=== PATIENT | female | born 1995 | race Caucasian/White ===

== ENCOUNTER 2022-10-15 12:15 | Observation (INO) | payer OTHER, SELFPAY ==
[2022-10-15] VITALS (7 sets, daily range): BP systolic 114–149; BP diastolic 63–101; PULSE 68–81
[2022-10-15 13:02] LABS: Bilirubin Urine NEGATIVE (NEGATIVE); Blood Urine LARGE (NEGATIVE); Clarity Urine CLEAR (CLEAR); Color Urine LT. YELLOW (YELLOW); Glucose Urine UA NEGATIVE (NEGATIVE); Ketones Urine NEGATIVE (NEGATIVE); Leukocyte Esterase Urine NEGATIVE (NEGATIVE); Nitrite Urine NEGATIVE (NEGATIVE); Protein Urine NEGATIVE (NEG/TRACE); Specific Gravity Urine 1.015 (1.005-1.025); Urine Microscopic Indicated YES; Urobilinogen Urine 0.2 EU/dL (0.2-1.0)
--- NOTE | 2022-10-15 13:03 | US_ITS ---
[address] [address] Patient Name: GUILLERMO PACE MRN: [id number] date: 1995 Sex: F Assigned Patient Location: [facility] Current Patient Location: [facility] Accession/Order Number: [id number] Exam Date: 10/15/2022 13:05 Report Date: 10/15/2022 13:50 At the request of: KARSTEN LUNA Procedure: US OB cervical length EXAMINATION: US OB cervical length, US OB BPP w non-stress, US OB placenta HISTORY: bleeding COMPARISON: No relevant comparison available. COMPARISON: No relevant comparison available. TECHNIQUE: Ultrasound biophysical profile was performed in the radiology department. Cervix length, Placenta FINDINGS: CERVIX: 2.6 cm, 6 mm funneling of internal os. Minimal fluid in endocervical canal up to mm. PLACENTA: Posterior, grade 1, no intra or retroplacental abnormality observed BREATHING MOVEMENTS: 2.0 GROSS BODY MOVEMENTS: 2.0 TONE: 2.0 QUALITATIVE AMNIOTIC FLUID VOLUME: 2.0 POSITION: Cephalic presentation, longitudinal lie HEART RATE: 131.1 bpm H.B./min AMNIOTIC FLUID VOLUME: 11.5 cm cm GESTATIONAL AGE: 36 weeks 1 days CONCLUSION: Total biophysical profile score: 8.0 Short cervix measuring 2.6 cm Normal placenta Electronically authenticated by: DAYRON AYON Date: 10/15/2022 13:50
--- NOTE | 2022-10-15 13:03 | US_ITS ---
[address] [address] Patient Name: GUILLERMO PACE MRN: [id number] date: 1995 Sex: F Assigned Patient Location: [facility] Current Patient Location: [facility] Accession/Order Number: [id number] Exam Date: 10/15/2022 13:05 Report Date: 10/15/2022 13:50 At the request of: KARSTEN LUNA Procedure: US OB placenta EXAMINATION: US OB cervical length, US OB BPP w non-stress, US OB placenta HISTORY: bleeding COMPARISON: No relevant comparison available. COMPARISON: No relevant comparison available. TECHNIQUE: Ultrasound biophysical profile was performed in the radiology department. Cervix length, Placenta FINDINGS: CERVIX: 2.6 cm, 6 mm funneling of internal os. Minimal fluid in endocervical canal up to mm. PLACENTA: Posterior, grade 1, no intra or retroplacental abnormality observed BREATHING MOVEMENTS: 2.0 GROSS BODY MOVEMENTS: 2.0 TONE: 2.0 QUALITATIVE AMNIOTIC FLUID VOLUME: 2.0 POSITION: Cephalic presentation, longitudinal lie HEART RATE: 131.1 bpm H.B./min AMNIOTIC FLUID VOLUME: 11.5 cm cm GESTATIONAL AGE: 36 weeks 1 days CONCLUSION: Total biophysical profile score: 8.0 Short cervix measuring 2.6 cm Normal placenta Electronically authenticated by: DAYRON AYON Date: 10/15/2022 13:50
--- NOTE | 2022-10-15 13:11 | US_ITS ---
[address] [address] Patient Name: GUILLERMO PACE MRN: [id number] date: 1995 Sex: F Assigned Patient Location: [facility] Current Patient Location: [facility] Accession/Order Number: [id number] Exam Date: 10/15/2022 13:05 Report Date: 10/15/2022 13:50 At the request of: KARSTEN LUNA Procedure: US OB BPP w non-stress EXAMINATION: US OB cervical length, US OB BPP w non-stress, US OB placenta HISTORY: bleeding COMPARISON: No relevant comparison available. COMPARISON: No relevant comparison available. TECHNIQUE: Ultrasound biophysical profile was performed in the radiology department. Cervix length, Placenta FINDINGS: CERVIX: 2.6 cm, 6 mm funneling of internal os. Minimal fluid in endocervical canal up to mm. PLACENTA: Posterior, grade 1, no intra or retroplacental abnormality observed BREATHING MOVEMENTS: 2.0 GROSS BODY MOVEMENTS: 2.0 TONE: 2.0 QUALITATIVE AMNIOTIC FLUID VOLUME: 2.0 POSITION: Cephalic presentation, longitudinal lie HEART RATE: 131.1 bpm H.B./min AMNIOTIC FLUID VOLUME: 11.5 cm cm GESTATIONAL AGE: 36 weeks 1 days CONCLUSION: Total biophysical profile score: 8.0 Short cervix measuring 2.6 cm Normal placenta Electronically authenticated by: DAYRON AYON Date: 10/15/2022 13:50
[2022-10-15 13:14] LABS: Bacteria Urine NONE SEEN #/HPF (NONE SEEN); Cast Seen? NONE SEEN #/LPF (NONE SEEN); Crystals Seen? None Seen #/HPF (None Seen); Mucus Urine TRACE (NONE SEEN); Squamous Epithelial Cell Urine MODERATE #/LPF (NONE/RARE); Urine Culture Indicated NO; WBC Urine 0-2 #/HPF (NONE SEEN)
[2022-10-15] MEDS: 0.9 % SODIUM CHLORIDE 1,000 ML 125 ML IV (13:42)
[2022-10-15 13:45] LABS: Basophils Percent Auto 0.3 % (0.2-2.0); Eosinophils Percent Auto 0.3 % (0.9-7.0); Hematocrit 32.4 % (36.0-48.0); Hemoglobin 11.1 g/dL (12.0-16.0); Lymphocytes Absolute Auto 1.5 10^3/uL (1.2-3.8); Lymphocytes Percent Auto 14.5 % (20.5-60.0); Mean Corpuscular HGB Conc 34.3 g/dL (29.9-35.2); Mean Corpuscular Hemoglobin 29.5 pg (26.7-34.0); Mean Corpuscular Volume 86.2 fL (81.0-99.0); Mean Platelet Volume 10.9 fL (9.5-13.5); Monocytes Absolute Auto 0.5 10^3/uL (0.3-0.8); Monocytes Percent Auto 5.3 % (1.7-12.0); Neutrophils Absolute Auto 7.9 10^3/uL (1.4-6.5); Neutrophils Percent Auto 78.6 % (43.0-75.0); Platelet Count 168 10^3/uL (150-450); Red Blood Count 3.76 10^6/uL (4.20-5.40); Red Cell Distribution Width 13.4 % (11.0-15.0)
[2022-10-15 14:00] LABS: Alanine Aminotransferase 16 U/L (14-59); Albumin Globulin Ratio 0.6; Albumin Level 2.5 g/dL (3.4-5.0); Alkaline Phosphatase 99 U/L (46-116); Aspartate Amino Transferase 22 U/L (15-37); Bilirubin Total 0.5 mg/dL (0.2-1.0); Calcium 8.3 mg/dL (8.5-10.1); Carbon Dioxide 22.8 mmol/L (21.0-32.0); Chloride 104 mmol/L (98-107); Estimated GFR (African America >60 (>=60); Estimated GFR (Non-African Ame >60 (>=60); Glucose 91 mg/dL (74-106); Lactate Dehydrogenase 179 U/L (81-234); Potassium 3.8 mmol/L (3.5-5.1); Sodium 137 mmol/L (136-145); Total Protein 6.5 g/dL (6.4-8.2); Uric Acid 3.3 mg/dL (2.6-6.0)
== END 2022-10-15 16:15 | disposition home or self-care (01) ==
PROVIDERS: Admitting Provider Obstetrics & Gynecology; PCP Family Medicine; Visit Provider Obstetrics & Gynecology
DX: O26.893 Other specified pregnancy related conditions, third trimester (principal); R10.9 Unspecified abdominal pain; H53.8 Other visual disturbances; R42 Dizziness and giddiness; O26.873 Cervical shortening, third trimester; O46.93 Antepartum hemorrhage, unspecified, third trimester; Z3A.36 36 weeks gestation of pregnancy
CPT/HCPCS: 36415; 76815; 76817; 76818; 80053; 81003; 81015; 83615; 84550; 85025; 96372; G0378; G0379; J0702

== ENCOUNTER 2022-10-16 14:19 | Outpatient (OUT) | payer OTHER, SELFPAY ==
--- NOTE | 2022-10-16 14:45 | PC.NURSE ---
1440- Pt. arrives for Celestone administration. Pt. verified and Celestone 12mg IM given in L DG.VS- 133/88-87-98.1
== END 2022-10-16 14:47 | disposition home or self-care (01) ==
PROVIDERS: PCP Family Medicine; Visit Provider Obstetrics & Gynecology
DX: O26.879 Cervical shortening, unspecified trimester (principal); Z3A.00 Weeks of gestation of pregnancy not specified
CPT/HCPCS: 96372; J0702

== ENCOUNTER 2022-10-19 20:24 | Outpatient (REF) | payer OTHER, SELFPAY | END 2022-10-19 20:25 | disposition home or self-care (01) | LOC: LAB 20:24 | PROVIDERS: PCP Family Medicine; Visit Provider Obstetrics & Gynecology | DX: Z34.93 Encounter for supervision of normal pregnancy, unspecified, third trimester (principal) | CPT/HCPCS: 87081; 87150 ==

== ENCOUNTER 2022-11-06 05:34 | Inpatient (IN) | payer OTHER, SELFPAY ==
[2022-11-06] VITALS (22 sets, daily range): BP systolic 113–140; BP diastolic 63–86; PULSE 67–88; RESP 15–18; TEMP 36.6–36.9
[2022-11-06] MEDS: 0.9 % SODIUM CHLORIDE 1,000 ML 125 ML IV (06:20)
[2022-11-06] MEDS: AMPICILLIN SODIUM 2,000 MG in 0.9 % SODIUM CHLORIDE 100 ML 200 MG IV (06:32)
[2022-11-06] MEDS: ONDANSETRON PF 4 MG/2 ML VIAL IV (06:37)
[2022-11-06 06:43] LABS: Hemoglobin 11.2 g/dL (12.0-16.0); Mean Corpuscular HGB Conc 33.9 g/dL (29.9-35.2); Mean Corpuscular Hemoglobin 30.1 pg (26.7-34.0); Mean Corpuscular Volume 88.7 fL (81.0-99.0); Mean Platelet Volume 11.4 fL (9.5-13.5); Platelet Count 171 10^3/uL (150-450); Red Blood Count 3.72 10^6/uL (4.20-5.40); Red Cell Distribution Width 13.7 % (11.0-15.0); White Blood Count 13.6 10^3/uL (4.0-11.0)
[2022-11-06 06:54] LABS: Amphetamine Screen Urine NEGATIVE (NEGATIVE); Barbiturates Screen Urine NEGATIVE (NEGATIVE); Benzodiazepines Screen Urine NEGATIVE (NEGATIVE); Cannabinoid Screen Urine NEGATIVE (NEGATIVE); Cocaine Screen Urine NEGATIVE (NEGATIVE); Methadone Screen Urine NEGATIVE (NEGATIVE); Methamphetamines Screen Urine NEGATIVE (NEGATIVE); Opiate Screen Urine NEGATIVE (NEGATIVE); Phencyclidine Screen Urine NEGATIVE (NEGATIVE); Tricyclic Antidepressant Urine NEGATIVE (NEGATIVE)
[2022-11-06 06:55] LABS: Buprenorphine Screen Urine NEGATIVE (NEGATIVE); Oxycodone Screen Urine NEGATIVE (NEGATIVE)
--- NOTE | 2022-11-06 08:23 | PM.OBPRCVD ---
Procedure events: Meconium Stained Fluid Intrapartal events: None Induction method: none Delivery monitor: external FHT and external uterine Route of delivery: Episiotomy Description: none Laceration description: none Anesthesia type: None Disposition: no change Complications: PRIMIP AT 39.2 WEEKS WITH SPONTANEOUS LABOR. NO EPIDURAL. NO PITOCIN. AMNIOTIC SAC RUPTURED WHEN FOR PARTICULTE MECONIUM. DID RECEIVE ONE DOSE OF AMPICILLIN FOR POSITIVE GBS. DELIVERED WITHOUT COMPLICATION A VIABLE MALE CRYING ON DELIVERY. MOUTH AND NARES BULB SUCTIONED. REFER TO NURSING NOTES FOR SCORED. TOTAL LENGTH OF LABOR 5 HOURS AND 26 MIN. PLACENTA SPONTANEOUSLY DELIVERED INTACT AND SENT TO PATHOLOGY FOR MECONIUM AND THIN UMBILICAL CORD. PERINEUM INTACT. EBL 50 CC. INSTRUMENT AND SPONGE COUNT CORRECT. Infant Delivery date: 11/06/22 Gender: male presentation: vertex Placental delivery description: Spontaneous cord description: 3 Vessels
--- NOTE | 2022-11-06 08:37 | PM.OBHP ---
OB - H&P: HPI History of Present Illness Chief complaint: POSS LABOR : 1 Para: 0 Gestational age based on last menstrual period: 39.2 History of Present Dating criteria: LMP confirmed by 2nd trimester US care: good care Ultrasounds: normal mid trimester US Medical complications OB: none Labs Blood type: O (+) positive Rubella: immune RPR/VDLR: nonreactive GBS status: positive HBsAG: negative Review of Systems ROS Status of ROS 10 or more systems reviewed and unremarkable except as noted in history and below Meds Home Medications and Allergies Allergies Allergy/AdvReac Type Severity Reaction Status Date / Time pollen extracts Allergy Intermediate Verified 11/06/22 06:30 Exam Constitutional Vital Signs, click to edit/add: Last Vital Signs Temp 97.9 F 11/06/22 06:23 Pulse 86 11/06/22 08:26 Resp 18 11/06/22 06:23 BP 130/77 H 11/06/22 08:26 O2 Del Method Room Air 11/06/22 06:23 HENMT Common normals: normocephalic and head/scalp atraumatic Head and scalp: normal to inspection Eye Common normals: PERRL and EOMs intact bilaterally Neck & C-Spine Common normals: full ROM Respiratory Common normals: normal respiratory effort and clear to auscultation bilaterally Cardio Common normals: regular rate and regular rhythm GI Inspection: normal to inspection (GRAVID UTERUS, ABDOMENT SOFT, NORMAL BOWEL SOUNDS, NONTENDER) Back & Pelvis Common normals: no CVA tenderness Extremity Common normals: normal to inspection and full ROM Neuro Common normals: oriented x3 and CN's II-XII intact bilaterally Psych Common normals: mental status grossly normal, thought process normal, cooperative and affect normal Results Labs Labs: Short CBC 11/06/22 Range/Units 06:14 WBC 13.6 H (4.0-11.0) 10^3/uL Hgb 11.2 L (12.0-16.0) g/dL Hct 33.0 L (36.0-48.0) % Plt Count 171 (150-450) 10^3/uL OB - A/P Assessment and Plan (1) Normal vaginal delivery: Assessment and Plan: UNCOMPLICATED VAGINAL DELIVERY AT TERM. NO EPIDURAL. NO PERINEAL TEAR. VIABLE MALE. SEE NURSING NOTES FOR APGARS. PLACENTA SENT TO PATHOLOGY FOR MECONIUM AND THIN UMBILICAL CORD. EBL 50 CC. Plan ROUTINE CARE.
--- NOTE | 2022-11-06 15:39 | PC.NURSE ---
1100 Up to BR, stable, pericare done and taught to pt, bedlinens changed and returns to bed
[2022-11-07 06:47] LABS: Basophils Percent Auto 0.2 % (0.2-2.0); Eosinophils Absolute Auto 0.1 10^3/uL (0.0-0.7); Eosinophils Percent Auto 0.6 % (0.9-7.0); Hematocrit 32.1 % (36.0-48.0); Hemoglobin 11.1 g/dL (12.0-16.0); Immature Granulocytes Abs Auto 0.09 10^3/uL (0.00-0.03); Immature Granulocytes Pct Auto 0.7 % (0.0-0.5); Lymphocytes Absolute Auto 2.1 10^3/uL (1.2-3.8); Lymphocytes Percent Auto 16.1 % (20.5-60.0); Mean Corpuscular HGB Conc 34.6 g/dL (29.9-35.2); Mean Corpuscular Hemoglobin 30.4 pg (26.7-34.0); Mean Corpuscular Volume 87.9 fL (81.0-99.0); Mean Platelet Volume 10.7 fL (9.5-13.5); Monocytes Absolute Auto 0.6 10^3/uL (0.3-0.8); Monocytes Percent Auto 4.9 % (1.7-12.0); Neutrophils Absolute Auto 9.8 10^3/uL (1.4-6.5); Neutrophils Percent Auto 77.5 % (43.0-75.0); Platelet Count 170 10^3/uL (150-450); Red Blood Count 3.65 10^6/uL (4.20-5.40); Red Cell Distribution Width 13.9 % (11.0-15.0); White Blood Count 12.7 10^3/uL (4.0-11.0)
[2022-11-07 09:10] VITALS: RESP 16; TEMP 36.7
[2022-11-07 09:46] VITALS: BP 125/79; PULSE 65
--- NOTE | 2022-11-07 11:06 | PM.OBPN ---
OB - PN: Subj Subjective Patient comments: no complaints, pain well controlled and tolerating diet [place] status: doing well and well [place] feeding status: exclusively Exam Constitutional Vital Signs, click to edit/add: Last Vital Signs Temp 98.1 F 11/07/22 09:10 Pulse 65 11/07/22 09:46 Resp 16 11/07/22 09:10 BP 125/79 H 11/07/22 09:46 O2 Del Method Room Air 11/06/22 23:25 Common normals: no apparent distress, oriented x3, no limitations, healthy appearing, alert and well nourished [facility] Common normals: normocephalic and head/scalp atraumatic Eye Common normals: PERRL and EOMs intact bilaterally Neck & C-Spine Common normals: full ROM Chest Common normals: inspection of chest normal Respiratory Common normals: normal respiratory effort Auscultation: clear to auscultation bilaterally Cardio Common normals: regular rate and regular rhythm GI Common normals: Normal to inspection, nondistended, normoactive bowel sounds present Common normals: no CVA tenderness OB/external & speculum: external exam normal and other (normal lochia) Extremity Common normals: full ROM and no calf tenderness Neuro Common normals: oriented x3 and CN's II-XII intact bilaterally Motor exam: strength 5/5 throughout Psych Common normals: mental status grossly normal, thought process normal, cooperative and affect normal Appearance: grossly normal and well kempt Attitude: calm Thought process: normal thought process Results Labs Labs: Short CBC 11/07/22 Range/Units 06:42 WBC 12.7 H (4.0-11.0) 10^3/uL Hgb 11.1 L (12.0-16.0) g/dL Hct 32.1 L (36.0-48.0) % Plt Count 170 (150-450) 10^3/uL OB - PN: A/P Assessment and Plan (1) Normal vaginal delivery: Assessment and Plan: Doing well, voicing no complaints. Ambulating, eating and eliminating normally. Breast feeding. Normal lochia. Plan - Vaginal Delivery Plan: routine care Comment: anticipate discharge tomorrow Time Spent with Patient Time: Total time spent is greater than 50% in coordination of care (as documented) at patient's floor/unit and/or counseling patient: Total time spent with greater than 50% in coordination of care (as documented) at patient's floor/unit and/or counseling patient: less than 15 minutes
--- NOTE | 2022-11-15 14:22 | SWNOTE1 ---
SW was consulted due to history of drug use. Pt was negative on admission. Cord was sent out on baby and the cord was negative for all substances. At this time no report to CPS was made.
== END 2022-11-07 13:10 | disposition home or self-care (01) | DRG 807 ==
PROVIDERS: Admitting Provider Obstetrics & Gynecology; PCP Family Medicine; Visit Provider Obstetrics & Gynecology
DX: O99.824 Streptococcus B carrier state complicating childbirth (principal); Z37.0 Single live birth; O34.43 Maternal care for other abnormalities of cervix, third trimester; O77.0 Labor and delivery complicated by meconium in amniotic fluid; O69.9XX0 Labor and delivery complicated by cord complication, unspecified, not applicable or unspecified; Z3A.39 39 weeks gestation of pregnancy
CPT/HCPCS: 36415; 59025; 59050; 59410; 80307; 85025; 85027; 86850; 86900; 86901; 88307; 96374; 96375

== ENCOUNTER 2024-05-11 11:15 | Outpatient (OUT) | payer MEDICAID, SELFPAY ==
[2024-05-11 12:21] LABS: BOX Test Reference Lab UNITY; BOX Test Sent Out UNITY BOX; Estimated Average Glucose 91 mg/dL; Glycohemoglobin A1C 4.8 % (4.5-6.2)
[2024-05-11 12:53] LABS: Amphetamine Screen Urine NEGATIVE (NEGATIVE); Barbiturates Screen Urine NEGATIVE (NEGATIVE); Benzodiazepines Screen Urine NEGATIVE (NEGATIVE); Buprenorphine Screen Urine NEGATIVE (NEGATIVE); Cannabinoid Screen Urine POSITIVE (NEGATIVE); Cocaine Screen Urine NEGATIVE (NEGATIVE); Methadone Screen Urine NEGATIVE (NEGATIVE); Methamphetamines Screen Urine NEGATIVE (NEGATIVE); Opiate Screen Urine NEGATIVE (NEGATIVE); Oxycodone Screen Urine NEGATIVE (NEGATIVE); Phencyclidine Screen Urine NEGATIVE (NEGATIVE); Tricyclic Antidepressant Urine NEGATIVE (NEGATIVE)
[2024-05-11 13:00] LABS: Basophils Percent Auto 0.4 % (0.2-2.0); Eosinophils Absolute Auto 0.1 10^3/uL (0.0-0.7); Eosinophils Percent Auto 0.5 % (0.9-7.0); Hematocrit 34.3 % (36.0-48.0); Hemoglobin 11.5 g/dL (12.0-16.0); Immature Granulocytes Abs Auto 0.04 10^3/uL (0.00-0.03); Immature Granulocytes Pct Auto 0.4 % (0.0-0.5); Lymphocytes Absolute Auto 1.9 10^3/uL (1.2-3.8); Lymphocytes Percent Auto 19.9 % (20.5-60.0); Mean Corpuscular HGB Conc 33.5 g/dL (29.9-35.2); Mean Corpuscular Hemoglobin 29.1 pg (26.7-34.0); Mean Corpuscular Volume 86.8 fL (81.0-99.0); Mean Platelet Volume 10.7 fL (9.5-13.5); Monocytes Absolute Auto 0.4 10^3/uL (0.3-0.8); Monocytes Percent Auto 3.7 % (1.7-12.0); Neutrophils Absolute Auto 7.2 10^3/uL (1.4-6.5); Neutrophils Percent Auto 75.1 % (43.0-75.0); Platelet Count 217 10^3/uL (150-450); Red Blood Count 3.95 10^6/uL (4.20-5.40); Red Cell Distribution Width 13.4 % (11.0-15.0); White Blood Count 9.6 10^3/uL (4.0-11.0)
[2024-05-12 05:07] LABS: HCV Ab Non Reactive (Non Reactive); HIV Ab/p24 Ag Screen Non Reactive (Non Reactive); Rubella Antibodies, IgG 3.32 index (Immune >0.99)
[2024-05-12 06:08] LABS: HBsAg Screen Negative (Negative)
[2024-05-12 12:09] LABS: Rapid Plasma Reagin, Quant Non Reactive titer (NonRea<1:1)
== END 2024-05-11 11:16 | disposition home or self-care (01) ==
LOC: LAB 11:36
PROVIDERS: PCP Family Medicine; Visit Provider Obstetrics & Gynecology
DX: Z34.01 Encounter for supervision of normal first pregnancy, first trimester (principal); N92.6 Irregular menstruation, unspecified; Z36.0 Encounter for antenatal screening for chromosomal anomalies
CPT/HCPCS: 36415; 80307; 80349; 83036; 85025; 86592; 86762; 86803; 86850; 86900; 86901; 87086; 87340; 87389

== ENCOUNTER 2024-06-26 10:56 | Outpatient (OUT) | payer MEDICAID, SELFPAY ==
--- OUTSIDE RECORDS SUMMARY | 2024-06-26 11:08 | XMS_ITS | CCD ---
Author Organization [facility] Care Team Providers Care Automobile Rental Agent Name Role Phone MARGARETTE ., DR VICTOR Consulting Unavailable DEFRANCE, DR PADGETT Primary Care Unavailable MARGARETTE ., DR VICTOR Attending Unavailable MARGARETTE ., DR VICTOR Admitting Unavailable REQUEST, DR PISANO LISTED Consulting Unavaila ble DEFRANCE, DR PADGETT Primary Care Unavailable MARGARETTE ., DR VICTOR Attending Unavailable MARGARETTE ., DR VICTOR Admitting Unavailable HAY ., DR MCKEON Consulting Unavailable DEFRANCE, DR PADGETT Primary Care Unavailable HAY ., DR MCKEON Attending Unavailable HAY ., DR MCKEON Admitting Unavailable SHANTHI ZAIDI Consulting Unavailable MARGARETTE ., DR VICTOR Consulting Unavailable DEFRANCE, DR PADGETT Primary Care Unavailable MARGARETTE ., DR VICTOR Attending Unavailable MARGARETTE ., DR VICTOR Admitting Unavailable WEST, DR PADGETT Consulting Unavailable DEFRANCE, DR PADGETT Primary Care Unavailable GEOVANNA ., ANITA Attending Unavailable GEOVANNA ., ANITA Admitting Unavailable GEOVANNA ., ANITA Consulting Unavailable GEOVANNA ., ANITA Consulting Unavailable DEFRANCE, DR PADGETT Primary Care Unavailable GEOVANNA ., ANITA Attending Unavailable GEOVANNA ., ANITA Admitting Unavailable MARGARETTE ., DR VICTOR Consulting Unavailable REQUEST, DR NONE LISTED Primary Care Unavaila ble MARGARETTE ., DR VICTOR Attending Unavailable MARGARETTE ., DR VICTOR Admitting Unavailable MARGARETTE ., DR VICTOR Consulting Unavailable MARGARETTE ., DR VICTOR Attending Unavailable MARGARETTE ., DR VICTOR Admitting Unavailable ZIEBER, DR LOLIS Rascon Consulting Unavailable MARGARETTE ., DR VICTOR Consulting Unavailable REQUEST, DR NONE LISTED Primary Care Unavaila ble MARGARETTE ., DR VICTOR Attending Unavailable MARGARETTE ., DR VICTOR Admitting Unavailable MARGARETTE ., DR VICTOR Consulting Unavailable REQUEST, DR NONE LISTED Primary Care Unavaila ble MARGARETTE ., DR VICTOR Attending Unavailable MARGARETTE ., DR VICTOR Admitting Unavailable Unavailable Primary Care Provider UnavailEDWARD Bustamante Attending Unavailable ADALID KONG Primary Care Unavailable Dayron Kimbrough MD Primary Care Provider VALENTE PFEIFFER Attending Unavailable Allergies Allergy Classification Reported Allergen(s) Allergy Type Date of Onset Reaction(s) Facility (5 sources) Pollen Allergy to substance 09-15-2022 Unknown [facility] Work Phone: Medications Current Medications Medication Drug Class(es) Dates Sig (Normalized) Sig (Original) ondansetron 4 mg disintegrating oral tablet (10 sources) Serotonin-3 Receptor Antagonist Start: 04-20-2024 End: 06-14-2024 take 1 tablet by mouth every six hours for nausea ondansetron ODT (Zofran-ODT) 4 MG disintegrating tablet Indications: Nausea and vomiting in Take 1 tablet (4 mg) by mouth every 6 (six) hours if needed for nausea or vomiting 30 tablet 2 05/15/2024 06/14/2024 Active Start: 04-12-2024 take 1 tablet by victor hugo th every eight hours as needed ondansetron (Zofran) 4 MG tablet Take 4 mg by mouth every 8 (eight) hours if needed 04/12/2024 Active MV-Min-Fe Fum-FA-DH A ( 1 PO) (5 sources) MV-Min- Fe Fum-FA-DHA ( 1 PO) Take by mouth. Active Completed/Discontinued Medications Medication Drug Class(es) Dates Sig (Normalized) Sig (Original) norethindrone 0.35 mg oral tablet (1 source) Start: 12-23-2022 End: 04-24-2024 take 1 tablet by mouth in the morning norethindrone (Micronor) 0.35 MG tablet Indications: 6 weeks follow-up Take 1 tablet (0.35 mg) by mouth in the morning. 28 tablet 11 12/23/2022 04/24/2024 Discontinued (Therapy completed) Problems Active Problems Problem Classification Problem Date Documented Date Episodic/Chronic Diabetes mellitus without complication (4 sources) Impaired glucose tolerance (oral); Translations: [IMPAIRED GLUCOSE TOLERANCE ORAL] Onset: 08-06-2022 Episodic Immunizations and screening for infectious disease (1 source) Contact with and (suspected) exposure to infections with a predominantly sexual mode of transmission; Translations: [CONTCT W EXPOS INFECT SEXUAL TRNSMS] Onset: 06-17-2022 Episodic Menstrual disorders (5 sources) Irregular menstruation, unspecified; Translations: [Missed period] Onset: 05-06-2022 Chronic Other complications of (1 source) Vomiting of , unspecified; Translations: [Vomiting of , unspecified] Onset: 04-12-2024 Episodic Other female genital disorders (5 sources) Vaginal bleeding; Translations: [Abnormal uterine and vaginal bleeding, unspecified] Onset: 10-22-2022 10-22-2022 Chronic Other female genital disorders (1 source) Other specified noninflammatory disorders of vagina; Translations: [OTH SPEC NONINFLAMMATORY D/O VAGINA] Onset: 06-17-2022 Episodic Other and delivery including normal (14 sources) Encounter for supervision of normal , unspecified, second trimester; Translations: [Encounter for supervision of other normal , first trimester] Onset: 04-22-2022 Episodic Other screening for suspected conditions (not mental disorders or infectious disease) (5 sources) Encounter for screening, unspecified; Translations: [Encounter for screening for malignant neoplasm of cervix] Onset: 06-14-2022 Episodic Residual codes; unclassified (1 source) Finding related to blood, organ, or tissue donation; Translations: [Liver donor] 01-11-2024 Episodic Residual codes; unclassified (1 source) Gestation period, 11 weeks; Translations: [11 weeks gestation of ] 04-27-2024 Episodic Residual codes; unclassified (2 sources) Gestation period, 15 weeks; Translations: [15 weeks gestation of ] 05-29-2024 Episodic Substance-related disorders (1 source) Nicotine dependence, cigarettes, uncomplicated; Translations: [NICOTINE DEPEND CIGARETTES UNCOMP] Onset: 05-31-2022 Chronic Unclassified (1 source) Vomiting During Onset: 04-12-2024 Unclassified (1 source) VOMITING, 9 WKS Onset: 04-12-2024 Past or Other Problems Problem Classification Problem Date Documented Da te Episodic/Chronic Hemorrhage during ; abruptio placenta; placenta previa (4 sources) Antepartum hemorrhage, unspecified, second trimester; Translations: [ANTEPARTUM HEMORR UNS 2ND TRIMESTER] Onset: 05-29-2022 Episodic Other complications of (1 source) Smoking (tobacco) complicating , second trimester; Translations: [SMOKING TOBACCO COMP PREG 2ND TRI] Onset: 05-31-2022 Episodic Residual codes; unclassified (1 source) 15 weeks gestation of ; Translations: [15 WEEKS GESTATION OF ] Onset: 05-31-2022 Episodic Residual codes; unclassified (1 source) 10 weeks gestation of ; Translations: [10 WEEKS GESTATION OF ] Onset: 04-22-2022 Episodic Results Test Name Value Interpretation Reference Range Facility Urinalysis macro (dipstick) panel (U)on 05-29-2024 Bilirubin, UA Negative Negative - 4(70) +++ mg/dL [facility] Blood, UA Negative Negative - 50 Wali/mcL [facility] Clarity, UA Clear [facility] Color, UA Yellow [facility] Glucose, UA Negative Negative - 2000(110) ++++ mg/dL [facility] Interpretation and review of laboratory results Normal [facility] Ketones, UA Negative Negative - 160(16) ++++ mg/dL [facility] Leukocytes, UA Negative Negative - 500+++ Dmitriy/mcL [facility] Nitrite, UA Negative Negative - Positive [facility] pH, UA 6 5 - 9 [facility] Protein, UA Negative Negative - 2000(20) ++++ mg/dL [facility] Spec Grav, UA 1.03 1 - 1.03 [facility] Urobilinogen, UA 0.2 0.2 - 12 mg/dL Critical [facility] hospital BOX TESTon 05-11-2024 BOX TEST SENT OUT [facility] BOX1 [facility] BOX2 05/11/24 [facility] HCG ( test) Ql (U)o n 04-27-2024 Interpretation and review of laboratory results Abnormal [facility] Preg Test, Ur Positive Negative Critical [facility] hospital US OB TRANSVAGINALon 025 US OB TRANSVAGINAL TITLE OF EXAM: US OB TRANSVAGINAL REASON FOR EXAM: Dates TECHNIQUE: Grayscale, color, and M-mode Doppler evaluation of the pelvis COMPARISON: None. PATIENT : 1995 PREGNANCIES: : 2, Para: 1, Aborta: 0 LMP: 02/10/2024 LES by LMP: 11/16/2024 GA by LMP: 11 weeks, 0 days FINDINGS: AUA: 11 weeks, 4 days (+/-7 days) LES by US: 11/12/2024 Uterus: There is a gestational sac and 0.4 cm yolk sac within the uterine body/fundus. Live embryo within the gestational sac without evident abnormality. Gestational sac of 4.8 x 2.4 x 6.1 cm (10 weeks, 0 days). [place] rump length is 4.8 cm (11 weeks, 4 days). heart rate is 168 bpm. No appreciable subchorionic hemorrhage or other abnormality. Cervical length 4.0 cm. No appreciable funneling. Right ovary: 2.8 x 1.4 x 3.0 cm (volume 5.0 mL). Present color flow. No appreciable nodule/mass. Left ovary: 3.0 x 1.8 x 2.3 cm (volume 6.4 mL). Present color flow. No appreciable nodule/mass. IMPRESSION: Single live intrauterine gestation sonographically measuring 11 weeks, 4 days. No appreciable abnormality of the evaluated and maternal structures. DICTATED ON: 04/27/2024 9:31 AM This report has been electronically signed and approved by the interpreting radiologist. Normal Not Available Comment on above: Order Comment: US OB TRANSVAGINAL No LMP recorded. Urinalysis macro (dipstick) panel (U)on 04-27-2024 Bilirubin, UA Negative Negative - 4(70) +++ mg/dL [facility] Blood, UA Negative Negative - 50 Wali/mcL [facility] Clarity, UA Clear [facility] Color, UA Yellow [facility] Glucose, UA Negative Negative - 1999(110) ++++ mg/dL [facility] Interpretation and review of laboratory results Normal [facility] Ketones, UA Negative Negative - 160(16) ++++ mg/dL [facility] Leukocytes, UA Negative Negative - 500+++ Dmitriy/mcL [facility] Nitrite, UA Negative Negative - Positive [facility] pH, UA 6 5 - 9 [facility] Protein, UA Negative Negative - 2000(20) ++++ mg/dL [facility] Spec Grav, UA 1.025 1 - 1.03 [facility] Urobilinogen, UA 0.2 0.2 - 12 mg/dL Critical access hospital CBC AND AUTO DIFFon 04-12-20 ABSOLUTE BASOPHIL 0.1 X10E9/L Normal 0.0-0.2 [facility] Comment on above: Performed By: #### C JUSTIN GASTON, #### [facility] ([id number]) [address] [place] [address] 92929 ABSOLUTE NEUTROPHIL 9.3 X10E9/L High 1.5-6.6 [facility] Comment on above: Performed By: #### C JUSTIN GASTON, #### [facility] ([id number]) [address] [place] [address] 01447 Basophils/100 WBC (Bld) 0.4 % Normal [facility] Comment on above: Performed By: #### Abraham GASTON CMP, #### [facility] ([id number]) [address] [place] [address] 52318 Eosinophils (Bld) [#/Vol] 0.0 10*3/uL Normal 0.0-0.4 [facility] Comment on above: Performed By: #### Abraham GASTON [facility], #### [facility] ([id number]) [address] [place] [address] 34146 Eosinophils/100 WBC (Bld) 0.2 % Normal [facility] Comment on above: Performed By: #### Abraham GASTON CMP, #### [facility] ([id number]) [address] [place] [address] 15623 Erythrocyte distribution width (RBC) [Ratio] 14.4 % Normal 11.5-15.0 [facility] Comment on above: Performed By: #### Abraham GASTON CMP, #### [facility] ([id number]) [address] [place] [address] 90992 Hematocrit (Bld) [Volume fraction] 39.7 % Normal 35-47 [facility] Comment on above: Performed By: #### C MARILIN CMP, 19649-9 #### [facility] ([id number]) [address] [place] [address] 32215 Hemoglobin (Bld) [Mass/Vol] 13.4 g/dL Normal 11.7-15.5 [facility] Comment on above: Performed By: #### Abraham GASTON CMP, #### [facility] ([id number]) [address] [place] [address] 83896 Lymphocytes (Bld) [#/Vol] 2.2 10*3/uL Normal 1.0-3.5 [facility] Comment on above: Performed By: #### Abraham GASTON CMP, #### [facility] ([id number]) [address] [place] [address] 58741 Lymphocytes/100 WBC (Bld) 18.4 % Normal [facility] Comment on above: Performed By: #### Abraham GASTON CMP, #### [facility] ([id number]) [address] [place] [address] 06244 MCH (RBC) [Entitic mass] 28.4 pg Normal 27-34 [facility] Comment on above: Performed By: #### Abraham GASTON CMP, #### [facility] ([id number]) [address] [place] [address] 02959 MCHC (RBC) [Mass/Vol] 33.8 g/dL Normal 32-36 [facility] Comment on above: Performed By: #### Abraham GASTON CMP, #### [facility] ([id number]) [address] [place] [address] 16654 MCV (RBC) [Entitic vol] 84 fL Normal 80-100 [facility] Comment on above: Performed By: #### Abraham GASTON CMP, #### [facility] ([id number]) [address] [place] [address] 90504 Monocytes (Bld) [#/Vol] 0.6 10*3/uL Normal 0-0.9 [facility] Comment on above: Performed By: #### Abraham GASTON CMP, 93065-9 #### [facility] ([id number]) [address] [place] [address] 59432 Monocytes/100 WBC (Bld) 4.7 % Normal [facility] Comment on above: Performed By: #### Abraham GASTON, CMP, 28183-5 #### [facility] ([id number]) [address] [place] [address] 74137 Neutrophils/100 WBC (Bld) 76.3 % Normal [facility] Comment on above: Performed By: #### Abraham GASTON [facility], 55176-2 #### [facility] ([id number]) [address] [place] [address] [place] [address] Platelet mean volume (Bld) [Entitic vol] 8.6 fL Normal 7-12 [facility] Comment on above: Performed By: #### Abraham GASTON [facility], 80719-4 #### [facility] ([id number]) [address] [place] [address] 85690 Platelets (Bld) [#/Vol] 277 10*3/uL Normal 150-450 [facility] Comment on above: Performed By: #### Abraham GASTON, CMP, #### [facility] ([id number]) [address] [place] [address] 96585 RBC COUNT 4.73 X10E12/L Normal 3.80-5.20 [facility] Comment on above: Performed By: #### Abraham GASTON, CMP, 22311-3 #### [facility] ([id number]) [address] [place] [address] 48788 WBC (Bld) [#/Vol] 12.1 10*3/uL High 4.0-11.0 [facility] Comment on above: Performed By: #### C MARILIN CMP, 76533-0 #### [facility] ([id number]) [address] [place] [address] 45444 COMPREHENSIVE METABOLIC PANE Amador 04-12-2024 Albumin [Mass/Vol] 4.4 g/dL Normal 3.2-5.3 [facility] Comment on above: Performed By: #### C JUSTIN GASTON, 10416-3 #### [facility] ([id number]) [address] [place] [address] 39991 ALP [Catalytic activity/Vol] 55 U/L Normal 39-130 [facility] Comment on above: Performed By: #### C JUSTIN GASTON, 87576-5 #### [facility] ([id number]) [address] [place] [address] 59858 ALT [Catalytic activity/Vol] 22 U/L Normal 0-31 [facility] Comment on above: Performed By: #### C MARILIN, [facility], 91886-0 #### [facility] ([id number]) [address] [place] [address] 64853 Anion gap [Moles/Vol] 10 mmol/L Normal 5-15 [facility] Comment on above: Performed By: #### C MARILIN CMP, 44928-8 #### [facility] ([id number]) [address] [place] [address] 76776 AST [Catalytic activity/Vol] 16 U/L Normal 0-41 [facility] Comment on above: Performed By: #### C BCA, CMP, 93377-7 #### [facility] ([id number]) [address] [place] [address] 50667 Bilirubin [Mass/Vol] 1.7 mg/dL High 0.3-1.2 [facility] Comment on above: Performed By: #### C MARILIN [facility], 58903-9 #### [facility] ([id number]) [address] [place] [address] 19426 Calcium [Mass/Vol] 9.3 mg/dL Normal 8.5-10.5 [facility] Comment on above: Performed By: #### C MARILIN [facility], 83464-9 #### [facility] ([id number]) [address] [place] [address] 90238 Chloride [Moles/Vol] 102 mmol/L Normal 98-109 [facility] Comment on above: Performed By: #### C MARILIN [facility], 04003-7 #### [facility] ([id number]) [address] [place] [address] 85756 CO2 [Moles/Vol] 23 mmol/L Normal 22-32 [facility] Comment on above: Performed By: #### C MARILIN [facility], 02528-7 #### [facility] ([id number]) [address] [place] [address] 95045 Creatinine [Mass/Vol] 0.55 mg/dL Normal 0.40-1.00 [facility] Comment on above: Result Comment: METH OD TRACEABLE TO IDMS STANDARD Performed By: #### C MARILIN [facility], 62239-6 #### [facility] ([id number]) [address] [place] [address] 33433 eGFR (CKD-EPI) NON-RACE DEPENDENT >90 Normal >59 [facility] Comment on above: Result Comment: Reported eGFR is based on the CKD-EPI 2020 equation that does not use a race coefficient. Performed By: #### C JUSTIN GASTON, 94899-3 #### [facility] ([id number]) [address] [place] [address] 49977 Glucose [Mass/Vol] 94 mg/dL Normal 65-99 [facility] Comment on above: Performed By: #### C MARILIN, CMP, 24054-2 #### [facility] ([id number]) [address] [place] [address] 96919 Potassium [Moles/Vol] 3.5 mmol/L Normal 3.5-5.0 [facility] Comment on above: Performed By: #### C MARILIN CMP, #### [facility] ([id number]) [address] [place] [address] 80124 Protein [Mass/Vol] 7.9 g/dL Normal 6.0-8.0 [facility] Comment on above: Performed By: #### C MARILIN CMP, #### [facility] ([id number]) [address] [place] [address] 02381 Sodium [Moles/Vol] 135 mmol/L Normal 134-146 [facility] Comment on above: Performed By: #### C MARILIN, CMP, #### [facility] ([id number]) [address] [place] [address] 59922 Urea nitrogen [Mass/Vol] 10 mg/dL Normal 5-23 [facility] Comment on above: Performed By: #### C MARILIN CMP, 66721-7 #### [facility] ([id number]) [address] [place] [address] 99105 HCG ( test) Ql (U)o n 04-12-2024 Beta HCG ( test) Ql (U) Positive Abnormal NEG [facility] Comment on above: Performed By: #### 2 106-3 #### [facility] ([id number]) [address] [place] [address] 05945 MAGNESIUMon 04-12-2024 Magnesium [Mass/Vol] 2.0 mg/dL Normal 1.8-2.6 [facility] Comment on above: Performed By: #### C MARILIN CMP, 35089-4 #### [facility] ([id number]) [address] [place] [address] 74765 URN MACROSCOPIC NURon 2023 BILIRUBIN MAIA Negative Normal NEG [facility] Comment on above: Performed By: #### N UM #### [facility] ([id number]) [address] [place] [address] 79178 BLOOD/HGB MAIA Negative Normal NEG [facility] Comment on above: Performed By: #### N UM #### [facility] ([id number]) [address] [place] [address] 39076 GLUCOSE MAIA Negative Normal NEG [facility] Comment on above: Performed By: #### N UM #### [facility] ([id number]) [address] [place] [address] [place] [address] KETONES MAIA >=160 Abnormal NEG [facility] Comment on above: Performed By: #### N UM #### [facility] ([id number]) [address] [place] [address] [place] [address] LEUKOCYTE ESTERASE MAIA Negative Normal NEG [facility] Comment on above: Performed By: #### N UM #### [facility] ([id number]) [address] [place] [address] [place] [address] NITRITE MAIA Negative Normal NEG [facility] Comment on above: Performed By: #### N UM #### [facility] ([id number]) [address] [place] [address] 47147 PH MAIA 6.5 Normal 5.0-8.5 [facility] Comment on above: Performed By: #### N UM #### [facility] ([id number]) [address] [place] [address] 75343 PROTEIN MAIA Trace Abnormal NEG [facility] Comment on above: Performed By: #### N UM #### [facility] ([id number]) [address] [facility], [place] [address] SPECIFIC GRAVITY MAIA >=1.030 Normal 1.003-1.035 [facility] Comment on above: Performed By: #### N UM #### [facility] ([id number]) [address] [place] [address] 09813 UROBILINOGEN MAIA 1.0 eu/dL Normal <1.1 [facility] Comment on above: Performed By: #### N UM #### [facility] ([id number]) [address] [place] [address] 45118 CNPKristal 01-11-2024 CNPN Telephone (TXCTMN) LORAINE PACE ([id number]) 1995 F Date Time Provider Department 01/11/24 LIVER TXP COORDINATOR TXAYLIN During your visit today, we recorded the following information about you: rKiss Atkins Tech 01/11/2024 11:08 AM Signed Living Donor Liver Transplant Inquiry Referral Patient inquired about being a potential liver transplant living donor. Have they read the LDLT information online? Yes Have they filled out their medical information on the LDLT website? Yes Do they want to move forward with an evaluation? Yes Recipient' insurance verified for living donor? Yes Online intake has been scanned to [employer] for review by the living donor coordinator. Allergies As of Date: 01/11/2024 (Not on File) Date Reviewed: Never Reviewed Reason for Visit: Referral - Donor Txp [[id number]] Primary Visit Diagnosis:Liver donor [Z52.6] Order(s):CONSULT TO TRANSPLANT CENTER [[id number]] Order #: [id number]: 1 Problem List As Of Date: 01/11/2024 (None) Encounter Status:Closed by KRISS ATKINS on 01/11/24 Normal [facility] Telephone (TXCTMN) LORAINE PACE ([id number]) 1995 F Date Time Provider Department 01/11/24 KARINA SHI (RN) (HIST)TXCTMN During your visit today, we recorded the following information about you: Karina ShiRn) (Hist), SHANNON 01/26/2024 12:45 PM Signed LIVING LIVER DONOR SCREENING FORM Loraine Pace contacted the Living Liver Donor office expressing interest in becoming a living donor. Donor's Relationship to Recipient: niece Age 28 Sex Female Height (pt reported) 5'5 Weight (pt reported) 132lb BMI (based on pt reported Ht AND Wt) 21.96 Marital Status/Living situation , 2 children, 1 biological - 1, and 3 y.o daughter (boyfriend's daughter) has S.O. Spouse or Significant Other aware of interest in donation? Yes, supportive Educational Level High School Diploma Current Work Status not currently employed, her choice [place] Citizen Yes Blood type: O (Per patient report) Recipient blood type: A /source: EPIC Allergies: pollen-sinus issues Donor's Medical History: Donor's Family History: Hypertension No No Diabetes No No Kidney disease No No Lung disease (SLEEP APNEA/CPAP) No No Heart disease including CAD No No Gastrointestinal No No Autoimmune (including PSC, PBC, Autoimmunie hepatitis) No No Neurologic No No Genitourinary No No Malignancy including melanoma No No Blood disorders (Hx of bleeding or clotting) No No History of Infections No No Abnormal LFTs No uncle Liver disease (A1AT, Amyloid) No No Fatty Liver Disease No No Hepatitis No No Jaundice No No Psych History (including depression, anxiety or suicide attempts) Anxiety as a child, not as an adult No Medications (including OTC and herbals): no Vaccinated for Covid? No, had 1 time no intermodal dispatcher side effects Overall general health: Patient reports that she is in good health. Willing to accept blood transfusions if needed: Yes Females: Hx of Pregnancies: Yes 1 Taking BCP? no Donor's Surgical History: no Health Maintenance Testing: Date of last PAP Fe Date of last Mammogram no Date of last Colonoscopy no Based upon the above screening criteria, the patient will require: No additional testing is needed at this time. Patient is up to date with cancer screening. Substance Use: Smoking Previous Smoker: Quit Date: 2019; Hx: Cigarettes - 1 PPD every 2 days for 7 years (Pack-Years: 3.5) Alcohol Use No Recreational Drugs No Potential Donor has been informed to abstain from alcohol until 6 months postoperatively and she verbalized understanding. TB Screening: Was the patient born outside of the [place] in any of the countries in the shaded portion of the table below? No Has the patient spent more than 3 months OR participated in relief work in these same higher risk countries (shaded portion of the following table)? No Does the patient have a history of injection drug use? No Has the patient ever resided in or worked in hospitals, nursing homes, correctional facilities, other health care settings, homeless shelters? No Does the patient have radiographic evidence of prior tuberculosis on chest radiograph? No Based upon the above TB screening criteria, the patient does not need a PPD. Refer to ID if positive PPD >15 mm induration, history of + PPD or concern for active TB on CXR Medical Insurance: Yes, insurance until 01/23/24. As of 01/26/24 does not have insurance - needs to pay for new insurance and does not have the money right now. Based upon the information provided by the potential donor during this screening interview and reviewed by Dr. Merino, there are no contraindications to proceeding with living donor evaluation once insurance is obtained. I explained this to Loraine and she will call me back when she has active insurance. Karina Shi RN Living Liver Donor Coordinator Allergies As of Date: 01/11/2024 (Not on File) Date Reviewed: Never Reviewed Problem List As Of Date: 01/11/2024 (None) Encounter Status:Closed by KARINA SHI on 01/26/24 Normal [facility] GTT 3 HR PREGon 08-06-2022 Glucose [Mass/Vol] 80 mg/dL Normal [facility] Comment on above: Performed By: #### G TT3P #### [facility] [address] [place] [address] Dr. Jamie Dickey Glucose [Mass/Vol] 139 mg/dL Normal [facility] Comment on above: Performed By: #### G TT3P #### [facility] [address] [place] [address] Dr. Jamie Dickey Glucose [Mass/Vol] 99 mg/dL Normal [facility] Comment on above: Performed By: #### G TT3P #### [facility] [address] [place] [address] Dr. Jamie Dickey CBC AUTO DIFFon 07-27-2022 BASO # 0.0 103/ul Normal 0.0-0.1 [facility] Comment on above: Performed By: #### C BC #### [facility] [address] [place] [address] Dr. Jamie Dickey Basophils/100 WBC (Bld) 0.4 % Normal 0.2-2.0 [facility] Comment on above: Performed By: #### C BC #### [facility] [address] [place] [address] Dr. Jamie Dickey EO # 0.2 103/ul Normal 0.0-0.7 [facility] Comment on above: Performed By: #### C BC #### [facility] [address] [place] [address] Dr. Jamie Dickey Eosinophils/100 WBC (Bld) 1.8 % Normal 0.9-7.0 [facility] Comment on above: Performed By: #### C BC #### [facility] [address] [place] [address] Dr. Jamie Dickey Erythrocyte distribution width (RBC) [Ratio] 13.2 % Normal 11.0-15.0 [facility] Comment on above: Performed By: #### C BC #### [facility] [address] [place] [address] Dr. Jamie Dickey Hematocrit (Bld) [Volume fraction] 32.1 % Critically low 36.0-48.0 [facility] Comment on above: Performed By: #### C BC #### [facility] [address] [place] [address] Dr. Jamie Dickey Hemoglobin (Bld) [Mass/Vol] 10.8 g/dL Critically low 12.0-16.0 [facility] Comment on above: Performed By: #### C BC #### [facility] [address] [place] [address] Dr. Jamie Dickey IG # 0.07 10e3/ul Critically high 0.00-0.03 [facility] Comment on above: Performed By: #### C BC #### [facility] [address] [place] [address] Dr. Jamie Dickey IG % 0.8 % Critically high 0.0-0.5 [facility] Comment on above: Performed By: #### C BC #### [facility] [address] [place] [address] Dr. Jamie Dickey LYMPH # 1.8 103/ul Normal 1.2-3.8 [facility] Comment on above: Performed By: #### C BC #### [facility] [address] [place] [address] Dr. Jamie Dickey Lymphocytes/100 WBC (Bld) 20.4 % Critically low 20.5-60.0 [facility] Comment on above: Performed By: #### C BC #### [facility] [address] [place] [address] Dr. Jamie Diceky MANUAL DIFF REQ NO Normal [facility] Comment on above: Performed By: #### C BC #### [facility] [address] [place] [address] Dr. Jamie Dickey MCH (RBC) [Entitic mass] 29.1 pg Normal 26.7-34.0 [facility] Comment on above: Performed By: #### C BC #### [facility] [address] [place] [address] Dr. Jamie Dickey MCHC (RBC) [Mass/Vol] 33.6 g/dL Normal 29.9-35.2 [facility] Comment on above: Performed By: #### C BC #### [facility] [address] [address] [address] Jamie Dickey MCV (RBC) [Entitic vol] 86.5 fL Normal 81.0-99.0 [facility] Comment on above: Performed By: #### C BC #### [facility] [address] [address] [address] Jamie Dickey MONO # 0.4 103/ul Normal 0.3-0.8 [facility] Comment on above: Performed By: #### C BC #### [facility] [address] [address] [address] Jamie Dickey Monocytes/100 WBC (Bld) 4.8 % Normal 1.7-12.0 [facility] Comment on above: Performed By: #### C BC #### [facility] [address] [place] [address] Dr. Jmaie Dickey NEUT # 6.5 103/ul Normal 1.4-6.5 [facility] Comment on above: Performed By: #### C BC #### [facility] [address] [place] [address] Dr. Jamie Dickey Neutrophils/100 WBC (Bld) 71.8 % Normal 43.0-75.0 [facility] Comment on above: Performed By: #### C BC #### [facility] [address] [address] [address] Jamie Dickey Platelet mean volume (Bld) [Entitic vol] 10.1 fL Normal 9.5-13.5 [facility] Comment on above: Performed By: #### C BC #### [facility] [address] [address] [address] Jamie Dickey PLT 197 103/ul Normal 150-450 [facility] Comment on above: Performed By: #### C BC #### [facility] [address] [address] [address] Jamie Dickey RBC 3.71 106/ul Critically low 4.20-5.40 [facility] Comment on above: Performed By: #### C BC #### [facility] [address] [address] [address] Jamie Dickey WBC 9.0 103/ul Normal 4.0-11.0 [facility] Comment on above: Performed By: #### C BC #### [facility] [address] [address] [address] Jamie Dickey GLUCOSE - 1HRon 07-27-2022 Glucose [Mass/Vol] 158 mg/dL Critically high 74-106 [facility] Comment on above: Performed By: #### N BOX #### [facility] [address] [address] [address] Jamie Dickey AFP MATERNAL FOR SPINA BIFID Aon 06-26-2022 AFP MoM 0.90 Normal [facility] Comment on above: Performed By: #### H CVPCRR #### [facility] [address] [address] [address] Jamie Dickey AFP Value 54.6 ng/mL Normal [facility] Comment on above: Performed By: #### H CVPCRR #### [facility] [address] [address] [address] Jamie Dickey AFP, Serum for Spina Bifida Report Normal [facility] Comment on above: Performed By: #### H CVPCRR #### [facility] [address] [address] [address] Jamie Dickey Comment Comment Normal [facility] Comment on above: Result Comment: Anamaria Coon, Ph.D., [facility] Director . References: Available Upon Request. . Multiples Of Median Cutoffs For AFP Elevations Danielson 2.5 Black 2.8 IDD 2.0 Twins 4.5 Abbreviation Definitions IDD - Insulin Dep Diabetes OSBR - Open Spina Bifida Risk . For further inquiries contact [employer] [facility] at [phone]. . This test was developed and its performance characteristics determined by [employer]. It has not been cleared or approved by the Food and Drug Administration. Performed By: #### H CVPCRR #### [facility] [address] [place] [address] Dr. Jamie Dickey Gest Age Collection Date 20.0 weeks Normal [facility] Comment on above: Performed By: #### H CVPCRR #### [facility] [address] [address] [address] Jamie Dickey Gestat, Age Based on Ultrasound Normal [facility] Comment on above: Result Comment: 18.6 on 06/14/2022 Recalculations are not recommended when gestational dating by LMP and ultrasound are within 10 days. Performed By: #### H CVPCRR #### [facility] [address] [address] [address] Jamie Dickey Insulin Dep Diabetes No Normal [facility] Comment on above: Performed By: #### H CVPCRR #### [facility] [address] [address] [address] Jamie Dickey Interpretation Comment Normal [facility] Comment on above: Result Comment: Inte rpretation: Screen Negative . This result is screen negative for OSB. The AFP MoM calculated is based on the gestational age provided. MS-AFP can identify up to 80% of open neural tube defects. Closed neural tube defects and some open defects may not be detected by this test. This test does not screen for Down Syndrome or Trisomy 18. If screening for Down Syndrome or Trisomy 18 is desired, contact [facility] to discuss available options. The [employer] recommends amniocentesis be offered to women age 35 and older. Performed By: #### H CVPCRR #### [facility] [address] [place] [address] Dr. Jamie Dickey [age] Normal [facility] Comment on above: Performed By: #### H CVPCRR #### [facility] [address] [address] [address] Jamie Dickey Multiple Gestation No Normal [facility] Comment on above: Performed By: #### H CVPCRR #### [facility] [address] [place] [address] Dr. Jamie Dickey OSBR [place] 1 [place] [address] Normal [facility] Comment on above: Performed By: #### H CVPCRR #### [facility] [address] [address] [address] Jamie Dickey PDF . Normal [facility] Comment on above: Performed By: #### H CVPCRR #### [facility] [address] [address] [address] Jamie Dickey Race Normal [facility] Comment on above: Performed By: #### H CVPCRR #### [facility] [address] [address] [address] Jamie Dickey Test Results: Negative Normal [facility] Comment on above: Performed By: #### H CVPCRR #### [facility] [address] [address] [address] Jamie Dickey US PREG ANATOMY SINGLEon US PREG ANATOMY SINGLE EXAMINATION: US PREG ANATOMY SINGLE HISTORY: Routine care COMPARISON: No relevant comparison available. TECHNIQUE: Transabdominal sonographic examination was performed for obstetrical and evaluation. FINDINGS: Number: 1 Heart Rate: 135.7 bpm H.B. /min Amniotic Fluid Volume: Subjectively normal position: Variable Placental Location: Posterior fundal, grade 0. Placental edge is 7.3 cm from the cervical os Cervix Length: 4.1 cm, closed Normal structures: Cerebellum. Choroid plexus. Cisterna magna. Lateral cerebral ventricles. Orbits. Midline falx. Hard palate. 4-chamber heart. RVOT. LVOT. Stomach. Kidneys. Bladder. Umbilical cord insertion into abdomen. 3 vessel cord. Cervical spine. Thoracic spine. Lumbar spine. Sacral spine. Right upper extremity. Left upper extremity. Right lower extremity. Left lower extremity. Suboptimally seen: None. Abnormalities/Other: None BIOMETRY: BPD: 5.2 cm 21 weeks 5 days , 96% HC: 18.3 cm 20 weeks 5 days, 73% AC: 16.0 cm 21 weeks 1 days, 79% FL: 3.3 cm 20 weeks 2 days, 52% EFW:374.4 grams; 13 ounces, 85% FL/AC: 20.6 FL/BPD: 63.8 HC/AC: 1.1 GESTATIONAL AGE: Age by EDC: 20 weeks 0 days LES by EDC: 11/11/2022 Age by current US: 21 weeks 0 days LES by current US: 11/04/2022 IMPRESSION: Normal anatomy scan *Reference: AIUM Practice Guideline for the performance of Obstetric Ultrasound Examinations, January 23, 2007. Electronically authenticated by: DAYRON AYON Date: 2022-06-24 16:14 [facility] PAP ACOG PANEL 2: 30 to 65on 06-22-2022 . . Normal [facility] Comment on above: Performed By: #### [id number] #### [facility] [address] [place] [address] Dr. Jamie Dickey Age Gdln ACOG Testing 21-29 [facility] Comment on above: Performed By: #### [id number] #### [facility] [address] [place] [address] Dr. Jamie Dickey DIAGNOSIS: Comment [facility] Comment on above: Result Comment: NEGA TIVE FOR INTRAEPITHELIAL LESION OR MALIGNANCY. Performed By: #### [id number] #### [facility] [address] [place] [address] Dr. Jamie Dickey Methodology: Comment [facility] Comment on above: Result Comment: This liquid based ThinPrep(R) pap test was screened with the use of an image guided system. Performed By: #### [id number] #### [facility] [address] [place] [address] Dr. Jamie Dickey Note: Comment [facility] Comment on above: Result Comment: The Pap smear is a screening test designed to aid in the detection of premalignant and malignant conditions of the uterine cervix. It is not a diagnostic procedure and should not be used as the sole means of detecting cervical cancer. Both false-positive and false-negative reports do occur. . Performed By: #### [id number] #### [facility] [address] [place] [address] Dr. Jamie Dickey Performed by: Comment [facility] Comment on above: Result Comment: Tiffany Beatty, Job Coach (ASCP) Performed By: #### [id number] #### [facility] [address] [place] [address] Dr. Jamie Dickey Reflex Criteria: Comment Normal [facility] Comment on above: Result Comment: The HPV DNA reflex criteria were not met with this specimen result therefore, no HPV testing was performed. . Performed By: #### [id number] #### [facility] [address] [place] [address] Dr. Jamie Dickey Specimen adequacy: Comment Normal [facility] Comment on above: Result Comment: Sati sfactory for evaluation. No endocervical component is identified. Performed By: #### [id number] #### [facility] [address] [place] [address] Dr. Jamie Dickey CHLAMYDIA/GONOCOCCUS FLORENCIO ( AB/URINE/PAPon 06-17-2022 Chlamydia trachomatis, FLORENCIO Negative Normal Negative [facility] Comment on above: Performed By: #### C T/NGNA #### [facility] [address] [place] [address] Dr. Jamie Dickey Neisseria gonorrhoeae, FLORENCIO Negative Normal Negative [facility] Comment on above: Performed By: #### C T/NGNA #### [facility] [address] [place] [address] Dr. Jamie Dickey VAGINITIS/VAGINOSIS DNA PROB Lanre 06-16-2022 Gabriella species Negative Normal Negative [facility] Comment on above: Performed By: #### V AGINT #### [facility] [address] [place] [address] Dr. Jamie Dickey Gardnerella vaginalis Positive Abnormal Negative [facility] Comment on above: Performed By: #### V AGINT #### [facility] [address] [place] [address] Dr. Jamie Dickey Trichomonas vaginalis Negative Normal Negative [facility] Comment on above: Performed By: #### V AGINT #### [facility] [address] [place] [address] Dr. Jamie Dickey CBC AUTO DIFFon 05-29-2022 BASO # 0.0 103/ul Normal 0.0-0.1 [facility] Comment on above: Performed By: #### H CVPCRR #### [facility] [address] [place] [address] Dr. Jamie Dickey Basophils/100 WBC (Bld) 0.4 % Normal 0.2-2.0 [facility] Comment on above: Performed By: #### H CVPCRR #### [facility] [address] [place] [address] Dr. Jamie Dickey EO # 0.1 103/ul Normal 0.0-0.7 [facility] Comment on above: Performed By: #### H CVPCRR #### [facility] [address] [place] [address] Dr. Jamie Dickey Eosinophils/100 WBC (Bld) 1.3 % Normal 0.9-7.0 [facility] Comment on above: Performed By: #### H CVPCRR #### [facility] [address] [place] [address] Dr. Jamie Dickey Erythrocyte distribution width (RBC) [Ratio] 13.4 % Normal 11.0-15.0 [facility] Comment on above: Performed By: #### H CVPCRR #### [facility] [address] [place] [address] Dr. Jamie Dickey Hematocrit (Bld) [Volume fraction] 32.8 % Critically low 36.0-48.0 [facility] Comment on above: Performed By: #### H CVPCRR #### [facility] [address] [place] [address] Dr. Jamie Dickey Hemoglobin (Bld) [Mass/Vol] 10.9 g/dL Critically low 12.0-16.0 [facility] Comment on above: Performed By: #### H CVPCRR #### [facility] [address] [place] [address] Dr. Jamie Dickey IG # 0.03 10e3/ul Normal 0.00-0.03 [facility] Comment on above: Performed By: #### H CVPCRR #### [facility] [address] [place] [address] Dr. Jamie Dickey IG % 0.4 % Normal 0.0-0.5 [facility] Comment on above: Performed By: #### H CVPCRR #### [facility] [address] [address] [address] Jamie Dickey LYMPH # 1.1 103/ul Critically low 1.2-3.8 [facility] Comment on above: Performed By: #### H CVPCRR #### [facility] [address] [address] [address] Jamie Dickey Lymphocytes/100 WBC (Bld) 15.3 % Critically low 20.5-60.0 [facility] Comment on above: Performed By: #### H CVPCRR #### [facility] [address] [address] [address] Jamie Dickey MANUAL DIFF REQ NO Normal [facility] Comment on above: Performed By: #### H CVPCRR #### [facility] [address] [place] [address] Dr. Jamie Dickey MCH (RBC) [Entitic mass] 29.7 pg Normal 26.7-34.0 [facility] Comment on above: Performed By: #### H CVPCRR #### [facility] [address] [place] [address] Dr. Jamie Dickey MCHC (RBC) [Mass/Vol] 33.2 g/dL Normal 29.9-35.2 [facility] Comment on above: Performed By: #### H CVPCRR #### [facility] [address] [place] [address] Dr. Jamie Dickey MCV (RBC) [Entitic vol] 89.4 fL Normal 81.0-99.0 [facility] Comment on above: Performed By: #### H CVPCRR #### [facility] [address] [place] [address] Dr. Jamie Dickey MONO # 0.6 103/ul Normal 0.3-0.8 [facility] Comment on above: Performed By: #### H CVPCRR #### [facility] [address] [place] [address] Dr. Jamie Dickey Monocytes/100 WBC (Bld) 8.1 % Normal 1.7-12.0 [facility] Comment on above: Performed By: #### H CVPCRR #### [facility] [address] [address] [address] Jamie Dickey NEUT # 5.5 103/ul Normal 1.4-6.5 [facility] Comment on above: Performed By: #### H CVPCRR #### [facility] [address] [address] [address] Jamie Dickey Neutrophils/100 WBC (Bld) 74.5 % Normal 43.0-75.0 [facility] Comment on above: Performed By: #### H CVPCRR #### [facility] [address] [place] [address] Dr. Jamie Dickey Platelet mean volume (Bld) [Entitic vol] 10.1 fL Normal 9.5-13.5 [facility] Comment on above: Performed By: #### H CVPCRR #### [facility] [address] [place] [address] Dr. Jamie Dickey PLT 175 103/ul Normal 150-450 [facility] Comment on above: Performed By: #### H CVPCRR #### [facility] [address] [place] [address] Dr. Jamie Dickey RBC 3.67 106/ul Critically low 4.20-5.40 [facility] Comment on above: Performed By: #### H CVPCRR #### [facility] [address] [place] [address] Dr. Jamie Dickey WBC 7.4 103/ul Normal 4.0-11.0 [facility] Comment on above: Performed By: #### H CVPCRR #### [facility] [address] [place] [address] Dr. Jamie Dickey PROF CHEM 8 (BAS METB)on Anion gap [Moles/Vol] 11.8 mmol/L Normal [facility] Comment on above: Performed By: #### B MP #### [facility] [address] [place] [address] Dr. Jamie Dickey Calcium [Mass/Vol] 8.4 mg/dL Critically low 8.5-10.1 [facility] Comment on above: Performed By: #### B MP #### [facility] [address] [address] [address] Jamie Dickey Chloride [Moles/Vol] 103 mmol/L Normal 98-107 [facility] Comment on above: Performed By: #### B MP #### [facility] [address] [address] [address] Jamie Dickey CO2 [Moles/Vol] 26.0 mmol/L Normal 21.0-32.0 [facility] Comment on above: Performed By: #### B MP #### [facility] [address] [address] [address] Jamie Dickey Creatinine [Mass/Vol] 0.49 mg/dL Critically low 0.55-1.02 [facility] Comment on above: Performed By: #### B MP #### [facility] [address] [address] [address] Jamie Dickey EGFR-AF MACANESE >60 Normal >=60 [facility] Comment on above: Performed By: #### B MP #### [facility] [address] [address] [address] Jamie Dickey EGFR-NON AF MACANESE >60 Normal >=60 [facility] Comment on above: Performed By: #### B MP #### [facility] [address] [address] [address] Jamie Dickey Glucose [Mass/Vol] 92 mg/dL Normal 74-106 [facility] Comment on above: Performed By: #### B MP #### [facility] [address] [address] [address] Jamie Dickey Potassium [Moles/Vol] 3.8 mmol/L Normal 3.5-5.1 [facility] Comment on above: Performed By: #### B MP #### [facility] [address] [address] [address] Jamie Dickey Sodium [Moles/Vol] 137 mmol/L Normal 136-145 [facility] Comment on above: Performed By: #### B MP #### [facility] [address] [address] [address] Jamie Dickey Urea nitrogen [Mass/Vol] 10.0 mg/dL Normal 7.0-18.0 [facility] Comment on above: Performed By: #### B MP #### [facility] [address] [place] [address] Dr. Jamie Dickey Urea nitrogen/Creatinine [Mass ratio] 20.4 mg/mg Normal [facility] Comment on above: Performed By: #### B MP #### [facility] [address] [place] [address] Dr. Jamie Dickey PROTIMEon 05-29-2022 INR Coag (PPP) [Relative time] {INR} Normal [facility] Comment on above: Performed By: #### N BOX #### [facility] [address] [place] [address] Dr. Jamie Dickey INR GUIDELINES SEE BELOW Normal [facility] Comment on above: Result Comment: CARITO RED INR: 2.0 - 3.0 CONDITIONS NOT LISTED BELOW 2.5 - 3.5 FOR PROSTHETIC HEART VALVE REPLACEMENT 2.5 - 3.5 RECURRENT THROMBOSIS Performed By: #### N BOX #### [facility] [address] [place] [address] Dr. Jamie Dickey PT Coag (PPP) [Time] 9.3 s Normal 9.0-11.6 [facility] Comment on above: Performed By: #### N BOX #### [facility] [address] [place] [address] Dr. Jamie Dickey PTTon 05-29-2022 aPTT Coag (Bld) [Time] 27.7 s Normal 22.3-36.2 [facility] Comment on above: Performed By: #### N BOX #### [facility] [address] [place] [address] Dr. Jamie Dickey US PREG PLACENTAon 3 US PREG PLACENTA EXAM: US PREG PLACENTA HISTORY: Placental abruption COMPARISON: Ultrasound examination of 04/15/2022. TECHNIQUE: Transabdominal ultrasound of the pelvis was performed using Duplex Doppler. A transvaginal examination was performed for better evaluation of the ovaries. FINDINGS: Ultrasound images demonstrate a single live intrauterine gestation. Embryonic cardiac activity is noted at a rate of 143 beats per minute. The placenta is posterior. The tip of the placenta is approximately 1.7 cm from the internal cervical os. No evidence of a placental abruption is seen. The amniotic fluid is unable to be assessed due to the early gestational age. The cervix is closed measuring up to 5.9 cm in length. The ovaries were not visualized. No free fluid is noted within the cul-de-sac. IMPRESSION: 1. No ultrasound evidence of a placental abruption is seen. The tip of the placenta is approximately 1.7 cm from the internal cervical os. Electronically authenticated by: Daniel ZAIDI Date: 2022-05-29 01:00 Normal [facility] HEP B SURFACE ANTIGEN SCREEN on 05-07-2022 HBsAg Screen Negative Normal Negative [facility] Comment on above: Performed By: #### H CVPCRR #### [facility] [address] [place] [address] Dr. Jamie Dickey HEPATITIS C VIRUS AB W/ REFL EX QUANTon 05-07-2022 HCV AB <0.1 Normal 0.0-0.9 [facility] Comment on above: Performed By: #### H CVPCRR #### [facility] [address] [place] [address] Dr. Jamie Dickey Interpretation: Comment Normal [facility] Comment on above: Result Comment: Nega tive Not infected with HCV, unless recent infection is suspected or other evidence exists to indicate HCV infection. Performed By: #### H CVPCRR #### [facility] [address] [place] [address] Dr. Jamie Dickey HIV 1 AND 2 WITH REFLEXon HIV Screen 4th Generation wRfx Non-Reactive Normal Non Reactive [facility] Comment on above: Result Comment: HIV Negative HIV-1/HIV-2 antibodies and HIV-1 p24 antigen were NOT detected. There is no laboratory evidence of HIV infection. Performed By: #### H CVPCRR #### [facility] [address] [place] [address] Dr. Jamie Dickey RPR QUANTon 05-07-2022 Rapid Plasma Reagin, Quant Non-Reactive Normal NonRea<1:1 [facility] Comment on above: Result Comment: Jamal peña Note: This test does not meet current guidelines for screening and diagnosis of syphilis. This test is intended for following treatment response in patients being treated for syphilis infection. To screen for syphilis infection, a reflex cascade that includes both RPR and a treponema-specific assay should be utilized, such as Treponema pallidum (Syphilis) Screening [place] (349631) or Rapid Plasma Reagin (RPR) Test With Reflex to Quantitative RPR and Confirmatory Treponema pallidum Antibodies (342471). Performed By: #### R PRQ #### [facility] [address] [place] [address] Dr. Jamie Dickey RUBELLA AB IGGon 05-07-2022 Rubella Antibodies, IgG 4.41 index Normal Immune >0.99 [facility] Comment on above: Result Comment: Non- immune <0.90 Equivocal 0.90 - 0.99 Immune >0.99 Performed By: #### N BOX #### [facility] [address] [place] [address] Dr. Jamie Dickey CBC AUTO DIFFon 05-06-2022 BASO # 0.0 103/ul Normal 0.0-0.1 [facility] Comment on above: Performed By: #### N BOX #### [facility] [address] [place] [address] Dr. Jamie Dickey Basophils/100 WBC (Bld) 0.3 % Normal 0.2-2.0 [facility] Comment on above: Performed By: #### N BOX #### [facility] [address] [place] [address] Dr. Jamie Dickey EO # 0.1 103/ul Normal 0.0-0.7 [facility] Comment on above: Performed By: #### N BOX #### [facility] [address] [place] [address] Dr. Jamie Dickey Eosinophils/100 WBC (Bld) 0.9 % Normal 0.9-7.0 [facility] Comment on above: Performed By: #### N BOX #### [facility] [address] [place] [address] Dr. Jamie Dickey Erythrocyte distribution width (RBC) [Ratio] 13.0 % Normal 11.0-15.0 [facility] Comment on above: Performed By: #### N BOX #### [facility] [address] [place] [address] Dr. Jamie Dickey Hematocrit (Bld) [Volume fraction] 36.7 % Normal 36.0-48.0 [facility] Comment on above: Performed By: #### N BOX #### [facility] [address] [place] [address] Dr. Jamie Dickey Hemoglobin (Bld) [Mass/Vol] 11.7 g/dL Critically low 12.0-16.0 [facility] Comment on above: Performed By: #### N BOX #### [facility] [address] [place] [address] Dr. Jamie Dickey IG # 0.05 10e3/ul Critically high 0.00-0.03 [facility] Comment on above: Performed By: #### N BOX #### [facility] [address] [place] [address] Dr. Jamie Dickey IG % 0.4 % Normal 0.0-0.5 [facility] Comment on above: Performed By: #### N BOX #### [facility] [address] [place] [address] Dr. Jamie Dickey LYMPH # 2.3 103/ul Normal 1.2-3.8 [facility] Comment on above: Performed By: #### N BOX #### [facility] [address] [place] [address] Dr. Jamie Dickey Lymphocytes/100 WBC (Bld) 20.3 % Critically low 20.5-60.0 [facility] Comment on above: Performed By: #### N BOX #### [facility] [address] [place] [address] Dr. Jamie Dickey MANUAL DIFF REQ NO Normal [facility] Comment on above: Performed By: #### N BOX #### [facility] [address] [place] [address] Dr. Jamie Dickey MCH (RBC) [Entitic mass] 28.5 pg Normal 26.7-34.0 [facility] Comment on above: Performed By: #### N BOX #### [facility] [address] [place] [address] Dr. Jamie Dickey MCHC (RBC) [Mass/Vol] 31.9 g/dL Normal 29.9-35.2 [facility] Comment on above: Performed By: #### N BOX #### [facility] [address] [place] [address] Dr. Jamie Dickey MCV (RBC) [Entitic vol] 89.5 fL Normal 81.0-99.0 [facility] Comment on above: Performed By: #### N BOX #### [facility] [address] [place] [address] Dr. Jamie Dickey MONO # 0.5 103/ul Normal 0.3-0.8 [facility] Comment on above: Performed By: #### N BOX #### [facility] [address] [place] [address] Dr. Jamie Dickey Monocytes/100 WBC (Bld) 4.7 % Normal 1.7-12.0 [facility] Comment on above: Performed By: #### N BOX #### [facility] [address] [place] [address] Dr. Jamie Dickey NEUT # 8.3 103/ul Critically high 1.4-6.5 [facility] Comment on above: Performed By: #### N BOX #### [facility] [address] [place] [address] Dr. Jamie Dickey Neutrophils/100 WBC (Bld) 73.4 % Normal 43.0-75.0 [facility] Comment on above: Performed By: #### N BOX #### [facility] [address] [place] [address] Dr. Jamie Dickey Platelet mean volume (Bld) [Entitic vol] 10.8 fL Normal 9.5-13.5 [facility] Comment on above: Performed By: #### N BOX #### [facility] [address] [place] [address] Dr. Jamie Dickey PLT 238 103/ul Normal 150-450 [facility] Comment on above: Performed By: #### N BOX #### [facility] [address] [place] [address] Dr. Jamie Dickey RBC 4.10 106/ul Critically low 4.20-5.40 [facility] Comment on above: Performed By: #### N BOX #### [facility] [address] [place] [address] Dr. Jamie Dickey WBC 11.3 103/ul Critically high 4.0-11.0 [facility] Comment on above: Performed By: #### N BOX #### [facility] [address] [place] [address] Dr. Jamie Dickey CULTURE URINEon 05-06-2022 CULTURE URINE Culture Observations : LIGHT GROWTH OF MIXED GENITAL CHANTALE. NO POTENTIAL PATHOGENS SEEN. Normal [facility] Comment on above: Performed By: #### N BOX #### [facility] [address] [place] [address] Dr. Jamie Dickey GLYCOHEMOGLOBIN A1Con 2022 ADA RECOMMENDATION SEE BELOW Normal [facility] Comment on above: Result Comment: ADA RECOMMENDED LIMIT 4.0 - 6.0 ADA THERAPEUTIC TARGET < 7.0 ACTION SUGGESTED > 7.0 Performed By: #### A 1C #### [facility] [address] [place] [address] Dr. Jamie Dikcey Glucose [Mass/Vol] 94 mg/dL Normal [facility] Comment on above: Performed By: #### A 1C #### [facility] [address] [place] [address] Dr. Jamie Dickey HbA1c (Bld) [Mass fraction] 4.9 % Normal 4.5-6.2 [facility] Comment on above: Performed By: #### A 1C #### [facility] [address] [place] [address] Dr. Jamie Dickey ISSA BOX TEST PT SEND OUTo n 05-06-2022 SENT TO REF LAB 05/06/2022 Normal [facility] Comment on above: Performed By: #### N BOX #### [facility] [address] [address] [address] Jamie Dickey TYPE AND SCREENon 05-06-2022 TYPE AND SCREEN Negative Normal [facility] Comment on above: Performed By: #### N BOX #### [facility] [address] [place], [place] [id number] Dr. Jamie Dickey US PREG TVon 04-15-2022 US PREG TV EXAMINATION: US PREG TV HISTORY: Missed period COMPARISON: No relevant comparison available. FINDINGS: GESTATIONAL SAC: Present and normal appearing. YOLK SAC: Present and normal appearing. POLE: Present and normal appearing. CARDIAC: Present. UTERUS: Normal size and appearance. OVARIES: Right: Not seen. Left: Not seen. CERVIX: 5.1 cm in length and closed. CUL-DE-SAC: Normal. OTHER: None. AGE BY LMP: 10 weeks 0 days LES BY LMP: 11/11/2022 AGE BY US CRL: 10 weeks 5 days LES BY US CRL: 11/06/2022 IMPRESSION: 1. Single live intrauterine . Electronically authenticated by: LOLIS COLEMAN Date: 2022-04-15 16:33 Normal [facility] Vital Signs Date Time Vital Sign Value Performing Clinician Facility 05-29-2024 13:52-0500 Body mass index (BMI) [Ratio] 24.93 kg/m2 [employer] Work Phone: [facility] 05-29-2024 13:52-0500 Body weight 67.95 kg ValenteRosum Work Phone: [facility] 05-29-2024 13:52-0500 Diastolic blood pressure 70 mm[Hg] ValenteRosum Work Phone: [facility] 05-29-2024 13:52-0500 Systolic blood pressure 120 mm[Hg] ValenteRosum Work Phone: [facility] 04-27-2024 10:48-0500 Body mass index (BMI) [Ratio] 24.79 kg/m2 [facility] 04-27-2024 10:48-0500 Body weight 67.59 kg [facility] 04-27-2024 10:48-0500 Diastolic blood pressure 72 mm[Hg] [facility] 04-27-2024 10:48-0500 Systolic blood pressure 118 mm[Hg] [facility] 06-26-2022 03:06-0500 Body weight 65.[address] VALENTE PFEIFFER . [facility] Comment on above: Performed By: #### HCVPCRR #### [facility] [address] [address] [address] Jamie Dickey Encounters Encounter Date Encounter Type Care Provider Facility Start: 05-29-2024 End: 05-29-2024 Bamboo flowsheet Valente Margarette DO Work Phone: [facility] Start: 05-29-2024 End: 05-29-2024 Bamboo flowsheet Valente Margarette DO Work Phone: [facility] Start: 05-29-2024 End: 05-29-2024 Office outpatient visit 15 minutes Valente Margarette DO Work Phone: [facility] Comment on above: 15 weeks gestation o f ; Second trimester Start: 05-29-2024 End: 05-29-2024 ambulatory VALENTE MARGARETTE Not Available Start: 05-11-2024 End: 05-11-2024 Clinisync Result Encounter Valente Margarette DO Work Phone: [facility] Unsolicited Start: 05-11-2024 End: 05-11-2024 Clinisync Result Encounter Valente Margarette DO Work Phone: [facility] Unsolicited Start: 04-27-2024 End: 04-27-2024 ambulatory [facility] Nurse [facility] Comment on above: GA: 11w0d Start: 04-12-2024 End: 04-12-2024 Emergency department patient visit ED[facility] Start: 01-11-2024 End: 01-26-2024 Telephone encounter Liver Txp Coordinator Work Phone: [facility] Comment on above: Referral - Donor Txp Start: 09-16-[address] NONE LISTED REQUEST Facility: Start: 08-06-2022 End: 08-07-[address] VALENTE PFEIFFER . Facility:[facility] Start: 07-27-2022 End: 07-28-[address] VALENTE PFEIFFER . Facility:[facility] Start: 06-24-2022 End: 06-25-[address] VALENTE PFEIFFER . Facility:[facility] Start: 06-14-2022 End: 06-14-2022 ambulatory ANITA AUSTIN . Facility:[facility] Start: 05-29-2022 End: 05-29-[address] MIKE MENDEZ . Facility:[facility] Start: 05-06-2022 End: 05-07-[address] VALENTE PFEIFFER . Facility:[facility] Start: 04-15-2022 End: 04-16-[address] VALENTE PFEIFFER . Facility: Procedures Date Procedure Procedure Detail Performing Clinician Start: 05-29-2024 Urnls dip stick/tabl et rgnt non-auto w/o micrscp Valente Margarette DO Work Phone: Start: 05-11-2024 BOX TEST Valente Fazi o DO Work Phone: Start: 04-27-2024 Urnls dip stick/tabl et rgnt non-auto w/o micrscp Valente Margarette DO Work Phone: Plan of Treatment Date Care Activity Detail Author Start: 05-29-2024 End: 06-26-2024 Alpha fetoprotein, maternal Alpha fetoprotein, maternal Lab Routine 15 weeks gestation of Second trimester Expected: 05/29/2024 (Approximate), Expires: 06/26/2024 [facility] Work Phone: Comment on above: Expected: 05/29/2024 (Approximate), Expires: 06/26/2024 Start: 05-29-2024 End: 05-29-2024 Patient encounter procedure 05/29/2024 1:40 PM EST Routine [facility] [address] [place] [id number] Valente Pfeiffer, DO [address] [place] [address] Arrived [facility] Comment on above: Arrived Start: 04-27-2024 End: 04-27-2025 ABO/Rh ABO/Rh Lab Routine Missed menses , unspecified gestational age Expected: 04/27/2024 (Approximate), Expires: 04/27/2025 [facility] Comment on above: Expected: 04/27/2024 (Approximate), Expires: 04/27/2025 Start: 04-27-2024 End: 04-27-2025 Blood type and Indirect antibody screen panel - Blood Type and screen Lab Routine Missed menses , unspecified gestational age Expected: 04/27/2024 (Approximate), Expires: 04/27/2025 [facility] Work Phone: Comment on above: Expected: 04/27/2024 (Approximate), Expires: 04/27/2025 Start: 04-27-2024 End: 04-27-2025 Drugs of abuse panel - Urine by Screen method Rapid drug screen, urine Lab Routine , unspecified gestational age Encounter for supervision of normal first in first trimester Expected: 04/27/2024 (Approximate), Expires: 04/27/2025 [facility] Comment on above: Expected: 04/27/2024 (Approximate), Expires: 04/27/2025 Bacteria identified in Urine by Culture Urine culture Microbiology Routine Missed menses Ordered: 04/27/2024 [facility] Comment on above: Ordered: 04/27/2024 CBC W Auto Different ial panel - Blood CBC and differential Lab Routine Missed menses , unspecified gestational age Ordered: 04/27/2024 [facility] Comment on above: Ordered: 04/27/2024 Hemoglobin A1c/Hemoglobin.total in Blood Hemoglobin A1c Lab Routine Missed menses , unspecified gestational age Ordered: 04/27/2024 [facility] Comment on above: Ordered: 04/27/2024 Hepatitis B virus surface Ag [Presence] in Serum or Plasma by Immunoassay Hepatitis B surface antigen Lab Routine Missed menses , unspecified gestational age Ordered: 04/27/2024 [facility] Comment on above: Ordered: 04/27/2024 Hepatitis C virus Ab [Presence] in Serum or Plasma by Immunoassay Hepatitis C antibody Lab Routine Missed menses , unspecified gestational age Ordered: 04/27/2024 [facility] Comment on above: Ordered: 04/27/2024 HIV-1/HIV-2 antigen/antibody combination immunoassay HIV-1 and HIV-2 antibodies Lab Routine Missed menses , unspecified gestational age Ordered: 04/27/2024 [facility] Comment on above: Ordered: 04/27/2024 Reagin Ab [Presence] in Serum by RPR RPR Lab Routine Missed menses , unspecified gestational age Ordered: 04/27/2024 [facility] Comment on above: Ordered: 04/27/2024 Rubella antibody, IgG Rubella an tibody, IgG Lab Routine Missed menses , unspecified gestational age Ordered: 04/27/2024 [facility] Comment on above: Ordered: 04/27/2024 Payers Date Payer Category Payer Medicaid [id number] 2024 Medicare MEDICARE MEDICAR E A AND B [id number] 2024-Present [phone] [address] [address] [place] [address] Medicare [id number] 1994 Unknown [id number] 1994 Unknown [id number] 1994 Unknown [id number] [id number] 1994 Unknown [id number] [id number] 1994 Unknown [id number] [id number] 1994 Unknown [id number] [id number] 1994 Unknown [id number] [id number] 1994 Unknown [id number] [id number] 1994 Unknown [id number] [id number] 1994 Unknown [id number] [id number] 1994 Unknown [id number] [id number] 1994 Unknown [id number] [id number] 1994 Unknown [id number] 1959 Medicaid [id number] 1959 Self-pay 1959 Unknown [id number] Unknown [id number] Social History Date Type Detail Facility Tobacco smoking stat [facility] Tobacco smoking consumption unknown [facility] Start: 1994 [facility] at [facility] Start: 04-24-2024 Gender identity Not on file [facility] Start: 10-26-2022 Tobacco smoking stat [facility] Smokes tobacco daily [facility] History of tobacco use Cigarette Smoker [facility] Start: 04-27-2024 End: 05-29-2024 Alcoholic beverage intake Ex-drinker (finding) [facility] Start: 04-24-2024 History of Social function [facility] Start: 10-18-2022 Tobacco Comment Patient smokes 11-20 cigarettes/day after 6-30 minutes of waking up. [facility] Start: 02-24-2024 [facility] History of Present illness Narrative 05-29-2024 Rupali Ribeiro LPN - 05/29/2024 1:40 PM EST Note Date & Type Note Facility 05-29-2024 History of Presen t illness Narrative Reason for Appointment: Patient ID: Loraine Pace is a 28 y.o. female who presents for Routine Visit Patient presents today for Return OB appointment. MEDICATIONS Current Outpatient Medications Medication Instructions ondansetron (ZOFRAN) 4 mg, Every 8 hours PRN ondansetron ODT (ZOFRAN-ODT) 4 mg, Oral, Every 6 hours PRN MV-Min-Fe Fum-FA-DHA ( 1 PO) Take by mouth. ALLERGIES Allergies Allergen Reactions Pollen Extract Unknown PROBLEMS Active Ambulatory Problems Diagnosis Date Noted Vaginal bleeding 10/22/2022 Resolved Ambulatory Problems Diagnosis Date Noted No Resolved Ambulatory Problems No Additional Past Medical History HISTORY PAST MEDICAL HISTORY SOCIAL HISTORY History reviewed. No pertinent past medical history. Social History Tobacco Use Smoking status: Every Day Current packs/day: 1.00 Types: Cigarettes Smokeless tobacco: Not on file Tobacco comments: Patient smokes 11-20 cigarettes/day after 6-30 minutes of waking up. Substance Use Topics Alcohol use: Not Currently Drug use: Yes Types: Marijuana Comment: for nausea FAMILY HISTORY Family History Problem Relation Name Age of Onset Other (Overdose (OD)) Brother SURGICAL HISTORY History reviewed. No pertinent surgical history. REVIEW OF SYSTEMS Review of Systems: Review of Systems Constitutional: Negative. HENT: Negative. Eyes: Negative. Respiratory: Negative. Cardiovascular: Negative. Gastrointestinal: Negative. Genitourinary: Negative. Musculoskeletal: Negative. Skin: Negative. Neurological: Negative. All other systems reviewed and are negative. Hematological: Negative. Endocrine: Negative. Allergic/Immunologic: Negative. OBJECTIVE Objective: Physical Exam Constitutional: Appearance: Normal appearance. She is well-developed. Cardiovascular: Rate and Rhythm: Normal rate and regular rhythm. Pulmonary: Effort: Pulmonary effort is normal. Breath sounds: Normal breath sounds. Abdominal: General: Bowel sounds are normal. There is no distension. Palpations: Abdomen is soft. Tenderness: There is no abdominal tenderness. There is no guarding or rebound. Musculoskeletal: General: No swelling. Normal range of motion. Right lower leg: No edema. Left lower leg: No edema. Neurological: Mental Status: She is alert and oriented to person, place, and time. Skin: General: Skin is warm and dry. Psychiatric: Mood and Affect: Mood normal. Behavior: Behavior normal. Vitals and nursing note reviewed. Exam conducted with a control and recovery special tactics present. Vitals: Estimated body mass index is 24.93 kg/m as calculated from the following: Height as of 09/01/22: 5' 5 . Weight as of this encounter: 149 lb 12.8 oz. BP: 120/70 Patient's last menstrual period was 02/10/2024. ASSESSMENT & PLAN ICD-10-CM 1. 15 weeks gestation of Z3A.15 POCT urinalysis dipstick manually resulted Alpha fetoprotein, maternal Alpha fetoprotein, maternal 2. Second trimester Z34.92 POCT urinalysis dipstick manually resulted Alpha fetoprotein, maternal Alpha fetoprotein, maternal New OB: Patient presents today for 1st time obstetrics appointment with provider. Patient is currently 15w4d . Patients history has been reviewed in great detail including any potential risks. Patient stated she currently has no complaints. Expectations throughout regarding labs, ultrasounds, and appointments have been discussed with the patient in detail. It was reiterated that the patient is to drink 6-8 glasses of water a day, eat 6 small meals a day, do not consume raw or undercooked meat, and [facility] Patient has been consulted regarding any further do's and don'ts of . Patient voiced understanding and all questions and concerns were answered. Orders Placed This Encounter Procedures Alpha fetoprotein, maternal POCT urinalysis dipstick manually resulted Follow Up: Patient is to return in 4 weeks for routine OB appointment. Documented by Rupali Ribeiro LPN on behalf of: Valente Pfeiffer DO documented in this encounter [facility] History of Present illness Narrative 04-27-2024 Rhea Jones MA - 04/27/2024 10:30 AM EST Note Date & Type Note Facility 04-27-2024 History of Presen t illness Narrative Reason for Appointment: Patient ID: Loraine Pace is a 28 y.o. female who presents for Amenorrhea Patient presents today for a Nurse OB Intake appointment. Patient is 11w0d with a Estimated Date of Delivery: 11/16/24 OB History Para Term AB Living 2 1 1 1 SAB IAB Ectopic Multiple Live Births 1 # Outcome Date GA Lbr Malachi/2nd Weight Sex Type Anes PTL Lv 2 Current 1 Term 11/06/22 39w2d JOHNNY Current Medications: has a current medication list which includes the following prescription(s): ondansetron, ondansetron odt, and mv-min-fe fum-fa-dha. Medical History: Active Ambulatory Problems Diagnosis Date Noted Vaginal bleeding 10/22/2022 Resolved Ambulatory Problems Diagnosis Date Noted No Resolved Ambulatory Problems No Additional Past Medical History Family History Problem Relation Name Age of Onset Other (Overdose (OD)) Brother Social History Tobacco Use Smoking status: Every Day Current packs/day: 1.00 Types: Cigarettes Smokeless tobacco: Not on file Tobacco comments: Patient smokes 11-20 cigarettes/day after 6-30 minutes of waking up. Substance Use Topics Alcohol use: Not Currently Drug use: Yes Types: Marijuana Comment: for nausea No past surgical history on file. Allergies Allergen Reactions Pollen Extract Unknown Vitals: Estimated body mass index is 24.79 kg/m as calculated from the following: Height as of 09/01/22: 5' 5 . Weight as of this encounter: 149 lb. BP: 118/72 Patient's last menstrual period was 02/10/2024. Assessment/Plan Diagnoses and all orders for this visit: Missed menses - Type and screen; Future - ABO/Rh; Future - CBC and differential - Hemoglobin A1c - RPR - Rubella antibody, IgG - Hepatitis B surface antigen - Hepatitis C antibody - HIV-1 and HIV-2 antibodies - Urine culture - POCT , urine manually resulted - POCT urinalysis dipstick manually resulted 11 weeks gestation of , unspecified gestational age - Type and screen; Future - ABO/Rh; Future - CBC and differential - Hemoglobin A1c - RPR - Rubella antibody, IgG - Hepatitis B surface antigen - Hepatitis C antibody - HIV-1 and HIV-2 antibodies - Rapid drug screen, urine; Future Encounter for supervision of normal first in first trimester - Rapid drug screen, urine; Future Nurse Note: OB Intake: Patient presents today for first OB visit. Patients history has been reviewed in great detail including any potential risks. Patient signed consent forms and patient desires testing in both trimesters. Patient currently has no complaints and has been advised to drink 6-8 glasses of water a day, eat no raw or undercooked meat, and [facility] Patient has also been advised to not change litter boxes and eat 6 small meals a day. Patient has been consulted regarding the do's and don'ts of . Patient was given labs and all questions and concerns were answered. Follow Up: Patient is to return in 4 weeks for routine OB appointment. Follow Up: Patient is to have labs drawn at directed and return to office for initial OB appointment with provider. Patient may call office as needed with any concerns or questions. Nurse Visit Completed by: Rhea Jones MA documented in this encounter [facility] Telephone encounter Note 01-11-2024 Telephone Encounter - Karina Shi (Rn) (Hist), RN - 01/11/2024 3:07 PM EDT Note Date & Type Note Facility 01-11-2024 Telephone encount er Note Images from the original note were not included. LIVING LIVER DONOR SCREENING FORM Loraine Pace contacted the Living Liver Donor office expressing interest in becoming a living donor. Donor's Relationship to Recipient: niece Age 28 Sex Female Height (pt reported) 5'5 Weight (pt reported) 132lb BMI (based on pt reported Ht & Wt) 21.96 Marital Status/Living situation , 2 children, 1 biological - 1, and 3 y.o daughter (boyfriend's daughter) has S.O. Spouse or Significant Other aware of interest in donation? Yes, supportive Educational Level High School Diploma Current Work Status not currently employed, her choice [place] Citizen Yes Blood type: O (Per patient report) Recipient blood type: A /source: EPIC Allergies: pollen-sinus issues Donor's Medical History: Donor's Family History: Hypertension No No Diabetes No No Kidney disease No No Lung disease (SLEEP APNEA/CPAP) No No Heart disease including CAD No No Gastrointestinal No No Autoimmune (including PSC, PBC, Autoimmunie hepatitis) No No Neurologic No No Genitourinary No No Malignancy including melanoma No No Blood disorders (Hx of bleeding or clotting) No No History of Infections No No Abnormal LFTs No uncle Liver disease (A1AT, Amyloid) No No Fatty Liver Disease No No Hepatitis No No Jaundice No No Psych History (including depression, anxiety or suicide attempts) Anxiety as a child, not as an adult No Medications (including OTC and herbals): no Vaccinated for Covid? No, had 1 time no correction side effects Overall general health: Patient reports that she is in good health. Willing to accept blood transfusions if needed: Yes Females: Hx of Pregnancies: Yes 1 Taking BCP? no Donor's Surgical History: no Health Maintenance Testing: Date of last PAP Fe Date of last Mammogram no Date of last Colonoscopy no Based upon the above screening criteria, the patient will require: No additional testing is needed at this time. Patient is up to date with cancer screening. Substance Use: Smoking Previous Smoker: Quit Date: 2019; Hx: Cigarettes - 1 PPD every 2 days for 7 years (Pack-Years: 3.5) Alcohol Use No Recreational Drugs No Potential Donor has been informed to abstain from alcohol until 6 months postoperatively and she verbalized understanding. TB Screening: Was the patient born outside of the [place] in any of the countries in the shaded portion of the table below? No Has the patient spent more than 3 months OR participated in relief work in these same higher risk countries (shaded portion of the following table)? No Does the patient have a history of injection drug use? No Has the patient ever resided in or worked in hospitals, nursing homes, correctional facilities, other health care settings, homeless shelters? No Does the patient have radiographic evidence of prior tuberculosis on chest radiograph? No Based upon the above TB screening criteria, the patient does not need a PPD. Refer to ID if positive PPD >15 mm induration, history of + PPD or concern for active TB on CXR Medical Insurance: Yes, insurance until 01/23/24. As of 01/26/24 does not have insurance - needs to pay for new insurance and does not have the money right now. Based upon the information provided by the potential donor during this screening interview and reviewed by Dr. Merino, there are no contraindications to proceeding with living donor evaluation once insurance is obtained. I explained this to Loraine and she will call me back when she has active insurance. Karina Shi RN Living Liver Donor Coordinator [facility] Note 01-11-2024 Telephone Encounter - Karina Shi) (Hist) RN - 01/11/2024 3:07 PM EDT Note Date & Type Note Facility 01-11-2024 Miscellaneous Notes Formattin g of this note is different from the original. Images from the original note were not included. LIVING LIVER DONOR SCREENING FORM Loraine Pace contacted the Living Liver Donor office expressing interest in becoming a living donor. Donor's Relationship to Recipient: niece Age 28 Sex Female Height (pt reported) 5'5 Weight (pt reported) 132lb BMI (based on pt reported Ht & Wt) 21.96 Marital Status/Living situation , 2 children, 1 biological - 1, and 3 y.o daughter (boyfriend's daughter) has S.O. Spouse or Significant Other aware of interest in donation? Yes, supportive Educational Level High School Diploma Current Work Status not currently employed, her choice [place] Citizen Yes Blood type: O (Per patient report) Recipient blood type: A /source: EPIC Allergies: pollen-sinus issues Donor's Medical History: Donor's Family History: Hypertension No No Diabetes No No Kidney disease No No Lung disease (SLEEP APNEA/CPAP) No No Heart disease including CAD No No Gastrointestinal No No Autoimmune (including PSC, PBC, Autoimmunie hepatitis) No No Neurologic No No Genitourinary No No Malignancy including melanoma No No Blood disorders (Hx of bleeding or clotting) No No History of Infections No No Abnormal LFTs No uncle Liver disease (A1AT, Amyloid) No No Fatty Liver Disease No No Hepatitis No No Jaundice No No Psych History (including depression, anxiety or suicide attempts) Anxiety as a child, not as an adult No Medications (including OTC and herbals): no Vaccinated for Covid? No, had 1 time no correction side effects Overall general health: Patient reports that she is in good health. Willing to accept blood transfusions if needed: Yes Females: Hx of Pregnancies: Yes 1 Taking BCP? no Donor's Surgical History: no Health Maintenance Testing: Date of last PAP Feb Date of last Mammogram no Date of last Colonoscopy no Based upon the above screening criteria, the patient will require: No additional testing is needed at this time. Patient is up to date with cancer screening. Substance Use: Smoking Previous Smoker: Quit Date: 2019; Hx: Cigarettes - 1 PPD every 2 days for 7 years (Pack-Years: 3.5) Alcohol Use No Recreational Drugs No Potential Donor has been informed to abstain from alcohol until 6 months postoperatively and she verbalized understanding. TB Screening: Was the patient born outside of the [place] in any of the countries in the shaded portion of the table below? No Has the patient spent more than 3 months OR participated in relief work in these same higher risk countries (shaded portion of the following table)? No Does the patient have a history of injection drug use? No Has the patient ever resided in or worked in hospitals, nursing homes, correctional facilities, other health care settings, homeless shelters? No Does the patient have radiographic evidence of prior tuberculosis on chest radiograph? No Based upon the above TB screening criteria, the patient does not need a PPD. Refer to ID if positive PPD >15 mm induration, history of + PPD or concern for active TB on CXR Medical Insurance: Yes, insurance until 01/23/24. As of 01/26/24 does not have insurance - needs to pay for new insurance and does not have the money right now. Based upon the information provided by the potential donor during this screening interview and reviewed by Dr. Merino, there are no contraindications to proceeding with living donor evaluation once insurance is obtained. I explained this to Loraine and she will call me back when she has active insurance. Karina Shi RN Living Liver Donor Coordinator documented in this encounter [facility] Telephone encounter Note 01-11-2024 Telephone Encounter - Kriss Atkins Tech - 01/11/2024 11:06 AM EDT Note Date & Type Note Facility 01-11-2024 Telephone encount er Note Living Donor Liver Transplant Inquiry Referral Patient inquired about being a potential liver transplant living donor. Have they read the LDLT information online? Yes Have they filled out their medical information on the LDLT website? Yes Do they want to move forward with an evaluation? Yes Recipient' insurance verified for living donor? Yes Online intake has been scanned to [employer] for review by the living donor coordinator. [facility] Note 01-11-2024 Telephone Encounter - Kriss Atkins Tech - 01/11/2024 11:06 AM EDT Note Date & Type Note Facility 01-11-2024 Miscellaneous Notes Formattin g of this note might be different from the original. Living Donor Liver Transplant Inquiry Referral Patient inquired about being a potential liver transplant living donor. Have they read the LDLT information online? Yes Have they filled out their medical information on the LDLT website? Yes Do they want to move forward with an evaluation? Yes Recipient' insurance verified for living donor? Yes Online intake has been scanned to [employer] for review by the living donor coordinator. documented in this encounter [facility] Evaluation note Note Date & Type Note Facility Evaluation note Diagnosis Liver donor- Primary documented in this encounter [facility] Evaluation note Note Date & Type Note Facility Evaluation note Diagnosis Missed menses 11 weeks gestation of , unspecified gestational age Encounter for supervision of normal first in first trimester documented in this encounter [facility] Evaluation note Note Date & Type Note Facility Evaluation note Diagnosis 15 weeks gestation of Second trimester state, incidental documented in this encounter [facility] Summary Purpose Family History No Family History Records FoundNo Family History Records FoundNo Family History Records FoundNo Family History Records Found Advance Directives No Advanced Directives Records FoundNo Advanced Directives Records FoundNo Advanced Directives Records FoundNo Advanced Directives Records Found Reason for Referral Specialty Diagnoses / Procedures Referred By Emily mcclain Referred To Contact TRANSPLANT Diagnoses Liver donor Procedures CONSULT TO TRANSPLANT CENTER OFFICE/OUTPATIENT NEW HIGH MDM 60 MINUTES ECG ROUTINE ECG W/LEAST 12 LDS I&R ONLY ECHO TTHRC R-T 2D W/WOM-MODE COMPL SPEC&COLR D COLONOSCOPY W/BIOPSY SINGLE/MULTIPLE US ABDOMINAL REAL TIME W/IMAGE DOCUMENTATION ECHO TTHRC R-T 2D W/WO M-MODE COMPLETE REST&ST CYTP C/V AUTO THIN LYR PREPJ SCR MNL RESCR PHYS SCREENING MAMMOGRAM BILATERAL DXA BONE DENSITY STUDY 1/> SITES AXIAL SKEL OFFICE/OUTPATIENT NEW HIGH MDM [address] ABDOMEN W & W/O CONTRAST CT ANGIOGRAPHY CHEST W/CONTRAST/NONCONTRAST MRI ABDOMEN W/O & W/CONTRAST MATERIAL COLLECTION VENOUS BLOOD VENIPUNCTURE Cristina Tovar MD [address] [place] [address] [facility] [address] [id number] Referral ID Status Reason Start Date Expiration Date Visits Requested Visits Authorized [id number] Authorized PCP Requested Referral Financial Clearance Required - OON Payor 01/11/2024 01/10/2025 99 99 Additional Source Comments INFORMATION SOURCE (unrecogn ized section and content) DATE CREATED AUTHOR 09/06/2022 [facility] DATE CREATED AUTHOR AUTHOR'S ORGANIZ ATION 01/28/2024 [facility] DATE CREATED AUTHOR AUTHOR'S ORGANIZ ATION 04/16/2024 [facility] DATE CREATED AUTHOR AUTHOR'S ORGANIZ ATION 05/31/2024 [facility] EPIC Source Comments (unrecognize d section and content) In the event this informatio n is protected by the Federal Confidentiality of Alcohol and Drug Abuse Patient Records regulations: The Federal rules restrict any use of the information to criminally investigate or prosecute any alcohol or drug abuse patient.[facility] the event this information is protected by the Federal Confidentiality of Alcohol and Drug Abuse Patient Records regulations: The Federal rules restrict any use of the information to criminally investigate or prosecute any alcohol or drug abuse patient.[facility] Reason for Visit (unrecogniz ed section and content) Reason Comments Referral - Donor Txp Reason Comments Amenorrhea Reason Comments Routine Visit Care Teams (unrecognized sec tion and content) Automobile Rental Agent Relationship Specialty Start Date End Date Dayron Kimbrough MD [address] [place] [address] PCP - [facility] 09/16/22 Automobile Rental Agent Relationship Specialty Start Date End Date Dayron Kimbrough MD [address] [place] [address] PCP - [facility] 09/16/22 Automobile Rental Agent Relationship Specialty Start Date End Date Dayron Kimbrough MD [address] [place] [address] PCP - [facility] 09/16/22 Automobile Rental Agent Relationship Specialty Start Date End Date Dayron Kimbrough MD [address] [place], [place] [id number] PCP - [facility] 09/16/22 FOR RECORDS PERTAINING TO PATIENTS WHO ARE OR HAVE BEEN ENROLLED IN A CHEMICAL DEPENDENCY/SUBSTANCEABUSE PROGRAM, SOME INFORMATION MAY BE OMITTED. This clinical summary was aggregated from multiple sources. Caution should be exercised in using it in the provision of clinical care. This summary normalizes information from multiple sources, and as a consequence, information in this document may materially change the coding, format and clinical context of patient data. In addition, data may be omitted in some cases. CLINICAL DECISIONS SHOULD BE BASED ON THE PRIMARY CLINICAL RECORDS. [employer] [facility]. provides no warranty or guarantee of the accuracy or completeness of information in this document.
[2024-06-28 00:07] LABS: AFP Value 65.3 ng/mL (.); Gest. Age on Collection Date 19.6 weeks (.); Insulin Dep Diabetes No (.); Maternal Age At EDD 29.9 yr (.); OSBR Risk 1 IN 6301 (.); Results Report (.)
== END 2024-06-26 10:57 | disposition home or self-care (01) ==
LOC: LAB 10:57
PROVIDERS: PCP Family Medicine; Visit Provider Obstetrics & Gynecology
DX: Z34.92 Encounter for supervision of normal pregnancy, unspecified, second trimester (principal)
CPT/HCPCS: 36415; 82105

== ENCOUNTER 2024-07-11 17:20 | Outpatient (REF) | payer MEDICAID, SELFPAY ==
--- OUTSIDE RECORDS SUMMARY | 2024-07-11 17:40 | XMS_ITS | CCD ---
Author Organization [facility] Care Team Providers Care Chief Operator Lock Tender Name Role Phone MARGARETTE ., DR VICTOR Consulting Unavailable DEFRANCE, DR PADGETT Primary Care Unavailable MARGARETTE ., DR VICTOR Attending Unavailable MARGARETTE ., DR VICTOR Admitting Unavailable REQUEST, DR NORRIS LISTED Consulting Unavaila ble DEFRANCE, DR PADGETT [...] ., DR VICTOR Admitting Unavailable WEST, DR DAYRON Xie Consulting Unavailable DEFRANCE, DR PADGETT Primary Care Unavailable GEOVANNA ., ANITA Attending Unavailable GEOVANNA ., ANITA Admitting Unavailable GEOVANNA ., ANITA Consulting Unavailable GEVOANNA ., ANITA Consulting Unavailable DEFRANCE, DR PADGETT [...] Unavailable Dayron Kimbrough MD Primary Care Provider [phone] VALENTE PFEIFFER Attending Unavailable Allergies Allergy Classification Reported Allergen(s) Allergy Type Date of Onset Reaction(s) Facility (6 sources) Pollen Allergy to substance 09-15-2022 Unknown [facility] Work Phone: Medications Current Medications Medication Drug Class(es) Dates Sig (Normalized) Sig (Original) ondansetron 4 mg disintegrating oral tablet (11 sources) Serotonin-3 Receptor Antagonist Start: 04-20-2024 End: [...] Active MV-Min-Fe Fum-FA-DH A ( 1 PO) (6 sources) MV-Min- Fe Fum-FA-DHA ( 1 PO) [...] Onset: 04-12-2024 Episodic Other female genital disorders (6 sources) Vaginal bleeding; Translations: [Abnormal uterine and [...] Test Name Value Interpretation Reference Range Facility AFP, SERUM, OPEN SPINA BIFID Aon 06-28-2024 AFP MOM 1.21 . [facility] AFP VALUE 65.3 ng/mL . [facility] COMMENT: Comment . [facility] Comment on above: Concepcion Coon , Ph.D., [facility] Director References: Available Upon Request. Multiples Of Median Cutoffs For AFP Elevations Danielson 2.5 Black 2.8 IDD 2.0 Twins 4.5 Abbreviation Definitions IDD - Insulin Dep Diabetes OSBR - Open Spina Bifida Risk For further inquiries contact [employer] [facility] at [phone]. This test was developed and its performance characteristics determined by [facility]. It has not been cleared or approved by the Food and Drug Administration. Performed at: [facility] [employer] Formerly [facility], [facility] [place], [place] [id number] Chief Human Resources Officer: Leonie Bird [facility], Phone: [phone] GEST. AGE ON COLLECTION DATE 19.6 . weeks [facility] GESTAT. AGE BASED ON LMP . [facility] Comment on above: Recalculations are n ot recommended when gestational dating by LMP and ultrasound are within 10 days. INSULIN DEP DIABETES No . [facility] INTERPRETATION Comment . [facility] Comment on above: Interpretation: Scre en Negative This result is screen negative for OSB. [...] Customer Services to discuss available options. The [employer] recommends amniocentesis be offered to women age 35 and older. MATER[age]ES 29.8 . yr [facility] MULTIPLE GESTATION No . [facility] OSBR RISK 1 IN 6301 . [facility] RACE . [facility] RESULTS Report . [facility] TEST RESULTS: Negative . [facility] WEIGHT 149 . lbs [facility] N N LMP [id number] 4 15 N 1 149 N N N N N [facility] macro (dipstick) panel (U)on 05-29-2024 Bilirubin, UA Negative Negative - 4(70) +++ mg/dL [facility] Blood, UA Negative Negative - 50 Wali/mcL [facility] Clarity, UA Clear [facility] Color, UA Yellow [facility] Glucose, UA Negative Negative - 2000(110) ++++ mg/dL [facility] Interpretation and review of laboratory results Normal [facility] Ketones, UA Negative Negative - 160(16) ++++ mg/dL [facility] Leukocytes, UA Negative Negative - 500+++ Dmitriy/mcL [facility] Nitrite, UA Negative Negative - Positive [facility] pH, UA 6 5 - 9 [facility] Protein, UA Negative Negative - 1999(20) ++++ mg/dL [facility] Spec Grav, UA 1.03 1 - 1.03 [facility] Urobilinogen, UA 0.2 0.2 - 12 mg/dL [facility] BOX TESTon 05-11-2024 BOX TEST SENT OUT [facility] BOX1 [facility] BOX2 05/11/24 [facility] HCG ( test) Ql (U)o n 04-27-2024 Interpretation and review of laboratory results Abnormal [facility] Preg Test, Ur Positive Negative [facility] US OB TRANSVAGINALon 025 US OB TRANSVAGINAL [...] x 6.1 cm (10 weeks, 0 days). Marvin rump length is 4.8 cm (11 weeks, [...] UA Negative Negative - 4(70) +++ mg/dL [facility] Blood, UA Negative Negative - 50 Wali/mcL [facility] Clarity, UA Clear [facility] Color, UA Yellow [facility] Glucose, UA Negative Negative - 1999(110) ++++ mg/dL [facility] Interpretation and review of laboratory results Normal [facility] Ketones, UA Negative Negative - 160(16) ++++ mg/dL [facility] Leukocytes, UA Negative Negative - 500+++ Dmitriy/mcL [facility] Nitrite, UA Negative Negative - Positive [facility] pH, UA 6 5 - 9 [facility] Protein, UA Negative Negative - 1999(20) ++++ mg/dL [facility] Spec Grav, UA 1.025 1 - 1.03 [facility] Urobilinogen, UA 0.2 0.2 - 12 mg/dL [facility] CBC AND AUTO DIFFon 04-12- 24 ABSOLUTE BASOPHIL 0.1 X10E9/L Normal 0.0-0.2 [facility] Comment on above: Performed By: #### C BCA, CMP, 26300-7 #### [facility] ([id number]) [address] [place] [address] 02285 ABSOLUTE NEUTROPHIL 9.3 X10E9/L High 1.5-6.6 [facility] Comment on above: Performed By: #### C BCA, CMP, #### [facility] ([id number]) [address] [place] [address] 57247 Basophils/100 WBC (Bld) 0.4 % Normal [facility] Comment on above: Performed By: #### C MARILIN, CMP, #### [facility] ([id number]) [address] [place] [address] 48456 Eosinophils (Bld) [#/Vol] 0.0 10*3/uL Normal 0.0-0.4 [facility] Comment on above: Performed By: #### C MARILIN, [facility], #### [facility] ([id number]) [address] [place] [address] 59407 Eosinophils/100 WBC (Bld) 0.2 % Normal [facility] Comment on above: Performed By: #### C BCA, CMP, #### [facility] ([id number]) [address] [place] [address] 31239 Erythrocyte distribution width (RBC) [Ratio] 14.4 % Normal 11.5-15.0 [facility] Comment on above: Performed By: #### C BCA, [facility], #### [facility] ([id number]) [address] [place] [address] 67782 Hematocrit (Bld) [Volume fraction] 39.7 % Normal 35-47 [facility] Comment on above: Performed By: #### C BCA, CMP, #### [facility] ([id number]) [address] [place] [address] Hemoglobin (Bld) [Mass/Vol] 13.4 g/dL Normal 11.7-15.5 [facility] Comment on above: Performed By: #### Abraham GASTON [facility], #### [facility] ([id number]) [address] [place] [address] 04927 Lymphocytes (Bld) [#/Vol] 2.2 10*3/uL Normal 1.0-3.5 [facility] Comment on above: Performed By: #### Abraham GASTON [facility], #### [facility] ([id number]) [address] [place] [address] 72285 Lymphocytes/100 WBC (Bld) 18.4 % Normal [facility] Comment on above: Performed By: #### Abraham GASTON [facility], #### [facility] ([id number]) [address] [place] [address] 17538 MCH (RBC) [Entitic mass] 28.4 pg Normal 27-34 [facility] Comment on above: Performed By: #### Abraham GASTON [facility], #### [facility] ([id number]) [address] [place] [address] 00079 MCHC (RBC) [Mass/Vol] 33.8 g/dL Normal 32-36 [facility] Comment on above: Performed By: #### Abraham GASTON [facility], #### [facility] ([id number]) [address] [place] [address] 05401 MCV (RBC) [Entitic vol] 84 fL Normal 80-100 [facility] Comment on above: Performed By: #### Abraham GASTON [facility], 13199-1 #### [facility] ([id number]) [address] [place] [address] 88027 Monocytes (Bld) [#/Vol] 0.6 10*3/uL Normal 0-0.9 [facility] Comment on above: Performed By: #### C JUSTIN GASTON, 42347-9 #### [facility] ([id number]) [address] [place] [address] 60718 Monocytes/100 WBC (Bld) 4.7 % Normal [facility] Comment on above: Performed By: #### Abraham GASTON CMP, 83697-9 #### [facility] ([id number]) [address] [place] [address] 67691 Neutrophils/100 WBC (Bld) 76.3 % Normal [facility] Comment on above: Performed By: #### Abraham GASTON CMP, 48265-4 #### [facility] ([id number]) [address] [place] [address] 96332 Platelet mean volume (Bld) [Entitic vol] 8.6 fL Normal 7-12 [facility] Comment on above: Performed By: #### Abraham GASTON CMP, #### [facility] ([id number]) [address] [place] [address] 86115 Platelets (Bld) [#/Vol] 277 10*3/uL Normal 150-450 [facility] Comment on above: Performed By: #### Abraham GASTON CMP, 52472-2 #### [facility] ([id number]) [address] [place] [address] 19808 RBC COUNT 4.73 X10E12/L Normal 3.80-5.20 [facility] Comment on above: Performed By: #### Abraham GASTON CMP, 79779-4 #### [facility] ([id number]) [address] [place] [address] 62436 WBC (Bld) [#/Vol] 12.1 10*3/uL High 4.0-11.0 [facility] Comment on above: Performed By: #### Abraham GASTON CMP, #### [facility] ([id number]) [address] [place] [address] 96406 COMPREHENSIVE METABOLIC PANE [place] 04-12-2024 Albumin [Mass/Vol] 4.4 g/dL Normal 3.2-5.3 [facility] Comment on above: Performed By: #### C BCA, CMP, #### [facility] ([id number]) [address] [place] [address] 85738 ALP [Catalytic activity/Vol] 55 U/L Normal 39-130 [facility] Comment on above: Performed By: #### C BCA, CMP, #### [facility] ([id number]) [address] [place] [address] 96721 ALT [Catalytic activity/Vol] 22 U/L Normal 0-31 [facility] Comment on above: Performed By: #### C BCA, CMP, #### [facility] ([id number]) [address] [place] [address] 64830 Anion gap [Moles/Vol] 10 mmol/L Normal 5-15 [facility] Comment on above: Performed By: #### C BCA, CMP, 27880-5 #### [facility] ([id number]) [address] [place] [address] 94166 AST [Catalytic activity/Vol] 16 U/L Normal 0-41 [facility] Comment on above: Performed By: #### C BCA, CMP, 99073-9 #### [facility] ([id number]) [address] [place] [address] 30931 Bilirubin [Mass/Vol] 1.7 mg/dL High 0.3-1.2 [facility] Comment on above: Performed By: #### C BCA, CMP, #### [facility] ([id number]) [address] [place] [address] 00096 Calcium [Mass/Vol] 9.3 mg/dL Normal 8.5-10.5 [facility] Comment on above: Performed By: #### C JUSTIN GASTON, 96898-0 #### [facility] ([id number]) [address] [place] [address] 76359 Chloride [Moles/Vol] 102 mmol/L Normal 98-109 [facility] Comment on above: Performed By: #### C JUSTIN GASTON, #### [facility] ([id number]) [address] [place] [address] 72638 CO2 [Moles/Vol] 23 mmol/L Normal 22-32 [facility] Comment on above: Performed By: #### C JUSTIN GASTON, 30941-6 #### [facility] ([id number]) [address] [place] [address] 60347 Creatinine [Mass/Vol] 0.55 mg/dL Normal 0.40-1.00 [facility] Comment on above: Result Comment: METH OD TRACEABLE TO IDMS STANDARD Performed By: #### C JUSTIN GASTON, 49511-5 #### [facility] ([id number]) [address] [place] [address] 82222 eGFR (CKD-EPI) NON-RACE DEPENDENT >90 Normal >59 [facility] Comment on above: Result Comment: Reported eGFR is based on the CKD-EPI 2021 equation that does not use a race coefficient. Performed By: #### C MARILIN CMP, 45614-1 #### [facility] ([id number]) [address] [place] [address] 22257 Glucose [Mass/Vol] 94 mg/dL Normal 65-99 [facility] Comment on above: Performed By: #### C MARILIN, CMP, 07287-3 #### [facility] ([id number]) [address] [place] [address] 38776 Potassium [Moles/Vol] 3.5 mmol/L Normal 3.5-5.0 [facility] Comment on above: Performed By: #### C JUSTIN GASTON, 84281-1 #### [facility] ([id number]) [address] [place] [address] 04890 Protein [Mass/Vol] 7.9 g/dL Normal 6.0-8.0 [facility] Comment on above: Performed By: #### C JUSTIN GASTON, 41475-2 #### [facility] ([id number]) [address] [place] [address] 43497 Sodium [Moles/Vol] 135 mmol/L Normal 134-146 [facility] Comment on above: Performed By: #### C JUSTIN GASTON, 62944-6 #### [facility] ([id number]) [address] [place] [address] 66340 Urea nitrogen [Mass/Vol] 10 mg/dL Normal 5-23 [facility] Comment on above: Performed By: #### C JUSTIN GASTON, 48563-6 #### [facility] ([id number]) [address] [place] [address] 26552 HCG ( test) Ql (U)o n 04-12-2024 Beta HCG ( test) Ql (U) Positive Abnormal NEG [facility] Comment on above: Performed By: #### 2 106-3 #### [facility] ([id number]) [address] [place] [address] 34528 MAGNESIUMon 04-12-2024 Magnesium [Mass/Vol] 2.0 mg/dL Normal 1.8-2.6 [facility] Comment on above: Performed By: #### C MARILIN, CMP, 38298-9 #### [facility] ([id number]) [address] [place] [address] 42304 URN MACROSCOPIC NURon 2023 BILIRUBIN MAIA Negative Normal NEG [facility] Comment on above: Performed By: #### N UM #### [facility] ([id number]) [address] [place] [address] 70743 BLOOD/HGB MAIA Negative Normal NEG [facility] Comment on above: Performed By: #### N UM #### [facility] ([id number]) [address] [place] [address] [place] [address] GLUCOSE MAIA Negative Normal NEG [facility] Comment on above: Performed By: #### N UM #### [facility] ([id number]) [address] [place] [address] 66391 KETONES MAIA >=160 Abnormal NEG [facility] Comment on above: Performed By: #### N UM #### [facility] ([id number]) [address] [place] [address] [place] [address] LEUKOCYTE ESTERASE MAIA Negative Normal NEG [facility] Comment on above: Performed By: #### N UM #### [facility] ([id number]) [address] [place] [address] 61802 NITRITE MAIA Negative Normal NEG [facility] Comment on above: Performed By: #### N UM #### [facility] ([id number]) [address] [place] [address] 71137 PH MAIA 6.5 Normal 5.0-8.5 [facility] Comment on above: Performed By: #### N UM #### [facility] ([id number]) [address] [place] [address] 74332 PROTEIN MAIA Trace Abnormal NEG [facility] Comment on above: Performed By: #### N UM #### [facility] ([id number]) [address] [place] [address] [place] [address] SPECIFIC GRAVITY MAIA >=1.030 Normal 1.003-1.035 [facility] Comment on above: Performed By: #### N UM #### [facility] ([id number]) [address] [place] [address] 61344 UROBILINOGEN MAIA 1.0 eu/dL Normal <1.1 [facility] Comment on above: Performed By: #### N UM #### [facility] ([id number]) [address] [facility], [place] [address] CNPNon 01-11-2024 CNPN Telephone (TXCTMN) LORAINE PACE ([id number]) 1995 F Date Time Provider Department 01/11/24 LIVER TXP COORDINATOR TXAYLIN During your visit today, we recorded the following information about you: Kriss Atkins Tech 01/11/2024 11:08 AM Signed Living [...] Yes Online intake has been scanned to [employer] for review by the living donor coordinator. Allergies As of Date: 01/11/2024 (Not on File) Date Reviewed: Never Reviewed Reason for Visit: Referral - Donor Txp [[id number]] Primary Visit Diagnosis:Liver donor [Z52.6] Order(s):CONSULT TO TRANSPLANT CENTER [623964] Order #: [id number]: 1 Problem List As Of Date: 01/11/2024 (None) Encounter Status:Closed by KRISS ATKINS on 01/11/24 Normal [facility] CNPN Telephone (TXCTMN) LORAINE PACE ([id number]) 1995 F Date Time Provider Department 01/11/24 KARINA SHIRN) (HIST)TXCTMN During your visit today, we recorded the following information about you: Karina Shi) (Hist), SHANNON 01/26/2024 12:45 PM Signed LIVING [...] for Covid? No, had 1 time no fpc side effects Overall general health: Patient reports [...] Status:Closed by KARINA SHI on 01/26/24 Normal [facility] GTT 3 HR PREGon 08-06-2022 Glucose [Mass/Vol] 80 mg/dL Normal [facility] Comment on above: Performed By: #### G TT3P #### [facility] [address] [address] [address] Jamie Dickey Glucose [Mass/Vol] 139 mg/dL Normal [facility] Comment on above: Performed By: #### G TT3P #### [facility] [address] [place] [address] Dr. Jamie Dickey Glucose [Mass/Vol] 99 mg/dL Normal [facility] Comment on above: Performed By: #### G TT3P #### [facility] [address] [place] [address] Dr. Jamie Dickey CBC AUTO DIFFon 07-27-2022 BASO # 0.0 103/ul Normal 0.0-0.1 [facility] Comment on above: Performed By: #### C BC #### [facility] [address] [place] [address] Dr. Jamie Dickey Basophils/100 WBC (Bld) 0.4 % Normal 0.2-2.0 [facility] Comment on above: Performed By: #### C BC #### [facility] [address] [place] [address] Dr. Jamie Dickey EO # 0.2 103/ul Normal 0.0-0.7 [facility] Comment on above: Performed By: #### C BC #### [facility] [address] [place] [address] Dr. Jamie Dickey Eosinophils/100 WBC (Bld) 1.8 % Normal 0.9-7.0 [facility] Comment on above: Performed By: #### C BC #### [facility] [address] [place] [address] Dr. Jamie Dickey Erythrocyte distribution width (RBC) [Ratio] 13.2 % Normal 11.0-15.0 [facility] Comment on above: Performed By: #### C BC #### [facility] [address] [place] [address] Dr. Jamie Dickey Hematocrit (Bld) [Volume fraction] 32.1 % Critically low 36.0-48.0 [facility] Comment on above: Performed By: #### C BC #### [facility] [address] [place] [address] Dr. Jamie Dickey Hemoglobin (Bld) [Mass/Vol] 10.8 g/dL Critically low 12.0-16.0 [facility] Comment on above: Performed By: #### C BC #### [facility] [address] [place] [address] Dr. Jamie Dickey IG # 0.07 10e3/ul Critically high 0.00-0.03 [facility] Comment on above: Performed By: #### C BC #### [facility] [address] [place] [address] Dr. Jamie Dickey IG % 0.8 % Critically high 0.0-0.5 [facility] Comment on above: Performed By: #### C BC #### [facility] [address] [place] [address] Dr. Jamie Dickey LYMPH # 1.8 103/ul Normal 1.2-3.8 [facility] Comment on above: Performed By: #### C BC #### [facility] [address] [place] [address] Dr. Jamie Dickey Lymphocytes/100 WBC (Bld) 20.4 % Critically low 20.5-60.0 [facility] Comment on above: Performed By: #### C BC #### [facility] [address] [place] [address] Dr. Jamie Dickey MANUAL DIFF REQ NO Normal [facility] Comment on above: Performed By: #### C BC #### [facility] [address] [place] [address] Dr. Jamie Dickey MCH (RBC) [Entitic mass] 29.1 pg Normal 26.7-34.0 [facility] Comment on above: Performed By: #### C BC #### [facility] [address] [place] [address] Dr. Jamie Dickey MCHC (RBC) [Mass/Vol] 33.6 g/dL Normal 29.9-35.2 [facility] Comment on above: Performed By: #### C BC #### [facility] [address] [place] [address] Dr. Jamie Dickey MCV (RBC) [Entitic vol] 86.5 fL Normal 81.0-99.0 [facility] Comment on above: Performed By: #### C BC #### [facility] [address] [place] [address] Dr. Jamie Dickey MONO # 0.4 103/ul Normal 0.3-0.8 [facility] Comment on above: Performed By: #### C BC #### [facility] [address] [place] [address] Dr. Jamie Dickey Monocytes/100 WBC (Bld) 4.8 % Normal 1.7-12.0 [facility] Comment on above: Performed By: #### C BC #### [facility] [address] [place] [address] Dr. Jamie Dickey NEUT # 6.5 103/ul Normal 1.4-6.5 [facility] Comment on above: Performed By: #### C BC #### [facility] [address] [place] [address] Dr. Jamie Dickey Neutrophils/100 WBC (Bld) 71.8 % Normal 43.0-75.0 [facility] Comment on above: Performed By: #### C BC #### [facility] [address] [place] [address] Dr. Jamie Dickey Platelet mean volume (Bld) [Entitic vol] 10.1 fL Normal 9.5-13.5 [facility] Comment on above: Performed By: #### C BC #### [facility] [address] [place] [address] Dr. Jamie Dickey PLT 197 103/ul Normal 150-450 [facility] Comment on above: Performed By: #### C BC #### [facility] [address] [place] [address] Dr. Jamie Dickey RBC 3.71 106/ul Critically low 4.20-5.40 [facility] Comment on above: Performed By: #### C BC #### [facility] [address] [place] [address] Dr. Jamie Dickey WBC 9.0 103/ul Normal 4.0-11.0 [facility] Comment on above: Performed By: #### C BC #### [facility] [address] [address] [address] Jamie Dickey GLUCOSE - 1HRon 07-27-2022 Glucose [Mass/Vol] 158 mg/dL Critically high 74-106 T he [facility] Comment on above: Performed By: #### N BOX #### [facility] [address] [address] [address] Jamie Dickey AFP MATERNAL FOR SPINA BIFID Aon 06-26-2022 AFP MoM 0.90 Normal [facility] Comment on above: Performed By: #### H CVPCRR #### [facility] [address] [address] [address] Jamie Dickey AFP Value 54.6 ng/mL Normal [facility] Comment on above: Performed By: #### H CVPCRR #### [facility] [address] [address] [address] Jamie Dickey AFP, Serum for Spina Bifida Report Normal [facility] Comment on above: Performed By: #### H CVPCRR #### [facility] [address] [address] [address] Jamie Dickey Comment Comment Normal [facility] Comment on above: Result Comment: Anamaria Coon, Ph.D., [facility] Director . References: Available Upon Request. . Multiples Of Median Cutoffs For AFP Elevations Danielson 2.5 Black 2.8 IDD 2.0 Twins 4.5 Abbreviation Definitions IDD - Insulin Dep Diabetes OSBR - Open Spina Bifida Risk . For further inquiries contact [employer] [facility] at [phone]. . This test was developed and its performance characteristics determined by [facility]. It has not been cleared or approved by the Food and Drug Administration. Performed By: #### H CVPCRR #### [facility] [address] [place] [address] Dr. Jamie Dickey Gest Age Collection Date 20.0 weeks Normal [facility] Comment on above: Performed By: #### H CVPCRR #### [facility] [address] [place] [address] Dr. Jamie Dickey Gestat, Age Based on Ultrasound Normal [facility] Comment on above: Result Comment: 18.6 on 06/14/2022 Recalculations are not recommended when gestational dating by LMP and ultrasound are within 10 days. Performed By: #### H CVPCRR #### [facility] [address] [address] [address] Jamie Dickey Insulin Dep Diabetes No Normal [facility] Comment on above: Performed By: #### H CVPCRR #### [facility] [address] [address] [address] Jamie Dickey Interpretation Comment Normal [facility] Comment on above: Result Comment: Inte rpretation: [...] Customer Services to discuss available options. The [employer] recommends amniocentesis be offered to women age 35 and older. Performed By: #### H CVPCRR #### [facility] [address] [address] [address] Jamie Dickey [age] Normal [facility] Comment on above: Performed By: #### H CVPCRR #### [facility] [address] [address] [address] Jamie Dickey Multiple Gestation No Normal [facility] Comment on above: Performed By: #### H CVPCRR #### [facility] [address] [address] [address] Jamie Dickey [place] [address] Normal [facility] Comment on above: Performed By: #### H CVPCRR #### [facility] [address] [address] [address] Jamie Dickey PDF . Normal [facility] Comment on above: Performed By: #### H CVPCRR #### [facility] [address] [address] [address] Jamie Dickey Race Normal [facility] Comment on above: Performed By: #### H CVPCRR #### [facility] [address] [address] [address] Jamie Dickey Test Results: Negative Normal [facility] Comment on above: Performed By: #### H CVPCRR #### [facility] [address] [address] [address] Jamie Dickey US PREG ANATOMY SINGLEon [...] authenticated by: DAYRON AYON Date: 2022-06-24 16:14 Normal [facility] PAP ACOG PANEL 2: 30 to 65on 06-22-2022 . . Normal [facility] Comment on above: Performed By: #### [id number] #### [facility] [address] [place] [address] Dr. Jamie Dickey Age Gdln ACOG Testing 21-29 [facility] Comment on above: Performed By: #### [id number] #### [facility] [address] [address] [address] Jamie Dickey DIAGNOSIS: Comment [facility] Comment on above: Result Comment: NEGA TIVE FOR INTRAEPITHELIAL LESION OR MALIGNANCY. Performed By: #### [id number] #### [facility] [address] [place] [address] Dr. Jamie Dickey Methodology: Comment [facility] Comment on above: Result Comment: This liquid based ThinPrep(R) pap test was screened with the use of an image guided system. Performed By: #### [id number] #### [facility] [address] [place] [address] Dr. Jamie Dickey Note: Comment [facility] Comment on above: Result Comment: The Pap smear is a screening test designed to aid in the detection of premalignant and malignant conditions of the uterine cervix. It is not a diagnostic procedure and should not be used as the sole means of detecting cervical cancer. Both false-positive and false-negative reports do occur. . Performed By: #### [id number] #### [facility] [address] [place] [address] Dr. Jamie Dickye Performed by: Comment Normal [facility] Comment on above: Result Comment: Tiffany Beatty, Engine Assembly Supervisor (ASCP) Performed By: #### [id number] #### [facility] [address] [place] [address] Dr. Jamie Dickey Reflex Criteria: Comment [facility] Comment on above: Result Comment: The HPV DNA reflex criteria were not met with this specimen result therefore, no HPV testing was performed. . Performed By: #### [id number] #### [facility] [address] [place] [address] Dr. Jamie Dickey Specimen adequacy: Comment Normal [facility] Comment on above: Result Comment: Sati sfactory for evaluation. No endocervical component is identified. Performed By: #### [id number] #### [facility] [address] [place] [address] Dr. Jamie Dickey CHLAMYDIA/GONOCOCCUS FLORENCIO (SW AB/URINE/PAPon 06-17-2022 Chlamydia trachomatis, FLORENCIO Negative Normal Negative [facility] Comment on above: Performed By: #### C T/NGNA #### [facility] [address] [place] [address] Dr. Jamie Dickey Neisseria gonorrhoeae, FLORENCIO Negative Normal Negative [facility] Comment on above: Performed By: #### C T/NGNA #### [facility] [address] [place] [address] Dr. Jamie Dickey VAGINITIS/VAGINOSIS DNA PROB Lanre 06-16-2022 Gabriella species Negative Normal Negative [facility] Comment on above: Performed By: #### V AGINT #### [facility] [address] [place] [address] Dr. Jamie Dickey Gardnerella vaginalis Positive Abnormal Negative [facility] Comment on above: Performed By: #### V AGINT #### [facility] [address] [place] [address] Dr. Jamie Dickey Trichomonas vaginalis Negative Normal Negative [facility] Comment on above: Performed By: #### V AGINT #### [facility] [address] [place] [address] Dr. Jamie Dickey CBC AUTO DIFFon 05-29-2022 BASO # 0.0 103/ul Normal 0.0-0.1 [facility] Comment on above: Performed By: #### H CVPCRR #### [facility] [address] [place] [address] Dr. Jamie Dickey Basophils/100 WBC (Bld) 0.4 % Normal 0.2-2.0 [facility] Comment on above: Performed By: #### H CVPCRR #### [facility] [address] [place] [address] Dr. Jamie Dickey EO # 0.1 103/ul Normal 0.0-0.7 [facility] Comment on above: Performed By: #### H CVPCRR #### [facility] [address] [place] [address] Dr. Jamie Dickey Eosinophils/100 WBC (Bld) 1.3 % Normal 0.9-7.0 [facility] Comment on above: Performed By: #### H CVPCRR #### [facility] [address] [place] [address] Dr. Jamie Dickey Erythrocyte distribution width (RBC) [Ratio] 13.4 % Normal 11.0-15.0 [facility] Comment on above: Performed By: #### H CVPCRR #### [facility] [address] [place] [address] Dr. Jamie Dickey Hematocrit (Bld) [Volume fraction] 32.8 % Critically low 36.0-48.0 [facility] Comment on above: Performed By: #### H CVPCRR #### [facility] [address] [place] [address] Dr. Jamie Dickey Hemoglobin (Bld) [Mass/Vol] 10.9 g/dL Critically low 12.0-16.0 [facility] Comment on above: Performed By: #### H CVPCRR #### [facility] [address] [place] [address] Dr. Jamie Dickey IG # 0.03 10e3/ul Normal 0.00-0.03 [facility] Comment on above: Performed By: #### H CVPCRR #### [facility] [address] [place] [address] Dr. Jamie Dickey IG % 0.4 % Normal 0.0-0.5 [facility] Comment on above: Performed By: #### H CVPCRR #### [facility] [address] [place] [address] Dr. Jamie Dickey LYMPH # 1.1 103/ul Critically low 1.2-3.8 [facility] Comment on above: Performed By: #### H CVPCRR #### [facility] [address] [address] [address] Jamie Dickey Lymphocytes/100 WBC (Bld) 15.3 % Critically low 20.5-60.0 [facility] Comment on above: Performed By: #### H CVPCRR #### [facility] [address] [address] [address] Jamie Dickey MANUAL DIFF REQ NO Normal [facility] Comment on above: Performed By: #### H CVPCRR #### [facility] [address] [address] [address] Jamie Dickey MCH (RBC) [Entitic mass] 29.7 pg Normal 26.7-34.0 [facility] Comment on above: Performed By: #### H CVPCRR #### [facility] [address] [place] [address] Dr. Jamie Dickey MCHC (RBC) [Mass/Vol] 33.2 g/dL Normal 29.9-35.2 [facility] Comment on above: Performed By: #### H CVPCRR #### [facility] [address] [place] [address] Dr. Jamie Dickey MCV (RBC) [Entitic vol] 89.4 fL Normal 81.0-99.0 [facility] Comment on above: Performed By: #### H CVPCRR #### [facility] [address] [place] [address] Dr. Jamie Dickey MONO # 0.6 103/ul Normal 0.3-0.8 [facility] Comment on above: Performed By: #### H CVPCRR #### [facility] [address] [place] [address] Dr. Jamie Dickey Monocytes/100 WBC (Bld) 8.1 % Normal 1.7-12.0 [facility] Comment on above: Performed By: #### H CVPCRR #### [facility] [address] [place] [address] Dr. Jamie Dickey NEUT # 5.5 103/ul Normal 1.4-6.5 [facility] Comment on above: Performed By: #### H CVPCRR #### [facility] [address] [address] [address] Jamie Dickey Neutrophils/100 WBC (Bld) 74.5 % Normal 43.0-75.0 [facility] Comment on above: Performed By: #### H CVPCRR #### [facility] [address] [address] [address] Jamie Dickey Platelet mean volume (Bld) [Entitic vol] 10.1 fL Normal 9.5-13.5 [facility] Comment on above: Performed By: #### H CVPCRR #### [facility] [address] [place] [address] Dr. Jamie Dickey PLT 175 103/ul Normal 150-450 [facility] Comment on above: Performed By: #### H CVPCRR #### [facility] [address] [place] [address] Dr. Jamie Dickey RBC 3.67 106/ul Critically low 4.20-5.40 [facility] Comment on above: Performed By: #### H CVPCRR #### [facility] [address] [place] [address] Dr. Jamie Dickey WBC 7.4 103/ul Normal 4.0-11.0 [facility] Comment on above: Performed By: #### H CVPCRR #### [facility] [address] [place] [address] Dr. Jamie Dickey PROF CHEM 8 (BAS METB)on Anion gap [Moles/Vol] 11.8 mmol/L Normal [facility] Comment on above: Performed By: #### B MP #### [facility] [address] [place] [address] Dr. Jamie Dickey Calcium [Mass/Vol] 8.4 mg/dL Critically low 8.5-10.1 [facility] Comment on above: Performed By: #### B MP #### [facility] [address] [place] [address] Dr. Jamie Dickey Chloride [Moles/Vol] 103 mmol/L Normal 98-107 [facility] Comment on above: Performed By: #### B MP #### [facility] [address] [address] [address] Jamie Dickey CO2 [Moles/Vol] 26.0 mmol/L Normal 21.0-32.0 [facility] Comment on above: Performed By: #### B MP #### [facility] [address] [address] [address] Jamie Dickey Creatinine [Mass/Vol] 0.49 mg/dL Critically low 0.55-1.02 [facility] Comment on above: Performed By: #### B MP #### [facility] [address] [place] [address] Dr. Jamie Dickey EGFR-AF BURKINAN >60 Normal >=60 [facility] Comment on above: Performed By: #### B MP #### [facility] [address] [place] [address] Dr. Jamie Dickey EGFR-NON AF BURKINAN >60 Normal >=60 [facility] Comment on above: Performed By: #### B MP #### [facility] [address] [address] [address] Jamie Dickey Glucose [Mass/Vol] 92 mg/dL Normal 74-106 [facility] Comment on above: Performed By: #### B MP #### [facility] [address] [place] [address] Dr. Jamie Dickey Potassium [Moles/Vol] 3.8 mmol/L Normal 3.5-5.1 [facility] Comment on above: Performed By: #### B MP #### [facility] [address] [address] [address] Jamie Dickey Sodium [Moles/Vol] 137 mmol/L Normal 136-145 [facility] Comment on above: Performed By: #### B MP #### [facility] [address] [address] [address] Jamie Dickey Urea nitrogen [Mass/Vol] 10.0 mg/dL Normal 7.0-18.0 [facility] Comment on above: Performed By: #### B MP #### [facility] [address] [place] [address] Dr. Jamie Dickey Urea nitrogen/Creatinine [Mass ratio] 20.4 mg/mg Normal [facility] Comment on above: Performed By: #### B MP #### [facility] [address] [place] [address] Dr. Jamie Dickey PROTIMEon 05-29-2022 INR Coag (PPP) [Relative time] {INR} Normal [facility] Comment on above: Performed By: #### N BOX #### [facility] [address] [place] [address] Dr. Jamie Dickey INR GUIDELINES SEE BELOW Normal [facility] Comment on above: Result Comment: CARITO RED INR: 2.0 - 3.0 CONDITIONS NOT LISTED BELOW 2.5 - 3.5 FOR PROSTHETIC HEART VALVE REPLACEMENT 2.5 - 3.5 RECURRENT THROMBOSIS Performed By: #### N BOX #### [facility] [address] [place] [address] Dr. Jamie Dickey PT Coag (PPP) [Time] 9.3 s Normal 9.0-11.6 [facility] Comment on above: Performed By: #### N BOX #### [facility] [address] [place] [address] Dr. Jamie Dickey PTTon 05-29-2022 aPTT Coag (Bld) [Time] 27.7 s Normal 22.3-36.2 [facility] Comment on above: Performed By: #### N BOX #### [facility] [address] [place] [address] Dr. Jamie Dickey US PREG PLACENTAon US PREG PLACENTA EXAM: US PREG PLACENTA [...] Daniel ZAIDI Date: 2022-05-29 01:00 Normal [facility] HEP B SURFACE ANTIGEN SCREEN on 05-07-2022 HBsAg Screen Negative Normal Negative [facility] Comment on above: Performed By: #### H CVPCRR #### [facility] [address] [address] [address] Jamie Dickey HEPATITIS C VIRUS AB W/ REFL EX QUANTon 05-07-2022 HCV AB <0.1 Normal 0.0-0.9 [facility] Comment on above: Performed By: #### H CVPCRR #### [facility] [address] [address] [address] Jamie Dickey Interpretation: Comment Normal [facility] Comment on above: Result Comment: Nega tive Not infected with HCV, unless recent infection is suspected or other evidence exists to indicate HCV infection. Performed By: #### H CVPCRR #### [facility] [address] [address] [address] Jamie Dickey HIV 1 AND 2 WITH REFLEXon HIV Screen 4th Generation wRfx Non-Reactive Normal Non Reactive [facility] Comment on above: Result Comment: HIV Negative HIV-1/HIV-2 antibodies and HIV-1 p24 antigen were NOT detected. There is no laboratory evidence of HIV infection. Performed By: #### H CVPCRR #### [facility] [address] [place] [address] Dr. Jamie Dickey RPR QUANTon 05-07-2022 Rapid Plasma Reagin, Quant Non-Reactive Normal NonRea<1:1 [facility] Comment on above: Result Comment: Plea se Note: This test does not meet current guidelines for screening and diagnosis of syphilis. This test is intended for following treatment response in patients being treated for syphilis infection. To screen for syphilis infection, a reflex cascade that includes both RPR and a treponema-specific assay should be utilized, such as Treponema pallidum (Syphilis) Screening [place] (121423) or Rapid Plasma Reagin (RPR) Test With Reflex to Quantitative RPR and Confirmatory Treponema pallidum Antibodies (895550). Performed By: #### R PRQ #### [facility] [address] [place] [address] Dr. Jamie Dickey RUBELLA AB IGGon 05-07-2022 Rubella Antibodies, IgG 4.41 index Normal Immune >0.99 [facility] Comment on above: Result Comment: Non- immune <0.90 Equivocal 0.90 - 0.99 Immune >0.99 Performed By: #### N BOX #### [facility] [address] [place] [address] Dr. Jamie Dickey CBC AUTO DIFFon 05-06-2022 BASO # 0.0 103/ul Normal 0.0-0.1 [facility] Comment on above: Performed By: #### N BOX #### [facility] [address] [place] [address] Dr. Jamie Dickey Basophils/100 WBC (Bld) 0.3 % Normal 0.2-2.0 [facility] Comment on above: Performed By: #### N BOX #### [facility] [address] [place] [address] Dr. Jamie Dickey EO # 0.1 103/ul Normal 0.0-0.7 [facility] Comment on above: Performed By: #### N BOX #### [facility] [address] [place] [address] Dr. Jamie Dickey Eosinophils/100 WBC (Bld) 0.9 % Normal 0.9-7.0 [facility] Comment on above: Performed By: #### N BOX #### [facility] [address] [place] [address] Dr. Jamie Dickey Erythrocyte distribution width (RBC) [Ratio] 13.0 % Normal 11.0-15.0 [facility] Comment on above: Performed By: #### N BOX #### [facility] [address] [address] [address] Jamie Dickey Hematocrit (Bld) [Volume fraction] 36.7 % Normal 36.0-48.0 [facility] Comment on above: Performed By: #### N BOX #### [facility] [address] [address] [address] Jamie Dickey Hemoglobin (Bld) [Mass/Vol] 11.7 g/dL Critically low 12.0-16.0 [facility] Comment on above: Performed By: #### N BOX #### [facility] [address] [address] [address] Jamie Dickey IG # 0.05 10e3/ul Critically high 0.00-0.03 [facility] Comment on above: Performed By: #### N BOX #### [facility] [address] [place] [address] Dr. Jamie Dickey IG % 0.4 % Normal 0.0-0.5 [facility] Comment on above: Performed By: #### N BOX #### [facility] [address] [address] [address] Jamie Dickey LYMPH # 2.3 103/ul Normal 1.2-3.8 [facility] Comment on above: Performed By: #### N BOX #### [facility] [address] [address] [address] Jamie Dickey Lymphocytes/100 WBC (Bld) 20.3 % Critically low 20.5-60.0 [facility] Comment on above: Performed By: #### N BOX #### [facility] [address] [address] [address] Jamie Dickey MANUAL DIFF REQ NO Normal [facility] Comment on above: Performed By: #### N BOX #### [facility] [address] [place] [address] Dr. Jamie Dickey MCH (RBC) [Entitic mass] 28.5 pg Normal 26.7-34.0 [facility] Comment on above: Performed By: #### N BOX #### [facility] [address] [place] [address] Dr. Jamie Dickey MCHC (RBC) [Mass/Vol] 31.9 g/dL Normal 29.9-35.2 [facility] Comment on above: Performed By: #### N BOX #### [facility] [address] [address] [address] Jamie Dickey MCV (RBC) [Entitic vol] 89.5 fL Normal 81.0-99.0 [facility] Comment on above: Performed By: #### N BOX #### [facility] [address] [address] [address] Jamie Dickey MONO # 0.5 103/ul Normal 0.3-0.8 [facility] Comment on above: Performed By: #### N BOX #### [facility] [address] [address] [address] Jamie Dickey Monocytes/100 WBC (Bld) 4.7 % Normal 1.7-12.0 [facility] Comment on above: Performed By: #### N BOX #### [facility] [address] [place] [address] Dr. Jamie Dickey NEUT # 8.3 103/ul Critically high 1.4-6.5 [facility] Comment on above: Performed By: #### N BOX #### [facility] [address] [place] [address] Dr. Jamie Dickey Neutrophils/100 WBC (Bld) 73.4 % Normal 43.0-75.0 [facility] Comment on above: Performed By: #### N BOX #### [facility] [address] [address] [address] Jamie Dickey Platelet mean volume (Bld) [Entitic vol] 10.8 fL Normal 9.5-13.5 [facility] Comment on above: Performed By: #### N BOX #### [facility] [facility] [address] [address] [address] Jamie Dickey PLT 238 103/ul Normal 150-450 [facility] Comment on above: Performed By: #### N BOX #### [facility] [address] [place] [address] Dr. Jamie Dickey RBC 4.10 106/ul Critically low 4.20-5.40 [facility] Comment on above: Performed By: #### N BOX #### [facility] [address] [place] [address] Dr. Jamie Dickey WBC 11.3 103/ul Critically high 4.0-11.0 [facility] Comment on above: Performed By: #### N BOX #### [facility] [address] [place] [address] Dr. Jamie Dickey CULTURE URINEon 05-06-2022 CULTURE URINE Culture Observations : LIGHT GROWTH OF MIXED GENITAL CHANTALE. NO POTENTIAL PATHOGENS SEEN. Normal [facility] Comment on above: Performed By: #### N BOX #### [facility] [address] [place] [address] Dr. Jamie Dickey GLYCOHEMOGLOBIN A1Con 2022 ADA RECOMMENDATION SEE BELOW Normal [facility] Comment on above: Result Comment: ADA RECOMMENDED LIMIT 4.0 - 6.0 ADA THERAPEUTIC TARGET < 7.0 ACTION SUGGESTED > 7.0 Performed By: #### A 1C #### [facility] [address] [place] [address] Dr. Jamie Dickey Glucose [Mass/Vol] 94 mg/dL Normal [facility] Comment on above: Performed By: #### A 1C #### [facility] [address] [place] [address] Dr. Jamie Dickey HbA1c (Bld) [Mass fraction] 4.9 % Normal 4.5-6.2 [facility] Comment on above: Performed By: #### A 1C #### [facility] [address] [place] [address] Dr. Jamie Dickey ISSA BOX TEST PT SEND OUTo n 05-06-2022 SENT TO REF LAB 05/06/2022 Normal [facility] Comment on above: Performed By: #### N BOX #### [facility] [address] [place] [address] Dr. Jamie Dickey TYPE AND SCREENon 05-06-2022 TYPE AND SCREEN Negative Normal [facility] Comment on above: Performed By: #### N BOX #### [facility] [address] [place] [address] Dr. Jamie Dickey US PREG TVon 04-15-2022 [...] LOLIS COLEMAN Date: 2022-04-15 16:33 Normal [facility] Vital Signs Date Time Vital Sign Value Performing Clinician Facility 05-29-2024 13:52-0500 Body mass index (BMI) [Ratio] 24.93 kg/m2 [employer] Work Phone: [facility] 05-29-2024 13:52-0500 Body weight 67.95 kg [employer] Work Phone: [facility] 05-29-2024 13:52-0500 Diastolic blood pressure 70 mm[Hg] [facility] [employer] Phone: [facility] 05-29-2024 13:52-0500 Systolic blood pressure 120 mm[Hg] [facility] 04-27-2024 10:48-0500 Body mass index (BMI) [Ratio] 24.79 kg/m2 [facility] Nurse [facility] 04-27-2024 10:48-0500 Body weight 67.59 kg [facility] Nurse [facility] 04-27-2024 10:48-0500 Diastolic blood pressure 72 mm[Hg] [facility] Nurse [facility] 04-27-2024 10:48-0500 Systolic blood pressure 118 mm[Hg] [facility] Nurse [facility] 06-26-2022 03:06-0500 Body weight 65.[address] VALENTE PFEIFFER . [facility] Comment on above: Performed By: #### HCVPCRR #### [facility] [address] [address] [address] Jamie Dickey Encounters Encounter Date Encounter Type Care Provider Facility Start: 06-26-2024 End: 06-28-2024 Clinisync Result Encounter Valente Margarette DO Work Phone: [facility] Unsolicited Start: 06-26-2024 End: 06-28-2024 Clinisync Result Encounter Valente Margarette DO Work Phone: [facility] Unsolicited Start: 05-29-2024 End: 05-29-2024 Bamboo flowsheet Valente [...] 04-12-2024 End: 04-12-2024 Emergency department patient visit [facility] Start: 01-11-2024 End: 01-26-2024 Telephone encounter Liver Txp Coordinator Work Phone: [facility] Comment on above: Referral - Donor Txp Start: 09-16-2022 ambulatory NONE LISTED REQUEST Facility: Start: 08-06-2022 End: 08-07-[address] VALENTE PFEIFFER . Facility: Start: 07-27-2022 End: 07-28-[address] VALENTE PFEIFFER . Facility:[facility] Start: 06-24-2022 End: 06-25-[address] VALENTE PFEIFFER . Facility:[facility] Start: 06-14-2022 End: 06-14-2022 ambulatory ANITA AUSTIN . Facility:[facility] Start: 05-29-2022 End: 05-29-[address] MIKE MENDEZ . Facility: Start: 05-06-2022 End: 05-07-[address] VALENTE PFEIFFER . Facility: Start: 04-15-2022 End: 04-16-[address] VALENTE PFEIFFER . Facility: Procedures Date Procedure Procedure Detail Performing Clinician Start: 06-26-2024 AFP, SERUM, OPEN SPI NA BIFIDA Valente Margarette DO Work Phone: Start: 05-29-2024 Urnls dip stick/tabl et rgnt [...] PM EST Routine [facility] [address] [place] [address] Valente Pfeiffer, [address] [place] [address] Arrived [facility] Comment on above: Arrived Start: 04-27-2024 End: 04-27-2025 ABO/Rh ABO/Rh Lab Routine Missed menses , unspecified gestational age Expected: 04/27/2024 (Approximate), Expires: 04/27/2025 [facility] Comment on above: Expected: 04/27/2024 (Approximate), Expires: 04/27/2025 Start: 04-27-2024 End: 04-27-2025 Blood type and Indirect antibody screen panel - Blood Type and screen Lab Routine Missed menses , unspecified gestational age Expected: 04/27/2024 (Approximate), Expires: 04/27/2025 [facility] Work Phone: Comment on above: Expected: 04/27/2024 (Approximate), Expires: 04/27/2025 Start: 04-27-2024 End: 04-27-2025 Drugs of abuse panel - Urine by Screen method Rapid drug screen, urine Lab Routine , unspecified gestational age Encounter for supervision of normal first in first trimester Expected: 04/27/2024 (Approximate), Expires: 04/27/2025 [facility] Comment on above: Expected: 04/27/2024 (Approximate), Expires: 04/27/2025 Bacteria identified in Urine by Culture Urine culture Microbiology Routine Missed menses Ordered: 04/27/2024 [facility] Comment on above: Ordered: 04/27/2024 CBC W Auto Different ial panel - Blood CBC and differential Lab Routine Missed menses , unspecified gestational age Ordered: 04/27/2024 [facility] Comment on above: Ordered: 04/27/2024 Hemoglobin A1c/Hemoglobin.total in Blood Hemoglobin A1c Lab Routine Missed menses , unspecified gestational age Ordered: 04/27/2024 [facility] Comment on above: Ordered: 04/27/2024 Hepatitis B virus surface Ag [Presence] in Serum or Plasma by Immunoassay Hepatitis B surface antigen Lab Routine Missed menses , unspecified gestational age Ordered: 04/27/2024 [facility] Comment on above: Ordered: 04/27/2024 Hepatitis C virus Ab [Presence] in Serum or Plasma by Immunoassay Hepatitis C antibody Lab Routine Missed menses , unspecified gestational age Ordered: 04/27/2024 [facility] Comment on above: Ordered: 04/27/2024 HIV-1/HIV-2 antigen/antibody combination immunoassay HIV-1 and HIV-2 antibodies Lab Routine Missed menses , unspecified gestational age Ordered: 04/27/2024 [facility] Comment on above: Ordered: 04/27/2024 Reagin Ab [Presence] in Serum by RPR RPR Lab Routine Missed menses , unspecified gestational age Ordered: 04/27/2024 [facility] Comment on above: Ordered: 04/27/2024 Rubella antibody, IgG Rubella an tibody, IgG Lab Routine Missed menses , unspecified gestational age Ordered: 04/27/2024 [facility] Comment on above: Ordered: 04/27/2024 Payers Date Payer Category Payer Medicaid [id number] 2024 Medicare MEDICARE MEDICAR E A AND B [id number] 2024-Present [phone] [address] [address] [place] [address] Medicare [id number] 1994 Unknown [id number] 1994 Unknown [id number] [id number] 1994 Unknown [id number] 1994 Unknown [id number] [id number] 1994 Unknown [id number] [id number] 1994 Unknown [id number] [id number] 1994 Unknown [id number] [id number] 1994 Unknown [id number] [id number] 1994 Unknown [id number] [id number] 1994 Unknown [id number] 2.16.840.1.296179.3.579.2.1286 1994 Unknown [id number] [id number] 1994 Unknown [id number] [id number] 1994 Unknown [id number] [id number] 1960 Medicaid [id number] 1960 Self-pay 1960 Unknown [id number] Unknown [id number] Social History Date Type Detail Facility Tobacco smoking stat [facility] Tobacco smoking consumption unknown [facility] Start: 1995 Sex assigned at Not on file [facility] Start: 04-24-2024 Gender identity Not on file [facility] Start: 10-26-2022 [facility] History of tobacco use Cigarette Smoker [facility] Start: 04-27-2024 End: 05-29-2024 Alcoholic beverage intake Ex-drinker (finding) [facility] Start: 04-24-2024 History of Social function [facility] Start: 10-18-2022 Tobacco Comment Patient smokes 11-20 cigarettes/day after 6-30 minutes of waking up. [facility] Start: 02-24-2024 [facility] History of Present illness Narrative 05-29-2024 Rupali Ribeiro, BODS DEVELOPER - 05/29/2024 1:40 PM EST Note Date [...] nursing note reviewed. Exam conducted with a computer system specialist present. Vitals: Estimated body mass index is [...] or undercooked meat, and stay away from [facility]. Patient has been consulted regarding any [...] or undercooked meat, and stay away from [facility]. Patient has also been advised to [...] Rhea Jones MA documented in this encounter [facility] Telephone encounter Note 01-11-2024 Telephone Encounter - [...] for Covid? No, had 1 time no oysterman side effects Overall general health: Patient reports that she is in good health. Willing to accept blood transfusions if needed: Yes Females: Hx of Pregnancies: Yes 1 Taking BCP? no Donor's Surgical History: no Health Maintenance Testing: Date of last PAP May Date of last Mammogram no Date of [...] Karina Shi RN Living Liver Donor Coordinator [facility] Note 01-11-2024 Telephone Encounter - Karina ShiRn) (Hist) RN - 01/11/2024 3:07 PM EDT [...] for Covid? No, had 1 time no fpc side effects Overall general health: Patient reports that she is in good health. Willing to accept blood transfusions if needed: Yes Females: Hx of Pregnancies: Yes 1 Taking BCP? no Donor's Surgical History: no Health Maintenance Testing: Date of last PAP May Date of last Mammogram no Date of [...] Liver Donor Coordinator documented in this encounter [facility] Telephone encounter Note 01-11-2024 Telephone Encounter [...] Yes Online intake has been scanned to [facility] for review by the living donor coordinator. [facility] Note 01-11-2024 Telephone Encounter - Kriss [...] Yes Online intake has been scanned to [facility] for review by the living donor coordinator. documented in this encounter [facility] Evaluation note Note Date & Type Note Facility Evaluation note Diagnosis Liver donor- Primary documented in this encounter [facility] Evaluation note Note Date & Type Note Facility Evaluation note Diagnosis Missed menses 11 weeks gestation of , unspecified gestational age Encounter for supervision of normal first in first trimester documented in this encounter [facility] Evaluation note Note Date & Type [...] Referral Specialty Diagnoses / Procedures Referred By Contac t Referred To Contact TRANSPLANT Diagnoses Liver donor [...] COLLECTION VENOUS BLOOD VENIPUNCTURE Cristina Tovar MD [address] [place] [address] [facility] [address] [id number] Referral ID Status Reason Start Date Expiration Date Visits Requested Visits Authorized [id number] Authorized PCP Requested Referral Financial Clearance Required - OON Payor 01/11/2024 01/10/2025 99 99 Additional Source Comments INFORMATION SOURCE (unrecogn ized section and content) DATE CREATED AUTHOR 09/06/2022 [facility] DATE CREATED AUTHOR AUTHOR'S ORGANIZ ATION 01/28/2024 [facility] DATE CREATED AUTHOR AUTHOR'S ORGANIZ ATION 04/16/2024 [facility] DATE CREATED AUTHOR AUTHOR'S ORGANIZ ATION 05/31/2024 [facility] EPIC Source Comments (unrecognize d section and content) In the event this informatio n is protected by the Federal Confidentiality of Alcohol and Drug Abuse Patient Records regulations: The Federal rules restrict any use of the information to criminally investigate or prosecute any alcohol or drug abuse patient.[facility] event this information is protected by the Federal Confidentiality of Alcohol and Drug Abuse Patient Records regulations: The Federal rules restrict any use of the information to criminally investigate or prosecute any alcohol or drug abuse patient.[facility] Reason for Visit (unrecogniz ed section and content) Reason Comments Referral - Donor Txp Reason Comments Amenorrhea Reason Comments Routine Visit Care Teams (unrecognized sec tion and content) Chief Operator Lock Tender Relationship Specialty Start Date End Date Dayron Kimbrough MD [address] [place] [address] PCP - General Family Medicine 09/16/22 Chief Operator Lock Tender Relationship Specialty Start Date End Date Dayron Kimbrough MD [address] [address] PCP - [facility] 09/16/22 Chief Operator Lock Tender Relationship Specialty Start Date End Date Dayron Kimbrough MD [address] [place] [address] PCP - General Family Medicine 09/16/22 Chief Operator Lock Tender Relationship Specialty Start Date End Date Dayron Kimbrough MD [address] [place] [address] PCP - General Family Medicine 09/16/22 Chief Operator Lock Tender Relationship Specialty Start Date End Date Dayron Kimbrough MD [address] [place] [address] PCP - General Family Medicine 09/16/22 FOR RECORDS PERTAINING TO PATIENTS WHO [...] BE BASED ON THE PRIMARY CLINICAL RECORDS. [facility] [employer] [facility]. provides no warranty or guarantee of the accuracy or completeness of information in this document.
== END 2024-07-11 17:21 | disposition home or self-care (01) ==
LOC: LAB 17:20
PROVIDERS: PCP Family Medicine; Visit Provider Obstetrics & Gynecology
DX: Z01.419 Encounter for gynecological examination (general) (routine) without abnormal findings (principal)
CPT/HCPCS: 88175

== ENCOUNTER 2024-07-18 09:56 | Outpatient (OUT) | payer MEDICAID, SELFPAY ==
--- NOTE | 2024-07-18 10:00 | US_ITS ---
The [address] [address] Patient Name: GUILLERMO PACE MRN: [id number] date: 1995 Sex: F Assigned Patient Location: US Current Patient Location: US Accession/Order Number: [id number] Exam Date: 07/18/2024 18:47 Report Date: 07/18/2024 18:52 At the request of: VALENTE MURRAY DO Procedure: US OB cervical length Anatomy scan. Reason for exam: survey. COMPARISON: None. TECHNIQUE: Transabdominal imaging of the gravid uterus was obtained. FINDINGS: Single live intrauterine is present measuring 23 weeks 1 day by anatomic measurements which appears to be appropriate growth by dating. heart rate 1 49 bpm. Placenta is anterior and fundal in location without focal abnormality. Anatomic survey demonstrates no significant anatomical abnormality. 4 kidneys are noted. No hydrocephalus. Nasal bone is present. Spine appears intact. 4 chamber heart is noted with normal appearing outflow tracts. Kidneys appear unremarkable. Three-vessel cord is noted with normal insertion. Cervical length is normal at 4.59 cm without funneling. position is cephalic at time of scanning. US/US OB anatomy Impression: Single live intrauterine 23 weeks 1 day. Appropriate growth. No anatomic abnormality is seen. Cervical length measuring 4.59 cm without funneling. Impression dictated by: Markie Hoyt Jr., D.O.07/18/2024 6:52 PM Dictation Location: [employer] Electronically authenticated by: [id number] Y Date: 07/18/2024 18:52
--- NOTE | 2024-07-18 10:00 | US_ITS ---
The [address] [address] Patient Name: GUILLERMO PACE MRN: [id number] date: 1995 Sex: F Assigned Patient Location: Current Patient Location: Accession/Order Number: [id number] Exam Date: 07/18/2024 18:47 Report Date: 07/18/2024 18:52 At the request of: VALENTE MURRAY DO Procedure: US OB cervical length Anatomy scan. Reason for exam: survey. COMPARISON: None. TECHNIQUE: Transabdominal imaging of the gravid uterus was obtained. FINDINGS: Single live intrauterine is present measuring 23 weeks 1 day by anatomic measurements which appears to be appropriate growth by dating. heart rate 1 49 bpm. Placenta is anterior and fundal in location without focal abnormality. Anatomic survey demonstrates no significant anatomical abnormality. 4 kidneys are noted. No hydrocephalus. Nasal bone is present. Spine appears intact. 4 chamber heart is noted with normal appearing outflow tracts. Kidneys appear unremarkable. Three-vessel cord is noted with normal insertion. Cervical length is normal at 4.59 cm without funneling. position is cephalic at time of scanning. US/US OB cervical length Impression: Single live intrauterine 23 weeks 1 day. Appropriate growth. No anatomic abnormality is seen. Cervical length measuring 4.59 cm without funneling. Impression dictated by: Markie Hoyt Jr., D.O.07/18/2024 6:52 PM Dictation Location: [employer] Electronically authenticated by: [id number] Y Date: 07/18/2024 18:52
--- OUTSIDE RECORDS SUMMARY | 2024-07-18 10:20 | XMS_ITS | CCD ---
Author Organization [facility] Care Team Providers Care Parking Enforcement Manager Name Role Phone MARGARETTE ., DR VICTOR [...] Unavailable Dayron Kimbrough MD Primary Care Provider [phone] Dayron Kimbrough MD Primary Care Provider VALENTE PFEIFFER Attending Unavailable VALENTE PFEIFFER Attending Unavailable Allergies Allergy Classification Reported Allergen(s) Allergy Type Date of Onset Reaction(s) Facility (7 sources) Pollen Allergy to substance 09-15-2022 Unknown [facility] Work Phone: Medications Current Medications Medication Drug Class(es) Dates Sig (Normalized) Sig (Original) ondansetron 4 mg disintegrating oral tablet (12 sources) Serotonin-3 Receptor Antagonist Start: 04-20-2024 End: [...] Active MV-Min-Fe Fum-FA-DH A ( 1 PO) (7 sources) MV-Min- Fe Fum-FA-DHA ( 1 PO) [...] Episodic Immunizations and screening for infectious disease (2 sources) Contact with and (suspected) exposure to infections with a predominantly sexual mode of transmission; Translations: [Exposure to sexually transmissible disorder] Onset: 06-17-2022 07-11-2024 Episodic Menstrual disorders (5 sources) Irregular menstruation, unspecified; Translations: [Missed period] Onset: 05-06-2022 Chronic Other complications of (1 source) Vomiting of , unspecified; Translations: [Vomiting of , unspecified] Onset: 04-12-2024 Episodic Other female genital disorders (7 sources) Vaginal bleeding; Translations: [Abnormal uterine and vaginal bleeding, unspecified] Onset: 10-22-2022 10-22-2022 Chronic Other female genital disorders (1 source) Other specified noninflammatory disorders of vagina; Translations: [OTH SPEC NONINFLAMMATORY D/O VAGINA] Onset: 06-17-2022 Episodic Other female genital disorders (1 source) Vaginal discharge; Translations: [Other specified noninflammatory disorders of vagina] 07-11-2024 Episodic Other and delivery including normal (15 sources) Encounter for supervision of normal , unspecified, second trimester; Translations: [Encounter for supervision of other normal , first trimester] Onset: 04-22-2022 Episodic Other screening for suspected conditions (not mental disorders or infectious disease) (6 sources) Encounter for screening, unspecified; Translations: [Encounter [...] [15 weeks gestation of ] 05-29-2024 Episodic Residual codes; unclassified (1 source) Gestation period, 21 weeks; Translations: [21 weeks gestation of ] 07-11-2024 Episodic Substance-related disorders (1 source) Nicotine dependence, [...] Range Facility Urinalysis macro (dipstick) panel (U)on 07-11-2024 Bilirubin, UA Negative Negative - 4(70) +++ mg/dL [facility] Blood, UA Positive Negative - 50 Wali/mcL [facility] Comment on above: trace-intact Clarity, UA Clear [facility] Color, UA Yellow [facility] Glucose, UA Negative Negative - 1999(110) ++++ mg/dL [facility] Interpretation and review of laboratory results Abnormal [facility] Ketones, UA Negative Negative - 160(16) ++++ mg/dL [facility] Leukocytes, UA Negative Negative - 500+++ Dmitriy/mcL [facility] Nitrite, UA Negative Negative - Positive [facility] pH, UA 6 5 - 9 [facility] Protein, UA Trace Negative - 2000(20) ++++ mg/dL [facility] Spec Grav, UA 1.025 1 - 1.03 [facility] Urobilinogen, UA 0.2 0.2 - 12 mg/dL [facility] AFP, SERUM, OPEN SPINA BIFID Aon 06-28-2024 AFP MOM 1.21 . [facility] AFP VALUE 65.3 ng/mL . [facility] COMMENT: Comment . [facility] Comment on above: Concepcion Coon , Ph.D., [facility] Director References: Available Upon Request. Multiples Of Median Cutoffs For AFP Elevations Danielson 2.5 Black 2.8 IDD 2.0 Twins 4.5 Abbreviation Definitions IDD - Insulin Dep Diabetes OSBR - Open Spina Bifida Risk For further inquiries contact [facility] at [phone]. This test was developed and its performance characteristics determined by [facility]. It has not been cleared or approved by the Food and Drug Administration. Performed at: [facility] [address] [facility], [place], [place] [id number] Operator Catalyst Concentration: Leonie Bird [facility], Phone: [phone] GEST. AGE ON COLLECTION DATE 19.6 . weeks [facility] GESTAT. AGE BASED ON LMP . [facility] Comment on above: Recalculations are n ot recommended when gestational dating by LMP and ultrasound are within 10 days. INSULIN DEP DIABETES No . [facility] INTERPRETATION Comment . [facility] Comment on above: Interpretation: Scre en Negative [...] Customer Services to discuss available options. The [employer] recommends amniocentesis be offered to women age 35 and older. [age]ER[age] [facility] MULTIPLE GESTATION No . [facility] OSBR RISK 1 [place] 6301 . [facility] RACE . [facility] RESULTS Report . [facility] TEST RESULTS: Negative . [facility] WEIGHT 149 . lbs [facility] N N LMP [id number] 4 15 N 1 149 N N N N N White/ [facility] Urinalysis macro (dipstick) panel (U)on 05-29-2024 Bilirubin, UA Negative Negative - 4(70) +++ mg/dL [facility] Blood, UA Negative Negative - 50 Wali/mcL [facility] Clarity, UA Clear [facility] Color, UA Yellow [facility] Glucose, UA Negative Negative - 2000(110) ++++ mg/dL [facility] Interpretation and review of laboratory results Normal [facility] Ketones, UA Negative Negative - 160(16) ++++ mg/dL [facility] Leukocytes, UA Negative Negative - 500+++ Dmitriy/mcL [facility] Nitrite, UA Negative Negative - Positive [facility] pH, UA 6 5 - 9 [facility] Protein, UA Negative Negative - 2000(20) ++++ mg/dL [facility] Spec Grav, UA 1.03 1 - 1.03 [facility] Urobilinogen, UA 0.2 0.2 - 12 mg/dL [facility] BOX TESTon 05-11-2024 BOX TEST SENT OUT [facility] BOX1 [facility] BOX2 05/11/24 [facility] HCG ( test) Ql (U)o n 04-27-2024 Interpretation and review of laboratory results Abnormal [facility] Preg Test, Ur Positive Negative [facility] US OB TRANSVAGINALon 025 US OB TRANSVAGINAL [...] x 6.1 cm (10 weeks, 0 days). [place] rump length is 4.8 cm (11 weeks, [...] UA Negative Negative - 4(70) +++ mg/dL [facility] Blood, UA Negative Negative - 50 Wali/mcL [facility] Clarity, UA Clear [facility] Color, UA Yellow [facility] Glucose, UA Negative Negative - 2000(110) ++++ mg/dL [facility] Interpretation and review of laboratory results Normal [facility] Ketones, UA Negative Negative - 160(16) ++++ mg/dL [facility] Leukocytes, UA Negative Negative - 500+++ Dmitriy/mcL [facility] Nitrite, UA Negative Negative - Positive [facility] pH, UA 6 5 - 9 [facility] Protein, UA Negative Negative - 1999(20) ++++ mg/dL [facility] Spec Grav, UA 1.025 1 - 1.03 [facility] Urobilinogen, UA 0.2 0.2 - 12 mg/dL [facility] CBC AND AUTO DIFFon 04-12-20 24 ABSOLUTE BASOPHIL 0.1 X10E9/L Normal 0.0-0.2 [facility] Comment on above: Performed By: #### C MARILIN [facility], 50219-3 #### [facility] ([id number]) [address] [place] [address] 38368 ABSOLUTE NEUTROPHIL 9.3 X10E9/L High 1.5-6.6 [facility] Comment on above: Performed By: #### C MARILIN CMP, 16204-3 #### [facility] ([id number]) [address] [place] [address] 76820 Basophils/100 WBC (Bld) 0.4 % Normal [facility] Comment on above: Performed By: #### C MARILIN CMP, 22135-4 #### [facility] ([id number]) [address] [place] [address] 13992 Eosinophils (Bld) [#/Vol] 0.0 10*3/uL Normal 0.0-0.4 [facility] Comment on above: Performed By: #### Abraham GASTON [facility], #### [facility] ([id number]) [address] [place] [address] 35954 Eosinophils/100 WBC (Bld) 0.2 % Normal [facility] Comment on above: Performed By: #### Abraham GASTON [facility], #### [facility] ([id number]) [address] [place] [address] 40215 Erythrocyte distribution width (RBC) [Ratio] 14.4 % Normal 11.5-15.0 [facility] Comment on above: Performed By: #### Abraham GASTON [facility], #### [facility] ([id number]) [address] [place] [address] 49219 Hematocrit (Bld) [Volume fraction] 39.7 % Normal 35-47 [facility] Comment on above: Performed By: #### Abraham GASTON [facility], #### [facility] ([id number]) [address] [place] [address] 69429 Hemoglobin (Bld) [Mass/Vol] 13.4 g/dL Normal 11.7-15.5 [facility] Comment on above: Performed By: #### Abraham GASTON [facility], #### [facility] ([id number]) [address] [place] [address] 61795 Lymphocytes (Bld) [#/Vol] 2.2 10*3/uL Normal 1.0-3.5 [facility] Comment on above: Performed By: #### Abraham GASTON CMP, #### [facility] ([id number]) [address] [place] [address] 20674 Lymphocytes/100 WBC (Bld) 18.4 % Normal [facility] Comment on above: Performed By: #### Abraham GASTON CMP, #### [facility] ([id number]) [address] [place] [address] 48802 MCH (RBC) [Entitic mass] 28.4 pg Normal 27-34 [facility] Comment on above: Performed By: #### Abraham GASTON CMP, #### [facility] ([id number]) [address] [place] [address] 97278 MCHC (RBC) [Mass/Vol] 33.8 g/dL Normal 32-36 [facility] Comment on above: Performed By: #### Abraham GASTON CMP, #### [facility] ([id number]) [address] [place] [address] 01478 MCV (RBC) [Entitic vol] 84 fL Normal 80-100 [facility] Comment on above: Performed By: #### Abraham GASTON CMP, #### [facility] ([id number]) [address] [place] [address] 95438 Monocytes (Bld) [#/Vol] 0.6 10*3/uL Normal 0-0.9 [facility] Comment on above: Performed By: #### Abraham GASTON CMP, #### [facility] ([id number]) [address] [place] [address] 47962 Monocytes/100 WBC (Bld) 4.7 % Normal [facility] Comment on above: Performed By: #### Abraham GASTON CMP, #### [facility] ([id number]) [address] [place] [address] 37828 Neutrophils/100 WBC (Bld) 76.3 % Normal [facility] Comment on above: Performed By: #### Abraham GASTON CMP, #### [facility] ([id number]) [address] [place] [address] 36677 Platelet mean volume (Bld) [Entitic vol] 8.6 fL Normal 7-12 [facility] Comment on above: Performed By: #### C BCA, CMP, 61900-1 #### [facility] ([id number]) [address] [place] [address] 81897 Platelets (Bld) [#/Vol] 277 10*3/uL Normal 150-450 [facility] Comment on above: Performed By: #### C BCA, CMP, 50903-1 #### [facility] ([id number]) [address] [place] [address] 78102 RBC COUNT 4.73 X10E12/L Normal 3.80-5.20 [facility] Comment on above: Performed By: #### C BCA, CMP, 33229-2 #### [facility] ([id number]) [address] [place] [address] 25974 WBC (Bld) [#/Vol] 12.1 10*3/uL High 4.0-11.0 [facility] Comment on above: Performed By: #### Abraham BCA, CMP, 45971-9 #### [facility] ([id number]) [address] [place] [address] 85405 COMPREHENSIVE METABOLIC PANE Amador 04-12-2024 Albumin [Mass/Vol] 4.4 g/dL Normal 3.2-5.3 [facility] Comment on above: Performed By: #### C BCA, CMP, 23671-1 #### [facility] ([id number]) [address] [place] [address] 85165 ALP [Catalytic activity/Vol] 55 U/L Normal 39-130 [facility] Comment on above: Performed By: #### Abraham BCA, CMP, 02227-8 #### [facility] ([id number]) [address] [place] [address] [place] [address] ALT [Catalytic activity/Vol] 22 U/L Normal 0-31 [facility] Comment on above: Performed By: #### C JUSTIN GASTON, 46870-6 #### [facility] ([id number]) [address] [place] [address] 99179 Anion gap [Moles/Vol] 10 mmol/L Normal 5-15 [facility] Comment on above: Performed By: #### C MARILIN, JUSTIN, 83964-7 #### [facility] ([id number]) [address] [place] [address] 57787 AST [Catalytic activity/Vol] 16 U/L Normal 0-41 [facility] Comment on above: Performed By: #### C JUSTIN GASTON, 87290-0 #### [facility] ([id number]) [address] [place] [address] [place] [address] Bilirubin [Mass/Vol] 1.7 mg/dL High 0.3-1.2 [facility] Comment on above: Performed By: #### C MARILIN [facility], 29584-0 #### [facility] ([id number]) [address] [place] [address] 45384 Calcium [Mass/Vol] 9.3 mg/dL Normal 8.5-10.5 [facility] Comment on above: Performed By: #### C MARILIN CMP, 86925-0 #### [facility] ([id number]) [address] [place] [address] [place] [address] Chloride [Moles/Vol] 102 mmol/L Normal 98-109 [facility] Comment on above: Performed By: #### C BCA, CMP, 26800-2 #### [facility] ([id number]) [address] [place] [address] 13999 CO2 [Moles/Vol] 23 mmol/L Normal 22-32 [facility] Comment on above: Performed By: #### C MARILIN [facility], 40519-3 #### [facility] ([id number]) [address] [place] [address] 12773 Creatinine [Mass/Vol] 0.55 mg/dL Normal 0.40-1.00 [facility] Comment on above: Result Comment: METH OD TRACEABLE TO IDMS STANDARD Performed By: #### C MARILIN [facility], 14823-0 #### [facility] ([id number]) [address] [place] [address] 45329 eGFR (CKD-EPI) NON-RACE DEPENDENT >90 Normal >59 [facility] Comment on above: Result Comment: Reported eGFR is based on the CKD-EPI 2020 equation that does not use a race coefficient. Performed By: #### C JUSTIN GASTON, 87083-0 #### [facility] ([id number]) [address] [place] [address] 60480 Glucose [Mass/Vol] 94 mg/dL Normal 65-99 [facility] Comment on above: Performed By: #### C MARILIN [facility], 18299-8 #### [facility] ([id number]) [address] [place] [address] 76761 Potassium [Moles/Vol] 3.5 mmol/L Normal 3.5-5.0 [facility] Comment on above: Performed By: #### C MARILIN [facility], 88471-5 #### [facility] ([id number]) [address] [place] [address] 19567 Protein [Mass/Vol] 7.9 g/dL Normal 6.0-8.0 [facility] Comment on above: Performed By: #### C JUSTIN GASTON, 52150-2 #### [facility] ([id number]) [address] [place] [address] 92622 Sodium [Moles/Vol] 135 mmol/L Normal 134-146 [facility] Comment on above: Performed By: #### C AMRILIN, [facility], 11571-6 #### [facility] ([id number]) [address] [place] [address] 31863 Urea nitrogen [Mass/Vol] 10 mg/dL Normal 5-23 [facility] Comment on above: Performed By: #### C MARILIN, CMP, 76360-4 #### [facility] ([id number]) [address] [place] [address] 87240 HCG ( test) Ql (U)o n 04-12-2024 Beta HCG ( test) Ql (U) Positive Abnormal NEG [facility] Comment on above: Performed By: #### 2 106-3 #### [facility] ([id number]) [address] [place] [address] 56827 MAGNESIUMon 04-12-2024 Magnesium [Mass/Vol] 2.0 mg/dL Normal 1.8-2.6 [facility] Comment on above: Performed By: #### C MARILIN [facility], 37468-3 #### [facility] ([id number]) [address] [place] [address] 73180 URN MACROSCOPIC NURon 2023 BILIRUBIN MAIA Negative Normal NEG [facility] Comment on above: Performed By: #### N UM #### [facility] ([id number]) [address] [place] [address] 32223 BLOOD/HGB MAIA Negative Normal NEG [facility] Comment on above: Performed By: #### N UM #### [facility] ([id number]) [address] [place] [address] 65017 GLUCOSE MAIA Negative Normal NEG [facility] Comment on above: Performed By: #### N UM #### [facility] ([id number]) [address] [place] [address] 87782 KETONES MAIA >=160 Abnormal NEG [facility] Comment on above: Performed By: #### N UM #### [facility] ([id number]) [address] [place] [address] 99600 LEUKOCYTE ESTERASE MAIA Negative Normal NEG [facility] Comment on above: Performed By: #### N UM #### [facility] ([id number]) [address] [place] [address] 00464 NITRITE MAIA Negative Normal NEG [facility] Comment on above: Performed By: #### N UM #### [facility] ([id number]) [address] [place] [address] 32773 PH MAIA 6.5 Normal 5.0-8.5 [facility] Comment on above: Performed By: #### N UM #### [facility] ([id number]) [address] [place] [address] 19516 PROTEIN MAIA Trace Abnormal NEG [facility] Comment on above: Performed By: #### N UM #### [facility] ([id number]) [address] [place] [address] 66403 SPECIFIC GRAVITY MAIA >=1.030 Normal 1.003-1.035 [facility] Comment on above: Performed By: #### N UM #### [facility] ([id number]) [address] [place] [address] 53981 UROBILINOGEN MAIA 1.0 eu/dL Normal <1.1 [facility] Comment on above: Performed By: #### N UM #### [facility] ([id number]) [address] [place] [address] 84239 Dre 01-11-2024 JAMESN Telephone (TXCTMN) LORAINE PACE ([id number]) 1995 F Date Time Provider Department 01/11/24 LIVER TXP COORDINATOR TXCTMN During your visit today, we recorded the [...] Yes Online intake has been scanned to [employer] for review by the living donor coordinator. Allergies As of Date: 01/11/2024 (Not on File) Date Reviewed: Never Reviewed Reason for Visit: Referral - Donor Txp [[id number]] Primary Visit Diagnosis:Liver donor [Z52.6] Order(s):CONSULT TO TRANSPLANT CENTER [[id number]] Order #: [id number]: 1 Problem List As Of Date: 01/11/2024 (None) Encounter Status:Closed by KRISS ATKINS [facility] LORAINE PACE ([id number]) 1995 F Date Time Provider Department 01/11/24 KARINA SHI (RN) (HIST)TXCTMN During your visit today, we recorded the following information about you: Karina ShiRn) (Hist), RN 01/26/2024 12:45 PM Signed LIVING LIVER DONOR [...] for Covid? No, had 1 time no ferry terminal agent side effects Overall general health: Patient reports [...] Status:Closed by KARINA SHI on 01/26/24 Normal [facility] GTT 3 HR PREGon 08-06-2022 Glucose [Mass/Vol] 80 mg/dL Normal [facility] Comment on above: Performed By: #### G TT3P #### [facility] [address] [place] [address] Dr. Jamie Dickey Glucose [Mass/Vol] 139 mg/dL Normal [facility] Comment on above: Performed By: #### G TT3P #### [facility] [address] [place] [address] Dr. Jamie Dickey Glucose [Mass/Vol] 99 mg/dL Normal [facility] Comment on above: Performed By: #### G TT3P #### [facility] [address] [place] [address] Dr. Jamie Dickey CBC AUTO DIFFon 07-27-2022 BASO # 0.0 103/ul Normal 0.0-0.1 [facility] Comment on above: Performed By: #### C BC #### [facility] [address] [place] [address] Dr. Jamie Dickey Basophils/100 WBC (Bld) 0.4 % Normal 0.2-2.0 [facility] Comment on above: Performed By: #### C BC #### [facility] [address] [place] [address] Dr. Jamie Dickey EO # 0.2 103/ul Normal 0.0-0.7 [facility] Comment on above: Performed By: #### C BC #### [facility] [address] [place] [address] Dr. Jamie Dickey Eosinophils/100 WBC (Bld) 1.8 % Normal 0.9-7.0 [facility] Comment on above: Performed By: #### C BC #### [facility] [address] [place] [address] Dr. Jamie Dickey Erythrocyte distribution width (RBC) [Ratio] 13.2 % Normal 11.0-15.0 [facility] Comment on above: Performed By: #### C BC #### [facility] [address] [place] [address] Dr. Jamie Dickey Hematocrit (Bld) [Volume fraction] 32.1 % Critically low 36.0-48.0 [facility] Comment on above: Performed By: #### C BC #### [facility] [address] [place] [address] Dr. Jamie Dickey Hemoglobin (Bld) [Mass/Vol] 10.8 g/dL Critically low 12.0-16.0 [facility] Comment on above: Performed By: #### C BC #### [facility] [address] [place] [address] Dr. Jamie Dickey IG # 0.07 10e3/ul Critically high 0.00-0.03 [facility] Comment on above: Performed By: #### C BC #### [facility] [address] [place] [address] Dr. Jamie Dickey IG % 0.8 % Critically high 0.0-0.[address] [facility] Comment on above: Performed By: #### C BC #### [facility] [address] [place] [address] Dr. Jamie Dickey LYMPH # 1.8 103/ul Normal 1.2-3.8 [facility] Comment on above: Performed By: #### C BC #### [facility] [address] [place] [address] Dr. Jamie Dickey Lymphocytes/100 WBC (Bld) 20.4 % Critically low 20.5-60.0 [facility] Comment on above: Performed By: #### C BC #### [facility] [address] [place] [address] Dr. Jamie Dickey MANUAL DIFF REQ NO Normal [facility] Comment on above: Performed By: #### C BC #### [facility] [address] [place] [address] Dr. Jamie Dickey MCH (RBC) [Entitic mass] 29.1 pg Normal 26.7-34.0 [facility] Comment on above: Performed By: #### C BC #### [facility] [address] [place] [address] Dr. Jamie Dickey MCHC (RBC) [Mass/Vol] 33.6 g/dL Normal 29.9-35.2 [facility] Comment on above: Performed By: #### C BC #### [facility] [address] [place] [address] Dr. Jamie Dickey MCV (RBC) [Entitic vol] 86.5 fL Normal 81.0-99.0 [facility] Comment on above: Performed By: #### C BC #### [facility] [address] [place] [address] Dr. Jamie Dickey MONO # 0.4 103/ul Normal 0.3-0.8 [facility] Comment on above: Performed By: #### C BC #### [facility] [address] [place] [address] Dr. Jamie Dickey Monocytes/100 WBC (Bld) 4.8 % Normal 1.7-12.0 [facility] Comment on above: Performed By: #### C BC #### [facility] [address] [place] [address] Dr. Jamie Dickey NEUT # 6.5 103/ul Normal 1.4-6.5 [facility] Comment on above: Performed By: #### C BC #### [facility] [address] [place] [address] Dr. Jamie Dickey Neutrophils/100 WBC (Bld) 71.8 % Normal 43.0-75.0 [facility] Comment on above: Performed By: #### C BC #### [facility] [address] [address] [address] Jamie Dickey Platelet mean volume (Bld) [Entitic vol] 10.1 fL Normal 9.5-13.5 [facility] Comment on above: Performed By: #### C BC #### [facility] [address] [place] [address] Dr. Jamie Dickey PLT 197 103/ul Normal 150-450 [facility] Comment on above: Performed By: #### C BC #### [facility] [address] [place] [address] Dr. Jamie Dickey RBC 3.71 106/ul Critically low 4.20-5.40 [facility] Comment on above: Performed By: #### C BC #### [facility] [address] [address] [address] Jamie Dickey WBC 9.0 103/ul Normal 4.0-11.0 [facility] Comment on above: Performed By: #### C BC #### [facility] [address] [place] [address] Dr. Jamie Dickey GLUCOSE - 1HRon 07-27-2022 Glucose [Mass/Vol] 158 mg/dL Critically high 74-106 [facility] Comment on above: Performed By: #### N BOX #### [facility] [address] [address] [address] Jamie Dickey AFP MATERNAL FOR SPINA BIFID Aon 06-26-2022 AFP MoM 0.90 Normal [facility] Comment on above: Performed By: #### H CVPCRR #### [facility] [address] [address] [address] Jamie Dickey AFP Value 54.6 ng/mL Normal [facility] Comment on above: Performed By: #### H CVPCRR #### [facility] [address] [address] [address] Jamie Dickey AFP, Serum for Spina Bifida Report Normal [facility] Comment on above: Performed By: #### H CVPCRR #### [facility] [address] [address] [address] Jamie Dickey Comment Comment Normal [facility] Comment on above: Result Comment: Anamaria Coon, Ph.D., [facility] Director . References: Available Upon Request. . Multiples Of Median Cutoffs For AFP Elevations Danielson 2.5 Black 2.8 IDD 2.0 Twins 4.5 Abbreviation Definitions IDD - Insulin Dep Diabetes OSBR - Open Spina Bifida Risk . For further inquiries contact [facility] at [phone]. . This test was developed and its performance characteristics determined by [employer]. It has not been cleared or approved by the Food and Drug Administration. Performed By: #### H CVPCRR #### [facility] [address] [address] [address] Jamie Dickey Gest Age Collection Date 20.0 weeks Normal [facility] Comment on above: Performed By: #### H CVPCRR #### [facility] [address] [address] [address] Jamie Dickey Gestat, Age Based on Ultrasound Normal [facility] Comment on above: Result Comment: 18.6 on 06/14/2022 Recalculations are not recommended when gestational dating by LMP and ultrasound are within 10 days. Performed By: #### H CVPCRR #### [facility] [address] [address] [address] Jamie Dickey Insulin Dep Diabetes No Normal [facility] Comment on above: Performed By: #### H CVPCRR #### [facility] [address] [place] [address] Dr. Jaime Dickey Interpretation Comment Normal [facility] Comment on above: Result Comment: Inte [...] Customer Services to discuss available options. The [employer] recommends amniocentesis be offered to women age 35 and older. Performed By: #### H CVPCRR #### [facility] [address] [place] [address] Dr. Jamie Dickey [age] Normal [facility] Comment on above: Performed By: #### H CVPCRR #### [facility] [address] [place] [address] Dr. Jamie Dickey Multiple Gestation No Normal [facility] Comment on above: Performed By: #### H CVPCRR #### [facility] [address] [place] [address] Dr. Jamie Dickey [place] [address] Normal [facility] Comment on above: Performed By: #### H CVPCRR #### [facility] [address] [place] [address] Dr. Jamie Dickey PDF . Normal [facility] Comment on above: Performed By: #### H CVPCRR #### [facility] [address] [place] [address] Dr. Jamie Dickey Race Normal [facility] Comment on above: Performed By: #### H CVPCRR #### [facility] [address] [place] [address] Dr. Jamie Dickey Test Results: Negative Normal [facility] Comment on above: Performed By: #### H CVPCRR #### [facility] [address] [place] [address] Dr. Jamie Dickey US PREG ANATOMY SINGLEon [...] by: DAYRON AYON Date: 2022-06-24 16:14 Normal [facility] PAP ACOG PANEL 2: 30 to 65on 06-22-2022 . . Normal [facility] Comment on above: Performed By: #### [id number] #### [facility] [address] [address] [address] Jamie Dickey Age Gdln ACOG Testing 21-29 Normal [facility] Comment on above: Performed By: #### [id number] #### [facility] [address] [address] [address] Jamie Dickey DIAGNOSIS: Comment Normal [facility] Comment on above: Result Comment: NEGA TIVE FOR INTRAEPITHELIAL LESION OR MALIGNANCY. Performed By: #### [id number] #### [facility] [address] [address] [address] Jamie Dickey Methodology: Comment Normal [facility] Comment on above: Result Comment: This liquid based ThinPrep(R) pap test was screened with the use of an image guided system. Performed By: #### [id number] #### [facility] [address] [place] [address] Dr. Jamie Dickey Note: Comment Normal [facility] Comment on above: Result Comment: The Pap smear is a screening test designed to aid in the detection of premalignant and malignant conditions of the uterine cervix. It is not a diagnostic procedure and should not be used as the sole means of detecting cervical cancer. Both false-positive and false-negative reports do occur. . Performed By: #### [id number] #### [facility] [address] [place] [address] Dr. Jamie Dickey Performed by: Comment Normal [facility] Comment on above: Result Comment: Tiffany Beatty, [employer]arn [employer] (ASCP) Performed By: #### [id number] #### [facility] [address] [place] [address] Dr. Jamie Dickey Reflex Criteria: Comment Normal [facility] Comment on above: Result Comment: The HPV DNA reflex criteria were not met with this specimen result therefore, no HPV testing was performed. . Performed By: #### [id number] #### [facility] [address] [place] [address] Dr. Jamie Dickey Specimen adequacy: Comment Normal [facility] Comment on above: Result Comment: Sati sfactory for evaluation. No endocervical component is identified. Performed By: #### [id number] #### [facility] [address] [place] [address] Dr. Jamie Dickey CHLAMYDIA/GONOCOCCUS FLORENCIO (SW AB/URINE/PAPon 06-17-2022 Chlamydia trachomatis, FLORENCIO Negative Normal Negative [facility] Comment on above: Performed By: #### C T/NGNA #### [facility] [address] [place] [address] Dr. Jamie Dickey Neisseria gonorrhoeae, FLORENCIO Negative Normal Negative [facility] Comment on above: Performed By: #### C T/NGNA #### [facility] [address] [place] [address] Dr. Jamie Dickey VAGINITIS/VAGINOSIS DNA PROB Lanre 06-16-2022 Gabriella species Negative Normal Negative [facility] Comment on above: Performed By: #### V AGINT #### [facility] [address] [place] [address] Dr. Jamie Dickey Gardnerella vaginalis Positive Abnormal Negative [facility] Comment on above: Performed By: #### V AGINT #### [facility] [address] [place] [address] Dr. Jamie Dickey Trichomonas vaginalis Negative Normal Negative [facility] Comment on above: Performed By: #### V AGINT #### [facility] [address] [place] [address] Dr. Jamie Dickey CBC AUTO DIFFon 05-29-2022 BASO # 0.0 103/ul Normal 0.0-0.1 [facility] Comment on above: Performed By: #### H CVPCRR #### [facility] [address] [place] [address] Dr. Jamie Dickey Basophils/100 WBC (Bld) 0.4 % Normal 0.2-2.0 [facility] Comment on above: Performed By: #### H CVPCRR #### [facility] [address] [place] [address] Dr. Jamie Dickey EO # 0.1 103/ul Normal 0.0-0.7 [facility] Comment on above: Performed By: #### H CVPCRR #### [facility] [address] [place] [address] Dr. Jamie Dickey Eosinophils/100 WBC (Bld) 1.3 % Normal 0.9-7.0 [facility] Comment on above: Performed By: #### H CVPCRR #### [facility] [address] [place] [address] Dr. Jamie Dickey Erythrocyte distribution width (RBC) [Ratio] 13.4 % Normal 11.0-15.0 [facility] Comment on above: Performed By: #### H CVPCRR #### [facility] [address] [address] [address] Jamie Dickey Hematocrit (Bld) [Volume fraction] 32.8 % Critically low 36.0-48.0 [facility] Comment on above: Performed By: #### H CVPCRR #### [facility] [address] [address] [address] Jamie Dickey Hemoglobin (Bld) [Mass/Vol] 10.9 g/dL Critically low 12.0-16.0 [facility] Comment on above: Performed By: #### H CVPCRR #### [facility] [address] [address] [address] Jamie Dickey IG # 0.03 10e3/ul Normal 0.00-0.03 [facility] Comment on above: Performed By: #### H CVPCRR #### [facility] [address] [place] [address] Dr. Jamie Dickey IG % 0.4 % Normal 0.0-0.5 [facility] Comment on above: Performed By: #### H CVPCRR #### [facility] [address] [address] [address] Jamie Dickey LYMPH # 1.1 103/ul Critically low 1.2-3.8 [facility] Comment on above: Performed By: #### H CVPCRR #### [facility] [address] [address] [address] Jamie Dickey Lymphocytes/100 WBC (Bld) 15.3 % Critically low 20.5-60.0 [facility] Comment on above: Performed By: #### H CVPCRR #### [facility] [address] [address] [address] Jamie Dickey MANUAL DIFF REQ NO Normal [facility] Comment on above: Performed By: #### H CVPCRR #### [facility] [address] [address] [address] Jamie Dickey MCH (RBC) [Entitic mass] 29.7 pg Normal 26.7-34.0 [facility] Comment on above: Performed By: #### H CVPCRR #### [facility] [address] [address] [address] Jamie Dickey MCHC (RBC) [Mass/Vol] 33.2 g/dL Normal 29.9-35.2 [facility] Comment on above: Performed By: #### H CVPCRR #### [facility] [address] [place] [address] Dr. Jamie Dickey MCV (RBC) [Entitic vol] 89.4 fL Normal 81.0-99.0 [facility] Comment on above: Performed By: #### H CVPCRR #### [facility] [address] [place] [address] Dr. Jamie Dickye MONO # 0.6 103/ul Normal 0.3-0.8 [facility] Comment on above: Performed By: #### H CVPCRR #### [facility] [address] [place] [address] Dr. Jamie Dickey Monocytes/100 WBC (Bld) 8.1 % Normal 1.7-12.0 [facility] Comment on above: Performed By: #### H CVPCRR #### [facility] [address] [place] [address] Dr. Jamie Dickey NEUT # 5.5 103/ul Normal 1.4-6.5 [facility] Comment on above: Performed By: #### H CVPCRR #### [facility] [address] [place] [address] Dr. Jamie Dickey Neutrophils/100 WBC (Bld) 74.5 % Normal 43.0-75.0 [facility] Comment on above: Performed By: #### H CVPCRR #### [facility] [address] [place] [address] Dr. Jamie Dickey Platelet mean volume (Bld) [Entitic vol] 10.1 fL Normal 9.5-13.5 [facility] Comment on above: Performed By: #### H CVPCRR #### [facility] [address] [place] [address] Dr. Jamie Dickey PLT 175 103/ul Normal 150-450 [facility] Comment on above: Performed By: #### H CVPCRR #### [facility] [address] [address] [address] Jamie Dickey RBC 3.67 106/ul Critically low 4.20-5.40 [facility] Comment on above: Performed By: #### H CVPCRR #### [facility] [address] [address] [address] Jamie Dickey WBC 7.4 103/ul Normal 4.0-11.0 [facility] Comment on above: Performed By: #### H CVPCRR #### [facility] [address] [address] [address] Jamie Dickey PROF CHEM 8 (BAS METB)on Anion gap [Moles/Vol] 11.8 mmol/L Normal [facility] Comment on above: Performed By: #### B MP #### [facility] [address] [address] [address] Jamie Dickey Calcium [Mass/Vol] 8.4 mg/dL Critically low 8.5-10.1 [facility] Comment on above: Performed By: #### B MP #### [facility] [address] [address] [address] Jamie Dickey Chloride [Moles/Vol] 103 mmol/L Normal 98-107 [facility] Comment on above: Performed By: #### B MP #### [facility] [address] [address] [address] Jamie Dickey CO2 [Moles/Vol] 26.0 mmol/L Normal 21.0-32.0 [facility] Comment on above: Performed By: #### B MP #### [facility] [address] [address] [address] Jamie Dickey Creatinine [Mass/Vol] 0.49 mg/dL Critically low 0.55-1.02 [facility] Comment on above: Performed By: #### B MP #### [facility] [address] [address] [address] Jamie Dickey EGFR-AF GHANAIAN >60 Normal >=60 [facility] Comment on above: Performed By: #### B MP #### [facility] [address] [address] [address] Jamie Dickey EGFR-NON AF GHANAIAN >60 Normal >=60 [facility] Comment on above: Performed By: #### B MP #### [facility] [address] [address] [address] Jamie Dickey Glucose [Mass/Vol] 92 mg/dL Normal 74-106 [facility] Comment on above: Performed By: #### B MP #### [facility] [address] [address] [address] Jamie Dickey Potassium [Moles/Vol] 3.8 mmol/L Normal 3.5-5.1 [facility] Comment on above: Performed By: #### B MP #### [facility] [address] [place] [address] Dr. Jamie Dickey Sodium [Moles/Vol] 137 mmol/L Normal 136-145 [facility] Comment on above: Performed By: #### B MP #### [facility] [address] [address] [address] Jamie Dickey Urea nitrogen [Mass/Vol] 10.0 mg/dL Normal 7.0-18.0 [facility] Comment on above: Performed By: #### B MP #### [facility] [address] [address] [address] Jamie Dickey Urea nitrogen/Creatinine [Mass ratio] 20.4 mg/mg Normal [facility] Comment on above: Performed By: #### B MP #### [facility] [address] [address] [address] Jamie Dickey PROTIMEon 05-29-2022 INR Coag (PPP) [Relative time] {INR} Normal [facility] Comment on above: Performed By: #### N BOX #### [facility] [address] [address] [address] Jamie Dickey INR GUIDELINES SEE BELOW Normal [facility] Comment on above: Result Comment: CARITO RED INR: 2.0 - 3.0 CONDITIONS NOT LISTED BELOW 2.5 - 3.5 FOR PROSTHETIC HEART VALVE REPLACEMENT 2.5 - 3.5 RECURRENT THROMBOSIS Performed By: #### N BOX #### [facility] [address] [place] [address] Dr. Jamie Dickey PT Coag (PPP) [Time] 9.3 s Normal 9.0-11.6 [facility] Comment on above: Performed By: #### N BOX #### [facility] [address] [place] [address] Dr. Jamie Dickey PTTon 05-29-2022 aPTT Coag (Bld) [Time] 27.7 s Normal 22.3-36.2 [facility] Comment on above: Performed By: #### N BOX #### [facility] [address] [place] [address] Dr. Jamie Dickey US PREG PLACENTAon US [...] Daniel ZAIDI Date: 2022-05-29 01:00 Normal [facility] HEP B SURFACE ANTIGEN SCREEN on 05-07-2022 HBsAg Screen Negative Normal Negative [facility] Comment on above: Performed By: #### H CVPCRR #### [facility] [address] [place] [address] Dr. Jamie Dickey HEPATITIS C VIRUS AB W/ REFL EX QUANTon 05-07-2022 HCV AB <0.1 Normal 0.0-0.9 [facility] Comment on above: Performed By: #### H CVPCRR #### [facility] [address] [place] [address] Dr. Jamie Dickey Interpretation: Comment Normal [facility] Comment on above: Result Comment: Nega tive Not infected with HCV, unless recent infection is suspected or other evidence exists to indicate HCV infection. Performed By: #### H CVPCRR #### [facility] [address] [place] [address] Dr. Jamie Dickey HIV 1 AND 2 WITH REFLEXon HIV Screen 4th Generation wRfx Non-Reactive Normal Non Reactive [facility] Comment on above: Result Comment: HIV Negative HIV-1/HIV-2 antibodies and HIV-1 p24 antigen were NOT detected. There is no laboratory evidence of HIV infection. Performed By: #### H CVPCRR #### [facility] [address] [place] [address] Dr. Jamie Dickey RPR QUANTon 05-07-2022 Rapid Plasma Reagin, Quant Non-Reactive Normal NonRea<1:1 [facility] Comment on above: Result Comment: Plea se Note: This test does not meet current guidelines for screening and diagnosis of syphilis. This test is intended for following treatment response in patients being treated for syphilis infection. To screen for syphilis infection, a reflex cascade that includes both RPR and a treponema-specific assay should be utilized, such as Treponema pallidum (Syphilis) Screening [place] (657680) or Rapid Plasma Reagin (RPR) Test With Reflex to Quantitative RPR and Confirmatory Treponema pallidum Antibodies (129287). Performed By: #### R PRQ #### [facility] [address] [place] [address] Dr. Jamie Dickey RUBELLA AB IGGon 05-07-2022 Rubella Antibodies, IgG 4.41 index Normal Immune >0.99 [facility] Comment on above: Result Comment: Non- immune <0.90 Equivocal 0.90 - 0.99 Immune >0.99 Performed By: #### N BOX #### [facility] [address] [place] [address] Dr. Jamie Dickey CBC AUTO DIFFon 05-06-2022 BASO # 0.0 103/ul Normal 0.0-0.1 [facility] Comment on above: Performed By: #### N BOX #### [facility] [address] [address] [address] Jamie Dickey Basophils/100 WBC (Bld) 0.3 % Normal 0.2-2.0 [facility] Comment on above: Performed By: #### N BOX #### [facility] [address] [address] [address] Jamie Dickey EO # 0.1 103/ul Normal 0.0-0.7 [facility] Comment on above: Performed By: #### N BOX #### [facility] [address] [address] [address] Jamie Dickey Eosinophils/100 WBC (Bld) 0.9 % Normal 0.9-7.0 [facility] Comment on above: Performed By: #### N BOX #### [facility] [address] [address] [address] Jamie Dickey Erythrocyte distribution width (RBC) [Ratio] 13.0 % Normal 11.0-15.0 [facility] Comment on above: Performed By: #### N BOX #### [facility] [address] [place] [address] Dr. Jamie Dickey Hematocrit (Bld) [Volume fraction] 36.7 % Normal 36.0-48.0 [facility] Comment on above: Performed By: #### N BOX #### [facility] [address] [address] [address] Jamie Dickey Hemoglobin (Bld) [Mass/Vol] 11.7 g/dL Critically low 12.0-16.0 [facility] Comment on above: Performed By: #### N BOX #### [facility] [address] [address] [address] Jamie Dickey IG # 0.05 10e3/ul Critically high 0.00-0.03 [facility] Comment on above: Performed By: #### N BOX #### [facility] [address] [place] [address] Dr. Jamie Dickey IG % 0.4 % Normal 0.0-0.5 [facility] Comment on above: Performed By: #### N BOX #### [facility] [address] [place] [address] Dr. Jamie Dickey LYMPH # 2.3 103/ul Normal 1.2-3.8 [facility] Comment on above: Performed By: #### N BOX #### [facility] [address] [place] [address] Dr. Jamie Dickey Lymphocytes/100 WBC (Bld) 20.3 % Critically low 20.5-60.0 [facility] Comment on above: Performed By: #### N BOX #### [facility] [address] [place] [address] Dr. Jamie Dickey MANUAL DIFF REQ NO Normal [facility] Comment on above: Performed By: #### N BOX #### [facility] [address] [place] [address] Dr. Jamie Dickey MCH (RBC) [Entitic mass] 28.5 pg Normal 26.7-34.0 [facility] Comment on above: Performed By: #### N BOX #### [facility] [address] [place] [address] Dr. Jamie Dickey MCHC (RBC) [Mass/Vol] 31.9 g/dL Normal 29.9-35.2 [facility] Comment on above: Performed By: #### N BOX #### [facility] [address] [place] [address] Dr. Jamie Dickey MCV (RBC) [Entitic vol] 89.5 fL Normal 81.0-99.0 [facility] Comment on above: Performed By: #### N BOX #### [facility] [address] [place] [address] Dr. Jamie Dickey MONO # 0.5 103/ul Normal 0.3-0.8 [facility] Comment on above: Performed By: #### N BOX #### [facility] [address] [place] [address] Dr. Jamie Dickey Monocytes/100 WBC (Bld) 4.7 % Normal 1.7-12.0 [facility] [facility] Comment on above: Performed By: #### N BOX #### [facility] [address] [address] [address] Jamie Dickey NEUT # 8.3 103/ul Critically high 1.4-6.[address] [facility] Comment on above: Performed By: #### N BOX #### [facility] [address] [address] [address] Jamie Dickey Neutrophils/100 WBC (Bld) 73.4 % Normal 43.0-75.0 [facility] Comment on above: Performed By: #### N BOX #### [facility] [address] [place] [address] Dr. Jamie Dickey Platelet mean volume (Bld) [Entitic vol] 10.8 fL Normal 9.5-13.5 [facility] Comment on above: Performed By: #### N BOX #### [facility] [address] [place] [address] Dr. Jamie Dickey PLT 238 103/ul Normal 150-450 [facility] Comment on above: Performed By: #### N BOX #### [facility] [address] [place] [address] Dr. Jamie Dickey RBC 4.10 106/ul Critically low 4.20-5.[address] [facility] Comment on above: Performed By: #### N BOX #### [facility] [address] [place] [address] Dr. Jamie Dickey WBC 11.3 103/ul Critically high 4.0-11.0 [facility] Comment on above: Performed By: #### N BOX #### [facility] [address] [place] [address] Dr. Jamie Dickey CULTURE URINEon 05-06-2022 CULTURE URINE Culture Observations : LIGHT GROWTH OF MIXED GENITAL CHANTALE. NO POTENTIAL PATHOGENS SEEN. Normal [facility] Comment on above: Performed By: #### N BOX #### [facility] [address] [place] [address] Dr. Jamie Dickey GLYCOHEMOGLOBIN A1Con 2022 ADA RECOMMENDATION SEE BELOW Normal [facility] Comment on above: Result Comment: ADA RECOMMENDED LIMIT 4.0 - 6.0 ADA THERAPEUTIC TARGET < 7.0 ACTION SUGGESTED > 7.0 Performed By: #### A 1C #### [facility] [address] [address] [address] Jamie Dickey Glucose [Mass/Vol] 94 mg/dL Normal [facility] Comment on above: Performed By: #### A 1C #### [facility] [address] [address] [address] Jamie Dickey HbA1c (Bld) [Mass fraction] 4.9 % Normal 4.5-6.2 [facility] Comment on above: Performed By: #### A 1C #### [facility] [address] [address] [address] Jamie Dickey ISSA BOX TEST PT SEND OUTo n 05-06-2022 SENT TO REF LAB 05/06/[address] [facility] Comment on above: Performed By: #### N BOX #### [facility] [address] [address] [address] Jamie Dickey TYPE AND SCREENon 05-06-2022 TYPE AND SCREEN Negative Normal [facility] Comment on above: Performed By: #### N BOX #### [facility] [address] [address] [address] Jamie Dickey US PREG TVon 04-15-2022 [...] by: LOLIS COLEMAN Date: 2022-04-15 16:33 Normal [facility] Vital Signs Date Time Vital Sign Value Performing Clinician Facility 07-11-2024 13:49-0400 Body mass index (BMI) [Ratio] 25.09 kg/m2 Valente Margarette DO Work Phone: [facility] 07-11-2024 13:49-0400 Body weight 68.4 kg Valente Margarette DO Work Phone: [facility] 07-11-2024 13:49-0400 Diastolic blood pressure 70 mm[Hg] Valente Margarette DO Work Phone: [facility] 07-11-2024 13:49-0400 Systolic blood pressure 120 mm[Hg] Valente Margarette DO Work Phone: [facility] 05-29-2024 13:52-0500 Body mass index (BMI) [Ratio] 24.93 kg/m2 Valente Margarette DO Work Phone: [facility] 05-29-2024 13:52-0500 Body weight 67.95 kg Valente Margarette DO Work Phone: [facility] 05-29-2024 13:52-0500 Diastolic blood pressure 70 mm[Hg] Valente Margarette DO Work Phone: [facility] 05-29-2024 13:52-0500 Systolic blood pressure 120 mm[Hg] Valente Margarette DO Work Phone: [facility] 04-27-2024 10:48-0500 Body mass index (BMI) [Ratio] 24.79 kg/m2 [facility] 04-27-2024 10:48-0500 Body weight 67.59 kg [facility] 04-27-2024 10:48-0500 Diastolic blood pressure 72 mm[Hg] [facility] 04-27-2024 10:48-0500 Systolic blood pressure 118 mm[Hg] [facility] 06-26-2022 03:06-0500 Body weight 65.[address] VALENTE PFEIFFER . [facility] Comment on above: Performed By: #### HCVPCRR #### [facility] [address] [address] [address] Jamie Dickey Encounters Encounter Date Encounter Type Care Provider Facility Start: 07-11-2024 End: 07-11-2024 Patient encounter procedure Valente Margarette DO Work Phone: [facility] Start: 07-11-2024 End: 07-11-2024 Periodic preventive med est patient 18-39 yrs Valente Margarette DO Work Phone: [facility] Comment on above: 21 weeks gestation o f ; Second trimester ; Screening, , for anatomic survey; Exposure to STD; Vaginal discharge; Well woman exam with routine gynecological exam Start: 07-11-2024 End: 07-11-2024 ambulatory VALENTE MARGARETTE Not Available Start: 06-26-2024 End: 06-28-2024 Clinisync Result Encounter [...] 05-11-2024 End: 05-11-2024 Clinisync Result Encounter Valente Rubino DO Work Phone: [facility] Unsolicited Start: 04-27-2024 End: 04-27-2024 ambulatory [facility] Margarette Nurse [facility] Comment on above: GA: 11w0d Start: 04-12-2024 End: 04-12-2024 Emergency department patient visit [facility] Start: 01-11-2024 End: 01-26-2024 Telephone encounter Liver [...] Date Procedure Procedure Detail Performing Clinician Start: 07-11-2024 Urnls dip stick/tabl et rgnt non-auto w/o micrscp Valente Margarette DO Work Phone: Start: 06-26-2024 AFP, SERUM, OPEN SPI NA BIFIDA Valente Margarette DO Work Phone: Start: 05-29-2024 Urnls dip stick/tabl et rgnt non-auto w/o micrscp Valente Margarette DO Work Phone: Start: 05-11-2024 BOX TEST Valente Fazi o DO Work Phone: Start: 04-27-2024 Urnls dip stick/tabl et rgnt non-auto w/o micrscp Valente Pfeiffer DO Work Phone: Plan of Treatment Date Care Activity Detail Author Start: 07-11-2024 End: 07-11-2025 US for US OB 14+ weeks anatomy scan Imaging Routine Screening, , for anatomic survey Expected: 07/11/2024, Expires: 07/11/2025 [facility] Comment on above: Expected: 07/11/2024 , Expires: 07/11/2025 Start: 05-29-2024 End: 06-26-2024 Alpha fetoprotein, maternal Alpha fetoprotein, maternal Lab Routine 15 weeks gestation of Second trimester Expected: 05/29/2024 (Approximate), Expires: 06/26/2024 [facility] Work Phone: Comment on above: Expected: 05/29/2024 (Approximate), Expires: 06/26/2024 Start: 05-29-2024 End: 05-29-2024 Patient encounter procedure 05/29/2024 1:40 PM EST Routine [facility] [address] [place] [address] Valente Pfeiffer, DO [address] [place] [address] Arrived [facility] Comment on above: Arrived Start: 04-27-2024 End: 04-27-2025 ABO/Rh ABO/Rh Lab Routine Missed menses , unspecified gestational age Expected: 04/27/2024 (Approximate), Expires: 04/27/2025 [facility] Comment on above: Expected: 04/27/2024 (Approximate), Expires: 04/27/2025 Start: 04-27-2024 End: 04-27-2025 Blood type and Indirect antibody screen panel - Blood Type and screen Lab Routine Missed menses , unspecified gestational age Expected: 04/27/2024 (Approximate), Expires: 04/27/2025 [facility] Work Phone: Comment on above: Expected: 04/27/2024 (Approximate), Expires: 04/27/2025 Start: 04-27-2024 End: 04-27-2025 Drugs of abuse panel - Urine by Screen method Rapid drug screen, urine Lab Routine , unspecified gestational age Encounter for supervision of normal first in first trimester Expected: 04/27/2024 (Approximate), Expires: 04/27/2025 [facility] Comment on above: Expected: 04/27/2024 (Approximate), Expires: 04/27/2025 Bacteria identified in Urine by Culture Urine culture Microbiology Routine Missed menses Ordered: 04/27/2024 [facility] Comment on above: Ordered: 04/27/2024 CBC W Auto Different ial panel - Blood CBC and differential Lab Routine Missed menses , unspecified gestational age Ordered: 04/27/2024 [facility] Comment on above: Ordered: 04/27/2024 CHLAMYDIA TRACHOMATI S (GENITO/STI) CHLAMYDIA TRACHOMATIS (GENITO/STI) Lab Routine Exposure to STD Ordered: 07/11/2024 [facility] Comment on above: Ordered: 07/11/2024 Cytology Cervical or vaginal smear or scraping study Pap Smear Pathology and Cytology Routine Well woman exam with routine gynecological exam Ordered: 07/11/2024 [facility] Comment on above: Ordered: 07/11/2024 Hemoglobin A1c/Hemoglobin.total in Blood Hemoglobin A1c Lab Routine Missed menses , unspecified gestational age Ordered: 04/27/2024 [facility] Comment on above: Ordered: 04/27/2024 Hepatitis B virus surface Ag [Presence] in Serum or Plasma by Immunoassay Hepatitis B surface antigen Lab Routine Missed menses , unspecified gestational age Ordered: 04/27/2024 [facility] Comment on above: Ordered: 04/27/2024 Hepatitis C virus Ab [Presence] in Serum or Plasma by Immunoassay Hepatitis C antibody Lab Routine Missed menses , unspecified gestational age Ordered: 04/27/2024 [facility] Comment on above: Ordered: 04/27/2024 HIV-1/HIV-2 antigen/antibody combination immunoassay HIV-1 and HIV-2 antibodies Lab Routine Missed menses , unspecified gestational age Ordered: 04/27/2024 [facility] Comment on above: Ordered: 04/27/2024 Neisseria gonorrhoea e DNA [Presence] in Unspecified specimen by FLORENCIO with probe detection Neisseria gonorrhea DNA probe, direct Lab Routine Exposure to STD Ordered: 07/11/2024 [facility] Comment on above: Ordered: 07/11/2024 Reagin Ab [Presence] in Serum by RPR RPR Lab Routine Missed menses , unspecified gestational age Ordered: 04/27/2024 [facility] Comment on above: Ordered: 04/27/2024 Rubella antibody, IgG Rubella an tibody, IgG Lab Routine Missed menses , unspecified gestational age Ordered: 04/27/2024 [facility] Comment on above: Ordered: 04/27/2024 SURESWAB(R) ADVANCED VAGINITIS PLUS, TMA SURESWAB(R) ADVANCED VAGINITIS PLUS, TMA Pathology and Cytology Routine Vaginal discharge Ordered: 07/11/2024 [facility] Work Phone: Comment on above: Ordered: 07/11/2024 Payers Date Payer Category Payer Medicaid [id number] 2024 Medicare MEDICARE MEDICAR E A AND B [id number] 2024-Present [phone] [address] [address] [place] [address] Medicare [id number] 1994 Unknown [id number] 1994 Unknown [id number] 1994 Unknown [id number] 1994 Unknown [id number] 2.840.1.567578.3.579.2.593 1994 Unknown [id number] 2.840.1.635736.3.579.2.593 1994 Unknown [id number] 2.16.840.1.609865.3.579.2.593 1994 Unknown [id number] 2.16.840.1.119931.3.579.2.593 1994 Unknown [id number] 2.16.840.1.714485.3.579.2.593 1994 Unknown [id number] 2.16.840.1.081393.3.579.2.593 1994 Unknown [id number] 2.16.840.1.668839.3.579.2.1286 1994 Unknown [id number] 2.16.840.1.398716.3.579.2.1259 1994 Unknown [id number] 2.16.840.1.414024.3.579.2.1259 1994 Unknown [id number] 2.16.840.1.693993.3.579.2.1259 1994 Unknown [id number] [id number] 1959 Medicaid [id number] 1959 Self-pay 1959 Unknown [id number] Unknown [id number] Social History Date Type Detail Facility Tobacco smoking stat [facility] Tobacco smoking consumption unknown [facility] Start: 1994 Sex assigned at Not on file [facility] Start: 04-24-2024 Gender identity Not on file [facility] Start: 10-26-2022 [facility] History of tobacco use Cigarette Sm[facility] Start: 04-27-2024 End: 07-11-2024 Alcoholic beverage intake Ex-drinker (finding) [facility] Start: 04-24-2024 History of Social function [facility] Start: 10-18-2022 Tobacco Comment Patient smokes 11-20 cigarettes/day after 6-30 minutes of waking up. [facility] Start: 02-24-2024 [facility] Clinical Notes 01-11-2024 to 07-11-2024 Rupali VIVIANE Ribeiro - 07/11/2024 1:30 PM EDTRupali Ribeiro, VIVIANE - 05/29/2024 1:40 PM Inna RobertNEGIN - 04/27/2024 10:30 AM ESTTelephone Encounter - Kriss AtkinsRyley - 01/11/2024 11:06 AM EDT Note Date & Type Note Facility 07-11-2024 History of Presen t illness Narrative Reason for Appointment: Patient ID: Loraine Pace is a 28 y.o. female who presents for Routine Visit Patient presents today for Annual Exam., STD Check., and Return OB appointment. MEDICATIONS Current Outpatient Medications Medication Instructions ondansetron (ZOFRAN) 4 mg, Every 8 hours PRN MV-Min-Fe Fum-FA-DHA ( 1 PO) [...] Constitutional: Appearance: Normal appearance. She is well-developed. Genitourinary: Vulva normal. Breasts: Breasts are soft. Right: Normal. Left: Normal. Cardiovascular: Rate and Rhythm: Normal rate and [...] nursing note reviewed. Exam conducted with a dam tender assistant present. Vitals: Estimated body mass index is 25.09 kg/m as calculated from the following: Height as of 09/01/22: 5' 5 . Weight as of this encounter: 150 lb 12.8 oz. BP: 120/70 Patient's last menstrual period was 02/10/2024. ASSESSMENT & PLAN ICD-10-CM 1. 21 weeks gestation of Z3A.21 POCT urinalysis dipstick manually resulted 2. Second trimester Z34.92 POCT urinalysis dipstick manually resulted 3. Screening, , for anatomic survey Z36.89 US OB 14+ weeks anatomy scan US OB 14+ weeks anatomy scan 4. Exposure to STD Z20.2 CHLAMYDIA TRACHOMATIS (GENITO/STI) Neisseria gonorrhea DNA probe, direct 5. Vaginal discharge N89.8 SURESWAB(R) ADVANCED VAGINITIS PLUS, TMA 6. Well woman exam with routine gynecological exam Z01.419 Pap Smear Return OB/Annual Exam: Patient presents today for a annual exam/routine obstetrics appointment. Patient is currently 21w5d . Patient states she is doing well but has complaints of nausea in the morning. Pap and cultures was obtained without difficulty and patient was given orders for anatomy scan and msAFP to be obtained. Orders Placed This Encounter Procedures US OB 14+ weeks anatomy scan CHLAMYDIA TRACHOMATIS (GENITO/STI) Neisseria gonorrhea DNA probe, direct POCT urinalysis dipstick manually resulted Follow Up: Patient is to schedule annual exam for next year and return to office in 4 weeks for OB appointment. Documented by Rupali Ribeiro LPN on behalf of: Valente Pfeiffer DO documented in this encounter [facility] 05-29-2024 History of Presen t illness Narrative [...] nursing note reviewed. Exam conducted with a dam tender assistant present. Vitals: Estimated body mass index is [...] or undercooked meat, and stay away from [facility]. Patient has been consulted regarding any further do's and don'ts of . Patient voiced understanding and all questions and concerns were answered. Orders Placed This Encounter Procedures Alpha fetoprotein, maternal POCT urinalysis dipstick manually resulted Follow Up: Patient is to return in 4 weeks for routine OB appointment. Documented by Rupali Ribeiro LPN on behalf of: Valente Pfeiffer DO documented in this encounter [facility] 04-27-2024 History of Presen t illness Narrative [...] or undercooked meat, and stay away from sushi. Patient has also been advised to not [...] Rhea Jones MA documented in this encounter [facility] 01-11-2024 Telephone encount er Note Images from [...] for Covid? No, had 1 time no longterm side effects Overall general health: Patient reports [...] back when she has active insurance. Karina Shi, SHANNON Living Liver Donor Coordinator [facility] 01-11-2024 Miscellaneous Notes Formattin g of this note is different from the original. Images from the original note were not included. LIVING LIVER DONOR SCREENING FORM Loraine Rodriguesritt contacted the Living Liver Donor office expressing [...] for Covid? No, had 1 time no longterm side effects Overall general health: Patient reports [...] Liver Donor Coordinator documented in this encounter [facility] 01-11-2024 Telephone encount er Note Living Donor [...] Yes Online intake has been scanned to [facility] for review by the living donor coordinator. [facility] 01-11-2024 Miscellaneous Notes Formattin g of this [...] Yes Online intake has been scanned to [facility] for review by the living donor coordinator. documented in this encounter [facility] Evaluation note Diagnosis Liver [facility]- [facility] Missed menses 11 weeks gestation of , unspecified gestational age Encounter for supervision of normal first in first trimester documented in this encounter [facility]* Diagnosis 15 weeks gestation of Second trimester state, incidental documented in this encounter [facility]* Diagnosis 21 weeks gestation of Second trimester state, incidental Screening, , for anatomic survey Encounter for anatomic survey Exposure to STD Vaginal discharge Leukorrhea, not specified as infective Well woman exam with routine gynecological exam Routine gynecological examination documented in this encounter [facility] Summary Purpose Family History No Family [...] COLLECTION VENOUS BLOOD VENIPUNCTURE Cristina Tovar MD [address] [place] [address] [facility] [address] [address] Referral ID Status Reason Start Date Expiration Date Visits Requested Visits Authorized [id number] Authorized PCP Requested Referral Financial Clearance Required - [employer]ON Payor 01/11/2024 01/10/2025 99 [phone] Additional Source Comments INFORMATION SOURCE (unrecogn ized section and content) DATE CREATED AUTHOR 09/06/2022 [facility] DATE CREATED AUTHOR AUTHOR'S ORGANIZ ATION 01/28/2024 [facility] DATE CREATED AUTHOR AUTHOR'S ORGANIZ ATION 04/16/2024 [facility] DATE CREATED AUTHOR AUTHOR'S ORGANIZ ATION 07/13/2024 [facility] EPIC Source Comments (unrecognize d section and content) In the event this informatio n is protected by the Federal Confidentiality of Alcohol and Drug Abuse Patient Records regulations: The Federal rules restrict any use of the information to criminally investigate or prosecute any alcohol or drug abuse patient.[facility] the event this information is protected by the Federal Confidentiality of Alcohol and Drug Abuse Patient Records regulations: The Federal rules restrict any use of the information to criminally investigate or prosecute any alcohol or drug abuse patient.[facility] Reason for Visit (unrecogniz ed section and content) Reason Comments Referral - Donor Txp Reason Comments Amenorrhea Reason Comments Routine Visit Care Teams (unrecognized sec tion and content) Parking Enforcement Manager Relationship Specialty Start Date End Date Dayron Kimbrough MD [address] [place] [address] PCP - General Family Medicine 09/16/22 Parking Enforcement Manager Relationship Specialty Start Date End Date Dayron Kimbrough MD [address] [place] [address] PCP - General Family Medicine 09/16/22 Parking Enforcement Manager Relationship Specialty Start Date End Date Dayron Kimbrough MD [address] [place] [address] PCP - [facility] 09/16/22 Parking Enforcement Manager Relationship Specialty Start Date End Date Dayron Kimbrough MD [address] [place], [place] [id number] PCP - [facility] 09/16/22 Parking Enforcement Manager Relationship Specialty Start Date End Date Dayron Kimbrough MD [address] [place], [place] [id number] PCP - [facility] 09/16/22 Parking Enforcement Manager Relationship Specialty Start Date End Date Dayron Kimbrough MD PCP - [facility] 09/16/22 FOR RECORDS PERTAINING TO PATIENTS WHO [...] BE BASED ON THE PRIMARY CLINICAL RECORDS. [facility] [email or web address] [facility]. provides no warranty or guarantee of the accuracy or completeness of information in this document.
== END 2024-07-18 09:57 | disposition home or self-care (01) ==
LOC: US 09:57
PROVIDERS: Visit Provider Obstetrics & Gynecology
DX: Z36.89 Encounter for other specified antenatal screening (principal); Z3A.23 23 weeks gestation of pregnancy
CPT/HCPCS: 76805; 76817

== ENCOUNTER 2024-08-24 10:48 | Outpatient (OUT) | payer MEDICAID, SELFPAY ==
[2024-08-24 12:11] LABS: Basophils Percent Auto 0.3 % (0.2-2.0); Eosinophils Absolute Auto 0.1 10^3/uL (0.0-0.7); Eosinophils Percent Auto 0.6 % (0.9-7.0); Hematocrit 33.6 % (36.0-48.0); Immature Granulocytes Abs Auto 0.12 10^3/uL (0.00-0.03); Lymphocytes Absolute Auto 2.2 10^3/uL (1.2-3.8); Lymphocytes Percent Auto 18.6 % (20.5-60.0); Mean Corpuscular HGB Conc 32.7 g/dL (29.9-35.2); Mean Corpuscular Hemoglobin 28.9 pg (26.7-34.0); Mean Corpuscular Volume 88.2 fL (81.0-99.0); Mean Platelet Volume 11.3 fL (9.5-13.5); Monocytes Absolute Auto 0.7 10^3/uL (0.3-0.8); Monocytes Percent Auto 5.5 % (1.7-12.0); Neutrophils Absolute Auto 8.7 10^3/uL (1.4-6.5); Platelet Count 187 10^3/uL (150-450); Red Blood Count 3.81 10^6/uL (4.20-5.40); Red Cell Distribution Width 13.9 % (11.0-15.0); White Blood Count 11.7 10^3/uL (4.0-11.0)
[2024-08-24 12:21] LABS: Glucose 1 Hour 86 mg/dL (<130)
== END 2024-08-24 10:49 | disposition home or self-care (01) ==
PROVIDERS: Visit Provider Nurse Practitioner Family
DX: Z13.1 Encounter for screening for diabetes mellitus (principal); Z3A.27 27 weeks gestation of pregnancy
CPT/HCPCS: 36415; 82950; 85025

== ENCOUNTER 2024-09-30 17:20 | Observation (INO) | payer MEDICAID, SELFPAY ==
[2024-09-30] VITALS (19 sets, daily range): BP systolic 131–166; BP diastolic 76–106; PULSE 66–83; TEMP 36.7; O2SAT 96–100; BMI 28.0
--- OUTSIDE RECORDS SUMMARY | 2024-09-30 17:30 | XMS_ITS | CCD ---
Author Organization [facility] Care Team Providers Care Band Builder Name Role Phone MARGARETTE ., DR VICTOR [...] Unavailable HAY ., DR MCKEON Admitting Unavailable ZAIDI, SHATNHI Consulting Unavailable MARGARETTE ., DR VICTOR Consulting Unavailable DEFRANCE, DR PADGETT Primary Care Unavailable MARGARETTE ., DR VICTOR Attending Unavailable MARGARETTE ., DR VICTOR Admitting Unavailable [place], DR PADGETT V Consulting Unavailable DEFRANCE, DR PADGETT Primary Care Unavailable GEOVANNA ., ANITA Attending Unavailable GEOVANNA ., ANITA Admitting Unavailable GEOVANNA ., ANITA Consulting Unavailable GEOVANNA ., ANITA Consulting Unavailable DEFRANCE, DR PADGETT Primary Care Unavailable GEOVANNA ., ANITA Attending Unavailable GEOVANNA ., ANITA Admitting Unavailable MARGARETTE ., DR VICTOR Consulting Unavailable REQUEST, NONE LISTED Primary Care Unavaila ble MARGARETTE [...] Unavailable Dayron Kimbrough MD Primary Care Provider Dayron Kimbrough MD Primary Care Provider [phone] VALENTE PFEIFFER Attending Unavailable VALENTE PFEIFFER Attending Unavailable RIYA GOMEZ Attending Unavailable RIYA GOMEZ Attending Unavailable Allergies Allergy Classification Reported Allergen(s) Allergy Type Date of Onset Reaction(s) Facility (13 sources) [place] Allergy to substance 09-15-2022 Unknown [facility] Work Phone: Medications Current Medications Medication Drug Class(es) Dates Sig (Normalized) Sig (Original) ondansetron 4 mg disintegrating oral tablet (18 sources) Serotonin-3 Receptor Antagonist Start: 04-20-2024 End: [...] Active MV-Min-Fe Fum-FA-DH A ( 1 PO) (13 sources) MV-Min- Fe Fum-FA-DHA ( 1 PO) [...] Onset: 04-12-2024 Episodic Other female genital disorders (13 sources) Vaginal bleeding; Translations: [Abnormal uterine and vaginal bleeding, unspecified] Onset: 10-22-2022 10-22-2022 Chronic Other female genital disorders (1 source) Other specified noninflammatory disorders of vagina; Translations: [OTH SPEC NONINFLAMMATORY D/O VAGINA] Onset: 06-17-2022 Episodic Other female genital disorders (1 source) Vaginal discharge; Translations: [Other specified noninflammatory disorders of vagina] 07-11-2024 Episodic Other and delivery including normal (17 sources) Encounter for supervision of normal , unspecified, second trimester; Translations: [Encounter for supervision of other normal , first trimester] Onset: 04-22-2022 Episodic Other screening for suspected conditions (not mental disorders or infectious disease) (8 sources) Encounter for screening, unspecified; Translations: [Encounter [...] [21 weeks gestation of ] 07-11-2024 Episodic Residual codes; unclassified (2 sources) Gestation period, 27 weeks; Translations: [27 weeks gestation of ] 08-23-2024 Episodic Substance-related disorders (1 source) Nicotine dependence, [...] Test Name Value Interpretation Reference Range Facility GLUCOSE 1 HOURon 08-24-2024 Glucose [Mass/Vol] 86 mg/dL NINF - 13 0 mg/dL [facility] Urinalysis macro (dipstick) panel (U)on 08-23-2024 Bilirubin, UA Negative Negative - 4(70) +++ mg/dL [facility] Blood, UA Negative Negative - 50 Wali/mcL [facility] Clarity, UA Clear [facility] Color, UA Yellow [facility] Glucose, UA Negative Negative - 1999(110) ++++ mg/dL [facility] Interpretation and review of laboratory results Abnormal [facility] Ketones, UA Negative Negative - 160(16) ++++ mg/dL [facility] Leukocytes, UA Trace Negative - 500+++ Dmitriy/mcL [facility] Nitrite, UA Negative Negative - Positive [facility] pH, UA 6 5 - 9 [facility] Protein, UA Negative Negative - 1999(20) ++++ mg/dL [facility] Spec Grav, UA 1.02 1 - 1.03 [facility] Urobilinogen, UA 0.2 0.2 - 12 mg/dL [facility] No Panel InformationOrdered By: Radiologist Radiology on 07-18-2024 [facility] Work Phone: No Panel Informationon 07-18 Radiology Study observation (narrative) [facility] US OB ANATOMYon 07-18-2024 [place] [address] Ultrasound Report Signed Patient: LORAINE PACE MR#: [id number] : 1995 Acct:[id number] Age/Sex: 28 / F ADM Date: 07/18/24 Loc: US Attending Dr: Valente Pfeiffer D.O. Ordering Physician: Valente Pfeiffer D.O. Date of Service: 07/18/24 Procedure(s): US OB anatomy Accession Number(s): [id number] cc: Valente Pfeiffer D.O.; Physician,Non-Staff M.DArturo [place] [id number] Patient Name: LORAINE PACE MRN: [id number] date: 1995 Sex: F Assigned Patient Location: Current Patient Location: Accession/Order Number: [id number] Exam Date: 07/18/2024 18:47 Report Date: 07/18/2024 18:52 At the request of: VALENTE PFEIFFER DO Procedure: US OB cervical length Anatomy scan. Reason for exam: survey. COMPARISON: None. TECHNIQUE: Transabdominal imaging of the gravid uterus was obtained. FINDINGS: Single live intrauterine is present measuring 23 weeks 1 day by anatomic measurements which appears to be appropriate growth by dating. heart rate 1 49 bpm. Placenta is anterior and fundal in location without focal abnormality. Anatomic survey demonstrates no significant anatomical abnormality. 4 kidneys are noted. No hydrocephalus. Nasal bone is present. Spine appears intact. 4 chamber heart is noted with normal appearing outflow tracts. Kidneys appear unremarkable. Three-vessel cord is noted with normal insertion. Cervical length is normal at 4.59 cm without funneling. position is cephalic at time of scanning. US/US OB anatomy Impression: Single live intrauterine 23 weeks 1 day. Appropriate growth. No anatomic abnormality is seen. Cervical length measuring 4.59 cm without funneling. Impression dictated by: Markie Hoyt Jr., D.O.07/18/2024 6:52 PM Dictation Location: [place] [address] Electronically authenticated by: [id number] Y Date: 07/18/2024 18:52 Dictated By: Markie Hoyt M.D. Signed By: 07/18/241853 DD/ 51 TD/TT: Justice Professor: [facility] Radiology, Radiologist, MD - 07/18/2024 [place] [address] Ultrasound Report Signed Patient: LORAINE PACE MR#: [id number] : 1995 Acct:[id number] Age/Sex: 28 / F ADM Date: 07/18/24 Loc: US Attending Dr: Valente Pfeiffer D.O. Ordering Physician: Valente Pfeiffer D.O. Date of Service: 07/18/24 Procedure(s): US OB anatomy Accession Number(s): [id number] cc: Valente Pfeiffer D.O.; Physician,Non-Staff Rogelio The [place] [address] Patient Name: LORAINE PACE MRN: [facility]:[id number] date: 1995 Sex: F Assigned Patient Location: US Current Patient Location: US Accession/Order Number: [id number] Exam Date: 07/18/2024 18:47 Report Date: 07/18/2024 18:52 At the request of: VALENTE PFEIFFER DO Procedure: US OB cervical length Anatomy scan. Reason for exam: survey. COMPARISON: None. TECHNIQUE: Transabdominal imaging of the gravid uterus was obtained. FINDINGS: Single live intrauterine is present measuring 23 weeks 1 day by anatomic measurements which appears to be appropriate growth by dating. heart rate 1 49 bpm. Placenta is anterior and fundal in location without focal abnormality. Anatomic survey demonstrates no significant anatomical abnormality. 4 kidneys are noted. No hydrocephalus. Nasal bone is present. Spine appears intact. 4 chamber heart is noted with normal appearing outflow tracts. Kidneys appear unremarkable. Three-vessel cord is noted with normal insertion. Cervical length is normal at 4.59 cm without funneling. position is cephalic at time of scanning. US/US OB anatomy Impression: Single live intrauterine 23 weeks 1 day. Appropriate growth. No anatomic abnormality is seen. Cervical length measuring 4.59 cm without funneling. Impression dictated by: Markie Hoyt Jr., D.O.07/18/2024 6:52 PM Dictation Location: [facility]ENTER[facility] Electronically authenticated by: [id number] Y Date: 07/18/2024 18:52 Dictated By: Markie Hoyt M.D. Signed By: 07/18/241853 DD/ 51 TD/TT: Justice Professor: [facility] US OB CERVICAL LENGTHon 06-24 [place] [address] Ultrasound Report Signed Patient: LORAINE PACE MR#: [id number] : 1995 Acct:[id number] Age/Sex: 28 / F ADM Date: 07/18/24 Loc: US Attending Dr: Valente Pfeiffer D.O. Ordering Physician: Valente Pfeiffer D.O. Date of Service: 07/18/24 Procedure(s): US OB cervical length Accession Number(s): [id number] cc: Valente Pfeiffer D.O.; Physician,Non-Staff Rogelio [address] [address] Patient Name: LORAINE PACE MRN: [id number] date: 1995 Sex: F Assigned Patient Location: US Current Patient Location: US Accession/Order Number: [id number] Exam Date: 07/18/2024 18:47 Report Date: 07/18/2024 18:52 At the request of: VALENTE PFEIFFER DO Procedure: US OB cervical length Anatomy scan. Reason for exam: survey. COMPARISON: None. TECHNIQUE: Transabdominal imaging of the gravid uterus was obtained. FINDINGS: Single live intrauterine is present measuring 23 weeks 1 day by anatomic measurements which appears to be appropriate growth by dating. heart rate 1 49 bpm. Placenta is anterior and fundal in location without focal abnormality. Anatomic survey demonstrates no significant anatomical abnormality. 4 kidneys are noted. No hydrocephalus. Nasal bone is present. Spine appears intact. 4 chamber heart is noted with normal appearing outflow tracts. Kidneys appear unremarkable. Three-vessel cord is noted with normal insertion. Cervical length is normal at 4.59 cm without funneling. position is cephalic at time of scanning. US/US OB cervical length Impression: Single live intrauterine 23 weeks 1 day. Appropriate growth. No anatomic abnormality is seen. Cervical length measuring 4.59 cm without funneling. Impression dictated by: Markie Hoyt Jr., D.O.07/18/2024 6:52 PM Dictation Location: [facility] Electronically authenticated by: [id number] Y Date: 07/18/2024 18:52 Dictated By: Markie Hoyt M.D. Signed By: 07/18/241853 DD/ 51 TD/TT: Justice Professor: [facility] Radiology, Radiologist, - 07/18/2024 [place] [address] Ultrasound Report Signed Patient: LORAINE PACE MR#: [id number] : 1995 Acct:[id number] Age/Sex: 28 / F ADM Date: 07/18/24 Loc: US Attending Dr: Valente Pfeiffer D.O. Ordering Physician: Valente Pfeiffer D.O. Date of Service: 07/18/24 Procedure(s): US OB cervical length Accession Number(s): [id number] cc: Valente Pfeiffer D.O.; Physician,Non-Staff Rogelio The [place] [id number] Patient Name: LORAINE PACE MRN: [facility]:[id number] date: 1995 Sex: F Assigned Patient Location: Current Patient Location: US Accession/Order Number: [id number] Exam Date: 07/18/2024 18:47 Report Date: 07/18/2024 18:52 At the request of: VALENTE PFEIFFER DO Procedure: US OB cervical length Anatomy scan. Reason for exam: survey. COMPARISON: None. TECHNIQUE: Transabdominal imaging of the gravid uterus was obtained. FINDINGS: Single live intrauterine is present measuring 23 weeks 1 day by anatomic measurements which appears to be appropriate growth by dating. heart rate 1 49 bpm. Placenta is anterior and fundal in location without focal abnormality. Anatomic survey demonstrates no significant anatomical abnormality. 4 kidneys are noted. No hydrocephalus. Nasal bone is present. Spine appears intact. 4 chamber heart is noted with normal appearing outflow tracts. Kidneys appear unremarkable. Three-vessel cord is noted with normal insertion. Cervical length is normal at 4.59 cm without funneling. position is cephalic at time of scanning. US/US OB cervical length Impression: Single live intrauterine 23 weeks 1 day. Appropriate growth. No anatomic abnormality is seen. Cervical length measuring 4.59 cm without funneling. Impression dictated by: Markie Hoyt Jr., D.O.07/18/2024 6:52 PM Dictation Location: [place] [address] Electronically authenticated by: [id number] Y Date: 07/18/2024 18:52 Dictated By: Markie Hoyt M.D. Signed By: 07/18/241853 DD/ 51 TD/TT: Justice Professor: [facility] Urinalysis macro (dipstick) panel (U)on 07-11-2024 Bilirubin, UA Negative Negative - 4(70) +++ mg/dL [facility] Blood, UA Positive Negative - 50 Wali/mcL [facility] Comment on above: trace-intact Clarity, UA Clear [facility] Color, UA Yellow [facility] Glucose, UA Negative Negative - 2000(110) ++++ mg/dL [facility] Interpretation and review of laboratory results Abnormal [facility] Ketones, UA Negative Negative - 160(16) ++++ mg/dL [facility] Leukocytes, UA Negative Negative - 500+++ Dmitriy/mcL [facility] Nitrite, UA Negative Negative - Positive [facility] pH, UA 6 5 - 9 [facility] Protein, UA Trace Negative - 1999(20) ++++ mg/dL [facility] Spec Grav, UA 1.025 1 - 1.03 [facility] Urobilinogen, UA 0.2 0.2 - 12 mg/dL [facility] AFP, SERUM, OPEN SPINA BIFID Aon 06-28-2024 AFP MOM 1.21 . [facility] AFP VALUE 65.3 ng/mL . [facility] COMMENT: Comment . [facility] Comment on above: Concepcion Coon , Ph.D., [facility] Director References: Available Upon Request. Multiples Of Median Cutoffs For AFP Elevations Danielson 2.5 Black 2.8 IDD 2.0 Twins 4.5 Abbreviation Definitions IDD - Insulin Dep Diabetes OSBR - Open Spina Bifida Risk For further inquiries contact [facility] at [phone]. This test was developed and its performance characteristics determined by [facility]. It has not been cleared or approved by the Food and Drug Administration. Performed at: [facility] [employer] [address] [place], [place] [id number] Wood Cabinetmaker: Leonie Bird Former[facility], Phone: [phone] GEST. AGE ON COLLECTION DATE 19.6 . weeks [facility] GESTAT. AGE BASED ON LMP . [facility] Comment on above: Recalculations are n ot recommended when gestational dating by LMP and ultrasound are within 10 days. INSULIN DEP DIABETES No . [facility] INTERPRETATION Comment . [facility] Comment on above: Interpretation: Scre en Negative [...] [age] [facility] MULTIPLE GESTATION No . [facility] OSBR RISK 1 IN 6301 . [facility] RACE . [facility] RESULTS Report . [facility] TEST RESULTS: Negative . [facility] WEIGHT 149 . lbs [facility] N N LMP [id number] 4 15 N 1 149 N N N N N [facility] Urinal[facility] macro (dipstick) panel (U)on 05-29-2024 Bilirubin, UA Negative Negative - 4(70) +++ mg/dL [facility] Blood, UA Negative Negative - 50 Wali/mcL [facility] Clarity, UA Clear [facility] Color, UA Yellow [facility] Glucose, UA Negative Negative - 1999(110) ++++ mg/dL [facility] Interpretation and review of laboratory results Normal [facility] Ketones, UA Negative Negative - 160(16) ++++ mg/dL [facility] Leukocytes, UA Negative Negative - 500+++ Dmitriy/mcL [facility] Nitrite, UA Negative Negative - Positive [facility] pH, UA 6 5 - 9 [facility] Protein, UA Negative Negative - 1999(20) ++++ mg/dL [facility] Spec Grav, UA 1.03 1 - 1.03 [facility] Urobilinogen, UA 0.2 0.2 - 12 mg/dL [facility] BOX TESTon 05-11-2024 BOX TEST SENT OUT [facility] BOX1 [facility] BOX2 05/11/24 [facility] HCG ( test) Ql (U)o n 04-27-2024 Interpretation and review of laboratory results Abnormal [facility] Preg Test, Ur Positive Negative [facility] US OB TRANSVAGINALon 025 US OB TRANSVAGINAL [...] x 6.1 cm (10 weeks, 0 days). Vermilion rump length is 4.8 cm (11 weeks, [...] UA Negative Negative - 4(70) +++ mg/dL [facility] Blood, UA Negative Negative - 50 Wali/mcL [facility] Clarity, UA Clear [facility] Color, UA Yellow [facility] Glucose, UA Negative Negative - 1999(110) ++++ mg/dL [facility] Interpretation and review of laboratory results Normal [facility] Ketones, UA Negative Negative - 160(16) ++++ mg/dL [facility] Leukocytes, UA Negative Negative - 500+++ Dmitriy/mcL [facility] Nitrite, UA Negative Negative - Positive [facility] pH, UA 6 5 - 9 [facility] Protein, UA Negative Negative - 2000(20) ++++ mg/dL [facility] Spec Grav, UA 1.025 1 - 1.03 [facility] Urobilinogen, UA 0.2 0.2 - 12 mg/dL [facility] CBC AND AUTO DIFFon 04-12-20 24 ABSOLUTE BASOPHIL 0.1 X10E9/L Normal 0.0-0.2 [facility] Comment on above: Performed By: #### C BCA, CMP, 84787-1 #### [facility] ([id number]) [address] [place] [address] ABSOLUTE NEUTROPHIL 9.3 X10E9/L High 1.5-6.6 [facility] Comment on above: Performed By: #### Abraham GASTON CMP, 24209-1 #### [facility] ([id number]) [address] [place] [address] 89965 Basophils/100 WBC (Bld) 0.4 % Normal [facility] Comment on above: Performed By: #### C JUSTIN GASTON, 26263-2 #### [facility] ([id number]) [address] [place] [address]65 Eosinophils (Bld) [#/Vol] 0.0 10*3/uL Normal 0.0-0.4 [facility] Comment on above: Performed By: #### Abraham GASTON [facility], #### [facility] ([id number]) [address] [place] [address] 66850 Eosinophils/100 WBC (Bld) 0.2 % Normal [facility] Comment on above: Performed By: #### Abraham GASTON [facility], 97382-3 #### [facility] ([id number]) [address] [place] [address] 07309 Erythrocyte distribution width (RBC) [Ratio] 14.4 % Normal 11.5-15.0 [facility] Comment on above: Performed By: #### Abraham GASTON [facility], 83676-2 #### [facility] ([id number]) [address] [place] [address] 45671 Hematocrit (Bld) [Volume fraction] 39.7 % Normal 35-47 [facility] Comment on above: Performed By: #### Abraham GASTON CMP, 67809-9 #### [facility] ([id number]) [address] [place] [address] 39348 Hemoglobin (Bld) [Mass/Vol] 13.4 g/dL Normal 11.7-15.5 [facility] Comment on above: Performed By: #### C MARILIN [facility], #### [facility] ([id number]) [address] [place] [address] 94077 Lymphocytes (Bld) [#/Vol] 2.2 10*3/uL Normal 1.0-3.5 [facility] Comment on above: Performed By: #### Abraham GASTON [facility], #### [facility] ([id number]) [address] [place] [address] 62520 Lymphocytes/100 WBC (Bld) 18.4 % Normal [facility] Comment on above: Performed By: #### Abraham GASTON [facility], #### [facility] ([id number]) [address] [place] [address] 88927 MCH (RBC) [Entitic mass] 28.4 pg Normal 27-34 [facility] Comment on above: Performed By: #### Abraham GASTON [facility], #### [facility] ([id number]) [address] [place] [address] 25127 MCHC (RBC) [Mass/Vol] 33.8 g/dL Normal 32-36 [facility] Comment on above: Performed By: #### Abraham GASTON [facility], #### [facility] ([id number]) [address] [place] [address] 12147 MCV (RBC) [Entitic vol] 84 fL Normal 80-100 [facility] Comment on above: Performed By: #### Abraham GASTON [facility], #### [facility] ([id number]) [address] [place] [address] 53804 Monocytes (Bld) [#/Vol] 0.6 10*3/uL Normal 0-0.9 [facility] Comment on above: Performed By: #### C MARILIN, CMP, 80834-4 #### [facility] ([id number]) [address] [place] [address] 85854 Monocytes/100 WBC (Bld) 4.7 % Normal [facility] Comment on above: Performed By: #### C BCA, CMP, 36242-1 #### [facility] ([id number]) [address] [place] [address] 24116 Neutrophils/100 WBC (Bld) 76.3 % Normal [facility] Comment on above: Performed By: #### C MARILIN, CMP, #### [facility] ([id number]) [address] [place] [address] 52097 Platelet mean volume (Bld) [Entitic vol] 8.6 fL Normal 7-12 [facility] Comment on above: Performed By: #### Abraham GASTON, CMP, 91115-2 #### [facility] ([id number]) [address] [place] [address] 55902 Platelets (Bld) [#/Vol] 277 10*3/uL Normal 150-450 [facility] Comment on above: Performed By: #### Abraham GASTON, CMP, 92404-1 #### [facility] ([id number]) [address] [place] [address] 32833 RBC COUNT 4.73 X10E12/L Normal 3.80-5.20 [facility] Comment on above: Performed By: #### Abraham BCA, CMP, 44883-0 #### [facility] ([id number]) [address] [place] [address] 36062 WBC (Bld) [#/Vol] 12.1 10*3/uL High 4.0-11.0 [facility] Comment on above: Performed By: #### Abraham GASTON, CMP, #### [facility] ([id number]) [address] [place] [address] 90432 COMPREHENSIVE METABOLIC PANE [place] 04-12-2024 Albumin [Mass/Vol] 4.4 g/dL Normal 3.2-5.3 [facility] Comment on above: Performed By: #### C BCA, CMP, 60373-5 #### [facility] ([id number]) [address] [place] [address] 37630 ALP [Catalytic activity/Vol] 55 U/L Normal 39-130 [facility] Comment on above: Performed By: #### C BCA, CMP, 74540-1 #### [facility] ([id number]) [address] [place] [address] 99779 ALT [Catalytic activity/Vol] 22 U/L Normal 0-31 [facility] Comment on above: Performed By: #### C BCA, CMP, #### [facility] ([id number]) [address] [place] [address] 59148 Anion gap [Moles/Vol] 10 mmol/L Normal 5-15 [facility] Comment on above: Performed By: #### C BCA, CMP, 42532-7 #### [facility] ([id number]) [address] [place] [address] [id number] AST [Catalytic activity/Vol] 16 U/L Normal 0-41 [facility] Comment on above: Performed By: #### C BCA, CMP, 37078-0 #### [facility] ([id number]) [address] [place] [address] 11576 Bilirubin [Mass/Vol] 1.7 mg/dL High 0.3-1.2 [facility] Comment on above: Performed By: #### C BCA, CMP, #### [facility] ([id number]) [address] [place] [address] 03950 Calcium [Mass/Vol] 9.3 mg/dL Normal 8.5-10.5 [facility] Comment on above: Performed By: #### C JUSTIN GASTON, 81233-2 #### [facility] ([id number]) [address] [place] [address] 80355 Chloride [Moles/Vol] 102 mmol/L Normal 98-109 [facility] Comment on above: Performed By: #### C MARILIN [facility], 40790-0 #### [facility] ([id number]) [address] [place] [address] 96584 CO2 [Moles/Vol] 23 mmol/L Normal 22-32 [facility] Comment on above: Performed By: #### C JUSTIN GASTON, 28318-3 #### [facility] ([id number]) [address] [place] [address] 48222 Creatinine [Mass/Vol] 0.55 mg/dL Normal 0.40-1.00 [facility] Comment on above: Result Comment: METH OD TRACEABLE TO IDMS STANDARD Performed By: #### C MARILIN [facility], 42818-1 #### [facility] ([id number]) [address] [place] [address] 32631 eGFR (CKD-EPI) NON-RACE DEPENDENT >90 Normal >59 [facility] Comment on above: Result Comment: Reported eGFR is based on the CKD-EPI 2020 equation that does not use a race coefficient. Performed By: #### C JUSTIN GASTON, 34690-9 #### [facility] ([id number]) [address] [place] [address] 28493 Glucose [Mass/Vol] 94 mg/dL Normal 65-99 [facility] Comment on above: Performed By: #### C JUSTIN GASTON, 08710-3 #### [facility] ([id number]) [address] [place] [address] 34117 Potassium [Moles/Vol] 3.5 mmol/L Normal 3.5-5.0 [facility] Comment on above: Performed By: #### C MARILIN CMP, 08760-5 #### [facility] ([id number]) [address] [place] [address] 34215 Protein [Mass/Vol] 7.9 g/dL Normal 6.0-8.0 [facility] Comment on above: Performed By: #### C MARILIN CMP, #### [facility] ([id number]) [address] [place] [address] 99177 Sodium [Moles/Vol] 135 mmol/L Normal 134-146 [facility] Comment on above: Performed By: #### C MARILIN CMP, 36702-1 #### [facility] ([id number]) [address] [place] [address] 37049 Urea nitrogen [Mass/Vol] 10 mg/dL Normal 5-23 [facility] Comment on above: Performed By: #### C MARILIN [facility], 07114-0 #### [facility] ([id number]) [address] [place] [address] 55588 HCG ( test) Ql (U)o n 04-12-2024 Beta HCG ( test) Ql (U) Positive Abnormal NEG [facility] Comment on above: Performed By: #### 2 106-3 #### [facility] ([id number]) [address] [place] [address] 36682 MAGNESIUMon 04-12-2024 Magnesium [Mass/Vol] 2.0 mg/dL Normal 1.8-2.6 [facility] Comment on above: Performed By: #### C MARILIN, CMP, #### [facility] ([id number]) [address] [place] [address] 37769 URN MACROSCOPIC NURon 2023 BILIRUBIN MAIA Negative Normal NEG [facility] Comment on above: Performed By: #### N UM #### [facility] ([id number]) [address] [place] [address] [place] [address] BLOOD/HGB MAIA Negative Normal NEG [facility] Comment on above: Performed By: #### N UM #### [facility] ([id number]) [address] [place] [address] [place] [address] GLUCOSE AMIA Negative Normal NEG [facility] Comment on above: Performed By: #### N UM #### [facility] ([id number]) [address] [place] [address] [place] [address] KETONES MAIA >=160 Abnormal NEG [facility] Comment on above: Performed By: #### N UM #### [facility] ([id number]) [address] [place] [address] [place] [address] LEUKOCYTE ESTERASE MAIA Negative Normal NEG [facility] Comment on above: Performed By: #### N UM #### [facility] ([id number]) [address] [place] [address] [place] [address] NITRITE MAIA Negative Normal NEG [facility] Comment on above: Performed By: #### N UM #### [facility] ([id number]) [address] [place] [address] [place] [address] PH MAIA 6.5 Normal 5.0-8.5 [facility] Comment on above: Performed By: #### N UM #### [facility] ([id number]) [address] [place] [address] [place] [address] PROTEIN MAIA Trace Abnormal NEG [facility] Comment on above: Performed By: #### N UM #### [facility] ([id number]) [address] [place] [address] [place] [address] SPECIFIC GRAVITY MAIA >=1.030 Normal 1.003-1.035 [facility] Comment on above: Performed By: #### N UM #### [facility] ([id number]) [address] [facility] [place] [address] UROBILINOGEN MAIA 1.0 eu/dL Normal <1.1 [facility] Comment on above: Performed By: #### N UM #### [facility] ([id number]) [address] [facility] [facility] [place] [address] Dre 01-11-2024 CNPN Telephone (TXCTMN) LORAINE PACE ([id number]) 1995 F Date Time Provider Department 01/11/24 [...] Yes Online intake has been scanned to [employer] for review by the living donor coordinator. Allergies As of Date: 01/11/2024 (Not on File) Date Reviewed: Never Reviewed Reason for Visit: Referral - Donor Txp [[id number]] Primary Visit Diagnosis:Liver donor [Z52.6] Order(s):CONSULT TO TRANSPLANT CENTER [897754] Order #: [id number]: 1 Problem List As Of Date: 01/11/2024 (None) Encounter Status:Closed by KRISS ATKINS on 01/11/24 Normal [facility] CNPN Telephone (TXCTMN) LORAINE PACE ([id number]) 1995 F Date Time Provider Department 01/11/24 KARINA SHIRN) (HIST)TXCTMN During your visit today, we recorded the following information about you: Karina Shi) (Hist), RN 01/26/2024 12:45 PM Signed LIVING [...] for Covid? 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 Jamie Dickey Glucose [Mass/Vol] 139 mg/dL Normal [facility] Comment on above: Performed By: #### G TT3P #### [facility] [address] [place] [address] Dr. Jamie Dickey Glucose [Mass/Vol] 99 mg/dL Normal [facility] Comment on above: Performed By: #### G TT3P #### [facility] [address] [place] [address] Dr. Jamie Dickey CBC AUTO DIFFon 07-27-2022 BASO # 0.0 103/ul Normal 0.0-0.1 [facility] Comment on above: Performed By: #### C BC #### [facility] [address] [place] [address] Dr. Jamie Dickey Basophils/100 WBC (Bld) 0.4 % Normal 0.2-2.0 [facility] Comment on above: Performed By: #### C BC #### [facility] [address] [place] [address] Dr. Jamie Dickey EO # 0.2 103/ul Normal 0.0-0.7 [facility] Comment on above: Performed By: #### C BC #### [facility] [address] [place] [address] Dr. Jamie Dickey Eosinophils/100 WBC (Bld) 1.8 % Normal 0.9-7.0 [facility] Comment on above: Performed By: #### C BC #### [facility] [address] [place] [address] Dr. Jamie Dickey Erythrocyte distribution width (RBC) [Ratio] 13.2 % Normal 11.0-15.0 [facility] Comment on above: Performed By: #### C BC #### [facility] [address] [place] [address] Dr. Jamie Dickey Hematocrit (Bld) [Volume fraction] 32.1 % Critically low 36.0-48.0 [facility] Comment on above: Performed By: #### C BC #### [facility] [address] [place] [address] Dr. Jamie Dickey Hemoglobin (Bld) [Mass/Vol] 10.8 g/dL Critically low 12.0-16.0 [facility] Comment on above: Performed By: #### C BC #### [facility] [address] [place] [address] Dr. Jamie Dickey IG # 0.07 10e3/ul Critically high 0.00-0.03 [facility] Comment on above: Performed By: #### C BC #### [facility] [address] [place] [address] Dr. Jamie Dickey IG % 0.8 % Critically high 0.0-0.5 [facility] Comment on above: Performed By: #### C BC #### [facility] [address] [place] [address] Dr. Jamie Dickey LYMPH # 1.8 103/ul Normal 1.2-3.8 [facility] Comment on above: Performed By: #### C BC #### [facility] [address] [place] [address] Dr. Jamie Dickey Lymphocytes/100 WBC (Bld) 20.4 % Critically low 20.5-60.0 [facility] Comment on above: Performed By: #### C BC #### [facility] [address] [place] [address] Dr. Jamie Dickey MANUAL DIFF REQ NO Normal [facility] Comment on above: Performed By: #### C BC #### [facility] [address] [place] [address] Dr. Jamie Dickey MCH (RBC) [Entitic mass] 29.1 pg Normal 26.7-34.0 [facility] Comment on above: Performed By: #### C BC #### [facility] [address] [place] [address] Dr. Jamie Dickey MCHC (RBC) [Mass/Vol] 33.6 g/dL Normal 29.9-35.2 [facility] Comment on above: Performed By: #### C BC #### [facility] [address] [place] [address] Dr. Jamie Dickey MCV (RBC) [Entitic vol] 86.5 fL Normal 81.0-99.0 [facility] Comment on above: Performed By: #### C BC #### [facility] [address] [address] [address] Jamie Dickey MONO # 0.4 103/ul Normal 0.3-0.8 [facility] Comment on above: Performed By: #### C BC #### [facility] [address] [address] [address] Jamie Dickey Monocytes/100 WBC (Bld) 4.8 % Normal 1.7-12.0 [facility] Comment on above: Performed By: #### C BC #### [facility] [address] [address] [address] Jamie Dickey NEUT # 6.5 103/ul Normal 1.4-6.5 [facility] Comment on above: Performed By: #### C BC #### [facility] [address] [place] [address] Dr. Jamie Dickey Neutrophils/100 WBC (Bld) 71.8 % Normal 43.0-75.0 [facility] Comment on above: Performed By: #### C BC #### [facility] [address] [address] [address] Jamie Dickey Platelet mean volume (Bld) [Entitic vol] 10.1 fL Normal 9.5-13.5 [facility] Comment on above: Performed By: #### C BC #### [facility] [address] [address] [address] Jamie Dickey PLT 197 103/ul Normal 150-450 [facility] Comment on above: Performed By: #### C BC #### [facility] [address] [address] [address] Jamie Dickey RBC 3.71 106/ul Critically low 4.20-5.40 [facility] Comment on above: Performed By: #### C BC #### [facility] [address] [address] [address] Jamie Dickey WBC 9.0 103/ul Normal 4.0-11.0 [facility] Comment on above: Performed By: #### C BC #### [facility] [address] [address] [address] Jamie Dickey GLUCOSE - 1HRon 07-27-2022 Glucose [Mass/Vol] 158 mg/dL Critically high 74-106 T [facility] Comment on above: Performed By: #### N BOX #### [facility] [address] [address] [address] Jamie Dickey AFP MATERNAL FOR SPINA BIFID Aon 06-26-2022 AFP MoM 0.[address] [facility] Comment on above: Performed By: #### H CVPCRR #### [facility] [address] [address] [address] Jamie Dickey AFP Value 54.6 ng/mL Normal [facility] Comment on above: Performed By: #### H CVPCRR #### [facility] [address] [address] [address] Jamie Dickey AFP, Serum for Spina Bifida Report Normal [facility] Comment on above: Performed By: #### H CVPCRR #### [facility] [address] [address] [address] Jamie Dickey Comment Comment Normal [facility] Comment on above: Result Comment: Anamaria Coon, Ph.D., [facility] Director . References: Available Upon Request. . Multiples Of Median Cutoffs For AFP Elevations Danielson 2.5 Black 2.8 IDD 2.0 Twins 4.5 Abbreviation Definitions IDD - Insulin Dep Diabetes OSBR - Open Spina Bifida Risk . For further inquiries contact [facility] at [phone]. . This test was developed and its performance characteristics determined by [facility]. It has not been cleared or approved by the Food and Drug Administration. Performed By: #### H CVPCRR #### [facility] [address] [address] [address] Jamie Zaman Age Collection Date 20.[address] [facility] Comment on above: Performed By: #### H CVPCRR #### [facility] [address] [address] [address] Jamie Dickey Gestat, Age Based on Ultrasound Normal [facility] Comment on above: Result Comment: 18.6 on 06/14/2022 Recalculations are not recommended when gestational dating by LMP and ultrasound are within 10 days. Performed By: #### H CVPCRR #### [facility] [address] [place] [address] Dr. Jamie Dickey Insulin Dep Diabetes No Normal [facility] Comment on above: Performed By: #### H CVPCRR #### [facility] [address] [place] [address] Dr. Jamie Dickey Interpretation Comment Normal [facility] Comment on above: Result Comment: Inte [...] older. Performed By: #### H CVPCRR #### [facility] [address] [place] [address] Dr. Jamie Dickey [age] Normal [facility] Comment on above: Performed By: #### H CVPCRR #### [facility] [address] [place] [address] Dr. Jamie Dickey Multiple Gestation No Normal [facility] Comment on above: Performed By: #### H CVPCRR #### [facility] [address] [place] [address] Dr. Jamie Dickey OS[place] 1 [place] [id number] Normal [facility] Comment on above: Performed By: #### H CVPCRR #### [facility] [address] [place] [address] Dr. Jamie Dickey PDF . Normal [facility] Comment on above: Performed By: #### H CVPCRR #### [facility] [address] [place] [address] Dr. Jamie Dickey Race Normal [facility] Comment on above: Performed By: #### H CVPCRR #### [facility] [address] [place], [place] [address] Dr. Jamie Dickey Test Results: Negative Normal [facility] Comment on above: Performed By: #### H CVPCRR #### [facility] [address] [place], [place] [address] Dr. Jamie Dickey US PREG ANATOMY SINGLEon US PREG ANATOMY SINGLE EXAMINATION: US P REG ANATOMY SINGLE HISTORY: Routine care COMPARISON: No [...] by: DAYRON AYON Date: 2022-06-24 16:[address] [facility] PAP ACOG PANEL 2: 30 to 65on 06-22-[address] [facility] Comment on above: Performed By: #### 4 [id number] #### [facility] [address] [place] [address] Dr. Jamie Dickey Age Gdln ACOG Testing 20- [facility] Comment on above: Performed By: #### 4 [id number] #### [facility] [address] [place] [address] Dr. Jamie Dickey DIAGNOSIS: Comment [facility] Comment on above: Result Comment: NEGA TIVE FOR INTRAEPITHELIAL LESION OR MALIGNANCY. Performed By: #### 4 [id number] #### [facility] [address] [place] [address] Dr. Jamie Dickey Methodology: Comment [facility] Comment on above: Result Comment: This liquid based ThinPrep(R) pap test was screened with the use of an image guided system. Performed By: #### 4 [id number] #### [facility] [address] [place] [address] Dr. Jamie Dickey Note: Comment [facility] Comment on above: Result Comment: The Pap smear is a screening test designed to aid in the detection of premalignant and malignant conditions of the uterine cervix. It is not a diagnostic procedure and should not be used as the sole means of detecting cervical cancer. Both false-positive and false-negative reports do occur. . Performed By: #### 4 [id number] #### [facility] [address] [place] [address] Dr. Jamie Dickey Performed by: Comment Normal [facility] Comment on above: Result Comment: Tiffany Beatty, [employer] Commanding Officer (ASCP) Performed By: #### 4 [id number] #### [facility] [address] [place] [address] Dr. Jamie Dickey Reflex Criteria: Comment [facility] Comment on above: Result Comment: The HPV DNA reflex criteria were not met with this specimen result therefore, no HPV testing was performed. . Performed By: #### 4 [id number] #### [facility] [address] [place] [address] Dr. Jamie Dickey Specimen adequacy: Comment Normal [facility] Comment on above: Result Comment: Sati sfactory for evaluation. No endocervical component is identified. Performed By: #### 4 [id number] #### [facility] [address] [place] [address] Dr. Jamie Dickey CHLAMYDIA/GONOCOCCUS FLORENCIO (SW AB/URINE/PAPon 06-17-2022 Chlamydia trachomatis, FLORENCIO Negative Normal Negative [facility] Comment on above: Performed By: #### C T/NGNA #### [facility] [address] [place] [address] Dr. Jamie Dickey Neisseria gonorrhoeae, FLORENCIO Negative Normal Negative [facility] Comment on above: Performed By: #### C T/NGNA #### [facility] [address] [place] [address] Dr. Jamie Dickey VAGINITIS/VAGINOSIS DNA PROB Lanre 06-16-2022 Gabriella species Negative Normal Negative [facility] Comment on above: Performed By: #### V AGINT #### [facility] [address] [place] [address] Dr. Jamie Dickey Gardnerella vaginalis Positive Abnormal Negative [facility] Comment on above: Performed By: #### V AGINT #### [facility] [address] [place] [address] Dr. Jamie Dickey Trichomonas vaginalis Negative Normal Negative [facility] Comment on above: Performed By: #### V AGINT #### [facility] [address] [place] [address] Dr. Jamie Dickey CBC AUTO DIFFon 05-29-2022 BASO # 0.0 103/ul Normal 0.0-0.1 [facility] Comment on above: Performed By: #### H CVPCRR #### [facility] [address] [place] [address] Dr. Jamie Dickey Basophils/100 WBC (Bld) 0.4 % Normal 0.2-2.0 [facility] Comment on above: Performed By: #### H CVPCRR #### [facility] [address] [place] [address] Dr. Jamie Dickey EO # 0.1 103/ul Normal 0.0-0.7 [facility] Comment on above: Performed By: #### H CVPCRR #### [facility] [address] [place] [address] Dr. Jamie Dickey Eosinophils/100 WBC (Bld) 1.3 % Normal 0.9-7.0 [facility] Comment on above: Performed By: #### H CVPCRR #### [facility] [address] [place] [address] Dr. Jamie Dickey Erythrocyte distribution width (RBC) [Ratio] 13.4 % Normal 11.0-15.0 [facility] Comment on above: Performed By: #### H CVPCRR #### [facility] [address] [place] [address] Dr. Jamie Dickey Hematocrit (Bld) [Volume fraction] 32.8 % Critically low 36.0-48.0 [facility] Comment on above: Performed By: #### H CVPCRR #### [facility] [address] [place] [address] Dr. Jamie Dickey Hemoglobin (Bld) [Mass/Vol] 10.9 g/dL Critically low 12.0-16.0 [facility] Comment on above: Performed By: #### H CVPCRR #### [facility] [address] [place] [address] Dr. Jamie Dickey IG # 0.03 10e3/ul Normal 0.00-0.03 [facility] Comment on above: Performed By: #### H CVPCRR #### [facility] [address] [place] [address] Dr. Jamie Dickey IG % 0.4 % Normal 0.0-0.5 [facility] Comment on above: Performed By: #### H CVPCRR #### [facility] [address] [place] [address] Dr. Jamie Dickey LYMPH # 1.1 103/ul Critically low 1.2-3.8 [facility] Comment on above: Performed By: #### H CVPCRR #### [facility] [address] [place] [address] Dr. Jamie Dickey Lymphocytes/100 WBC (Bld) 15.3 % Critically low 20.5-60.0 [facility] Comment on above: Performed By: #### H CVPCRR #### [facility] [address] [place] [address] Dr. Jamie Dickey MANUAL DIFF REQ NO Normal [facility] Comment on above: Performed By: #### H CVPCRR #### [facility] [address] [place] [address] Dr. Jamie Dickey MCH (RBC) [Entitic mass] 29.7 pg Normal 26.7-34.0 [facility] Comment on above: Performed By: #### H CVPCRR #### [facility] [address] [place] [address] Dr. Jamie Dickey MCHC (RBC) [Mass/Vol] 33.2 g/dL Normal 29.9-35.2 [facility] Comment on above: Performed By: #### H CVPCRR #### [facility] [address] [place] [address] Dr. Jamie Dickey MCV (RBC) [Entitic vol] 89.4 fL Normal 81.0-99.0 [facility] Comment on above: Performed By: #### H CVPCRR #### [facility] [address] [place] [address] Dr. Jamie Dickey MONO # 0.6 103/ul Normal 0.3-0.8 [facility] Comment on above: Performed By: #### H CVPCRR #### [facility] [address] [place] [address] Dr. Jamie Dickey Monocytes/100 WBC (Bld) 8.1 % Normal 1.7-12.0 [facility] Comment on above: Performed By: #### H CVPCRR #### [facility] [address] [place] [address] Dr. Jamie Dickey NEUT # 5.5 103/ul Normal 1.4-6.5 [facility] Comment on above: Performed By: #### H CVPCRR #### [facility] [address] [address] [address] Jamie Dickey Neutrophils/100 WBC (Bld) 74.5 % Normal 43.0-75.0 [facility] Comment on above: Performed By: #### H CVPCRR #### [facility] [address] [address] [address] Jamie Dickey Platelet mean volume (Bld) [Entitic vol] 10.1 fL Normal 9.5-13.5 [facility] Comment on above: Performed By: #### H CVPCRR #### [facility] [address] [address] [address] Jamie Dickey PLT 175 103/ul Normal 150-450 [facility] Comment on above: Performed By: #### H CVPCRR #### [facility] [address] [place] [address] Dr. Jamie Dickey RBC 3.67 106/ul Critically low 4.20-5.40 [facility] Comment on above: Performed By: #### H CVPCRR #### [facility] [address] [place] [address] Dr. Jamie Dickey WBC 7.4 103/ul Normal 4.0-11.0 [facility] Comment on above: Performed By: #### H CVPCRR #### [facility] [address] [place] [address] Dr. Jamie Dickey PROF CHEM 8 (BAS METB)on Anion gap [Moles/Vol] 11.8 mmol/L Normal [facility] Comment on above: Performed By: #### B MP #### [facility] [address] [place] [address] Dr. Jamie Dickey Calcium [Mass/Vol] 8.4 mg/dL Critically low 8.5-10.1 [facility] Comment on above: Performed By: #### B MP #### [facility] [address] [place] [address] Dr. Jamie Dickey Chloride [Moles/Vol] 103 mmol/L Normal 98-107 [facility] Comment on above: Performed By: #### B MP #### [facility] [address] [address] [address] Jamie Dickey CO2 [Moles/Vol] 26.0 mmol/L Normal 21.0-32.0 [facility] Comment on above: Performed By: #### B MP #### [facility] [address] [address] [address] Jamie Dickey Creatinine [Mass/Vol] 0.49 mg/dL Critically low 0.55-1.02 [facility] Comment on above: Performed By: #### B MP #### [facility] [address] [address] [address] Jamie Dickey EGFR-AF BRITISH >60 Normal >=60 [facility] Comment on above: Performed By: #### B MP #### [facility] [address] [address] [address] Jamie Dickey EGFR-NON AF BRITISH >60 Normal >=60 [facility] Comment on above: Performed By: #### B MP #### [facility] [address] [address] [address] Jamie Dickey Glucose [Mass/Vol] 92 mg/dL Normal 74-106 [facility] Comment on above: Performed By: #### B MP #### [facility] [address] [address] [address] Jamie Dickey Potassium [Moles/Vol] 3.8 mmol/L Normal 3.5-5.1 [facility] Comment on above: Performed By: #### B MP #### [facility] [address] [address] [address] Jamie Dickey Sodium [Moles/Vol] 137 mmol/L Normal 136-145 [facility] Comment on above: Performed By: #### B MP #### [facility] [address] [address] [address] Jamie Dickey Urea nitrogen [Mass/Vol] 10.0 mg/dL Normal 7.0-18.0 [facility] Comment on above: Performed By: #### B MP #### [facility] [address] [place] [address] Dr. Jamie Dickey Urea nitrogen/Creatinine [Mass ratio] 20.4 mg/mg Normal [facility] Comment on above: Performed By: #### B MP #### [facility] [address] [place] [address] Dr. Jamie Dickey PROTIMEon 05-29-2022 INR Coag (PPP) [Relative time] {INR} Normal [facility] Comment on above: Performed By: #### N BOX #### [facility] [address] [place] [address] Dr. Jamie Dickey INR GUIDELINES SEE BELOW Normal [facility] Comment on above: Result Comment: CARITO RED INR: 2.0 - 3.0 CONDITIONS NOT LISTED BELOW 2.5 - 3.5 FOR PROSTHETIC HEART VALVE REPLACEMENT 2.5 - 3.5 RECURRENT THROMBOSIS Performed By: #### N BOX #### [facility] [address] [place] [address] Dr. Jamie Dickey PT Coag (PPP) [Time] 9.3 s Normal 9.0-11.6 [facility] Comment on above: Performed By: #### N BOX #### [facility] [address] [place] [address] Dr. Jamie Dickey PTTon 05-29-2022 aPTT Coag (Bld) [Time] 27.7 s Normal 22.3-36.2 Th [facility] Comment on above: Performed By: #### N BOX #### [facility] [address] [place] [address] Dr. Jamie Dickey US PREG PLACENTAon 3 [...] Daniel ZAIDI Date: 2022-05-29 01:00 Normal [facility] HEP B SURFACE ANTIGEN SCREEN on 05-07-2022 HBsAg Screen Negative Normal Negative [facility] Comment on above: Performed By: #### H CVPCRR #### [facility] [address] [address] [address] Jamie Dickey HEPATITIS C VIRUS AB W/ REFL EX QUANTon 05-07-2022 HCV AB <0.1 Normal 0.0-0.9 [facility] Comment on above: Performed By: #### H CVPCRR #### [facility] [address] [place] [address] Dr. Jamie Dickey Interpretation: Comment Normal [facility] Comment on above: Result Comment: Nega tive Not infected with HCV, unless recent infection is suspected or other evidence exists to indicate HCV infection. Performed By: #### H CVPCRR #### [facility] [address] [address] [address] Jamie Dickey HIV 1 AND 2 WITH REFLEXon HIV Screen 4th Generation wRfx Non-Reactive Normal Non Reactive [facility] Comment on above: Result Comment: HIV Negative HIV-1/HIV-2 antibodies and HIV-1 p24 antigen were NOT detected. There is no laboratory evidence of HIV infection. Performed By: #### H CVPCRR #### [facility] [address] [place] [address] Dr. Jamie Dickey RPR QUANTon 05-07-2022 Rapid Plasma Reagin, Quant Non-Reactive Normal NonRea<1:1 [facility] Comment on above: Result Comment: Plea se Note: This test does not meet current guidelines for screening and diagnosis of syphilis. This test is intended for following treatment response in patients being treated for syphilis infection. To screen for syphilis infection, a reflex cascade that includes both RPR and a treponema-specific assay should be utilized, such as Treponema pallidum (Syphilis) Screening [place] (746034) or Rapid Plasma Reagin (RPR) Test With Reflex to Quantitative RPR and Confirmatory Treponema pallidum Antibodies (300736). Performed By: #### R PRQ #### [facility] [address] [place] [address] Dr. Jamie Dickey RUBELLA AB IGGon 05-07-2022 Rubella Antibodies, IgG 4.41 index Normal Immune >0.99 [facility] Comment on above: Result Comment: Non- immune <0.90 Equivocal 0.90 - 0.99 Immune >0.99 Performed By: #### N BOX #### [facility] [address] [place] [address] Dr. Jamie Dickey CBC AUTO DIFFon 05-06-2022 BASO # 0.0 103/ul Normal 0.0-0.1 [facility] Comment on above: Performed By: #### N BOX #### [facility] [address] [place] [address] Dr. Jamie Dickey Basophils/100 WBC (Bld) 0.3 % Normal 0.2-2.0 [facility] Comment on above: Performed By: #### N BOX #### [facility] [address] [place] [address] Dr. Jamie Dickey EO # 0.1 103/ul Normal 0.0-0.7 [facility] Comment on above: Performed By: #### N BOX #### [facility] [address] [place] [address] Dr. Jamie Dickey Eosinophils/100 WBC (Bld) 0.9 % Normal 0.9-7.0 [facility] Comment on above: Performed By: #### N BOX #### [facility] [address] [place] [address] Dr. Jamie Dickey Erythrocyte distribution width (RBC) [Ratio] 13.0 % Normal 11.0-15.0 [facility] Comment on above: Performed By: #### N BOX #### [facility] [address] [place] [address] Dr. Jamie Dickey Hematocrit (Bld) [Volume fraction] 36.7 % Normal 36.0-48.0 [facility] Comment on above: Performed By: #### N BOX #### [facility] [address] [address] [address] Jamie Dickey Hemoglobin (Bld) [Mass/Vol] 11.7 g/dL Critically low 12.0-16.0 [facility] Comment on above: Performed By: #### N BOX #### [facility] [address] [address] [address] Jamie Dickey IG # 0.05 10e3/ul Critically high 0.00-0.03 [facility] Comment on above: Performed By: #### N BOX #### [facility] [address] [address] [address] Jamie Dickey IG % 0.4 % Normal 0.0-0.5 [facility] Comment on above: Performed By: #### N BOX #### [facility] [address] [address] [address] Jamie Dickey LYMPH # 2.3 103/ul Normal 1.2-3.8 [facility] Comment on above: Performed By: #### N BOX #### [facility] [address] [address] [address] Jamie Dickey Lymphocytes/100 WBC (Bld) 20.3 % Critically low 20.5-60.0 [facility] Comment on above: Performed By: #### N BOX #### [facility] [address] [address] [address] Jamie Dickey MANUAL DIFF REQ NO Normal [facility] Comment on above: Performed By: #### N BOX #### [facility] [address] [address] [address] Jamie Dickey MCH (RBC) [Entitic mass] 28.5 pg Normal 26.7-34.0 [facility] Comment on above: Performed By: #### N BOX #### [facility] [address] [address] [address] Jamie Dickey MCHC (RBC) [Mass/Vol] 31.9 g/dL Normal 29.9-35.2 [facility] Comment on above: Performed By: #### N BOX #### [facility] [address] [place] [address] Dr. Jamie Dickey MCV (RBC) [Entitic vol] 89.5 fL Normal 81.0-99.0 [facility] Comment on above: Performed By: #### N BOX #### [facility] [address] [place] [address] Dr. Jamie Dickey MONO # 0.5 103/ul Normal 0.3-0.8 [facility] Comment on above: Performed By: #### N BOX #### [facility] [address] [place] [address] Dr. Jamie Dickey Monocytes/100 WBC (Bld) 4.7 % Normal 1.7-12.0 [facility] Comment on above: Performed By: #### N BOX #### [facility] [address] [place] [address] Dr. Jamie Dickey NEUT # 8.3 103/ul Critically high 1.4-6.5 [facility] Comment on above: Performed By: #### N BOX #### [facility] [address] [place] [address] Dr. Jamie Dickey Neutrophils/100 WBC (Bld) 73.4 % Normal 43.0-75.0 [facility] Comment on above: Performed By: #### N BOX #### [facility] [address] [place] [address] Dr. Jamie Dickey Platelet mean volume (Bld) [Entitic vol] 10.8 fL Normal 9.5-13.5 [facility] Comment on above: Performed By: #### N BOX #### [facility] [address] [place] [address] Dr. Jamie Dickey PLT 238 103/ul Normal 150-450 [facility] Comment on above: Performed By: #### N BOX #### [facility] [address] [place] [address] Dr. Jamie Dickey RBC 4.10 106/ul Critically low 4.20-5.40 [facility] Comment on above: Performed By: #### N BOX #### [facility] [address] [address] [address] Jamie Dickey WBC 11.3 103/ul Critically high 4.0-11.0 [facility] Comment on above: Performed By: #### N BOX #### [facility] [address] [place] [address] Dr. Jamie Dickey CULTURE URINEon 05-06-2022 CULTURE URINE Culture Observations: LIGHT GROWTH OF MIXED GENITAL CHANTALE. NO POTENTIAL PATHOGENS SEEN. Normal [facility] Comment on above: Performed By: #### N BOX #### [facility] [address] [place] [address] Dr. Jamie Dickey GLYCOHEMOGLOBIN A1Con 2022 ADA RECOMMENDATION SEE BELOW Normal [facility] Comment on above: Result Comment: ADA RECOMMENDED LIMIT 4.0 - 6.0 ADA THERAPEUTIC TARGET < 7.0 ACTION SUGGESTED > 7.0 Performed By: #### A 1C #### [facility] [address] [place] [address] Dr. Jamie Dickey Glucose [Mass/Vol] 94 mg/dL Normal [facility] Comment on above: Performed By: #### A 1C #### [facility] [address] [place] [address] Dr. Jamie Dickey HbA1c (Bld) [Mass fraction] 4.9 % Normal 4.5-6.2 [facility] Comment on above: Performed By: #### A 1C #### [facility] [address] [place] [address] Dr. Jamie Dickey ISSA BOX TEST PT SEND OUTo n 05-06-2022 SENT TO REF LAB 05/06/2022 Normal [facility] Comment on above: Performed By: #### N BOX #### [facility] [address] [place] [address] Dr. Jamie Dickey TYPE AND SCREENon 05-06-2022 TYPE AND SCREEN Negative Normal [facility] Comment on above: Performed By: #### N BOX #### [facility] [address] [place] [address] Dr. Jamie Dickey US PREG TVon 04-15-2022 [...] by: LOLIS COLEMAN Date: 2022-04-15 16:[address] [facility] Vital Signs Date Time Vital Sign Value Performing Clinician Facility 08-23-2024 11:17-0400 Body mass index (BMI) [Ratio] 27.06 kg/m2 Riya Gomez NP Work Phone: [facility] 08-23-2024 11:17-0400 Body weight 73.75 kg Riya Gomez HONING MACHINE OPERATOR [employer]OL Work Phone: [facility] 08-23-2024 11:17-0400 Diastolic blood pressure 70 mm[Hg] Riya Gomez HONING MACHINE OPERATOR TOOL Work Phone: [facility] 08-23-2024 11:17-0400 Systolic blood pressure 120 mm[Hg] Riya Gomez HONING MACHINE OPERATOR TOOL Work Phone: [facility] 07-11-2024 13:49-0400 Body mass index (BMI) [Ratio] 25.09 kg/m2 Valente Margarette DO Work Phone: [facility] 07-11-2024 13:49-0400 Body weight 68.4 kg Valente Margarette DO Work Phone: [facility] 07-11-2024 13:49-0400 Diastolic blood pressure 70 mm[Hg] Valente Margarette DO Work Phone: [facility] 03-19-2025 13:49-0400 Systolic blood pressure 120 mm[Hg] Valente Margarette DO Work Phone: [facility] 05-29-2024 13:52-0500 Body mass index (BMI) [Ratio] 24.93 kg/m2 Valente Margarette DO Work Phone: [facility] 05-29-2024 13:52-0500 Body weight 67.95 kg Valente Margarette DO Work Phone: [facility] 05-29-2024 13:52-0500 Diastolic blood pressure 70 mm[Hg] Valente Margarette DO Work Phone: [facility] 05-29-2024 13:52-0500 Systolic blood pressure 120 mm[Hg] Valente Margarette DO Work Phone: [facility] 04-27-2024 10:48-0500 Body mass index (BMI) [Ratio] 24.79 kg/m2 Noms Nurse [facility] 04-27-2024 10:48-0500 Body weight 67.59 kg Nom Nurse [facility] 04-27-2024 10:48-0500 Diastolic blood pressure 72 mm[Hg] [facility] Nurse [facility] 04-27-2024 10:48-0500 Systolic blood pressure 118 mm[Hg] [facility] Nurse [facility] 06-26-2022 03:06-0500 Body weight 65.[address] VALENTE PFEIFFER . [facility] Comment on above: Performed By: #### HCVPCRR #### [facility] [address] [place] [address] Dr. Jamie Dickey Encounters Encounter Date Encounter Type Care Provider Facility Start: 09-26-2024 End: 09-26-2024 ambulatory RIYA GOMEZ Not Available Start: 08-24-2024 End: 08-24-2024 Clinisync Result Encounter Riya Gomez HONING MACHINE OPERATOR TOOL Work Phone: [facility] External Department Unsolicited Start: 08-24-2024 End: 08-24-2024 Clinisync Result Encounter Riya Gomez HONING MACHINE OPERATOR TOOL Work Phone: [facility] External Department Unsolicited Start: 08-23-2024 End: 08-23-2024 Bamboo flowsheet Riya Gomez HONING MACHINE OPERATOR TOOL Work Phone: [facility] Start: 08-23-2024 End: 08-23-2024 Bamboo flowsheet Riya Gomez HONING MACHINE OPERATOR TOOL Work Phone: [facility] Start: 08-23-2024 End: 08-23-2024 Office outpatient visit 15 minutes Riya Gomez HONING MACHINE OPERATOR TOOL Work Phone: [facility] Comment on above: 27 weeks gestation o f ; Second trimester ; Diabetes mellitus screening Start: 08-23-2024 End: 08-23-2024 ambulatory RIYA GOMEZ Not Available Start: 07-18-2024 End: 07-18-2024 Clinisync Result Encounter Valente Margarette DO Work Phone: [facility] External Department Unsolicited Start: 07-18-2024 End: 07-18-2024 Clinisync Result Encounter Valente Margarette DO Work Phone: [facility] External Department Unsolicited Start: 07-11-2024 End: 07-11-2024 Patient encounter procedure Valente Amrgarette DO Work Phone: [facility] Healthcare Start: 07-11-2024 End: 07-11-2024 Periodic preventive med est patient 18-39 yrs Valente Margarette DO Work Phone: [facility] Comment on above: 21 weeks gestation o f ; Second trimester ; Screening, , for anatomic survey; Exposure to STD; Vaginal discharge; Well woman exam with routine gynecological exam Start: 07-11-2024 End: 07-11-2024 ambulatory VALENTE MARGARETTE Not Available Start: 06-26-2024 End: 06-28-2024 Clinisync Result Encounter Valente Margarette DO Work Phone: [facility] External Department Unsolicited Start: 06-26-2024 End: 06-28-2024 Clinisync Result Encounter Valente Margarette DO Work Phone: [facility] External Department Unsolicited Start: 05-29-2024 End: 05-29-2024 [...] 04-12-2024 End: 04-12-2024 Emergency department patient visit [facility] Start: 01-11-2024 End: 01-26-2024 Telephone encounter Liver Txp Coordinator Work Phone: [facility] Comment on above: Referral - Donor Txp Start: 09-16-[address] NONE LISTED REQUEST Facility:[facility] Start: 08-06-2022 End: 08-07-[address] VALENTE [...] Date Procedure Procedure Detail Performing Clinician Start: 08-24-2024 GLUCOSE 1 HOUR Riya Gomez HONING MACHINE OPERATOR TOOL Work Phone: Start: 08-23-2024 Urnls dip stick/tabl et rgnt non-auto w/o micrscp Riya Gomez HONING MACHINE OPERATOR TOOL Work Phone: Start: 07-18-2024 US OB ANATOMY Valente Edwige io DO Work Phone: Start: 07-18-2024 US OB CERVICAL LENGTH C orey Margarette DO Work Phone: Start: 07-11-2024 Urnls dip stick/tabl et rgnt [...] Treatment Date Care Activity Detail Author Start: 08-23-2024 End: 08-23-2025 CBC panel - Blood by Automated count CBC Lab Routine Diabetes mellitus screening Expected: 08/23/2024 (Approximate), Expires: 08/23/2025 [facility] Work Phone: Comment on above: Expected: 08/23/2024 (Approximate), Expires: 08/23/2025 Start: 08-23-2024 End: 08-23-2025 Measurement of glucose 1 hour after glucose challenge for glucose tolerance test Glucose tolerance, 1 hour Lab Routine Diabetes mellitus screening Expected: 08/23/2024 (Approximate), Expires: 08/23/2025 [facility] Comment on above: Expected: 08/23/2024 (Approximate), Expires: 08/23/2025 Start: 08-23-2024 End: 08-23-2024 Patient encounter procedure 08/23/2024 10:20 AM EDT Routine [facility] [address] [address] Riya Gomez, IRIS [address] [place] [id number] Arrived [facility] Comment on above: Arrived Start: 07-11-2024 End: 07-11-2025 US for US OB 14+ weeks anatomy scan Imaging Routine Screening, , for anatomic survey Expected: 07/11/2024, Expires: 07/11/2025 [facility] Comment on above: Expected: 07/11/2024 , Expires: 07/11/2025 Start: 05-29-2024 End: 06-26-2024 Alpha fetoprotein, maternal Alpha fetoprotein, maternal Lab Routine 15 weeks gestation of Second trimester Expected: 05/29/2024 (Approximate), Expires: 06/26/2024 [facility] Work Phone: Comment on above: Expected: 05/29/2024 (Approximate), Expires: 06/26/2024 Start: 05-29-2024 End: 05-29-2024 Patient encounter procedure 05/29/2024 1:40 PM EST Routine [facility] [address] [place] [address] Valente Pfeiffer DO [address] [place], [place] [id number] Arrived [facility] Comment on above: Arrived Start: 04-27-2024 End: 04-27-2025 ABO/Rh ABO/Rh Lab Routine Missed menses , unspecified gestational age Expected: 04/27/2024 (Approximate), Expires: 04/27/2025 [facility] Comment on above: Expected: 04/27/2024 (Approximate), Expires: 04/27/2025 Start: 04-27-2024 End: 04-27-2025 Blood type and Indirect antibody screen panel - Blood Type and screen Lab Routine Missed menses , unspecified gestational age Expected: 04/27/2024 (Approximate), Expires: 04/27/2025 [facility] Work Phone: Comment on above: Expected: 04/27/2024 (Approximate), Expires: 04/27/2025 Start: 04-27-2024 End: 04-27-2025 Drugs of abuse panel - Urine by Screen method Rapid drug screen, urine Lab Routine , unspecified gestational age Encounter for supervision of normal first in first trimester Expected: 04/27/2024 (Approximate), Expires: 04/27/2025 [facility] Comment on above: Expected: 04/27/2024 (Approximate), Expires: 04/27/2025 Bacteria identified in Urine by Culture Urine culture Microbiology Routine Missed menses Ordered: 04/27/2024 [facility] Comment on above: Ordered: 04/27/2024 CBC W Auto Different ial panel - Blood CBC and differential Lab Routine Missed menses , unspecified gestational age Ordered: 04/27/2024 [facility] Comment on above: Ordered: 04/27/2024 CHLAMYDIA TRACHOMATI S (GENITO/STI) CHLAMYDIA TRACHOMATIS (GENITO/STI) Lab Routine Exposure to STD Ordered: 07/11/2024 [facility] Comment on above: Ordered: 07/11/2024 Cytology Cervical or vaginal smear or scraping study Pap Smear Pathology and Cytology Routine Well woman exam with routine gynecological exam Ordered: 07/11/2024 [facility] Comment on above: Ordered: 07/11/2024 Hemoglobin A1c/Hemoglobin.total in Blood Hemoglobin A1c Lab Routine Missed menses , unspecified gestational age Ordered: 04/27/2024 [facility] Comment on above: Ordered: 04/27/2024 Hepatitis B virus surface Ag [Presence] in Serum or Plasma by Immunoassay Hepatitis B surface antigen Lab Routine Missed menses , unspecified gestational age Ordered: 04/27/2024 [facility] Comment on above: Ordered: 04/27/2024 Hepatitis C virus Ab [Presence] in Serum or Plasma by Immunoassay Hepatitis C antibody Lab Routine Missed menses , unspecified gestational age Ordered: 04/27/2024 [facility] Comment on above: Ordered: 04/27/2024 HIV-1/HIV-2 antigen/antibody combination immunoassay HIV-1 and HIV-2 antibodies Lab Routine Missed menses , unspecified gestational age Ordered: 04/27/2024 [facility] Comment on above: Ordered: 04/27/2024 Neisseria gonorrhoea e DNA [Presence] in Unspecified specimen by FLORENCIO with probe detection Neisseria gonorrhea DNA probe, direct Lab Routine Exposure to STD Ordered: 07/11/2024 [facility] Comment on above: Ordered: 07/11/2024 Reagin Ab [Presence] in Serum by RPR RPR Lab Routine Missed menses , unspecified gestational age Ordered: 04/27/2024 [facility] Comment on above: Ordered: 04/27/2024 Rubella antibody, IgG Rubella an tibody, IgG Lab Routine Missed menses , unspecified gestational age Ordered: 04/27/2024 [facility] Comment on above: Ordered: 04/27/2024 SURESWAB(R) ADVANCED VAGINITIS PLUS, TMA SURESWAB(R) ADVANCED VAGINITIS PLUS, TMA Pathology and Cytology Routine Vaginal discharge Ordered: 07/11/2024 [facility] Work Phone: Comment on above: Ordered: 07/11/2024 Payers Date Payer Category Payer Medicaid [id number] 2024 Medicare MEDICARE MEDICAR E A AND B [id number] 2024-Present [phone] [place] [address] Medicare [id number] 1994 Unknown [id number] 2.16.840.1.463468.3.579.2.593 1994 Unknown [id number] 2.16.840.1.564881.3.579.2.593 1994 Unknown [id number] 2.16.840.1.871200.3.579.2.593 1994 Unknown [id number] 2.16.840.1.072364.3.579.2.593 1994 Unknown [id number] 2.16.840.1.064307.3.579.2.593 1994 Unknown [id number] 2.16.840.1.169022.3.579.2.593 1994 Unknown [id number] 2.16.840.1.904384.3.579.2.593 1994 Unknown [id number] 2.16.840.1.662150.3.579.2.593 1994 Unknown [id number] 2.16.840.1.991353.3.579.2.593 1994 Unknown [id number] 2.16.840.1.050054.3.579.2.1286 1994 Unknown [id number] 2.16.840.1.392758.3.579.2.1259 1994 Unknown [id number] 2.16.840.1.149889.3.579.2.1259 1994 Unknown [id number] 2.16.840.1.559980.3.579.2.1259 1994 Unknown [id number] 2.16.840.1.329818.3.579.2.1259 1994 Unknown [id number] 2.16.840.1.053809.3.579.2.1259 1994 Unknown [id number] 2.16.840.1.531247.3.579.2.1259 1960 Medicaid [id number] 1960 Self-pay 1959 Unknown [id number] Unknown [id number] 2.16.840.1.623984.3.579.2.593 Social History Date Type Detail Facility Tobacco smoking stat [facility] Tobacco smoking consumption unknown [facility] Start: 1995 Sex assigned at Not on file [facility] Start: 04-24-2024 Gender identity Not on file [facility] Start: 10-26-2022 Tobacco smoking stat [facility] Smokes tobacco daily [facility] History of tobacco use Cigarette Smoker [facility] Start: 04-27-2024 End: 08-23-2024 Alcoholic beverage intake Ex-drinker (finding) [facility] Start: 04-24-2024 History of Social function [facility] Start: 10-18-2022 Tobacco Comment Patient smokes 11-20 cigarettes/day after 6-30 minutes of waking up. [facility] Start: 02-24-2024 [facility] Clinical Notes 01-11-2024 to 08-23-2024 Riya Gomez NP - 08/23/2024 10:20 AM Hai Ribeiro LPN - 07/11/2024 1:30 PM Hai Ribeiro LPN - 05/29/2024 1:40 PM Inna Jones MA - 04/27/2024 10:30 AM EST Note Date & Type Note Facility 08-23-2024 History of Presen t illness Narrative Reason [...] nursing note reviewed. Exam conducted with a vessel specialist present. Vitals: Estimated body mass index is 26.98 kg/m as calculated from the following: Height as of 09/01/22: 5' 5 . Weight as of this encounter: 162 lb 1.9 oz. BP: 120/70 Patient's last menstrual period was 02/10/2024. ASSESSMENT & PLAN ICD-10-CM 1. 27 weeks gestation of Z3A.27 POCT urinalysis dipstick manually resulted 2. Second trimester Z34.92 POCT urinalysis dipstick manually resulted 3. Diabetes mellitus screening Z13.1 POCT urinalysis dipstick manually resulted CBC Glucose tolerance, 1 hour CBC Glucose tolerance, 1 hour Return OB: Patient presents today for a routine obstetrics appointment. Patient is currently 27w6d . Patient states she is doing well but has complaints of being tired due to current . Patient has verbalizes frequent movement. labor precautions was discussed/given and patient was instructed to perform kick counts three times a day. Orders Placed This Encounter Procedures CBC Glucose tolerance, 1 hour POCT urinalysis dipstick manually resulted Follow Up: Patient is to return to office in 4 week for routine OB appointment. Documented by Riya Gomez NP on behalf of: Riya Gomez NP documented in this encounter [facility] 07-11-2024 History of Presen t illness Narrative [...] nursing note reviewed. Exam conducted with a vessel specialist present. Vitals: Estimated body mass index [...] Valente Pfeiffer DO documented in this encounter [facility] 05-29-2024 History of Presen t illness Narrative [...] nursing note reviewed. Exam conducted with a vessel specialist present. Vitals: Estimated body mass index [...] or undercooked meat, and stay away from [facility]. Patient has been consulted regarding [...] Valente Pfeiffer DO documented in this encounter [facility] 04-27-2024 History of Presen t illness Narrative [...] or undercooked meat, and stay away from [facility]. Patient has also been advised [...] Rhea Jones MA documented in this encounter [facility] 01-11-2024 Telephone encount er Note Images from [...] for Covid? No, had 1 time no intermediate school teacher side effects Overall general health: Patient reports [...] Karina Shi, SHANNON Living Liver Donor Coordinator [facility] 01-11-2024 Miscellaneous Notes Formattin g of this [...] for Covid? No, had 1 time no intermediate school teacher side effects Overall general health: Patient reports [...] Karina Shi, SHANNON Living Liver Donor Coordinator documented in this encounter [facility] 01-11-2024 Telephone encount er Note Living Donor [...] Yes Online intake has been scanned to [facility] for review by the living donor coordinator. [facility] 01-11-2024 Miscellaneous Notes Formattin g of this [...] Yes Online intake has been scanned to [facility] for review by the living donor coordinator. documented in this encounter [facility] Evaluation note Diagnosis Liver donor- Primary [facility] Diagnosis Missed menses 11 weeks gestation of , unspecified gestational age Encounter for supervision of normal first in first trimester documented in this encounter [facility] HealthcareEvaluation note* Diagnosis 15 weeks gestation of Second trimester state, incidental documented in this encounter [facility] HealthcareEvaluation note* Diagnosis 21 weeks gestation of Second trimester state, incidental Screening, , for anatomic survey Encounter for anatomic survey Exposure to STD Vaginal discharge Leukorrhea, not specified as infective Well woman exam with routine gynecological exam Routine gynecological examination documented in this encounter [facility] HealthcareEvaluation note* Diagnosis 27 weeks gestation of Second trimester state, incidental Diabetes mellitus screening Screening for diabetes mellitus documented in this encounter [facility] Healthcare Summary Purpose Family History [...] COLLECTION VENOUS BLOOD VENIPUNCTURE Cristina Tovar MD [address] [place] [address] [facility] [address] [address] Referral ID Status Reason Start Date Expiration Date Visits Requested Visits Authorized [id number] Authorized PCP Requested Referral Financial Clearance Required - [facility] Payor 01/11/2024 01/10/2025 99 99 Additional Source Comments INFORMATION SOURCE (unrecogn ized section and content) DATE CREATED AUTHOR 09/06/2022 [facility] DATE CREATED AUTHOR AUTHOR'S ORGANIZ ATION 01/28/2024 [facility] DATE CREATED AUTHOR AUTHOR'S ORGANIZ ATION 04/16/2024 [facility] DATE CREATED AUTHOR AUTHOR'S ORGANIZ ATION 09/27/2024 [facility] EPIC Source Comments (unrecognize d section and content) In the event this informatio n is protected by the Federal Confidentiality of Alcohol and Drug Abuse Patient Records regulations: The Federal rules restrict any use of the information to criminally investigate or prosecute any alcohol or drug abuse patient.[facility] the event this information is protected by the Federal Confidentiality of Alcohol and Drug Abuse Patient Records regulations: The Federal rules restrict any use of the information to criminally investigate or prosecute any alcohol or drug abuse patient.[facility] Reason for Visit (unrecogniz ed section and content) Reason Comments Referral - Donor Txp Reason Comments Amenorrhea Reason Comments Routine Visit Care Teams (unrecognized sec tion and content) Band Builder Relationship Specialty Start Date End Date Dayron Kimbrough MD [address] [place] [address] PCP - General Family Medicine 09/16/22 Band Builder Relationship Specialty Start Date End Date Dayron Kimbrough MD [address] [place] [address] PCP - General Family Medicine 09/16/22 Band Builder Relationship Specialty Start Date End Date Dayron Kimbrough MD [address] [place] [address] PCP - General Family Medicine 09/16/22 Band Builder Relationship Specialty Start Date End Date Dayron Kimbrough MD [address] [place] [address] PCP - General Family Medicine 09/16/22 Band Builder Relationship Specialty Start Date End Date Dayron Kimbrough MD [address] [place] [address] PCP - General [facility] 09/16/22 Band Builder Relationship Specialty Start Date End Date Dayron Kimbrough MD PCP - General Family Medicine 09/16/22 Band Builder Relationship Specialty Start Date End Date Dayron Kimbrough MD PCP - General Family Medicine 09/16/22 Band Builder Relationship Specialty Start Date End Date Dayron Kimbrough MD PCP - General Family Medicine 09/16/22 Band Builder Relationship Specialty Start Date End Date Dayron Kimbrough MD PCP - General Family Medicine 09/16/22 FOR [...] BE BASED ON THE PRIMARY CLINICAL RECORDS. [facility]. provides no warranty or guarantee of the accuracy or completeness of information in this document.
--- NOTE | 2024-09-30 17:38 | XR_ITS ---
[facility] [place] [id number] Patient Name: GUILLERMO PACE MRN: [id number] date: 1995 Sex: F Assigned Patient Location: ED.MAIN Current Patient Location: ED.MAIN Accession/Order Number: [id number] Exam Date: 09/30/2024 19:00 Report Date: 09/30/2024 19:01 At the request of: LILLY CARRILLO MD Procedure: XR chest 1V Plain film chest Single view HISTORY: Heart palpitations COMPARISON: None FINDINGS: SUPPORT DEVICES: None POSTSURGICAL CHANGES: None HEART: Within normal limits PULMONARY VIKAS: Within normal limits MEDIASTINUM: Unremarkable LUNGS AND PLEURA: No acute lung process, pleural effusion or pneumothorax identified. BONY STRUCTURES: Intact ADDITIONAL FINDINGS None XR/XR chest 1V IMPRESSION: No acute process. Impression dictated by: Archie Rod M.D. 09/30/2024 7:01 PM Dictation Location: [place] [employer] Electronically authenticated by: [id number] Y Date: 09/30/2024 19:01
--- NOTE | 2024-09-30 17:38 | ECG_ITS ---
[facility] Test Date: 2024-09-30 Pat Name: GUILLERMO PACE Department: Room: - Gender: Female [place]: : 1995 Requested By: [id number] Order Number: [id number] Reading MD: STEFAN BELL M.D. Measurements Intervals [place] Rate: 75 P: 49 IA: 136 QRS: 92 QRSD: 82 T: 34 QT: 374 QTc: 403 Interpretive Statements 1100 Sinus rhythm 7102 Moderate right axis deviation 9110 normal ECG No previous ECG available for comparison Electronically Signed On 09-30-2024 20:08:18 EDT by STEFAN BELL M.D.
--- NOTE | 2024-09-30 17:39 | ED.GENADUL1 ---
HPI HPI - General Adult General Chief complaint: Chest Pain Stated complaint: CArdiac Then go to [facility] Time Seen by Provider: 09/30/24 17:33 Source: patient Mode of arrival: walk-in Limitations: no limitations History of Present Illness HPI narrative: 28-year-old female presents for palpitations. For the past few days she has been feeling like her heart is beating hard, not fast or slow. She is not complaining of chest pain or shortness of breath or back pain. She is currently , 33 weeks. No vaginal bleeding. She states that her last OB visit her blood pressure was mildly elevated and that she had some protein in her urine. She does not complain to me of a headache. She states her ankles were more swollen earlier today but she elevated them and it went down. Related Data Home Medications ?Medication ?Instructions ?Recorded ?Confirmed No Known Home Medications 09/30/24 09/30/24 Allergies Allergy/AdvReac Type Severity Reaction Status Date / Time pollen extracts Allergy Intermediate unknown Verified 09/30/24 17:32 Opioid HPI Opioid Management Most Recent Opioid Data: Last Pain Scale 8 11/06/22, 05:43 Urine Cannabinoids, (.) Positive A 05/11/24, 11:46 Ur Phencyclidine Scrn, (NEGATIVE) Negative 05/11/24, 11:46 Review of Systems ROS Narrative A ten point review of systems is negative except as noted above. PFSH PFSH Social History Little interest or pleasure in doing things: not at all Feeling down, depressed, or hopeless: several days Exam Narrative Exam Narrative: Nurses note and vital signs reviewed and patient is not hypoxic. General: The patient appears in no apparent distress. Skin: Warm, dry, no pallor noted. There is no rash noted. Head: Normocephalic, atraumatic Eye: Normal conjunctiva, no drainage Ears, Nose, Mouth, and Throat: oral mucosa is moist. Nares patent. Cardiovascular: Regular Rate and Rhythm, not tachycardic Respiratory: Patient is in no distress, no accessory muscle use, lungs are clear to auscultation, no wheezing, rales or rhonchi Back: non-tender GI: Soft, gravid, nontender Musculoskeletal: Trace edema in both ankles Neurological: A&O, normal speech Psychiatric: Cooperative Constitutional Vital Signs, click to edit/add: Last Vital Signs Temp 98.0 F 09/30/24 17:27 Pulse 83 09/30/24 17:50 Resp 15 09/30/24 17:50 BP 145/93 H 09/30/24 17:32 Pulse Ox 97 09/30/24 17:50 Course Vital Signs Vital signs: Vital Signs Temperature 98.0 F 09/30/24 17:27 Pulse Rate 75 09/30/24 17:27 Respiratory Rate 20 09/30/24 17:27 Blood Pressure 166/95 H 09/30/24 17:27 Pulse Oximetry 99 09/30/24 17:27 Temperature 98.0 F 09/30/24 17:27 Pulse Rate 83 09/30/24 17:50 Respiratory Rate 15 09/30/24 17:50 Blood Pressure 145/93 H 09/30/24 17:32 Pulse Oximetry 97 09/30/24 17:50 Medical Decision Making MDM Narrative Medical decision making narrative: Blood work is nonspecific. Albumin mildly low. Blood pressure mildly elevated. Urinalysis and chest x-ray are pending and the patient is signed out to Dr. Bañuelos at change of shift. It is expected she will go to labor and delivery after evaluation is completed in the emergency department. Differential Diagnosis Differential Diagnosis: Hypertension, PIH, preeclampsia Lab Data Lab results reviewed: Yes I reviewed the patient's lab results Labs: Lab Results 09/30/24 Range/Units 17:35 WBC 12.8 H (4.0-11.0) 10^3/uL RBC 4.13 L (4.20-5.40) 10^6/uL Hgb 12.1 (12.0-16.0) g/dL Hct 35.6 L (36.0-48.0) % MCV 86.2 (81.0-99.0) fL MCH 29.3 (26.7-34.0) pg MCHC 34.0 (29.9-35.2) g/dL RDW 13.8 (11.0-15.0) % Plt Count 170 (150-450) 10^3/uL MPV 12.4 (9.5-13.5) fL Neut % (Auto) 78.7 H (43.0-75.0) % Lymph % (Auto) 16.4 L (20.5-60.0) % [place] % (Auto) 4.0 (1.7-12.0) % Eos % (Auto) 0.2 L (0.9-7.0) % Baso % (Auto) 0.2 (0.2-2.0) % Neut # (Auto) 10.1 H (1.4-6.5) 10^3/uL Lymph # (Auto) 2.1 (1.2-3.8) 10^3/uL [place] # (Auto) 0.5 (0.3-0.8) 10^3/uL Eos # (Auto) 0.0 (0.0-0.7) 10^3/uL Baso # (Auto) 0.0 (0.0-0.1) 10^3/uL Abs Immat Gran (auto) 0.06 H (0.00-0.03) 10^3/uL Imm/Tot Granulo (auto) 0.5 (0.0-0.5) % Sodium 142 (136-145) mmol/L Potassium 3.7 (3.5-5.1) mmol/L Chloride 106 (98-107) mmol/L Carbon Dioxide 22.1 (21.0-32.0) mmol/L Anion Gap 17.6 BUN 9.0 (7.0-18.0) mg/dL Creatinine 0.52 L (0.55-1.02) mg/dL Est GFR ( Amer) >60 (>=60 mL/min/1.73m^2) Est GFR (Non-Af Amer) >60 (>=60 mL/min/1.73m^2) BUN/Creatinine Ratio 17.3 Glucose 72 L (74-106) mg/dL Uric Acid 4.6 (2.6-6.0) mg/dL Calcium 8.2 L (8.5-10.1) mg/dL Total Bilirubin 0.5 (0.2-1.0) mg/dL Direct Bilirubin 0.1 (0.0-0.2) mg/dL AST 14 L (15-37) U/L ALT 17 (14-59) U/L Alkaline Phosphatase 74 (46-116) U/L Lactate Dehydrogenase 143 (81-234) U/L Total Protein 6.3 L (6.4-8.2) g/dL Albumin 2.5 L (3.4-5.0) g/dL Globulin 3.8 g/dL Albumin/Globulin Ratio 0.7 Amylase 40 (25-115) U/L Lipase 19.0 (16.0-77.0) U/L ECG Data Attestation: I personally reviewed and interpreted this ECG as follows: (EKG on my interpretation shows normal sinus rhythm with rate of 75 no acute change) Discharge Plan Discharge Patient Disposition: Still a Patient
[2024-09-30 17:48] LABS: Basophils Percent Auto 0.2 % (0.2-2.0); Eosinophils Percent Auto 0.2 % (0.9-7.0); Hematocrit 35.6 % (36.0-48.0); Hemoglobin 12.1 g/dL (12.0-16.0); Immature Granulocytes Abs Auto 0.06 10^3/uL (0.00-0.03); Immature Granulocytes Pct Auto 0.5 % (0.0-0.5); Lymphocytes Absolute Auto 2.1 10^3/uL (1.2-3.8); Lymphocytes Percent Auto 16.4 % (20.5-60.0); Mean Corpuscular Hemoglobin 29.3 pg (26.7-34.0); Mean Corpuscular Volume 86.2 fL (81.0-99.0); Mean Platelet Volume 12.4 fL (9.5-13.5); Monocytes Absolute Auto 0.5 10^3/uL (0.3-0.8); Neutrophils Absolute Auto 10.1 10^3/uL (1.4-6.5); Neutrophils Percent Auto 78.7 % (43.0-75.0); Platelet Count 170 10^3/uL (150-450); Red Blood Count 4.13 10^6/uL (4.20-5.40); Red Cell Distribution Width 13.8 % (11.0-15.0); White Blood Count 12.8 10^3/uL (4.0-11.0)
--- NOTE | 2024-09-30 17:51 | PC.NURSE ---
Pt presents to ER for chest pain work up followed up by OB visit Pt states she is 33 weeks and has been experiencing an occasional forceful and fast heart beat Pt denies this being painful but states concern for it Pt states she has also been experiencing increased swelling in legs and flash headaches Pt called the birthing unit for advice on what to do and they recommended her come be evaluated in the ER and then present to the birthing unit for further evaluation
--- NOTE | 2024-09-30 17:53 | PC.NURSE ---
Pt does state that at her last OB appointment due to her BP as well as having protein in her urine, they had mentioned pre-eclampsia
[2024-09-30 18:15] LABS: Alanine Aminotransferase 17 U/L (14-59); Albumin Globulin Ratio 0.7; Albumin Level 2.5 g/dL (3.4-5.0); Alkaline Phosphatase 74 U/L (46-116); Amylase 40 U/L (25-115); Aspartate Amino Transferase 14 U/L (15-37); BUN Creatinine Ratio 17.3; Bilirubin Direct 0.1 mg/dL (0.0-0.2); Bilirubin Total 0.5 mg/dL (0.2-1.0); Calcium 8.2 mg/dL (8.5-10.1); Chloride 106 mmol/L (98-107); Estimated GFR (African America >60 (>=60 mL/min/1.73m^2); Estimated GFR (Non-African Ame >60 (>=60 mL/min/1.73m^2); Globulin 3.8 g/dL; Glucose 72 mg/dL (74-106); Lactate Dehydrogenase 143 U/L (81-234); Potassium 3.7 mmol/L (3.5-5.1); Sodium 142 mmol/L (136-145); Total Protein 6.3 g/dL (6.4-8.2); Uric Acid 4.6 mg/dL (2.6-6.0)
[2024-09-30 18:20] LABS: Anion Gap 17.6; Carbon Dioxide 22.1 mmol/L (21.0-32.0)
[2024-09-30 18:54] LABS: Bilirubin Urine NEGATIVE (NEGATIVE); Blood Urine NEGATIVE (NEGATIVE); Clarity Urine CLEAR (CLEAR); Color Urine LT. YELLOW (YELLOW); Glucose Urine UA NEGATIVE (NEGATIVE); Ketones Urine 15 mg/dL (NEGATIVE); Leukocyte Esterase Urine TRACE (NEGATIVE); Nitrite Urine NEGATIVE (NEGATIVE); Protein Urine TRACE mg/dL (NEG/TRACE); Specific Gravity Urine 1.025 (1.005-1.025); Urobilinogen Urine 0.2 EU/dL (0.2-1.0)
[2024-09-30 19:05] LABS: Bacteria Urine SMALL #/HPF (NONE SEEN); Cast Seen? NONE SEEN #/LPF (NONE SEEN); Crystals Seen? None Seen #/HPF (None Seen); Mucus Urine NONE SEEN (NONE SEEN); RBC Urine NONE SEEN #/HPF (0-2); Squamous Epithelial Cell Urine FEW #/LPF (NONE/RARE)
[2024-09-30 19:06] LABS: Urine Culture Indicated YES-FRMC
[2024-09-30] MEDS: CEPHALEXIN 500 MG CAPSULE 1000 MG PO (19:43)
--- OUTSIDE RECORDS SUMMARY | 2024-09-30 19:51 | XMS_ITS | CCD ---
Author Organization [facility] Care Team Providers Care Dressing Room Attendant Name Role Phone MARGARETTE ., DR VICTOR [...] HAY ., DR MCKEON Admitting Unavailable ZAIDI, SHANTHI Consulting Unavailable MARGARETTE ., DR VICTOR Consulting Unavailable DEFRANCE, DR PADGETT Primary Care Unavailable MARGARETTE ., DR VICTOR Attending Unavailable MARGARETTE ., DR VICTOR Admitting Unavailable WHITING, DR PADGETT V Consulting Unavailable DEFRANCE, DR [...] Unavailable Dayron Kimbrough MD Primary Care Provider [phone] Dayron Kimbrough MD Primary Care Provider [phone] VALENTE PFEIFFER Attending Unavailable VALENTE PFEIFFER Attending [...] 86 mg/dL NINF - 13 0 mg/dL [facility] Urinalysis macro (dipstick) panel (U)on 08-23-2024 Bilirubin, UA Negative Negative - 4(70) +++ mg/dL [facility] Blood, UA Negative Negative - 50 Wali/mcL [facility] Clarity, UA Clear [facility] Color, UA Yellow [facility] Glucose, UA Negative Negative - 1999(110) ++++ mg/dL [facility] Interpretation and review of laboratory results Abnormal [facility] Ketones, UA Negative Negative - 160(16) ++++ mg/dL [facility] Leukocytes, UA Trace Negative - 500+++ Dmitriy/mcL [facility] Nitrite, UA Negative Negative - Positive [facility] pH, UA 6 5 - 9 [facility] Protein, UA Negative Negative - 1999(20) ++++ mg/dL [facility] Spec Grav, UA 1.02 1 - 1.03 [facility] Urobilinogen, UA 0.2 0.2 - 12 mg/dL [facility] No Panel InformationOrdered By: Radiologist Radiology on 07-18-2024 [facility] Work Phone: No Panel Informationon 07-18 Radiology Study observation (narrative) [facility] US OB ANATOMYon 07-18-2024 [place] [address] Ultrasound Report Signed Patient: LORAINE PACE MR#: [id number] : 1995 Acct:[id number] Age/Sex: 28 / F ADM Date: 07/18/24 Loc: US Attending Dr: Valente Pfeiffer D.O. Ordering Physician: Valente Pfeiffer D.O. Date of Service: 07/18/24 Procedure(s): US OB anatomy Accession Number(s): [id number] cc: Valente Pfeiffer D.O.; Physician,Non-Staff M.DArturo [place] [id number] Patient Name: LORAINE PACE MRN: [id number] date: 1995 Sex: F Assigned Patient Location: Current Patient Location: Accession/Order Number: [id number] Exam Date: 07/18/2024 18:47 Report Date: 07/18/2024 [...] Hoyt Jr., D.O.07/18/2024 6:52 PM Dictation Location: [place] [address] Electronically authenticated by: [id number] Y Date: 07/18/2024 18:52 Dictated By: Markie Hoyt M.D. Signed By: 07/18/241853 DD/ 51 TD/TT: English Drawer: [facility] Radiology, Radiologist, MD - 07/18/2024 [place] [address] Ultrasound Report Signed Patient: LORAINE PACE MR#: [id number] : 1995 Acct:[id number] Age/Sex: 28 / F ADM Date: 07/18/24 Loc: US Attending Dr: Valente Pfeiffer D.O. Ordering Physician: Valente Pfeiffer D.O. Date of Service: 07/18/24 Procedure(s): US OB anatomy Accession Number(s): [id number] cc: Valente Pfeiffer D.O.; Physician,Non-Staff Rogelio [place] [address] Patient Name: LORAINE PACE MRN: [facility]:[id number] date: 1995 Sex: F Assigned Patient Location: US Current Patient Location: US Accession/Order Number: [id number] Exam Date: 07/18/2024 18:47 Report Date: 07/18/2024 [...] Hoyt Jr., D.O.07/18/2024 6:52 PM Dictation Location: [facility] Electronically authenticated by: [id number] Y Date: 07/18/2024 18:52 Dictated By: Mrakie Hoyt M.D. Signed By: 07/18/241853 DD/ 51 TD/TT: English Drawer: [facility] US OB CERVICAL LENGTHon 06-24 [place] [address] Ultrasound Report Signed Patient: LORAINE PACE MR#: [id number] : 1995 Acct:[id number] Age/Sex: 28 / F ADM Date: 07/18/24 Loc: US Attending Dr: Valente Pfeiffer D.O. Ordering Physician: Valente Pfeiffer D.O. Date of Service: 07/18/24 Procedure(s): US OB cervical length Accession Number(s): [id number] cc: Valente Pfeiffer D.O.; Physician,Non-Staff Rogelio [address] [address] Patient Name: LORAINE PACE MRN: [id number] date: 1995 Sex: F Assigned Patient Location: US Current Patient Location: US Accession/Order Number: [id number] Exam Date: 07/18/2024 18:47 Report Date: 07/18/2024 [...] Hoyt Jr., D.O.07/18/2024 6:52 PM Dictation Location: [employer] Electronically authenticated by: [id number] Y Date: 07/18/2024 18:52 Dictated By: Markie Hoyt M.D. Signed By: 07/18/241853 DD/ 51 TD/TT: English Drawer: [facility] Radiology, Radiologist, - 07/18/2024 [place] [address] Ultrasound Report Signed Patient: LORAINE PACE MR#: [id number] : 1995 Acct:[id number] Age/Sex: 28 / F ADM Date: 07/18/24 Loc: US Attending Dr: Valente Pfeiffer D.O. Ordering Physician: Valente Pfeiffer D.O. Date of Service: 07/18/24 Procedure(s): US OB cervical length Accession Number(s): [id number] cc: Valente Pfeiffer D.O.; Physician,Non-Staff Rogelio The [place] [id number] Patient Name: LORAINE PACE MRN: [facility]:[id number] date: 1995 Sex: F Assigned Patient Location: Current Patient Location: US Accession/Order Number: [id number] Exam Date: 07/18/2024 18:47 Report Date: 07/18/2024 [...] Hoyt Jr., D.O.07/18/2024 6:52 PM Dictation Location: [place] [address] Electronically authenticated by: [id number] Y Date: 07/18/2024 18:52 Dictated By: Markie Hoyt M.D. Signed By: 07/18/241853 DD/ 51 TD/TT: English Drawer: [facility] Urinalysis macro (dipstick) panel (U)on 07-11-2024 Bilirubin, UA Negative Negative - 4(70) +++ mg/dL [facility] Blood, UA Positive Negative - 50 Wali/mcL [facility] Comment on above: trace-intact Clarity, UA Clear [facility] Color, UA Yellow [facility] Glucose, UA Negative Negative - 2000(110) ++++ mg/dL [facility] Interpretation and review of laboratory results Abnormal [facility] Ketones, UA Negative Negative - 160(16) ++++ mg/dL [facility] Leukocytes, UA Negative Negative - 500+++ Dmitriy/mcL [facility] Nitrite, UA Negative Negative - Positive [facility] pH, UA 6 5 - 9 [facility] Protein, UA Trace Negative - 1999(20) ++++ mg/dL [facility] Spec Grav, UA 1.025 1 - 1.03 [facility] Urobilinogen, UA 0.2 0.2 - 12 mg/dL [facility] AFP, SERUM, OPEN SPINA BIFID Aon 06-28-2024 AFP MOM 1.21 . [facility] AFP VALUE 65.3 ng/mL . [facility] COMMENT: Comment . [facility] Comment on above: Concepcion Coon , Ph.D., [facility] Director References: Available Upon Request. Multiples Of Median Cutoffs For AFP Elevations Danielson 2.5 Black 2.8 IDD 2.0 Twins 4.5 Abbreviation Definitions IDD - Insulin Dep Diabetes OSBR - Open Spina Bifida Risk For further inquiries contact [facility] at [phone]. This test was developed and its performance characteristics determined by [employer]. It has not been cleared or approved by the Food and Drug Administration. Performed at: [facility] [employer] [address], [place] [address] [employer] Associate: Leonie Bird [facility], Phone: [phone] GEST. AGE ON COLLECTION DATE 19.6 . weeks [facility] GESTAT. AGE BASED ON LMP . [facility] Comment on above: Recalculations are n ot recommended when gestational dating by LMP and ultrasound are within 10 days. INSULIN DEP DIABETES No . [facility] INTERPRETATION Comment . [facility] Comment on above: Interpretation: Scre en Negative [...] Customer Services to discuss available options. The [employer] recommends amniocentesis be offered to women age 35 and older. [age]ER[age] [facility] MULTIPLE GESTATION No . [facility] OSBR RISK 1 [place] 6301 . [facility] RACE . [facility] RESULTS Report . [facility] TEST RESULTS: Negative . [facility] WEIGHT 149 . lbs [facility] N N LMP [id number] 4 15 N 1 149 N N N N N [facility] Urinalysis macro (dipstick) panel (U)on 05-29-2024 Bilirubin, UA Negative Negative - 4(70) +++ mg/dL [facility] Blood, UA Negative Negative - 50 Wali/mcL [facility] Clarity, UA Clear [facility] Color, UA Yellow [facility] Glucose, UA Negative Negative - 1999(110) ++++ mg/dL [facility] Interpretation and review of laboratory results Normal [facility] Ketones, UA Negative Negative - 160(16) ++++ mg/dL [facility] Leukocytes, UA Negative Negative - 500+++ Dmitriy/mcL [facility] Nitrite, UA Negative Negative - Positive [facility] pH, UA 6 5 - 9 [facility] Protein, UA Negative Negative - 1999(20) ++++ mg/dL [facility] Spec Grav, UA 1.03 1 - 1.03 [facility] Urobilinogen, UA 0.2 0.2 - 12 mg/dL [facility] BOX TESTon 05-11-2024 BOX TEST SENT OUT [facility] BOX1 [facility] BOX2 05/11/24 [facility] HCG ( test) Ql (U)o n 04-27-2024 Interpretation and review of laboratory results Abnormal [facility] Preg Test, Ur Positive Negative [facility] US OB TRANSVAGINALon 025 US OB TRANSVAGINAL [...] x 6.1 cm (10 weeks, 0 days). [place] rump length is 4.8 cm (11 weeks, [...] UA Negative Negative - 4(70) +++ mg/dL [facility] Blood, UA Negative Negative - 50 Wali/mcL [facility] Clarity, UA Clear [facility] Color, UA Yellow [facility] Glucose, UA Negative Negative - 1999(110) ++++ mg/dL [facility] Interpretation and review of laboratory results Normal [facility] Ketones, UA Negative Negative - 160(16) ++++ mg/dL [facility] Leukocytes, UA Negative Negative - 500+++ Dmitriy/mcL [facility] Nitrite, UA Negative Negative - Positive [facility] pH, UA 6 5 - 9 [facility] Protein, UA Negative Negative - 2000(20) ++++ mg/dL [facility] Spec Grav, UA 1.025 1 - 1.03 [facility] Urobilinogen, UA 0.2 0.2 - 12 mg/dL [facility] CBC AND AUTO DIFFon 04-12-20 24 ABSOLUTE BASOPHIL 0.1 X10E9/L Normal 0.0-0.2 [facility] Comment on above: Performed By: #### C BCA, CMP, 35644-7 #### [facility] ([id number]) [address] [place] [address] 749[address] ABSOLUTE NEUTROPHIL 9.3 X10E9/L High 1.5-6.6 [facility] Comment on above: Performed By: #### Abraham GASTON CMP, 39527-8 #### [facility] ([id number]) [address] [place] [address]4717 Basophils/100 WBC (Bld) 0.4 % Normal [facility] Comment on above: Performed By: #### C JUSTIN GASTON, 24616-2 #### [facility] ([id number]) [address] [place] [address]70 Eosinophils (Bld) [#/Vol] 0.0 10*3/uL Normal 0.0-0.4 [facility] Comment on above: Performed By: #### Abraham GASTON [facility], #### [facility] ([id number]) [address] [place] [address] 59440 Eosinophils/100 WBC (Bld) 0.2 % Normal [facility] Comment on above: Performed By: #### Abraham GASTON [facility], 27666-8 #### [facility] ([id number]) [address] [place] [address] 91969 Erythrocyte distribution width (RBC) [Ratio] 14.4 % Normal 11.5-15.0 [facility] Comment on above: Performed By: #### Abraham GASTON [facility], 08269-5 #### [facility] ([id number]) [address] [place] [address] 14421 Hematocrit (Bld) [Volume fraction] 39.7 % Normal 35-47 [facility] Comment on above: Performed By: #### Abraham GASTON CMP, 44479-3 #### [facility] ([id number]) [address] [place] [address] 29926 Hemoglobin (Bld) [Mass/Vol] 13.4 g/dL Normal 11.7-15.5 [facility] Comment on above: Performed By: #### C MARILIN [facility], #### [facility] ([id number]) [address] [place] [address] 16436 Lymphocytes (Bld) [#/Vol] 2.2 10*3/uL Normal 1.0-3.5 [facility] Comment on above: Performed By: #### Abraham GASTON [facility], #### [facility] ([id number]) [address] [place] [address] 06803 Lymphocytes/100 WBC (Bld) 18.4 % Normal [facility] Comment on above: Performed By: #### Abraham GASTON [facility], #### [facility] ([id number]) [address] [place] [address] 92866 MCH (RBC) [Entitic mass] 28.4 pg Normal 27-34 [facility] Comment on above: Performed By: #### Abraham GASTON [facility], #### [facility] ([id number]) [address] [place] [address] 67116 MCHC (RBC) [Mass/Vol] 33.8 g/dL Normal 32-36 [facility] Comment on above: Performed By: #### Abraham GASTON [facility], #### [facility] ([id number]) [address] [place] [address] 91872 MCV (RBC) [Entitic vol] 84 fL Normal 80-100 [facility] Comment on above: Performed By: #### Abraham GASTON [facility], #### [facility] ([id number]) [address] [place] [address] 65762 Monocytes (Bld) [#/Vol] 0.6 10*3/uL Normal 0-0.9 [facility] Comment on above: Performed By: #### C MARILIN, CMP, 40241-0 #### [facility] ([id number]) [address] [place] [address] 39402 Monocytes/100 WBC (Bld) 4.7 % Normal [facility] Comment on above: Performed By: #### C BCA, CMP, 70392-7 #### [facility] ([id number]) [address] [place] [address] 25098 Neutrophils/100 WBC (Bld) 76.3 % Normal [facility] Comment on above: Performed By: #### C MARILIN, CMP, #### [facility] ([id number]) [address] [place] [address] 13759 Platelet mean volume (Bld) [Entitic vol] 8.6 fL Normal 7-12 [facility] Comment on above: Performed By: #### Abraham GASTON, CMP, 86359-6 #### [facility] ([id number]) [address] [place] [address] 46384 Platelets (Bld) [#/Vol] 277 10*3/uL Normal 150-450 [facility] Comment on above: Performed By: #### Abraham GASTON, CMP, 72030-2 #### [facility] ([id number]) [address] [place] [address] 22304 RBC COUNT 4.73 X10E12/L Normal 3.80-5.20 [facility] Comment on above: Performed By: #### Abraham BCA, CMP, 85133-5 #### [facility] ([id number]) [address] [place] [address] 04130 WBC (Bld) [#/Vol] 12.1 10*3/uL High 4.0-11.0 [facility] Comment on above: Performed By: #### Abraham GASTON, CMP, #### [facility] ([id number]) [address] [place] [address] 53701 COMPREHENSIVE METABOLIC PANE [place] 04-12-2024 Albumin [Mass/Vol] 4.4 g/dL Normal 3.2-5.3 [facility] Comment on above: Performed By: #### C BCA, CMP, 59351-0 #### [facility] ([id number]) [address] [place] [address] 73730 ALP [Catalytic activity/Vol] 55 U/L Normal 39-130 [facility] Comment on above: Performed By: #### C BCA, CMP, 32826-9 #### [facility] ([id number]) [address] [place] [address] 59047 ALT [Catalytic activity/Vol] 22 U/L Normal 0-31 [facility] Comment on above: Performed By: #### C BCA, CMP, #### [facility] ([id number]) [address] [place] [address] 39187 Anion gap [Moles/Vol] 10 mmol/L Normal 5-15 [facility] Comment on above: Performed By: #### C BCA, CMP, 13271-3 #### [facility] ([id number]) [address] [place] [address] 09552 AST [Catalytic activity/Vol] 16 U/L Normal 0-41 [facility] Comment on above: Performed By: #### C BCA, CMP, 95050-6 #### [facility] ([id number]) [address] [place] [address] 28898 Bilirubin [Mass/Vol] 1.7 mg/dL High 0.3-1.2 [facility] Comment on above: Performed By: #### C BCA, CMP, #### [facility] ([id number]) [address] [place] [address] 30791 Calcium [Mass/Vol] 9.3 mg/dL Normal 8.5-10.5 [facility] Comment on above: Performed By: #### C JUSTIN GASTON, 92142-2 #### [facility] ([id number]) [address] [place] [address] 97808 Chloride [Moles/Vol] 102 mmol/L Normal 98-109 [facility] Comment on above: Performed By: #### C MARILIN [facility], 01220-0 #### [facility] ([id number]) [address] [place] [address] 25850 CO2 [Moles/Vol] 23 mmol/L Normal 22-32 [facility] Comment on above: Performed By: #### C JUSTIN GASTON, 98333-3 #### [facility] ([id number]) [address] [place] [address] 61519 Creatinine [Mass/Vol] 0.55 mg/dL Normal 0.40-1.00 [facility] Comment on above: Result Comment: METH OD TRACEABLE TO IDMS STANDARD Performed By: #### C MARILIN [facility], 42230-0 #### [facility] ([id number]) [address] [place] [address] 75982 eGFR (CKD-EPI) NON-RACE DEPENDENT >90 Normal >59 [facility] Comment on above: Result Comment: Reported eGFR is based on the CKD-EPI 2020 equation that does not use a race coefficient. Performed By: #### C JUSTIN GASTON, 68818-3 #### [facility] ([id number]) [address] [place] [address] 62531 Glucose [Mass/Vol] 94 mg/dL Normal 65-99 [facility] Comment on above: Performed By: #### C UJSTIN GASTON, 73176-7 #### [facility] ([id number]) [address] [place] [address] 03663 Potassium [Moles/Vol] 3.5 mmol/L Normal 3.5-5.0 [facility] Comment on above: Performed By: #### C MARILIN CMP, 42207-1 #### [facility] ([id number]) [address] [place] [address] 19367 Protein [Mass/Vol] 7.9 g/dL Normal 6.0-8.0 [facility] Comment on above: Performed By: #### C MARILIN CMP, #### [facility] ([id number]) [address] [place] [address] 59929 Sodium [Moles/Vol] 135 mmol/L Normal 134-146 [facility] Comment on above: Performed By: #### C MARILIN CMP, 25635-8 #### [facility] ([id number]) [address] [place] [address] 63076 Urea nitrogen [Mass/Vol] 10 mg/dL Normal 5-23 [facility] Comment on above: Performed By: #### C MARILIN [facility], 59386-5 #### [facility] ([id number]) [address] [place] [address] 77774 HCG ( test) Ql (U)o n 04-12-2024 Beta HCG ( test) Ql (U) Positive Abnormal NEG [facility] Comment on above: Performed By: #### 2 106-3 #### [facility] ([id number]) [address] [place] [address] 13295 MAGNESIUMon 04-12-2024 Magnesium [Mass/Vol] 2.0 mg/dL Normal 1.8-2.6 [facility] Comment on above: Performed By: #### C MARILIN, CMP, #### [facility] ([id number]) [address] [place] [address] 53901 URN MACROSCOPIC NURon 2023 BILIRUBIN MAIA Negative Normal NEG [facility] Comment on above: Performed By: #### N UM #### [facility] ([id number]) [address] [place] [address] [place] [address] BLOOD/HGB MAIA Negative Normal NEG [facility] Comment on above: Performed By: #### N UM #### [facility] ([id number]) [address] [place] [address] [place] [address] GLUCOSE MAIA Negative Normal NEG [facility] Comment on above: Performed By: #### N UM #### [facility] ([id number]) [address] [place] [address] [place] [address] KETONES MAIA >=160 Abnormal NEG [facility] Comment on above: Performed By: #### N UM #### [facility] ([id number]) [address] [place] [address] [place] [address] LEUKOCYTE ESTERASE MAIA Negative Normal NEG [facility] Comment on above: Performed By: #### N UM #### [facility] ([id number]) [address] [place] [address] [place] [address] NITRITE MAIA Negative Normal NEG [facility] Comment on above: Performed By: #### N UM #### [facility] ([id number]) [address] [place] [address] [place] [address] PH MAIA 6.5 Normal 5.0-8.5 [facility] Comment on above: Performed By: #### N UM #### [facility] ([id number]) [address] [place] [address] [place] [address] PROTEIN MAIA Trace Abnormal NEG [facility] Comment on above: Performed By: #### N UM #### [facility] ([id number]) [address] [place] [address] [place] [address] SPECIFIC GRAVITY MAIA >=1.030 Normal 1.003-1.035 [facility] Comment on above: Performed By: #### N UM #### [facility] ([id number]) [address] [facility] [place] [address] UROBILINOGEN MAIA 1.0 eu/dL Normal <1.1 [facility] Comment on above: Performed By: #### N UM #### [facility] ([id number]) [address] [facility] [place] [address] Dre 01-11-2024 CNPN Telephone (TXCTMN) LORAINE PACE ([id number]) 1995 F Date Time Provider Department 01/11/24 LIVER TXP COORDINATOR TXAYLIN During your visit today, we recorded the following information about you: Kriss tAkins Tech 01/11/2024 11:08 AM Signed Living Donor [...] Yes Online intake has been scanned to [email or web address] for review by the living donor coordinator. Allergies As of Date: 01/11/2024 (Not on File) Date Reviewed: Never Reviewed Reason for Visit: Referral - Donor Txp [[id number]] Primary Visit Diagnosis:Liver donor [Z52.6] Order(s):CONSULT TO TRANSPLANT CENTER [[id number]] Order #: [id number]: 1 Problem List As Of Date: 01/11/2024 (None) Encounter Status:Closed by KRISS ATKINS on 01/11/24 Normal [facility] CNPN Telephone (TXCTMN) LORAINE PACE ([id number]) 1995 F Date Time Provider Department 01/11/24 [...] for Covid? No, had 1 time no terminal makeup operator side effects Overall general health: Patient reports [...] Status:Closed by KARINA SHI on 01/26/24 Normal [facility] GTT 3 HR PREGon 08-06-2022 Glucose [Mass/Vol] 80 mg/dL Normal [facility] Comment on above: Performed By: #### G TT3P #### [facility] [address] [place] [address] Dr. Jamie Dickey Glucose [Mass/Vol] 139 mg/dL Normal [facility] Comment on above: Performed By: #### G TT3P #### [facility] [address] [place] [address] Dr. Jamie Dickey Glucose [Mass/Vol] 99 mg/dL Normal [facility] Comment on above: Performed By: #### G TT3P #### [facility] [facility] [address] [place] [address] Dr. Jamie Dickey CBC AUTO DIFFon 07-27-2022 BASO # 0.0 103/ul Normal 0.0-0.1 [facility] Comment on above: Performed By: #### C BC #### [facility] [address] [place] [address] Dr. Jamie Dickey Basophils/100 WBC (Bld) 0.4 % Normal 0.2-2.0 [facility] Comment on above: Performed By: #### C BC #### [facility] [address] [place] [address] Dr. Jamie Dickey EO # 0.2 103/ul Normal 0.0-0.7 [facility] Comment on above: Performed By: #### C BC #### [facility] [address] [place] [address] Dr. Jamie Dickey Eosinophils/100 WBC (Bld) 1.8 % Normal 0.9-7.0 [facility] Comment on above: Performed By: #### C BC #### [facility] [address] [place] [address] Dr. Jamie Dickey Erythrocyte distribution width (RBC) [Ratio] 13.2 % Normal 11.0-15.0 [facility] Comment on above: Performed By: #### C BC #### [facility] [address] [place] [address] Dr. Jamie Dickey Hematocrit (Bld) [Volume fraction] 32.1 % Critically low 36.0-48.0 [facility] Comment on above: Performed By: #### C BC #### [facility] [address] [place] [address] Dr. Jamie Dickey Hemoglobin (Bld) [Mass/Vol] 10.8 g/dL Critically low 12.0-16.0 [facility] Comment on above: Performed By: #### C BC #### [facility] [address] [place] [address] Dr. Jamie Dickey IG # 0.07 10e3/ul Critically high 0.00-0.03 [facility] Comment on above: Performed By: #### C BC #### [facility] [address] [place] [address] Dr. Jamie Dickey IG % 0.8 % Critically high 0.0-0.5 [facility] Comment on above: Performed By: #### C BC #### [facility] [address] [place] [address] Dr. Jamie Dickey LYMPH # 1.8 103/ul Normal 1.2-3.8 [facility] Comment on above: Performed By: #### C BC #### [facility] [address] [place] [address] Dr. Jamie Dickey Lymphocytes/100 WBC (Bld) 20.4 % Critically low 20.5-60.0 [facility] Comment on above: Performed By: #### C BC #### [facility] [address] [place] [address] Dr. Jamie Dickey MANUAL DIFF REQ NO Normal [facility] Comment on above: Performed By: #### C BC #### [facility] [address] [place] [address] Dr. Jamie Dickey MCH (RBC) [Entitic mass] 29.1 pg Normal 26.7-34.0 [facility] Comment on above: Performed By: #### C BC #### [facility] [address] [place] [address] Dr. Jamie Dickey MCHC (RBC) [Mass/Vol] 33.6 g/dL Normal 29.9-35.2 [facility] Comment on above: Performed By: #### C BC #### [facility] [address] [place] [address] Dr. Jamie Dickey MCV (RBC) [Entitic vol] 86.5 fL Normal 81.0-99.0 [facility] Comment on above: Performed By: #### C BC #### [facility] [address] [address] [address] Jamie Dickey MONO # 0.4 103/ul Normal 0.3-0.8 [facility] Comment on above: Performed By: #### C BC #### [facility] [address] [address] [address] Jamie Dickey Monocytes/100 WBC (Bld) 4.8 % Normal 1.7-12.0 [facility] Comment on above: Performed By: #### C BC #### [facility] [address] [address] [address] Jamie Dickey NEUT # 6.5 103/ul Normal 1.4-6.5 [facility] Comment on above: Performed By: #### C BC #### [facility] [address] [place] [address] Dr. Jamie Dickey Neutrophils/100 WBC (Bld) 71.8 % Normal 43.0-75.0 [facility] Comment on above: Performed By: #### C BC #### [facility] [address] [address] [address] Jamie Dickey Platelet mean volume (Bld) [Entitic vol] 10.1 fL Normal 9.5-13.5 [facility] Comment on above: Performed By: #### C BC #### [facility] [address] [address] [address] Jamie Dickey PLT 197 103/ul Normal 150-450 [facility] Comment on above: Performed By: #### C BC #### [facility] [address] [address] [address] Jamie Dickey RBC 3.71 106/ul Critically low 4.20-5.40 [facility] Comment on above: Performed By: #### C BC #### [facility] [address] [address] [address] Jamie Dickey WBC 9.0 103/ul Normal 4.0-11.0 [facility] Comment on above: Performed By: #### C BC #### [facility] [address] [address] [address] Jamie Dickey GLUCOSE - 1HRon 07-27-2022 Glucose [Mass/Vol] 158 mg/dL Critically high 74-106 T [facility] Comment on above: Performed By: #### N BOX #### [facility] [address] [address] [address] Jamie Dickey AFP MATERNAL FOR SPINA BIFID Aon 06-26-2022 AFP MoM 0.90 Normal [facility] Comment on above: Performed By: #### H CVPCRR #### [facility] [address] [address] [address] Jamie Dickey AFP Value 54.6 ng/mL Normal [facility] Comment on above: Performed By: #### H CVPCRR #### [facility] [address] [address] [address] Jamie Dickey AFP, Serum for Spina Bifida Report Normal [facility] Comment on above: Performed By: #### H CVPCRR #### [facility] [address] [address] [address] Jamie Dickey Comment Comment Normal [facility] Comment on above: Result Comment: Anamaria Coon, Ph.D., [facility] Director . References: Available Upon Request. . Multiples Of Median Cutoffs For AFP Elevations Danielson 2.5 Black 2.8 IDD 2.0 Twins 4.5 Abbreviation Definitions IDD - Insulin Dep Diabetes OSBR - Open Spina Bifida Risk . For further inquiries contact [facility] at [phone]. . This test was developed and its performance characteristics determined by [facility]. It has not been cleared or approved by the Food and Drug Administration. Performed By: #### H CVPCRR #### [facility] [address] [address] [address] Jamie Zaman Age Collection Date 20.0 weeks Normal [facility] Comment on above: Performed By: #### H CVPCRR #### [facility] [address] [address] [address] Jamie Dickey Gestat, Age Based on Ultrasound Normal [facility] Comment on above: Result Comment: 18.6 on 06/14/2022 Recalculations are not recommended when gestational dating by LMP and ultrasound are within 10 days. Performed By: #### H CVPCRR #### [facility] [address] [place] [address] Dr. Jamie Dickey Insulin Dep Diabetes No Normal [facility] Comment on above: Performed By: #### H CVPCRR #### [facility] [address] [place] [address] Dr. Jamie Dickey Interpretation Comment Normal [facility] Comment on above: Result Comment: Inte rpretation: [...] Customer Services to discuss available options. The [employer] recommends amniocentesis be offered to women age 35 and older. Performed By: #### H CVPCRR #### [facility] [address] [place] [address] Dr. Jamie Dickey [age] Normal [facility] Comment on above: Performed By: #### H CVPCRR #### [facility] [address] [place] [address] Dr. Jamie Dickey Multiple Gestation No Normal [facility] Comment on above: Performed By: #### H CVPCRR #### [facility] [address] [place] [address] Dr. Jamie Dickey [place] [address] Normal [facility] Comment on above: Performed By: #### H CVPCRR #### [facility] [address] [place] [address] Dr. Jamie Dickey PDF . Normal [facility] Comment on above: Performed By: #### H CVPCRR #### [facility] [address] [place] [address] Dr. Jamie Dickey Race Normal [facility] Comment on above: Performed By: #### H CVPCRR #### [facility] [address] [place], [place] [address] Dr. Jamie Dickey Test Results: Negative Normal [facility] Comment on above: Performed By: #### H CVPCRR #### [facility] [address] [place], [place] [address] Dr. Jamie Dickey US PREG ANATOMY SINGLEon [...] AYON Date: 2022-06-24 16:14 Normal [facility] PAP ACOG PANEL 2: 30 to 65on 06-22-2022 . . Normal [facility] Comment on above: Performed By: #### [id number] #### [facility] [address] [place] [address] Dr. Jamie Dickey Age Gdln ACOG Testing 20- [facility] Comment on above: Performed By: #### [id number] #### [facility] [address] [place] [address] Dr. Jamie Dickey DIAGNOSIS: Comment [facility] Comment on above: Result Comment: NEGA TIVE FOR INTRAEPITHELIAL LESION OR MALIGNANCY. Performed By: #### [id number] #### [facility] [address] [place] [address] Dr. Jamie Dickey Methodology: Comment [facility] Comment on above: Result Comment: This liquid based ThinPrep(R) pap test was screened with the use of an image guided system. Performed By: #### [id number] #### [facility] [address] [place] [address] Dr. Jamie Dickey Note: Comment [facility] Comment on above: Result Comment: The Pap smear is a screening test designed to aid in the detection of premalignant and malignant conditions of the uterine cervix. It is not a diagnostic procedure and should not be used as the sole means of detecting cervical cancer. Both false-positive and false-negative reports do occur. . Performed By: #### [id number] #### [facility] [address] [place] [address] Dr. Jamie Dickey Performed by: Comment Normal [facility] Comment on above: Result Comment: Tiffany Beatty, [employer] [place] Operator (ASCP) Performed By: #### 4 [id number] #### [facility] [address] [place] [address] Dr. Jamie Dickey Reflex Criteria: Comment [facility] Comment on above: Result Comment: The HPV DNA reflex criteria were not met with this specimen result therefore, no HPV testing was performed. . Performed By: #### 4 [id number] #### [facility] [address] [place] [address] Dr. Jamie Dickey Specimen adequacy: Comment Normal [facility] Comment on above: Result Comment: Sati sfactory for evaluation. No endocervical component is identified. Performed By: #### 4 [id number] #### [facility] [address] [place] [address] Dr. Jamie Dickey CHLAMYDIA/GONOCOCCUS FLORENCIO (SW AB/URINE/PAPon 06-17-2022 Chlamydia trachomatis, FLORENCIO Negative Normal Negative [facility] Comment on above: Performed By: #### C T/NGNA #### [facility] [address] [place] [address] Dr. Jamie Dickey Neisseria gonorrhoeae, FLORENCIO Negative Normal Negative [facility] Comment on above: Performed By: #### C T/NGNA #### [facility] [address] [place] [address] Dr. Jamie Dickey VAGINITIS/VAGINOSIS DNA PROB Lanre 06-16-2022 Gabriella species Negative Normal Negative [facility] Comment on above: Performed By: #### V AGINT #### [facility] [address] [place] [address] Dr. Jamie Dickey Gardnerella vaginalis Positive Abnormal Negative [facility] Comment on above: Performed By: #### V AGINT #### [facility] [address] [place] [address] Dr. Jamie Dickey Trichomonas vaginalis Negative Normal Negative [facility] Comment on above: Performed By: #### V AGINT #### [facility] [address] [place] [address] Dr. Jamie Dickey CBC AUTO DIFFon 05-29-2022 BASO # 0.0 103/ul Normal 0.0-0.1 [facility] Comment on above: Performed By: #### H CVPCRR #### [facility] [address] [place] [address] Dr. Jamie Dickey Basophils/100 WBC (Bld) 0.4 % Normal 0.2-2.0 [facility] Comment on above: Performed By: #### H CVPCRR #### [facility] [address] [place] [address] Dr. Jamie Dickey EO # 0.1 103/ul Normal 0.0-0.7 [facility] Comment on above: Performed By: #### H CVPCRR #### [facility] [address] [place] [address] Dr. Jamie Dickey Eosinophils/100 WBC (Bld) 1.3 % Normal 0.9-7.0 [facility] Comment on above: Performed By: #### H CVPCRR #### [facility] [address] [place] [address] Dr. Jamie Dickey Erythrocyte distribution width (RBC) [Ratio] 13.4 % Normal 11.0-15.0 [facility] Comment on above: Performed By: #### H CVPCRR #### [facility] [address] [place] [address] Dr. Jamie Dickey Hematocrit (Bld) [Volume fraction] 32.8 % Critically low 36.0-48.0 [facility] Comment on above: Performed By: #### H CVPCRR #### [facility] [address] [place] [address] Dr. Jamie Dickey Hemoglobin (Bld) [Mass/Vol] 10.9 g/dL Critically low 12.0-16.0 [facility] Comment on above: Performed By: #### H CVPCRR #### [facility] [address] [place] [address] Dr. Jamie Dickey IG # 0.03 10e3/ul Normal 0.00-0.03 [facility] Comment on above: Performed By: #### H CVPCRR #### [facility] [address] [place] [address] Dr. Jamie Dickey IG % 0.4 % Normal 0.0-0.5 [facility] Comment on above: Performed By: #### H CVPCRR #### [facility] [address] [place] [address] Dr. Jamie Dickey LYMPH # 1.1 103/ul Critically low 1.2-3.8 [facility] Comment on above: Performed By: #### H CVPCRR #### [facility] [address] [place] [address] Dr. Jamie Dickey Lymphocytes/100 WBC (Bld) 15.3 % Critically low 20.5-60.0 [facility] Comment on above: Performed By: #### H CVPCRR #### [facility] [address] [place] [address] Dr. Jamie Dickey MANUAL DIFF REQ NO Normal [facility] Comment on above: Performed By: #### H CVPCRR #### [facility] [address] [place] [address] Dr. Jamie Dickey MCH (RBC) [Entitic mass] 29.7 pg Normal 26.7-34.0 [facility] Comment on above: Performed By: #### H CVPCRR #### [facility] [address] [place] [address] Dr. Jamie Dcikey MCHC (RBC) [Mass/Vol] 33.2 g/dL Normal 29.9-35.2 [facility] Comment on above: Performed By: #### H CVPCRR #### [facility] [address] [place] [address] Dr. Jamie Dickey MCV (RBC) [Entitic vol] 89.4 fL Normal 81.0-99.0 [facility] Comment on above: Performed By: #### H CVPCRR #### [facility] [address] [place] [address] Dr. Jamie Dickey MONO # 0.6 103/ul Normal 0.3-0.8 [facility] Comment on above: Performed By: #### H CVPCRR #### [facility] [address] [place] [address] Dr. Jamie Dickey Monocytes/100 WBC (Bld) 8.1 % Normal 1.7-12.0 [facility] Comment on above: Performed By: #### H CVPCRR #### [facility] [address] [place] [address] Dr. Jamie Dickey NEUT # 5.5 103/ul Normal 1.4-6.5 [facility] Comment on above: Performed By: #### H CVPCRR #### [facility] [address] [address] [address] Jamie Dickey Neutrophils/100 WBC (Bld) 74.5 % Normal 43.0-75.0 [facility] Comment on above: Performed By: #### H CVPCRR #### [facility] [address] [address] [address] Jamie Dickey Platelet mean volume (Bld) [Entitic vol] 10.1 fL Normal 9.5-13.5 [facility] Comment on above: Performed By: #### H CVPCRR #### [facility] [address] [address] [address] Jamie Dickey PLT 175 103/ul Normal 150-450 [facility] Comment on above: Performed By: #### H CVPCRR #### [facility] [address] [place] [address] Dr. Jamie Dickey RBC 3.67 106/ul Critically low 4.20-5.40 [facility] Comment on above: Performed By: #### H CVPCRR #### [facility] [address] [place] [address] Dr. Jamie Dickey WBC 7.4 103/ul Normal 4.0-11.0 [facility] Comment on above: Performed By: #### H CVPCRR #### [facility] [address] [place] [address] Dr. Jamie Dickey PROF CHEM 8 (BAS METB)on Anion gap [Moles/Vol] 11.8 mmol/L Normal [facility] Comment on above: Performed By: #### B MP #### [facility] [address] [place] [address] Dr. Jamie Dickey Calcium [Mass/Vol] 8.4 mg/dL Critically low 8.5-10.1 [facility] Comment on above: Performed By: #### B MP #### [facility] [address] [place] [address] Dr. Jamie Dickey Chloride [Moles/Vol] 103 mmol/L Normal 98-107 [facility] Comment on above: Performed By: #### B MP #### [facility] [address] [address] [address] Jamie Dickey CO2 [Moles/Vol] 26.0 mmol/L Normal 21.0-32.0 [facility] Comment on above: Performed By: #### B MP #### [facility] [address] [address] [address] Jamie Dickey Creatinine [Mass/Vol] 0.49 mg/dL Critically low 0.55-1.02 [facility] Comment on above: Performed By: #### B MP #### [facility] [address] [address] [address] Jamie Dickey EGFR-AF CAMBODIAN >60 Normal >=60 [facility] Comment on above: Performed By: #### B MP #### [facility] [address] [address] [address] Jamie Dickey EGFR-NON AF CAMBODIAN >60 Normal >=60 [facility] Comment on above: Performed By: #### B MP #### [facility] [address] [address] [address] Jamie Dickey Glucose [Mass/Vol] 92 mg/dL Normal 74-106 [facility] Comment on above: Performed By: #### B MP #### [facility] [address] [address] [address] Jamie Dickey Potassium [Moles/Vol] 3.8 mmol/L Normal 3.5-5.1 [facility] Comment on above: Performed By: #### B MP #### [facility] [address] [address] [address] Jamie Dickey Sodium [Moles/Vol] 137 mmol/L Normal 136-145 [facility] Comment on above: Performed By: #### B MP #### [facility] [address] [address] [address] Jamie Dickey Urea nitrogen [Mass/Vol] 10.0 mg/dL Normal 7.0-18.0 [facility] Comment on above: Performed By: #### B MP #### [facility] [address] [place] [address] Dr. Jamie Dickey Urea nitrogen/Creatinine [Mass ratio] 20.4 mg/mg Normal [facility] Comment on above: Performed By: #### B MP #### [facility] [address] [place] [address] Dr. Jamie Dickey PROTIMEon 05-29-2022 INR Coag (PPP) [Relative time] {INR} Normal [facility] Comment on above: Performed By: #### N BOX #### [facility] [address] [place] [address] Dr. Jamie Dickey INR GUIDELINES SEE BELOW Normal [facility] Comment on above: Result Comment: CARITO RED INR: 2.0 - 3.0 CONDITIONS NOT LISTED BELOW 2.5 - 3.5 FOR PROSTHETIC HEART VALVE REPLACEMENT 2.5 - 3.5 RECURRENT THROMBOSIS Performed By: #### N BOX #### [facility] [address] [place] [address] Dr. Jamie Dickey PT Coag (PPP) [Time] 9.3 s Normal 9.0-11.6 [facility] Comment on above: Performed By: #### N BOX #### [facility] [address] [place] [address] Dr. Jamie Dickey PTTon 05-29-2022 aPTT Coag (Bld) [Time] 27.7 s Normal 22.3-36.2 Th [facility] Comment on above: Performed By: #### N BOX #### [facility] [address] [place] [address] Dr. Jamie Dickey US PREG PLACENTAon 3 [...] Daniel ZAIDI Date: 2022-05-29 01:00 Normal [facility] HEP B SURFACE ANTIGEN SCREEN on 05-07-2022 HBsAg Screen Negative Normal Negative [facility] Comment on above: Performed By: #### H CVPCRR #### [facility] [address] [address] [address] Jamie Dickey HEPATITIS C VIRUS AB W/ REFL EX QUANTon 05-07-2022 HCV AB <0.1 Normal 0.0-0.9 [facility] Comment on above: Performed By: #### H CVPCRR #### [facility] [address] [place] [address] Dr. Jamie Dickey Interpretation: Comment Normal [facility] Comment on above: Result Comment: Nega tive Not infected with HCV, unless recent infection is suspected or other evidence exists to indicate HCV infection. Performed By: #### H CVPCRR #### [facility] [address] [address] [address] Jamie Dickey HIV 1 AND 2 WITH REFLEXon HIV Screen 4th Generation wRfx Non-Reactive Normal Non Reactive [facility] Comment on above: Result Comment: HIV Negative HIV-1/HIV-2 antibodies and HIV-1 p24 antigen were NOT detected. There is no laboratory evidence of HIV infection. Performed By: #### H CVPCRR #### [facility] [address] [place] [address] Dr. Jamie Dickey RPR QUANTon 05-07-2022 Rapid Plasma Reagin, Quant Non-Reactive Normal NonRea<1:1 [facility] Comment on above: Result Comment: Plea se Note: This test does not meet current guidelines for screening and diagnosis of syphilis. This test is intended for following treatment response in patients being treated for syphilis infection. To screen for syphilis infection, a reflex cascade that includes both RPR and a treponema-specific assay should be utilized, such as Treponema pallidum (Syphilis) Screening [place] (924776) or Rapid Plasma Reagin (RPR) Test With Reflex to Quantitative RPR and Confirmatory Treponema pallidum Antibodies (861560). Performed By: #### R PRQ #### [facility] [address] [place] [address] Dr. Jamie Dickey RUBELLA AB IGGon 05-07-2022 Rubella Antibodies, IgG 4.41 index Normal Immune >0.99 [facility] Comment on above: Result Comment: Non- immune <0.90 Equivocal 0.90 - 0.99 Immune >0.99 Performed By: #### N BOX #### [facility] [address] [place] [address] Dr. Jamie Dickey CBC AUTO DIFFon 05-06-2022 BASO # 0.0 103/ul Normal 0.0-0.1 [facility] Comment on above: Performed By: #### N BOX #### [facility] [address] [place] [address] Dr. Jamie Dickey Basophils/100 WBC (Bld) 0.3 % Normal 0.2-2.0 [facility] Comment on above: Performed By: #### N BOX #### [facility] [address] [place] [address] Dr. Jamie Dickey EO # 0.1 103/ul Normal 0.0-0.7 [facility] Comment on above: Performed By: #### N BOX #### [facility] [address] [place] [address] Dr. Jamie Dickey Eosinophils/100 WBC (Bld) 0.9 % Normal 0.9-7.0 [facility] Comment on above: Performed By: #### N BOX #### [facility] [address] [place] [address] Dr. Jamie Dickey Erythrocyte distribution width (RBC) [Ratio] 13.0 % Normal 11.0-15.0 [facility] Comment on above: Performed By: #### N BOX #### [facility] [address] [place] [address] Dr. Jamie Dickey Hematocrit (Bld) [Volume fraction] 36.7 % Normal 36.0-48.0 [facility] Comment on above: Performed By: #### N BOX #### [facility] [address] [address] [address] Jamie Dickey Hemoglobin (Bld) [Mass/Vol] 11.7 g/dL Critically low 12.0-16.0 [facility] Comment on above: Performed By: #### N BOX #### [facility] [address] [address] [address] Jamie Dickey IG # 0.05 10e3/ul Critically high 0.00-0.03 [facility] Comment on above: Performed By: #### N BOX #### [facility] [address] [address] [address] Jamie Dickey IG % 0.4 % Normal 0.0-0.5 [facility] Comment on above: Performed By: #### N BOX #### [facility] [address] [address] [address] Jamie Dickey LYMPH # 2.3 103/ul Normal 1.2-3.8 [facility] Comment on above: Performed By: #### N BOX #### [facility] [address] [address] [address] Jamie Dickey Lymphocytes/100 WBC (Bld) 20.3 % Critically low 20.5-60.0 [facility] Comment on above: Performed By: #### N BOX #### [facility] [address] [address] [address] Jamie Dickey MANUAL DIFF REQ NO Normal [facility] Comment on above: Performed By: #### N BOX #### [facility] [address] [address] [address] Jamie Dickey MCH (RBC) [Entitic mass] 28.5 pg Normal 26.7-34.0 [facility] Comment on above: Performed By: #### N BOX #### [facility] [address] [address] [address] Jamie Dickey MCHC (RBC) [Mass/Vol] 31.9 g/dL Normal 29.9-35.2 [facility] Comment on above: Performed By: #### N BOX #### [facility] [address] [place] [address] Dr. Jamie Dickey MCV (RBC) [Entitic vol] 89.5 fL Normal 81.0-99.0 [facility] Comment on above: Performed By: #### N BOX #### [facility] [address] [place] [address] Dr. Jamie Dickey MONO # 0.5 103/ul Normal 0.3-0.8 [facility] Comment on above: Performed By: #### N BOX #### [facility] [address] [place] [address] Dr. Jamie Dickey Monocytes/100 WBC (Bld) 4.7 % Normal 1.7-12.0 [facility] Comment on above: Performed By: #### N BOX #### [facility] [address] [place] [address] Dr. Jamie Dickey NEUT # 8.3 103/ul Critically high 1.4-6.5 [facility] Comment on above: Performed By: #### N BOX #### [facility] [address] [place] [address] Dr. Jamie Dikcey Neutrophils/100 WBC (Bld) 73.4 % Normal 43.0-75.0 [facility] Comment on above: Performed By: #### N BOX #### [facility] [address] [place] [address] Dr. Jamie Dickey Platelet mean volume (Bld) [Entitic vol] 10.8 fL Normal 9.5-13.5 [facility] Comment on above: Performed By: #### N BOX #### [facility] [address] [place] [address] Dr. Jamie Dickey PLT 238 103/ul Normal 150-450 [facility] Comment on above: Performed By: #### N BOX #### [facility] [address] [place] [address] Dr. Jamie Dickey RBC 4.10 106/ul Critically low 4.20-5.40 [facility] Comment on above: Performed By: #### N BOX #### [facility] [address] [address] [address] Jamie Dickey WBC 11.3 103/ul Critically high 4.0-11.0 [facility] Comment on above: Performed By: #### N BOX #### [facility] [address] [place] [address] Dr. Jamie Dickey CULTURE URINEon 05-06-2022 CULTURE URINE Culture Observations: LIGHT GROWTH OF MIXED GENITAL CHANTALE. NO POTENTIAL PATHOGENS SEEN. Normal [facility] Comment on above: Performed By: #### N BOX #### [facility] [address] [place] [address] Dr. Jamie Dickey GLYCOHEMOGLOBIN A1Con 2022 ADA RECOMMENDATION SEE BELOW Normal [facility] Comment on above: Result Comment: ADA RECOMMENDED LIMIT 4.0 - 6.0 ADA THERAPEUTIC TARGET < 7.0 ACTION SUGGESTED > 7.0 Performed By: #### A 1C #### [facility] [address] [place] [address] Dr. Jamie Dickey Glucose [Mass/Vol] 94 mg/dL Normal [facility] Comment on above: Performed By: #### A 1C #### [facility] [address] [place] [address] Dr. Jamie Dickey HbA1c (Bld) [Mass fraction] 4.9 % Normal 4.5-6.2 [facility] Comment on above: Performed By: #### A 1C #### [facility] [address] [place] [address] Dr. Jamie Dickey ISSA BOX TEST PT SEND OUTo n 05-06-2022 SENT TO REF LAB 05/06/2022 Normal [facility] Comment on above: Performed By: #### N BOX #### [facility] [address] [place] [address] Dr. Jamie Dickey TYPE AND SCREENon 05-06-2022 TYPE AND SCREEN Negative Normal [facility] Comment on above: Performed By: #### N BOX #### [facility] [address] [place] [address] Dr. Jamie Dickey US PREG TVon 04-15-2022 [...] COLEMAN Date: 2022-04-15 16:33 Normal [facility] Vital Signs Date Time Vital Sign Value Performing Clinician Facility 08-23-2024 11:17-0400 Body mass index (BMI) [Ratio] 27.06 kg/m2 Riya Gomez NP Work Phone: [facility] 08-23-2024 11:17-0400 Body weight 73.75 kg Riya Gomez SLEEP TECHNICIAN Work Phone: [facility] 08-23-2024 11:17-0400 Diastolic blood pressure 70 mm[Hg] Riya Gomez SLEEP TECHNICIAN Work Phone: [facility] 08-23-2024 11:17-0400 Systolic blood pressure 120 mm[Hg] Riya Gomez SLEEP TECHNICIAN Work Phone: [facility] 07-11-2024 13:49-0400 Body mass index (BMI) [Ratio] 25.09 kg/m2 Valente Margarette DO Work Phone: [facility] 07-11-2024 13:49-0400 Body weight 68.4 kg Valente Margarette DO Work Phone: [facility] 07-11-2024 13:49-0400 Diastolic blood pressure 70 mm[Hg] Valente Margarette DO Work Phone: [facility] 03-19-2025 13:49-0400 Systolic blood pressure 120 mm[Hg] Valente Margarette DO Work Phone: [facility] 05-29-2024 13:52-0500 Body mass index (BMI) [Ratio] 24.93 kg/m2 Valente Margarette DO Work Phone: [facility] 05-29-2024 13:52-0500 Body weight 67.95 kg Valente Margarette DO Work Phone: [facility] 05-29-2024 13:52-0500 Diastolic blood pressure 70 mm[Hg] Valente Margarette DO Work Phone: [facility] 05-29-2024 13:52-0500 Systolic blood pressure 120 mm[Hg] Valente Margarette DO Work Phone: [facility] 04-27-2024 10:48-0500 Body mass index (BMI) [Ratio] 24.79 kg/m2 [facility] Nurse [facility] 04-27-2024 10:48-0500 Body weight 67.59 kg Nom Nurse [facility] 04-27-2024 10:48-0500 Diastolic blood pressure 72 mm[Hg] [facility] Nurse [facility] 04-27-2024 10:48-0500 Systolic blood pressure 118 mm[Hg] [facility] Nurse [facility] 06-26-2022 03:06-0500 Body weight 65.[address] VALENTE PFEIFFER . [facility] Comment on above: Performed By: #### HCVPCRR #### [facility] [address] [place] [address] Dr. Jamie Dickey Encounters Encounter Date Encounter Type Care Provider Facility Start: 09-26-2024 End: 09-26-2024 ambulatory RIYA GOMEZ Not Available Start: 08-24-2024 End: 08-24-2024 Clinisync Result Encounter Riya Gomez SLEEP TECHNICIAN Work Phone: [facility] External Department Unsolicited Start: 08-24-2024 End: 08-24-2024 Clinisync Result Encounter Riya Gomez SLEEP TECHNICIAN Work Phone: [facility] External Department Unsolicited Start: 08-23-2024 End: 08-23-2024 Bamboo flowsheet Riya Gomez SLEEP TECHNICIAN Work Phone: [facility] Start: 08-23-2024 End: 08-23-2024 Bamboo flowsheet Riya Gomez SLEEP TECHNICIAN Work Phone: [facility] Start: 08-23-2024 End: 08-23-2024 Office outpatient visit 15 minutes Riya Gomez SLEEP TECHNICIAN Work Phone: [facility] Comment on above: 27 weeks gestation o f ; Second trimester ; Diabetes mellitus screening Start: 08-23-2024 End: 08-23-2024 ambulatory RIYA GOMEZ Not Available Start: 07-18-2024 End: 07-18-2024 Clinisync Result Encounter Valente Margarette DO Work Phone: [facility] External Department Unsolicited Start: 07-18-2024 End: 07-18-2024 Clinisync Result Encounter Valente Margarette DO Work Phone: [facility] External Department Unsolicited Start: 07-11-2024 End: 07-11-2024 Patient encounter procedure Valente Margarette DO Work Phone: [facility] Start: 07-11-2024 End: 07-11-2024 Periodic preventive med est patient 18-39 yrs Valente Margarette DO Work Phone: [facility] Comment on above: 21 weeks gestation o f ; Second trimester ; Screening, , for anatomic survey; Exposure to STD; Vaginal discharge; Well woman exam with routine gynecological exam Start: 07-11-2024 End: 07-11-2024 ambulatory VALENTE MARGARETTE Not Available Start: 06-26-2024 End: 06-28-2024 Clinisync Result Encounter Valente Margarette DO Work Phone: [facility] External Department Unsolicited Start: 06-26-2024 End: 06-28-2024 Clinisync Result Encounter Valente Margarette DO Work Phone: [facility] External Department Unsolicited Start: 05-29-2024 [...] 04-12-2024 End: 04-12-2024 Emergency department patient visit [facility] Start: 01-11-2024 End: 01-26-2024 Telephone encounter Liver [...] Start: 08-24-2024 GLUCOSE 1 HOUR Riya Gomez SLEEP TECHNICIAN Work Phone: Start: 08-23-2024 Urnls dip stick/tabl et rgnt non-auto w/o micrscp Riya Gomez SLEEP TECHNICIAN Work Phone: Start: 07-18-2024 US OB ANATOMY [...] mellitus screening Expected: 08/23/2024 (Approximate), Expires: 08/23/2025 [facility] Comment on above: Expected: 08/23/2024 (Approximate), Expires: 08/23/2025 Start: 08-23-2024 End: 08-23-2024 Patient encounter procedure 08/23/2024 10:20 AM EDT Routine [facility] [address] [place] [address] Riya Gomez, IRIS [address] [place] [id number] Arrived [facility] Comment on above: Arrived Start: 07-11-2024 End: 07-11-2025 US for US OB 14+ weeks anatomy scan Imaging Routine Screening, , for anatomic survey Expected: 07/11/2024, Expires: 07/11/2025 [facility] Comment on above: Expected: 07/11/2024 , Expires: 07/11/2025 Start: 05-29-2024 End: 06-26-2024 Alpha fetoprotein, maternal Alpha fetoprotein, maternal Lab Routine 15 weeks gestation of Second trimester Expected: 05/29/2024 (Approximate), Expires: 06/26/2024 [facility] Work Phone: Comment on above: Expected: 05/29/2024 (Approximate), Expires: 06/26/2024 Start: 05-29-2024 End: 05-29-2024 Patient encounter procedure 05/29/2024 1:40 PM EST Routine [facility] [address] [place] [address] Valente Pfeiffer DO [address] [place], [place] [id number] Arrived [facility] Comment on above: Arrived Start: 04-27-2024 End: 04-27-2025 ABO/Rh ABO/Rh Lab Routine Missed menses , unspecified gestational age Expected: 04/27/2024 (Approximate), Expires: 04/27/2025 [facility] Comment on above: Expected: 04/27/2024 (Approximate), Expires: 04/27/2025 Start: 04-27-2024 End: 04-27-2025 Blood type and Indirect antibody screen panel - Blood Type and screen Lab Routine Missed menses , unspecified gestational age Expected: 04/27/2024 (Approximate), Expires: 04/27/2025 [facility] Work Phone: Comment on above: Expected: 04/27/2024 (Approximate), Expires: 04/27/2025 Start: 04-27-2024 End: 04-27-2025 Drugs of abuse panel - Urine by Screen method Rapid drug screen, urine Lab Routine , unspecified gestational age Encounter for supervision of normal first in first trimester Expected: 04/27/2024 (Approximate), Expires: 04/27/2025 [facility] Comment on above: Expected: 04/27/2024 (Approximate), Expires: 04/27/2025 Bacteria identified in Urine by Culture Urine culture Microbiology Routine Missed menses Ordered: 04/27/2024 [facility] Comment on above: Ordered: 04/27/2024 CBC W Auto Different ial panel - Blood CBC and differential Lab Routine Missed menses , unspecified gestational age Ordered: 04/27/2024 [facility] Comment on above: Ordered: 04/27/2024 CHLAMYDIA TRACHOMATI S (GENITO/STI) CHLAMYDIA TRACHOMATIS (GENITO/STI) Lab Routine Exposure to STD Ordered: 07/11/2024 [facility] Comment on above: Ordered: 07/11/2024 Cytology Cervical or vaginal smear or scraping study Pap Smear Pathology and Cytology Routine Well woman exam with routine gynecological exam Ordered: 07/11/2024 [facility] Comment on above: Ordered: 07/11/2024 Hemoglobin A1c/Hemoglobin.total in Blood Hemoglobin A1c Lab Routine Missed menses , unspecified gestational age Ordered: 04/27/2024 [facility] Comment on above: Ordered: 04/27/2024 Hepatitis B virus surface Ag [Presence] in Serum or Plasma by Immunoassay Hepatitis B surface antigen Lab Routine Missed menses , unspecified gestational age Ordered: 04/27/2024 [facility] Comment on above: Ordered: 04/27/2024 Hepatitis C virus Ab [Presence] in Serum or Plasma by Immunoassay Hepatitis C antibody Lab Routine Missed menses , unspecified gestational age Ordered: 04/27/2024 [facility] Comment on above: Ordered: 04/27/2024 HIV-1/HIV-2 antigen/antibody combination immunoassay HIV-1 and HIV-2 antibodies Lab Routine Missed menses , unspecified gestational age Ordered: 04/27/2024 [facility] Comment on above: Ordered: 04/27/2024 Neisseria gonorrhoea e DNA [Presence] in Unspecified specimen by FLORENCIO with probe detection Neisseria gonorrhea DNA probe, direct Lab Routine Exposure to STD Ordered: 07/11/2024 [facility] Comment on above: Ordered: 07/11/2024 Reagin Ab [Presence] in Serum by RPR RPR Lab Routine Missed menses , unspecified gestational age Ordered: 04/27/2024 [facility] Comment on above: Ordered: 04/27/2024 Rubella antibody, IgG Rubella an tibody, IgG Lab Routine Missed menses , unspecified gestational age Ordered: 04/27/2024 [facility] Comment on above: Ordered: 04/27/2024 SURESWAB(R) ADVANCED VAGINITIS PLUS, TMA SURESWAB(R) ADVANCED VAGINITIS PLUS, TMA Pathology and Cytology Routine Vaginal discharge Ordered: 07/11/2024 [facility] Work Phone: Comment on above: Ordered: 07/11/2024 Payers Date Payer Category Payer Medicaid [id number] 2024 Medicare MEDICARE MEDICAR E A AND B [id number] 2024-Present [phone] [place] [address] Medicare [id number] 1994 Unknown [id number] [id number] 1994 Unknown [id number] [id number] 1994 Unknown [id number] 2.16.840.1.257896.3.579.2.593 1994 Unknown [id number] 2.16.840.1.487245.3.579.2.593 1994 Unknown [id number] 2.16.840.1.385350.3.579.2.593 1994 Unknown [id number] 2.16.840.1.144618.3.579.2.593 1994 Unknown [id number] 2.16.840.1.808322.3.579.2.593 1994 Unknown [id number] 2.16.840.1.290071.3.579.2.593 1994 Unknown [id number] 2.16.840.1.852505.3.579.2.593 1994 Unknown [id number] 2.16.840.1.027683.3.579.2.1286 1994 Unknown [id number] 2.16.840.1.567821.3.579.2.1259 1994 Unknown [id number] 2.16.840.1.682326.3.579.2.1259 1994 Unknown [id number] 2.16.840.1.833033.3.579.2.1259 1994 Unknown [id number] 2.16.840.1.194696.3.579.2.1259 1994 Unknown [id number] 2.16.840.1.470243.3.579.2.1259 1994 Unknown [id number] 2.16.840.1.807286.3.579.2.1259 1960 Medicaid [id number] 1960 Self-pay 1959 Unknown [id number] Unknown [id number] Social History Date Type Detail Facility Tobacco smoking stat [facility] Tobacco smoking consumption unknown [facility] Start: 1995 Sex assigned at Not on file [facility] Start: 04-24-2024 Gender identity Not on file [facility] Start: 10-26-2022 Tobacco smoking stat [facility] Smokes tobacco daily [facility] History of [...] nursing note reviewed. Exam conducted with a county bailiff present. Vitals: Estimated body mass index is [...] Riya Gomez NP documented in this encounter [facility] 07-11-2024 History of Presen t illness Narrative [...] nursing note reviewed. Exam conducted with a county bailiff present. Vitals: Estimated body mass index is [...] Valente Pfeiffer DO documented in this encounter [facility] 05-29-2024 History of Presen t illness Narrative [...] nursing note reviewed. Exam conducted with a county bailiff present. Vitals: Estimated body mass index is [...] or undercooked meat, and stay away from [facility]. Patient has been consulted regarding any further do's and don'ts of . Patient voiced understanding and all questions and concerns were answered. Orders Placed This Encounter Procedures Alpha fetoprotein, maternal POCT urinalysis dipstick manually resulted Follow Up: Patient is to return in 4 weeks for routine OB appointment. Documented by Rupali Ribeiro LPN on behalf of: Valente Pfeiffre DO documented in this encounter [facility] 04-27-2024 History of Presen t illness Narrative [...] or undercooked meat, and stay away from [facility]. Patient has also been advised to [...] Rhea Jones MA documented in this encounter [facility] 01-11-2024 Telephone encount er Note Images from [...] for Covid? No, had 1 time no terminal makeup operator side effects Overall general health: Patient reports [...] Karina Shi, SHANNON Living Liver Donor Coordinator [facility] 01-11-2024 Miscellaneous Notes Formattin g of [...] for Covid? No, had 1 time no terminal makeup operator side effects Overall general health: Patient reports [...] Liver Donor Coordinator documented in this encounter [facility] 01-11-2024 Telephone encount er Note Living [...] Yes Online intake has been scanned to [facility] for review by the living donor coordinator. [facility] 01-11-2024 Miscellaneous Notes Formattin g of [...] Yes Online intake has been scanned to [facility] for review by the living donor coordinator. documented in this encounter [facility] Evaluation note Diagnosis Liver donor- Primary [facility] Missed menses 11 weeks gestation of , unspecified gestational age Encounter for supervision of normal first in first trimester documented in this encounter [facility] HealthcareEvaluation note* Diagnosis 15 weeks gestation of Second trimester state, incidental documented in this encounter [facility] HealthcareEvaluation note* Diagnosis 21 weeks gestation of Second trimester state, incidental Screening, , for anatomic survey Encounter for anatomic survey Exposure to STD Vaginal discharge Leukorrhea, not specified as infective Well woman exam with routine gynecological exam Routine gynecological examination documented in this encounter [facility] HealthcareEvaluation note* Diagnosis 27 weeks gestation of Second trimester state, incidental Diabetes mellitus screening Screening for diabetes mellitus documented in this encounter [facility] Summary Purpose Family History [...] VENOUS BLOOD VENIPUNCTURE Cristina Tovar MD [address] [place] [address] [facility] [address] [address] Referral ID Status Reason Start Date Expiration Date Visits Requested Visits Authorized [id number] Authorized PCP Requested Referral Financial Clearance Required - [employer]or 01/11/2024 01/10/2025 99 [phone] Additional Source Comments INFORMATION SOURCE (unrecogn ized section and content) DATE CREATED AUTHOR 09/06/2022 [facility] DATE CREATED AUTHOR AUTHOR'S ORGANIZ ATION 01/28/2024 [facility] DATE CREATED AUTHOR AUTHOR'S ORGANIZ ATION 04/16/2024 [facility] DATE CREATED AUTHOR AUTHOR'S ORGANIZ ATION 09/27/2024 [facility] EPIC Source Comments (unrecognize d section and content) In the event this informatio n is protected by the Federal Confidentiality of Alcohol and Drug Abuse Patient Records regulations: The Federal rules restrict any use of the information to criminally investigate or prosecute any alcohol or drug abuse patient[facility] the event this information is protected by the Federal Confidentiality of Alcohol and Drug Abuse Patient Records regulations: The Federal rules restrict any use of the information to criminally investigate or prosecute any alcohol or drug abuse patient.[facility] Reason for Visit (unrecogniz ed section and content) Reason Comments Referral - Donor Txp Reason Comments Amenorrhea Reason Comments Routine Visit Care Teams (unrecognized sec tion and content) Dressing Room Attendant Relationship Specialty Start Date End Date Dayron Kimbrough MD [address] [place] [address] PCP - General Family Medicine 09/16/22 Dressing Room Attendant Relationship Specialty Start Date End Date Dayron Kimbrough MD [address] [place] [address] PCP - General Family Medicine 09/16/22 Dressing Room Attendant Relationship Specialty Start Date End Date Dayron Kimbrough MD [address] [place] [address] PCP - General Family Medicine 09/16/22 Dressing Room Attendant Relationship Specialty Start Date End Date Dayron Kimbrough MD [address] [place] [address] PCP - General Family Medicine 09/16/22 Dressing Room Attendant Relationship Specialty Start Date End Date Dayron Kimbrough MD [address] [place] [address] PCP - General [facility] 09/16/22 Dressing Room Attendant Relationship Specialty Start Date End Date Dayron Kimbrough MD PCP - General Family Medicine 09/16/22 Dressing Room Attendant Relationship Specialty Start Date End Date Dayron Kimbrough MD PCP - General Family Medicine 09/16/22 Dressing Room Attendant Relationship Specialty Start Date End Date Dayron Kimbrough MD PCP - General Family Medicine 09/16/22 Dressing Room Attendant Relationship Specialty Start Date End Date Dayron [...] BE BASED ON THE PRIMARY CLINICAL RECORDS. [facility] [employer] [facility]. provides no warranty or guarantee of the accuracy or completeness of information in this document.
[2024-09-30 19:58] LABS: Creatinine Urine Random 129.24 mg/dL (20.00-300.00); Protein Creatinine Ratio Urine 0.23; Total Protein Urine Random 29.2 mg/dL (<=11.9)
[2024-09-30] MEDS: 0.9 % SODIUM CHLORIDE 1,000 ML 999 ML IV (21:00)
[2024-09-30] MEDS: ACETAMINOPHEN 500 MG TABLET 1000 MG PO (21:24)
[2024-09-30] MEDS: 0.9 % SODIUM CHLORIDE 1,000 ML 150 ML IV (22:05)
== END 2024-09-30 22:44 | disposition home or self-care (01) ==
LOC: ER 19:31 → FBC 19:49
PROVIDERS: Admitting Provider Obstetrics & Gynecology; Emergency Provider Emergency Medicine; Visit Provider Obstetrics & Gynecology
DX: O26.893 Other specified pregnancy related conditions, third trimester (principal); R00.2 Palpitations; O23.43 Unspecified infection of urinary tract in pregnancy, third trimester; N39.0 Urinary tract infection, site not specified; Z3A.33 33 weeks gestation of pregnancy
CPT/HCPCS: 36415; 59025; 71045; 80048; 80076; 81001; 82150; 82570; 83615; 83690; 84156; 84550; 85025; 87086; 93005; 99285; G0378

== ENCOUNTER 2024-10-23 11:20 | Outpatient (OUT) | payer MEDICAID, SELFPAY ==
--- OUTSIDE RECORDS SUMMARY | 2024-10-09 10:30 | XMS_ITS | Encounter Summary ---
Author Organization [facility] Address [address] [place] [address] Care Team Providers Care Handkerchief Maker Name Role Phone Sabas Kimbrough MD Primary Care Provider [phone] Encounter Details Date Type Department Care Team (Late st Contact Info) Description 10/09/2024 10:30 AM EDT Routine [facility] [address] [place] [address] Randall Pfeiffer, DO [address] [place] [address] 34 weeks gestation of ([facility]); Third trimester fetus ([facility]) Social History Tobacco Use Types Packs/Day Years Used Date Smoking Tobacco: Every Day Cigarettes Comments:Patient smokes 11-2 0 cigarettes/day after 6-30 minutes of waking up. Alcohol Use Standard Drinks/Week Comments Not Currently 0 (1 standard drink = 0.6 oz pur e alcohol) Estimated Date of Delivery Comme nts Yes 11/16/2024 Based on last me nstrual period of 02/10/2024 Sex and Gender Information Value Date Recorded Sex Assigned at Not on file Legal Sex Female 11:46 PM EDT Gender Identity Not on file Sexual Orientation Not on file documented as of this encounter Last Filed Vital Signs Vital Sign Reading Time Taken Comments Blood Pressure 128/86 10/09/2024 10:34 AM EDT Pulse - - Temperature - - Respiratory Rate - - Oxygen Saturation - - Inhaled Oxygen Concentration - - Weight 82.5 kg (181 lb 12.8 oz) 025 10:34 AM EDT Height - - Body Mass Index 30.25 09/01/2022 12:00 PM EDT documented in this encounter Progress Notes * MEÑO Bowles - 10/09/2024 10:30 AM EDT Reason for Appointment: Patient ID: Loraine Nieto is a 28 y.o. female who presents for No chief complaint on file. Patient presents today for Return OB appointment. MEDICATIONS Current Outpatient Medications Medication Instructions ondansetron (ZOFRAN) 4 mg, Every 8 hours PRN MV-Min-Fe Fum-FA-DHA ( 1 PO) Take by mouth. ALLERGIES Allergies Allergen Reactions Pollen Extract Unknown PROBLEMS Active Ambulatory Problems Diagnosis Date Noted Vaginal bleeding 10/22/2022 34 weeks gestation of ([facility]) 10/09/2024 Third trimester fetus ([facility]) 10/09/2024 Resolved Ambulatory Problems Diagnosis Date Noted No Resolved Ambulatory Problems No Additional Past Medical History HISTORY PAST MEDICAL HISTORY SOCIAL HISTORY No past medical history on file. Social History Tobacco Use Smoking status: Every Day Current packs/day: 1.00 Types: Cigarettes Smokeless tobacco: Not on file Tobacco comments: Patient smokes 11-20 cigarettes/day after 6-30 minutes of waking up. Substance Use Topics Alcohol use: Not Currently Drug use: Yes Types: Marijuana Comment: for nausea FAMILY HISTORY Family History Problem Relation Name Age of Onset Other (Overdose (OD)) Brother SURGICAL HISTORY No past surgical history on file. REVIEW OF SYSTEMS Review of Systems: Review of Systems Constitutional: Negative. HENT: Negative. Eyes: Negative. Respiratory: Negative. Cardiovascular: Negative. Gastrointestinal: Negative. Genitourinary: Negative. Musculoskeletal: Negative. Skin: Negative. Neurological: Negative. All other systems reviewed and are negative. Hematological: Negative. Endocrine: Negative. Allergic/Immunologic: Negative. OBJECTIVE Objective: Physical Exam Constitutional: Appearance: Normal appearance. She is normal weight. HENT: Head: Normocephalic. Cardiovascular: Rate and Rhythm: Normal rate. Pulses: Normal pulses. Pulmonary: Effort: Pulmonary effort is normal. Breath sounds: Normal breath sounds. Abdominal: Palpations: Abdomen is soft. Musculoskeletal: General: Normal range of motion. Neurological: General: No focal deficit present. Mental Status: She is alert and oriented to person, place, and time. Psychiatric: Mood and Affect: Mood normal. Behavior: Behavior normal. Thought Content: Thought content normal. Judgment: Judgment normal. Vitals and nursing note reviewed. Vitals: Estimated body mass index is 30.25 kg/m?? as calculated from the following: Height as of 09/01/22: 5' 5 . Weight as of this encounter: 181 lb 12.8 oz. BP: Patient's last menstrual period was 02/10/2024. ASSESSMENT & PLAN ICD-10-CM 1. 34 weeks gestation of ([facility]) Z3A.34 POCT urinalysis dipstick manually resulted 2. Third trimester fetus ([facility]) Z34.93 POCT urinalysis dipstick manually resulted Return OB: Patient presents today for a routine obstetrics appointment. Patient is currently 34w4d . Patient states she is doing well but has complaints of being tired due to current . Patient has verbalizes frequent movement. labor precautions was discussed/given and patient was instructed to perform kick counts three times a day. Orders Placed This Encounter Procedures POCT urinalysis dipstick manually resulted Follow Up: Patient is to return to office in 1 week for routine OB appointment. Documented by MEÑO Bowles on behalf of: Randall Pfeiffer DO documented in this encounter Plan of Treatment Upcoming Encounters Date Type Department Care Team (Late st Contact Info) Description 10/30/2024 9:00 AM EDT Routine [facility] [address] [place] [phone] Randall Pfeiffer DO [address] [place] [address] documented as of this encounter Procedures Procedure Name Priority Date/Time Associated Diagnosis Comments POCT URINALYSIS DIPSTICK Routine 10/09/2024 10:39 AM EDT 34 weeks gestation of ([facility]) Third trimester fetus ([facility]) documented in this encounter Results * (ABNORMAL) POCT urinalysis dipstick manually resulted (10/09/2024 10:39 AM EDT) Color, UA Yellow Clarity, UA Clear Glucose, UA Negative Negative - 2000(110) ++++ mg/dL Bilirubin, UA Negative Negative - 4(70) +++ mg/dL Ketones, UA Negative Negative - 160(16) ++++ mg/dL Spec Grav, UA 1.020 1 - 1.03 Blood, UA Negative Negative - 50 Wali/mcL pH, UA 7.0 5 - 9 Protein, UA Positive Negative - 1999(20) ++++ mg/dL Comment:30mg/dL Urobilinogen, UA 0.2 0.2 - 12 mg/dL Leukocytes, UA Trace Negative - 500+++ Dmitriy/mcL Comment:small Nitrite, UA Negative Negative - Positive Urine 10/09/2024 10:3 9 AM EDT Randall Pfeiffer DO POINT OF CARE TEST ENTER/EDIT OR DERABLES Final Result documented in this encounter Visit Diagnoses Diagnosis 34 weeks gestation of ([facility]) Third trimester fetus ([facility]) documented in this encounter Care Teams Handkerchief Maker Relationship Specialty Start Date End Date Sabas Kimbrough MD [address] [place] [address] PCP - General Family Medicine 09/16/22 documented as of this encounter
--- OUTSIDE RECORDS SUMMARY | 2024-10-23 10:20 | XMS_ITS | Encounter Summary ---
Author Organization [facility] Address [address] [place] [address] Care Team Providers Care Gre Tutor Name Role Phone Sabas Kimbrough MD Primary Care Provider + [phone] Reason for Visit * Reason Comments Routine Visit Encounter Details Date Type Department Care Team (Latest Contact Info) Description 10/23/2024 10:20 AM EDT Routine [facility] [address] [place] [phone] Lisset Eric PA [address] [place], [place] [phone] Third trimester ([facility] 36 weeks gestation of ([facility]); size inconsistent with dates ([facility]); induced hypertension, antepartum ([facility]) Social History Tobacco Use Types Packs/Day Years [...] Vaginal bleeding 10/22/2022 34 weeks gestation of ([facility]) 10/09/2024 Third trimester fetus ([facility]) 10/09/2024 Resolved Ambulatory Problems Diagnosis Date [...] ASSESSMENT & PLAN ICD-10-CM 1. Third trimester ([facility]) Z34.93 CULTURE, GROUP B STREP WITH SUSCEPTIBLITY CULTURE, GROUP B STREP WITH SUSCEPTIBLITY POCT urinalysis dipstick manually resulted 2. 36 weeks gestation of ([facility]) Z3A.36 POCT urinalysis dipstick manually resulted 3. size inconsistent with dates ([facility]) O26.849 US OB follow up transabdominal approach 4. induced hypertension, antepartum ([facility]) O13.9 Creatinine Protein, urine, 24 hour Pt [...] for routine OB appointment Documented by Gabrielle Glagsow LPN on behalf of: MEÑO Bowles documented in this encounter Plan of Treatment Upcoming Encounters Date Type Department Care Team (Late st Contact Info) Description 10/30/2024 9:00 AM EDT Routine [facility] [address] [phone] Randall Pfeiffer, DO [address] [place] [address] Scheduled Orders Name Type Priority Associated Diagnoses Orde r Schedule CULTURE, GROUP B STREP WITH SUSCEPTIBLITY Lab Routine Third trimester ([facility]) Expected: 10/23/2024, Expires: 10/23/2025 OB follow up transabdominal approach Imaging Routine size inconsistent with dates ([facility]) Expected: 10/23/2024, Expires: 02/23/2025 Creatinine Lab Routine induced hypertension, antepartum ([facility]) Expected: 10/23/2024 (Approximate), Expires: 10/23/2025 Protein, urine, [...] 10/23/2025 BUN Lab Routine induced hypertension, antepartum ([facility]) Expected: 10/23/2024, Expires: 10/23/2025 documented as of this encounter Procedures Procedure Name Priority Date/Time Associated Diagnosis Comments POCT URINALYSIS DIPSTICK Routine 10/23/2024 10:48 AM EDT Third trimester ([facility]) 36 weeks gestation of ([facility]) documented in this encounter Results * (ABNORMAL) [...] this encounter Visit Diagnoses Diagnosis Third trimester ([facility]) state, incidental 36 weeks gestation of ([facility]) size inconsistent with dates ([facility]) induced hypertension, antepartum ([facility]) Transient hypertension of , antepartum documented in this encounter Care Teams Gre Tutor Relationship Specialty [place] [address] [place] [id number] PCP - General Family Medicine 09/16/22 documented as of this encounter
--- OUTSIDE RECORDS SUMMARY | 2024-10-23 11:24 | XMS_ITS | Clinical Summary ---
Author Organization [facility] Healthcare Address [address] [place] [address] Care Team Providers Care Collection Administrator Name Role Phone Sabas Kimbrough MD Primary Care Provider +1 [phone] Allergies Active Allergy Reactions Criticality Noted Date Comments Pollen Extract Unknown 09/15/2022 Medications MV-Min-Fe Fum-FA-DHA ( 1 PO) Take by mouth. Active ondansetron (Zofran) 4 MG tablet Take 4 mg by mouth every 8 (eight) hours if needed 04/12/2024 Active Active Problems Problem Noted Date Diagnosed Date 34 weeks gestation of ([facility]) 2024 Third trimester fetus ([facility]) 10/09/2024 Vaginal bleeding 10/22/2022 Estimated Date of Delivery Comme nts Yes 11/16/2024 Based on last me nstrual period of 02/10/2024 Encounters Date Type Department Care Team Description 10/23/2024 10:20 AM EDT Routine [facility] [address] [place] [address] Lisset Eric PA Third trimester ([facility]); 36 weeks gestation of ([facility]); size inconsistent with dates ([facility]); induced hypertension, antepartum ([facility]) 10/23/2024 Bamboo flowsheet [facility] [address] [place] [address] Lisset Eric PA 10/09/2024 10:30 AM EDT [facility] [place] [address] Randall Pfeiffre DO 34 weeks gestation of ([facility]); Third trimester fetus ([facility]) 10/09/2024 Bamboo flowsheet [facility] [address] [place] [address] Randall Pfeiffer, 09/30/2024 Clinisync Result Encounter [facility] External Department Unsolicited Randall Pfeiffer, 09/26/2024 9:30 AM EDT Routine [facility] [address] [place] [address] Riya Gomez NP Third trimester ([facility]); 32 weeks gestation of ([facility]) 09/26/2024 Bamboo flowsheet [facility] [address] [place] [address] Riya Gomez NP 08/24/2024 Clinisync Result Encounter [facility] External Department Unsolicited Riya Gomez NP 08/23/2024 10:20 AM EDT Routine [facility] [address] [place] [address] Riya Gomez NP 27 weeks gestation of ([facility]); Second trimester ([facility]); Diabetes mellitus screening 08/23/2024 Bamboo flowsheet [facility] [address] [place] [address] Riya Gomez NP 08/17/2024 Abstract [facility] [address] [place] [address] Randall Pfeiffer DO from Last 3 Months Family History Medical History Relation Name Comments Overdose (OD) Brother 1 Relation Name Status Comments Brother 1 Brother 2 Alive Father Alive Mother Alive Social History Tobacco Use Types Packs/Day Years Used Date Smoking Tobacco: Every Day Cigarettes Tobacco Cessation:Ready to Q uit: Yes; Counseling Given: Not Answered Comments:Patient smokes 11-20 cigarettes/day after 6-30 minutes of [...] on file Sexual Orientation Not on file Last Filed Vital Signs Vital Sign Reading Time Taken Comments Blood Pressure 130/80 10/23/2024 10:40 AM EDT Pulse - - Temperature - - Respiratory Rate - - Oxygen Saturation - - Inhaled Oxygen Concentration - - Weight 81.1 kg (178 lb 12.8 oz) 025 10:40 AM EDT Height 165.1 cm (5' 5 ) 09/01/2022 12:0 0 PM EDT Body Mass Index 29.75 09/01/2022 12:00 PM EDT Plan of Treatment Upcoming Encounters Date Type Department Care Team (Late st Contact Info) Description 10/30/2024 9:00 AM EDT Routine [facility] [address] [place] [address] Randall Pfeiffer, DO [address] [place] [address] Procedures Procedure Name Priority Date/Time Associated Diagnosis Comments POCT URINALYSIS DIPSTICK Routine 10/23/2024 10:48 AM EDT Third trimester ([facility]) 36 weeks gestation of ([facility]) POCT URINALYSIS DIPSTICK Routine 10/09/2024 10:39 AM EDT 34 weeks gestation of ([facility]) Third trimester fetus ([facility]) [facility] URINE T PROTEIN CREAT RATIO Routine 09/30/2024 6:26 PM EDT POCT URINALYSIS DIPSTICK Routine 09/26/2024 9:45 AM EDT Third trimester ([facility]) ALL CBC WITH AUTO DIFF Routine 08/24/2024 11:47 AM EDT GLUCOSE 1 HOUR Routine 08/24/2024 11:47 AM EDT POCT URINALYSIS DIPSTICK Routine 08/23/2024 10:46 AM EDT 27 weeks gestation of ([facility]) Second trimester ([facility]) Diabetes mellitus screening from Last 3 Months Results * (ABNORMAL) POCT urinalysis dipstick manually resulted (10/23/2024 10:48 AM EDT) Only the most recent of4 resultswithin the time period is included. Color, UA Yellow Clarity, UA Clear Glucose, [...] CARE TEST ENTER/EDIT OR DERABLES Final Result * (ABNORMAL) TBH URINE T PROTEIN CREAT RATIO (09/30/2024 6:26 PM EDT) TOTAL PROTEIN URINE RANDOM 29.2(H) <=11.9 mg/dL TBH CREATININE URINE RANDOM 129.24 20.00 - 300.00 mg/dL TBH PROTEIN CREATININE RATIO URINE 0.23 TBH 09/30/2024 6:26 PM EDT 09/30/2024 7:51 PM EDT Narrative CLINIS[facility]NC - 09/30/2024 7:59 PM EDT Randall Anthonyzio DO CLINIS[facility] Final Result [facility] TB * GLUCOSE 1 HOUR (08/24/2024 11:47 AM EDT) GLUCOSE 1 HOUR 86 <130 mg/dL TBH 08/24/2024 11:4 7 AM EDT 08/24/2024 11:53 AM EDT Narrative [facility] - 08/24/2024 12:25 PM EDT Riya Gomez SOLID FIBER PASTER OPERATOR LAB BLOOD ORDERABLES Final Re sult Performing Organization Address City/[facility]/ZIP Co de Phone Number CLINISYWI TB * (ABNORMAL) ALL CBC WITH AUTO DIFF (08/24/2024 11:47 AM EDT) TB WBC 11.7(H) 4.0 - 11.0 10 3/uL TBH TBH RBC 3.81(L) 4.20 - 5.40 10 6/uL TBH TBH HGB 11.0(L) 12.0 - 16.0 g/dL TB TB HCT 33.6(L) 36.0 - 48.0 % TBH TBH MCV 88.2 81.0 - 99.0 fL TBH TBH MCH 28.9 26.7 - 34.0 pg TBH TBH MCHC 32.7 29.9 - 35.2 g/dL TB TBH RDW 13.9 11.0 - 15.0 % TBH TBH PLT 187 150 - 450 10 3/uL TBH TBH MPV 11.3 9.5 - 13.5 fL TBH NEUTROPHILS PERCENT AUTO 74.0 43.0 - 75.0 % TBH LYMPHOCYTES PERCENT AUTO 18.6(L) 20.5 - 60.0 % TBH MONOCYTES PERCENT AUTO 5.5 1.7 - 12.0 % TBH TBH EO % 0.6(L) 0.9 - 7.0 % TBH BASOPHILS PERCENT AUTO 0.3 0.2 - 2.0 % TBH IMMATURE GRANULOCYTES PCT AUTO 1.0(H) 0.0 - 0.5 % TBH NEUTROPHILS ABSOLUTE AUTO 8.7(H) 1.4 - 6.5 10 3/uL TBH LYMPHOCYTES ABSOLUTE AUTO 2.2 1.2 - 3.8 10 3/uL TBH MONOCYTES ABSOLUTE AUTO 0.7 0.3 - 0.8 10 3/uL TBH TBH EO # 0.1 0.0 - 0.7 10 3/uL TBH BASOPHILS ABSOLUTE AUTO 0.0 0.0 - 0.1 10 3/uL TBH IMMATURE GRANULOCYTES ABS AUTO 0.12(H) 0.00 - 0.03 10 3/uL TBH 08/24/2024 11:4 7 AM EDT 08/24/2024 11:53 AM EDT Narrative CLIN[facility] - 08/24/2024 12:26 PM EDT Riya Gomez SOLID FIBER PASTER OPERATOR CLINIS[facility]NC Final Result [facility]IN[facility]NC TBH from Last 3 Months Insurance [employer] [place] Care Teams Collection Administrator Relationship Specialty Start Date End Date Sabas Kimbrough MD [address] [facility] [place] [address] PCP - General Family Medicine 09/16/22
--- OUTSIDE RECORDS SUMMARY | 2024-10-23 11:24 | XMS_ITS | Encounter Summary ---
Author Organization [facility] Address [address] [place] [address] Care Team Providers Care Home Manager Name Role Phone Dayron Kimbrough MD Primary Care Provider + [phone] Encounter Details Date Type Department Care Team (Late st Contact Info) Description 09/16/2022 Clinisync Result Encounter [facility] External Department Unsolicited Randall Pfeiffer, [facility] [place] [address] Social History Tobacco Use Types Packs/Day Years Used Date Smoking Tobacco: Never Assessed Comments Yes Sex and Gender Information Value Date Recorded Sex Assigned at Not on file Legal Sex Female 11:46 PM EDT Gender Identity Not on file Sexual Orientation Not on file documented as of this encounter Plan of Treatment Upcoming Encounters Date Type Department Care Team (Late st Contact Info) Description 10/30/2024 9:00 AM EDT Routine [facility] [address] [facility] [place] [phone] Randall Pfeiffer [facility] [place] [address] documented as of this encounter Procedures Procedure Name Priority Date/Time Associated Diagnosis Comments US PREG GROWTH 09/16/2022 11:18 AM EDT documented in this encounter Results * US PREG GROWTH (09/16/2022 11:18 AM EDT) Anatomical Region Laterality Modality Other 09/16/2022 11:1 8 AM EDT Narrative 09/16/2022 4:20 PM EDT EXAMINATION: US PREG GROWTH HISTORY: Small for gestational age fetus COMPARISON: No relevant comparison available. FINDINGS: Heart Rate: 152.0 bpm Amniotic Fluid Volume: 11.6 cm Number: 1.0 Position: Cephalic Maximum Vertical Pocket: 3.0 cm cm 2.9 cm cm 3.0 cm cm 2.7 cm cm BIOMETRY: BPD: 7.9 cm cm; 31 weeks 4 days; 27% HC: 29.1 cmcm; 32 weeks 0 days, 16% AC: 25.6 cm cm; 29 weeks 6 days, 4% FL: 5.8 cm cm; 30 weeks 2 days; 5.4 % % EFW: 1548.2 grams, 3 lbs. 7 oz., 5% FL/AC: 22.6 FL/BPD: 73.7 HC/AC: 1.1 GESTATIONAL AGE: Age by EDC: 32 weeks 0 days LES by EDC: 11/11/2022 Age by US: 31 weeks 0 days LES by US: 11/18/2022 IMPRESSION: Abdominal circumference, femur length and estimated weight at or below the 5th percentile, intrauterine growth retardation Electronically authenticated by: DAYRON AYON Date: 2022-09-16 16:20 Procedure Note Radiology, Radiologist, MD - 09/16/2022 EXAMINATION: US PREG GROWTH HISTORY: Small for gestational age fetus COMPARISON: No relevant comparison available. FINDINGS: Heart Rate: 152.0 bpm Amniotic Fluid Volume: 11.6 cm Number: 1.0 Position: Cephalic Maximum Vertical Pocket: 3.0 cm cm 2.9 cm cm 3.0 cm cm 2.7 cm cm BIOMETRY: BPD: 7.9 cm cm; 31 weeks 4 days; 27% HC: 29.1 cmcm; 32 weeks 0 days, 16% AC: 25.6 cm cm; 29 weeks 6 days, 4% FL: 5.8 cm cm; 30 weeks 2 days; 5.4 % % EFW: 1548.2 grams, 3 lbs. 7 oz., 5% FL/AC: 22.6 FL/BPD: 73.7 HC/AC: 1.1 GESTATIONAL AGE: Age by EDC: 32 weeks 0 days LES by EDC: 11/11/2022 Age by US: 31 weeks 0 days LES by US: 11/18/2022 IMPRESSION: Abdominal circumference, femur length and estimated weight at orbelow the 5th percentile, intrauterine growth retardation Electronically authenticated by: DAYRON AYON Date: 2022-09-16 16:20 us Randlal Rubino DO [facility] IMAGING Final Result documented in this encounter Visit Diagnoses Not on filedocumented in this encounter Care Teams Home Manager Relationship Specialty Start Date End Date Dayron Kimbrough MD [address] [facility] [place] [address] PCP - General Family Medicine 09/16/22 documented as of this encounter
--- OUTSIDE RECORDS SUMMARY | 2024-10-23 11:24 | XMS_ITS | Encounter Summary ---
Author Organization [facility] Address [address] [place] [address] Care Team Providers Care Programming Development Project Manager Name Role Phone Sabas Kimbrough MD Primary Care Provider [phone] Encounter Details Date Type Department Care Team (Late Contact Info) Description 05/29/2024 Abstract [facility] [address] [place] [address] Randall Pfeiffer [facility] [address] [place], [place] [id number] Social History Tobacco Use Types Packs/Day Years [...] Encounters Date Type Department Care Team (Late Contact Info) Description 10/30/2024 9:00 AM EDT Routine [facility] OB [address] [place] [address] Randall Pfeiffer, [facility] [place] [place], [place] [id number] documented as of this encounter Visit Diagnoses Not on filedocumented in this encounter Care Teams Programming Development Project Manager Relationship Specialty Start Date End Date Sabas Kimbrough MD [address] [facility] [place] [address] PCP - General Family Medicine 09/16/22 documented as of this encounter
--- OUTSIDE RECORDS SUMMARY | 2024-10-23 11:24 | XMS_ITS | Encounter Summary ---
Author Organization [facility] Address [address] [facility] [place] [address] Care Team Providers Care Security Services Manager Name Role Phone Sabas Kimbrough MD Primary Care Provider [phone] Encounter Details Date Type Department Care Team (Late Contact Info) Description 06/04/2024 Abstract [facility] [address] [place] [phone] Randall Pfeiffer [facility] [place] [place], [place] [id number] Social History Tobacco Use Types Packs/Day Years [...] Description 10/30/2024 9:00 AM EDT Routine [facility] OB [address] [place] [address] Randall Pfeiffer, [facility] [place], [place] [id number] documented as of this encounter Visit Diagnoses Not on filedocumented in this encounter Care Teams Security Services Manager Relationship Specialty Start Date End Date Sabas Kimbrough MD [address] [facility] [place] [address] PCP - General Family Medicine 09/16/22 documented as of this encounter
--- OUTSIDE RECORDS SUMMARY | 2024-10-23 11:24 | XMS_ITS | Encounter Summary ---
Author Organization [facility] Address [address] [place] [address] Care Team Providers Care [place] Doughnut Name Role Phone Sabas Kimbrough MD Primary Care Provider [phone] Encounter Details Date Type Department Care Team ([facility] Contact Info) Description 12/22/2022 Abstract [facility] OB [address] [place] [address] [place] [address] Lisset Eric PA [address] [place] [address] [place], [facility] Social History Tobacco Use Types Packs/Day Years Used Date Smoking Tobacco: Every Day Cigarettes Tobacco Cessation:Ready to Q uit: Yes; Counseling Given: Not Answered Comments:Patient smokes 11-20 cigarettes/day after 6-30 minutes of waking up. Alcohol Use Standard Drinks/Week Comments Not Currently 0 (1 standard drink = 0.6 oz pur e alcohol) Comments Yes Sex and Gender Information Value Date Recorded Sex Assigned at Not on file Legal Sex Female 11:46 PM EDT Gender Identity Not on file Sexual Orientation Not on file documented as of this encounter Plan of Treatment Upcoming Encounters Date Type Department Care Team ([facility] Contact Info) Description 10/30/2024 9:00 AM EDT Routine [facility] OB [address] [place] [address] [place] [address] Randall Pfeiffer [address] [place] [address] documented as of this encounter Visit Diagnoses Not on filedocumented in this encounter Care Teams [place] Doughnut Relationship Specialty Start Date End Date Sabas Kimbrough MD [address] [place] [address] PCP - General Family Medicine 09/16/22 documented as of this encounter
--- OUTSIDE RECORDS SUMMARY | 2024-10-23 11:24 | XMS_ITS | Encounter Summary ---
Author Organization [facility] Address [address] [facility] [place] [address] Care Team Providers Care Oven [place] Name Role Phone Sabas Kimbrough MD Primary Care Provider [phone] Encounter Details Date Type Department Care Team (Late Contact Info) Description 11/05/2022 Abstract [facility] OB [address] [place] [address] [place] [address] [address] [place], [place] [id number] Social History Tobacco Use Types Packs/Day Years [...] on file Sexual Orientation Not on file COVID-19 Exposure Response Date Recorded In the last 10 days, have yo u been in contact with someone who was confirmed or suspected to have Coronavirus/COVID-19? No / Unsure 11/03/2022 9:55 AM EDT documented as of this encounter Plan of Treatment Upcoming Encounters Date Type Department Care Team (Late Contact Info) Description 10/30/2024 9:00 AM EDT Routine [facility] OB [address] [place] [address] Randall Pfeiffer, [facility] [place] [place], [place] [id number] documented as of this encounter Visit Diagnoses Not on filedocumented in this encounter Care Teams Oven [place] Relationship Specialty Start Date End Date Sabas Kimbrough MD [address] [place] [address] PCP - General Family Medicine 09/16/22 documented as of this encounter
--- OUTSIDE RECORDS SUMMARY | 2024-10-23 11:24 | XMS_ITS | Encounter Summary ---
Author Organization [facility] Address [address] [facility] [place] [address] Care Team Providers Care Public Relations Counselor Name Role Phone Sabas Kimbrough MD Primary Care Provider [phone] Encounter Details Date Type Department Care Team (Late Contact Info) Description 10/09/2024 Bamboo flowsheet [facility] [address] [facility] [place] [address] Randall Pfeiffer DO [facility] [place] [place], [facility]11 Social History Tobacco Use Types Packs/Day [...] Description 10/30/2024 9:00 AM EDT Routine [facility] OB [address] [place] [address] Randall Pfeiffer DO [facility] [place], [facility] documented as of this encounter Visit Diagnoses Not on filedocumented in this encounter Care Teams Public Relations Counselor Relationship Specialty Start Date End Date Sabas Kimbrough MD [address] [facility] [place] [address] PCP - General Family Medicine 09/16/22 documented as of this encounter
--- OUTSIDE RECORDS SUMMARY | 2024-10-23 11:24 | XMS_ITS | Clinical Summary ---
Author Organization [employer] Address [id number] [address] [place] [address] Care Team Providers Care Nutrition Helper Name Role Phone Adiranna Silva APRN-FIELD CONSULTANT Primary Care Provide r Allergies No known active allergies Medications ondansetron (ZOFRAN) 4 mg tablet Take 1 tablet (4 mg total) by mouth every 8 (eight) hours as needed for nausea or vomiting for up to 12 doses. 12 tablet 04/12/2024 Active Active Problems Estimated Date of Delivery Comme nts Yes 11/16/2024 No known active problems Social History Tobacco Use Types Packs/Day Years Used Date Smoking Tobacco: Every Day Vaping/E-cigarettes Smokeless Tobacco: Never Tobacco Cessation:Ready to Q uit: Not Asked; Counseling Given: Not Answered Alcohol Use Standard Drinks/Week Comments Not Currently 0 (1 standard drink = 0.6 oz pur e alcohol) Social Connection and Isolat ion Panel [NHANES] Answer Date Recorded In a typical week, how many times do you talk on the phone with family, friends, or neighbors? More than three times a week 04/01/2021 How often do you get togethe r with friends or relatives? Once a week 04/01/2021 How often do you attend chur ch or advent services? Never 04/01/2021 Do you belong to any clubs o r organizations such as uatsdin groups, unions, fraternal or athletic groups, or school groups? No 04/01/2021 How often do you attend meet ings of the clubs or organizations you belong to? Never 04/01/2021 Are you , , di vorced, , never , or living with a partner? 04/01/2021 AUDIT-C Answer Date Recorded Q1: How often do you have a drink containing alc ohol? Monthly or less 04/01/2021 Q2: How many drinks containi ng alcohol do you have on a typical day when you are drinking? 1 or 2 04/01/2021 Q3: How often do you have si x or more drinks on one occasion? Less than monthly 04/01/2021 Overall Financial Resource Strain (CARDIA) Answe r Date Recorded How hard is it for you to pa y for the very basics like food, housing, medical care, and heating? Not very hard 04/01/2021 PHQ-2 Answer Date Recorded Total Score 10 04/01/2021 [facility] - Occupational Stress Questionnaire Answer Date Recorded Do you feel stress - tense, restless, nervous, or anxious, or unable to sleep at night because your mind is troubled all the time - these days? Very much 04/01/2021 Exercise Vital Sign Answer Date Recorde d On average, how many days pe r week do you engage in moderate to strenuous exercise (like a brisk walk)? 4 days 04/01/2021 On average, how many minutes do you engage in exercise at this level? 150+ min 04/01/2021 PRAPARE - Transportation Answer Date Re corded In the past 12 months, has l ack of transportation kept you from medical appointments or from getting medications? No 11/2020 In the past 12 months, has l ack of transportation kept you from meetings, work, or from getting things needed for daily living? No 04/01/2021 Childcare Answer Date Recorded Do problems getting child ca re make it difficult for you to work or study? No 04/01/2021 Employment Answer Date Recorded Do you need help finding a [facility] career center and/or a training program? No 04/01/2021 Hunger Screening Answer Date Recorded Within the past 12 months we worried whether our food would run out before we got money to buy more. Never True 04/12/2024 Within the past 12 months th e food we bought just didn't last and we didn't have money to get more. Never True 04/12/2024 Purpose - Life Answer Date Recorded I have a purpose and direction in my life. Somew hat Agree 04/01/2021 Education Answer Date Recorded What is the highest level of school you have completed or the highest degree you have received? GED or equivalent 11/2020 Estimated Date of Delivery Comme nts Yes 11/16/2024 Sex and Gender Information Value Date Recorded Sex Assigned at Not on file Legal Sex Female 11:50 AM EDT Gender Identity Not on file Sexual Orientation Not on file Last Filed Vital Signs Vital Sign Reading Time Taken Comments Blood Pressure 123/85 04/12/2024 5:06 PM EST Pulse 75 04/12/2024 5:06 PM EST Temperature 36.9 C (98.4 F) 04/12/2024 5:06 PM EST Respiratory Rate 17 04/12/2024 5:06 PM EST Oxygen Saturation 98% 04/12/2024 5:06 PM EST Inhaled Oxygen Concentration - - Weight 51.7 kg (114 lb) 04/12/2024 5:09 PM EST Height 165.1 cm (5' 5 ) 04/12/2024 5:09 PM EST Body Mass Index 18.97 04/12/2024 5:09 PM EST Plan of Treatment Health Maintenance Due Date Last Done Comments Tobacco Counseling 1994 Depression Screening 2006 DTaP,Tdap and Td Vaccines (1 - Tdap) 2013 Influenza Vaccine 12/24/2024 Adult BMI Screening 04/12/2025 04/12/2024 Tobacco Screening 04/12/2025 04/12/2024 Pap Smear 06/22/2025 06/22/2022 Medical Devices Not on file Insurance MEDICAID [place] Care Teams Nutrition Helper Relationship Specialty Start Date End Date Adrianna Silva APRN-JAMES [address] [place] [address] PCP - General Family Medicine 04/08/20
--- OUTSIDE RECORDS SUMMARY | 2024-10-23 11:24 | XMS_ITS | Encounter Summary ---
Author Organization [facility] Address [address] [place] [address] Care Team Providers Care Timber Estimator Name Role Phone Sabas Kimbrough MD Primary Care Provider [phone] Encounter Details Date Type Department Care Team (Late Contact Info) Description 05/11/2024 Abstract [facility] [address] [facility] [place] [address] Anca Jennings LPN Social History Tobacco Use Types Packs/Day Years [...] Routine [facility] [address] [place] [address] Randall Pfeiffer [facility] [address] [place] [address] [place], [place] [id number] documented as of this encounter Visit Diagnoses Not on filedocumented in this encounter Care Teams Timber Estimator Relationship Specialty Start Date End Date Sabas Kimbrough MD [address] [place] [address] PCP - General Family Medicine 09/16/22 documented as of this encounter
--- OUTSIDE RECORDS SUMMARY | 2024-10-23 11:24 | XMS_ITS | Encounter Summary ---
Author Organization [facility] Address [address] [facility] [place] [address] Care Team Providers Care Carbon Dioxide Operator Name Role Phone Sabas Kimbrough MD Primary Care Provider [phone] Encounter Details Date Type Department Care Team (Late Contact Info) Description 05/17/2024 Abstract [facility] [address] [place] [id number] Randall Pfeiffer [facility] [address] [place], [place] [id number] Social History Tobacco Use Types Packs/Day Years [...] Description 10/30/2024 9:00 AM EDT Routine [facility] [address] [place] [address] Randall Pfeiffer, [facility] [address] [place], [place] [id number] documented as of this encounter Visit Diagnoses Not on filedocumented in this encounter Care Teams Carbon Dioxide Operator Relationship Specialty Start Date End Date Sabas Kimbrough MD [address] [facility] [address] PCP - General Family Medicine 09/16/22 documented as of this encounter
--- OUTSIDE RECORDS SUMMARY | 2024-10-23 11:24 | XMS_ITS | Encounter Summary ---
Author Organization [facility] Address [address] [facility] [place] [address] Care Team Providers Care Relocation Commissioner Name Role Phone Sabas Kimbrough MD Primary Care Provider [phone] Encounter Details Date Type Department Care Team (Late Contact Info) Description 10/23/2024 Bamboo flowsheet [facility] [address] [place] [address] Lisset Eric PA [address] [place] [address] Dr [place], [id number] Social History Tobacco Use Types Packs/Day Years [...] Description 10/30/2024 9:00 AM EDT Routine [facility] [address] [place] [place] [address] Randall Pfeiffer DO [address] [place] [address] Dr Honey [place], [facility] documented as of this encounter Visit Diagnoses Not on filedocumented in this encounter Care Teams Relocation Commissioner Relationship Specialty Start Date End Date Sabas Kimbrough MD [address] [place] [address] PCP - General Family Medicine 09/16/22 documented as of this encounter
--- OUTSIDE RECORDS SUMMARY | 2024-10-23 11:24 | XMS_ITS | Encounter Summary ---
Author Organization [facility] Address [address] [facility] [place] [address] Care Team Providers Care Water Plant Pump Operator Supervisor Name Role Phone Sabas Kimbrough MD Primary Care Provider [phone] Encounter Details Date Type Department Care Team (Late Contact Info) Description 08/17/[address] [facility] [address] [place] [id number] Randall Pfeiffer [facility] [address] [place], [place] [id number] Social History Tobacco Use Types Packs/Day Years [...] Description 10/30/2024 9:00 AM EDT Routine [facility] [address] [place] [address] Randall Pfeiffer, [facility] [address] [place], [place] [id number] documented as of this encounter Visit Diagnoses Not on filedocumented in this encounter Care Teams Water Plant Pump Operator Supervisor Relationship Specialty Start Date End Date Sabas Kimbrough MD [address] [facility] [place] [address] PCP - General Family Medicine 09/16/22 documented as of this encounter
--- OUTSIDE RECORDS SUMMARY | 2024-10-23 11:24 | XMS_ITS ---
Author Organization [facility] Source Produ ction (ClinicalSummary Clone) Address Unknown Care Team Providers Care Home Service Advisor Name Role Phone Unavailable Primary Care Physician Unavailab le Results * [UNITY] ANEUPLOIDY NIPT Performed by: SpecifiedBy Component Value Range Date Fraction 5.3% 05/17/2024 03 :06 am [facility] Sex Chromosome Aneuploidy NOT DETECTED 03:06 am [facility] Monosomy X LOW RISK <1 in 10,000 2024 03:06 am [facility] Trisomy 13 LOW RISK <1 in 10,000 2024 03:06 am [place] Trisomy 18 LOW RISK <1 in 10,000 2024 03:06 am [place] Trisomy 21 LOW RISK <1 in 10,000 2024 03:06 am UT Sex FEMALE 05/17/2024 03:0 6 am [facility] Gestation SAENZ 05/17/19 25 03:06 am [facility] For detailed report, see PDF See PDF 05/17/2024 03:06 am UTC 05/17/2024 03:0 6 am [facility] Social History Observation Value Start Date End Date
--- OUTSIDE RECORDS SUMMARY | 2024-10-23 11:24 | XMS_ITS | Clinical Summary ---
Author Organization [facility] Address [address] [place], [place] [id number] Care Team Providers Care Weight Loss Consultant Name Role Phone Unavailable Primary Care Provider Unavailabl e Social History Tobacco Use Types Packs/Day Years Used Date Smoking Tobacco: Never Assessed Comments Unknown Sex and Gender Information Value Date Recorded Sex Assigned at Not on file Legal Sex Female 11:02 AM EDT Gender Identity Not on file Sexual Orientation Not on file Plan of Treatment Not on file Insurance MEDICARE [place] Member Subscriber Plan / Payer (Ef fective 2024-Present) Name:Loraine Nieto Relation to Subscriber:Donor - Live Name:Luisitokobi Alber Tarah Date of :1981 (Home) Address: [address] [place] [address] Payer ID:Not on file Group ID:Not on file Type:Medicaid Address: [place] [id number]
[2024-10-23 12:20] LABS: Hematocrit 36.0 % (36.0-48.0); Hemoglobin 12.1 g/dL (12.0-16.0); Immature Granulocytes Abs Auto 0.05 10^3/uL (0.00-0.03); Immature Granulocytes Pct Auto 0.6 % (0.0-0.5); Lymphocytes Absolute Auto 1.8 10^3/uL (1.2-3.8); Mean Corpuscular HGB Conc 33.6 g/dL (29.9-35.2); Mean Corpuscular Hemoglobin 28.9 pg (26.7-34.0); Mean Corpuscular Volume 86.1 fL (81.0-99.0); Platelet Count 158 10^3/uL (150-450); Red Blood Count 4.18 10^6/uL (4.20-5.40); White Blood Count 8.6 10^3/uL (4.0-11.0)
[2024-10-23 12:24] LABS: Aspartate Amino Transferase 15 U/L (15-37); Blood Urea Nitrogen 11.0 mg/dL (7.0-18.0); Estimated GFR (African America >60 (>=60 mL/min/1.73m^2); Estimated GFR (Non-African Ame >60 (>=60 mL/min/1.73m^2); Partial Thromboplastin Time 25.4 sec (22.3-36.2); Prothrombin Time 9.6 sec (9.0-11.6); Uric Acid 5.1 mg/dL (2.6-6.0)
[2024-10-23 12:25] LABS: INR <0.93
== END 2024-10-23 11:21 | disposition home or self-care (01) ==
PROVIDERS: Visit Provider Physician Assistant
DX: O13.9 Gestational [pregnancy-induced] hypertension without significant proteinuria, unspecified trimester (principal); Z3A.00 Weeks of gestation of pregnancy not specified
CPT/HCPCS: 36415; 82565; 83615; 84450; 84520; 84550; 85025; 85610; 85730; 87081

== ENCOUNTER 2024-10-23 19:26 | Outpatient (REF) | payer MEDICAID, SELFPAY ==
--- OUTSIDE RECORDS SUMMARY | 2024-10-23 19:50 | XMS_ITS | CCD ---
Author Organization [facility] Care Team Providers Care Venue Coordinator Name Role Phone MARGARETTE ., DR VICTOR [...] DR PADGETT Primary Care Unavailable GEOVANNA ., LISSET Attending Unavailable GEOVANNA ., LISSET Admitting Unavailable GEOVANNA ., LISSET Consulting Unavailable GEOVANNA ., LISSET Consulting Unavailable DEFRANCE, DR PADGETT Primary Care Unavailable GEOVANNA ., LISSET Attending Unavailable GEOVANNA ., LISSET Admitting Unavailable MARGARETTE ., DR VICTOR Consulting [...] Unavailable Dayron Kimbrough MD Primary Care Provider [phone] Dayron Kimbrough MD Primary Care Provider Dayron Kimbrough MD Primary Care Provider VALENTE PFEIFFER Attending Unavailable VALENTE PFEIFFER Attending Unavailable RIYA GOMEZ Attending Unavailable RIYA GOMEZ Attending Unavailable VALENTE PFEIFFER Attending Unavailable Allergies Allergy Classification Reported Allergen(s) Allergy Type Date of Onset Reaction(s) Facility (20 sources) Pollen Allergy to substance 09-15-2022 Unknown [facility] Work Phone: Medications Current Medications Medication Drug Class(es) Dates Sig (Normalized) Sig (Original) ondansetron 4 mg disintegrating oral tablet (20 sources) Serotonin-3 Receptor Antagonist Start: 04-20-2024 End: [...] Active MV-Min-Fe Fum-FA-DH A ( 1 PO) (20 sources) MV-Min- Fe Fum-FA-DHA ( 1 PO) [...] [IMPAIRED GLUCOSE TOLERANCE ORAL] Onset: 08-06-2022 Episodic Hypertension complicating ; childbirth and the puerperium (2 sources) -induced hypertension; Translations: [Gestational [-induced] hypertension without significant proteinuria, unspecified trimester] 10-23-2024 Episodic Immunizations and screening for infectious disease [...] of , unspecified] Onset: 04-12-2024 Episodic Other complications of (2 sources) size does not accord with dates; Translations: [Uterine size-date discrepancy, unspecified trimester] 10-23-2024 Episodic Other female genital disorders (20 sources) Vaginal bleeding; Translations: [Abnormal uterine and vaginal bleeding, unspecified] Onset: 10-22-2022 10-22-2022 Chronic Other female genital disorders (1 source) Other specified noninflammatory disorders of vagina; Translations: [OTH SPEC NONINFLAMMATORY D/O VAGINA] Onset: 06-17-2022 Episodic Other female genital disorders (1 source) Vaginal discharge; Translations: [Other specified noninflammatory disorders of vagina] 07-11-2024 Episodic Other and delivery including normal (20 sources) Encounter for supervision of normal , [...] [27 weeks gestation of ] 08-23-2024 Episodic Residual codes; unclassified (2 sources) Gestation period, 32 weeks; Translations: [32 weeks gestation of ] 09-26-2024 Episodic Residual codes; unclassified (8 sources) Gestation period, 34 weeks; Translations: [34 weeks gestation of ] Onset: 10-09-2024 10-09-2024 Episodic Residual codes; unclassified (2 sources) Gestation period, 36 weeks; Translations: [36 weeks gestation of ] 10-23-2024 Episodic Substance-related disorders (1 source) Nicotine dependence, [...] Test Name Value Interpretation Reference Range Facility ALL CBC WITH AUTO DIFFon BASOPHILS ABSOLUTE AUTO 0 [facility] Basophils/100 WBC (Bld) 0.5 % 0.2 - 2.0 % [facility] Eosinophils/100 WBC (Bld) 0.3 % Low 0.9 - 7.0 % [facility] Erythrocyte distribution width (RBC) [Ratio] 13.7 % 11.0 - 15.0 % [facility] Hematocrit (Bld) [Volume fraction] 36 % 36.0 - 48.0 % [facility] Hemoglobin (Bld) [Mass/Vol] 12.1 g/dL 12.0 - 16.0 g/dL [facility] IMMATURE GRANULOCYTES ABS AUTO 0.05 High [facility] Immature granulocytes/100 WBC (Bld) 0.6 % High 0.0 - 0.5 % [facility] Interpretation and review of laboratory results Abnormal [facility] LYMPHOCYTES ABSOLUTE AUTO 1.8 [facility] Lymphocytes/100 WBC (Bld) 20.7 % 20.5 - 60.0 % [facility] MCH (RBC) [Entitic mass] 28.9 pg 26.7 - 34.0 pg [facility] MCHC (RBC) [Mass/Vol] 33.6 g/dL 29.9 - 35.2 g/dL [facility] MCV (RBC) [Entitic vol] 86.1 fL 81.0 - 99.0 fL [facility] MONOCYTES ABSOLUTE AUTO 0.5 [facility] Monocytes/100 WBC (Bld) 5.2 % 1.7 - 12.0 % [facility] NEUTROPHILS ABSOLUTE AUTO 6.2 [facility] Neutrophils/100 WBC (Bld) 72.7 % 43.0 - 75.0 % [facility] Platelet mean volume (Bld) [Entitic vol] 13.4 fL 9.5 - 13.5 fL [facility] # 0 [facility] PLT 158 [facility] RBC 4.18 Low [facility] WBC 8.6 [facility] Urinalysis macro (dipstick) panel (U)on 10-23-2024 Bilirubin, UA Negative Negative - 4(70) +++ mg/dL [facility] Blood, UA Positive Negative - 50 Wali/mcL [facility] Clarity, UA Clear [facility] Color, UA Yellow [facility] Glucose, UA Negative Negative - 2000(110) ++++ mg/dL [facility] Interpretation and review of laboratory results Abnormal [facility] Ketones, UA Negative Negative - 160(16) ++++ mg/dL [facility] Leukocytes, UA Trace Negative - 500+++ Dmitriy/mcL [facility] Nitrite, UA Negative Negative - Positive [facility] pH, UA 6 5 - 9 [facility] Protein, UA Positive Negative - 1999(20) ++++ mg/dL [facility] Spec Grav, UA 1.03 1 - 1.03 [facility] Urobilinogen, UA 1.0 0.2 - 12 mg/dL [facility] Urinalysis macro (dipstick) panel (U)on 10-09-2024 Bilirubin, UA Negative Negative - 4(70) +++ mg/dL [facility] Blood, UA Negative Negative - 50 Wali/mcL [facility] Clarity, UA Clear [facility] Color, UA Yellow [facility] Glucose, UA Negative Negative - 1999(110) ++++ mg/dL [facility] Interpretation and review of laboratory results Abnormal [facility] Ketones, UA Negative Negative - 160(16) ++++ mg/dL [facility] Leukocytes, UA Trace Negative - 500+++ Dmitriy/mcL [facility] Comment on above: small Nitrite, UA Negative Negative - Positive [facility] pH, UA 7 5 - 9 [facility] Protein, UA Positive Negative - 1999(20) ++++ mg/dL [facility] Comment on above: 30mg/dL Spec Grav, UA 1.02 1 - 1.03 [facility] Urobilinogen, UA 0.2 0.2 - 12 mg/dL [facility] TBH URINE T PROTEIN CREAT RA TIOon 09-30-2024 CREATININE URINE RANDOM 129.24 mg/dL 20.00 - 300.00 mg/dL [facility] Interpretation and review of laboratory results Abnormal [facility] Protein (U) [Mass/Vol] 29.2 mg/dL High NINF - 11.9 mg/dL [facility] PROTEIN CREATININE RATIO URINE 0.23 [facility] Urinalysis macro (dipstick) panel (U)on 09-26-2024 Bilirubin, UA Negative Negative - 4(70) +++ mg/dL [facility] Blood, UA Positive Negative - 50 Wali/mcL [facility] Comment on above: small Clarity, UA Clear [facility] Color, UA Yellow [facility] Glucose, UA Negative Negative - 1999(110) ++++ mg/dL [facility] Interpretation and review of laboratory results Abnormal [facility] Ketones, UA Negative Negative - 160(16) ++++ mg/dL [facility] Leukocytes, UA Positive Negative - 500+++ Dmitriy/mcL [facility] Comment on above: small Nitrite, UA Negative Negative - Positive [facility] pH, UA 6.5 5 - 9 [facility] Protein, UA Positive Negative - 1999(20) ++++ mg/dL [facility] Comment on above: 30mg/dL Spec Grav, UA 1.025 1 - 1.03 [facility] Urobilinogen, UA 0.2 0.2 - 12 mg/dL [facility] GLUCOSE 1 HOURon 08-24-2024 Glucose [Mass/Vol] 86 mg/dL NINF - 13 0 mg/dL [facility] Urinalysis macro (dipstick) panel (U)on 08-23-2024 Bilirubin, UA Negative Negative - 4(70) +++ mg/dL [facility] Blood, UA Negative Negative - 50 Wali/mcL [facility] Clarity, UA Clear [facility] Color, UA Yellow [facility] Glucose, UA Negative Negative - 1999(110) ++++ mg/dL [facility] Interpretation and review of laboratory results Abnormal [facility] Ketones, UA Negative Negative - 160(16) ++++ mg/dL [facility] Leukocytes, UA Trace Negative - 500+++ Dmitriy/mcL [facility] Nitrite, UA Negative Negative - Positive [facility] pH, UA 6 5 - 9 [facility] Protein, UA Negative Negative - 1999(20) ++++ mg/dL [facility] Spec Grav, UA 1.02 1 - 1.03 [facility] Urobilinogen, UA 0.2 0.2 - 12 mg/dL [facility] No Panel InformationOrdered By: Radiologist Radiology on 07-18-2024 [facility] Work Phone: No Panel Informationon 07-18 Radiology Study observation (narrative) [facility] US OB ANATOMYon 07-18-2024 [place] [address] Ultrasound Report Signed Patient: LORAINE PACE MR#: [id number] : 1995 Acct:[id number] Age/Sex: 28 / F ADM Date: 07/18/24 Loc: US Attending Dr: Valente Pfeiffer D.O. Ordering Physician: Valente Pfeiffer D.O. Date of Service: 07/18/24 Procedure(s): US OB anatomy Accession Number(s): [id number] cc: Valente Pfeiffer D.O.; Physician,Non-Staff Rog[place]io [place] [phone] Patient Name: LORAINE PACE MRN: [id number] date: 1995 Sex: F Assigned Patient Location: US Current Patient Location: US Accession/Order Number: [id number] Exam Date: 07/18/2024 18:47 Report Date: 07/18/2024 [...] Hoyt Jr., D.O.07/18/2024 6:52 PM Dictation Location: [place] [address] Electronically authenticated by: [id number] Y Date: 07/18/2024 18:52 Dictated By: Markie Hoyt M.D. Signed By: 07/18/241853 DD/ 51 TD/TT: Lost Charge Card Clerk: [facility] Radiology, Radiologist, MD - 07/18/[address] [address] Ultrasound Report Signed Patient: LORAINE PACE MR#: [id number] : 1995 Acct:[id number] Age/Sex: 28 / F ADM Date: 07/18/24 Loc: US Attending Dr: Valente Pfeiffer D.O. Ordering Physician: Valente Pfeiffer D.O. Date of Service: 07/18/24 Procedure(s): US OB anatomy Accession Number(s): [id number] cc: Valente Pfeiffer D.O.; Physician,Non-Staff Rogelio The [address] [address] Patient Name: LORAINE PACE MRN: [facility]:[id number] date: 1995 Sex: F Assigned Patient Location: Current Patient Location: US Accession/Order Number: [id number] Exam Date: 07/18/2024 18:47 Report Date: 07/18/2024 [...] Hoyt Jr., D.O.07/18/2024 6:52 PM Dictation Location: [place] [address] Electronically authenticated by: [id number] Y Date: 07/18/2024 18:52 Dictated By: Markie Hoyt M.D. Signed By: 07/18/241853 DD/ 51 TD/TT: Lost Charge Card Clerk: [facility] OB CERVICAL LENGTHon 06-24 [place] [address] Ultrasound Report Signed Patient: LORAINE PACE MR#: [id number] : 1995 Acct:[id number] Age/Sex: 28 / F ADM Date: 07/18/24 Loc: US Attending Dr: Valente Pfeiffer D.O. Ordering Physician: Valente Pfeiffer D.O. Date of Service: 07/18/24 Procedure(s): US OB cervical length Accession Number(s): [id number] cc: Valente Pfeiffer D.O.; Physician,Non-Staff [place] [phone] Patient Name: LORAINE PACE MRN: [id number] date: 1995 Sex: F Assigned Patient Location: Current Patient Location: US Accession/Order Number: [id number] Exam Date: 07/18/2024 18:47 Report Date: 07/18/2024 [...] Hoyt Jr., D.O.07/18/2024 6:52 PM Dictation Location: [place] [address] Electronically authenticated by: [id number] Y Date: 07/18/2024 18:52 Dictated By: Markie Hoyt M.D. Signed By: 07/18/241853 DD/ 51 TD/TT: Lost Charge Card Clerk: [facility] Radiology, Radiologist, MD - 07/18/2024 [place] [address] Ultrasound Report Signed Patient: LORAINE PACE MR#: [id number] : 1995 Acct:[id number] Age/Sex: 28 / F ADM Date: 07/18/24 Loc: US Attending Dr: Valente Pfeiffer D.O. Ordering Physician: Valente Pfeiffer D.O. Date of Service: 07/18/24 Procedure(s): US OB cervical length Accession Number(s): [id number] cc: Valente Pfeiffer D.O.; Physician,Non-Staff Rogelio The [place] [phone] Patient Name: LORAINE PACE MRN: [facility]:[id number] date: 1995 Sex: F Assigned Patient Location: Current Patient Location: US Accession/Order Number: [id number] Exam Date: 07/18/2024 18:47 Report Date: 07/18/2024 [...] Hoyt Jr., D.O.07/18/2024 6:52 PM [facility]ation [facility] Electronically authenticated by: [id number] Y Date: 07/18/2024 18:52 Dictated By: Markie Hoyt M.D. Signed By: 07/18/241853 DD/ 51 TD/TT: Lost Charge Card Clerk: [facility] Urinalysis macro (dipstick) panel (U)on 07-11-2024 Bilirubin, UA Negative Negative - 4(70) +++ mg/dL [facility] Blood, UA Positive Negative - 50 Wali/mcL [facility] Comment on above: trace-intact Clarity, UA Clear [facility] Color, UA Yellow [facility] Glucose, UA Negative Negative - 1999(110) ++++ mg/dL [facility] Interpretation and review of laboratory results Abnormal [facility] Ketones, UA Negative Negative - 160(16) ++++ mg/dL [facility] Leukocytes, UA Negative Negative - 500+++ Dmitriy/mcL [facility] Nitrite, UA Negative Negative - Positive [facility] pH, UA 6 5 - 9 [facility] Protein, UA Trace Negative - 2000(20) ++++ mg/dL [facility] Spec Grav, UA 1.025 1 - 1.03 [facility] Urobilinogen, UA 0.2 0.2 - 12 mg/dL [facility] AFP, SERUM, OPEN SPINA BIFID Aon 06-28-2024 AFP MOM 1.21 . [facility] AFP VALUE 65.3 ng/mL . [facility] COMMENT: Comment . [facility] Comment on above: Concepcion Coon , Ph.D., [facility] Director References: Available Upon Request. Multiples Of Median Cutoffs For AFP Elevations Danielson 2.5 Black 2.8 IDD 2.0 Twins 4.5 Abbreviation Definitions IDD - Insulin Dep Diabetes OSBR - Open Spina Bifida Risk For further inquiries contact [employer] [facility] at [phone]. This test was developed and its performance characteristics determined by [employer]. It has not been cleared or approved by the Food and Drug Administration. Performed at: [facility] [address] [place], [place] [id number] Director Pediatric: Leonie Bird [facility], Phone: [phone] GEST. AGE ON COLLECTION DATE 19.6 . weeks [facility] GESTAT. AGE BASED ON LMP . [facility] Comment on above: Recalculations are n ot recommended when gestational dating by LMP and ultrasound are within 10 days. INSULIN DEP DIABETES No . [facility] INTERPRETATION Comment . [facility] Comment on above: Interpretation: Scre en Negative [...] Customer Services to discuss available options. The [employer] recommends amniocentesis be offered to women age 35 and older. MATER[age]ES 29[age]9 [age] [facility] MULTIPLE GESTATION No . [facility] OSBR RISK 1 [place] 6301 . [facility] RACE . [facility] RESULTS Report . [facility] TEST RESULTS: Negative . [facility] WEIGHT 149 . lbs [facility] N N LMP [id number] 4 15 N 1 149 N N N N N [place]/ [facility] Urinalysis macro (dipstick) panel (U)on 05-29-2024 Bilirubin, UA Negative Negative - 4(70) +++ mg/dL [facility] Blood, UA Negative Negative - 50 Wali/mcL [facility] Clarity, UA Clear [facility] Color, UA Yellow [facility] Glucose, UA Negative Negative - 2000(110) ++++ mg/dL [facility] Interpretation and review of laboratory results Normal [facility] Ketones, UA Negative Negative - 160(16) ++++ mg/dL [facility] Leukocytes, UA Negative Negative - 500+++ Dmitriy/mcL [facility] Nitrite, UA Negative Negative - Positive [facility] pH, UA 6 5 - 9 [facility] Protein, UA Negative Negative - 2000(20) ++++ mg/dL [facility] Spec Grav, UA 1.03 1 - 1.03 [facility] Urobilinogen, UA 0.2 0.2 - 12 mg/dL [facility] BOX TESTon 05-11-2024 BOX TEST SENT OUT [facility] BOX1 [facility] BOX2 05/11/24 [facility] HCG ( test) Ql (U)o n 04-27-2024 Interpretation and review of laboratory results Abnormal [facility] Preg Test, Ur Positive Negative [facility] US OB TRANSVAGINALon 025 US OB TRANSVAGINAL [...] x 6.1 cm (10 weeks, 0 days). [place] rump length is 4.8 cm (11 weeks, [...] - 4(70) +++ mg/dL [facility] Blood, UA Negative Negative - 50 Wali/mcL [facility] Clarity, UA Clear [facility] Color, UA Yellow [facility] Glucose, UA Negative Negative - 2000(110) ++++ mg/dL [facility] Interpretation and review of laboratory results Normal [facility] Ketones, UA Negative Negative - 160(16) ++++ mg/dL [facility] Leukocytes, UA Negative Negative - 500+++ Dmitriy/mcL [facility] Nitrite, UA Negative Negative - Positive [facility] pH, UA 6 5 - 9 [facility] Protein, UA Negative Negative - 1999(20) ++++ mg/dL [facility] Spec Grav, UA 1.025 1 - 1.[address] [facility] Urobilinogen, UA 0.2 0.2 - 12 mg/dL [facility] CBC AND AUTO DIFFon 04-12- 24 ABSOLUTE BASOPHIL 0.1 X10E9/L Normal 0.0-0.2 [facility] Comment on above: Performed By: #### C JUSTIN GASTON, 33682-4 #### [facility] ([id number]) [address] [place] [address] ABSOLUTE NEUTROPHIL 9.3 X10E9/L High 1.5-6.6 [facility] Comment on above: Performed By: #### C JUSTIN GASTON, 06399-2 #### [facility] ([id number]) [address] [place] [address] Basophils/100 WBC (Bld) 0.4 % Normal [facility] Comment on above: Performed By: #### C JUSTIN GASTON, #### [facility] ([id number]) [address] [place] [address]1301 Eosinophils (Bld) [#/Vol] 0.0 10*3/uL Normal 0.0-0.4 [facility] Comment on above: Performed By: #### Abraham GASTON CMP, #### [facility] ([id number]) [address] [place] [address] Eosinophils/100 WBC (Bld) 0.2 % Normal [facility] Comment on above: Performed By: #### Abraham GASTON CMP, #### [facility] ([id number]) [address] [place] [address] Erythrocyte distribution width (RBC) [Ratio] 14.4 % Normal 11.5-15.0 [facility] Comment on above: Performed By: #### Abraham GASTON [facility], #### [facility] ([id number]) [address] [place] [address] Hematocrit (Bld) [Volume fraction] 39.7 % Normal 35-47 [facility] Comment on above: Performed By: #### Abraham GASTON CMP, #### [facility] ([id number]) [address] [place] [address] 14859 Hemoglobin (Bld) [Mass/Vol] 13.4 g/dL Normal 11.7-15.5 [facility] Comment on above: Performed By: #### Abraham GASTON CMP, #### [facility] ([id number]) [address] [place] [address] Lymphocytes (Bld) [#/Vol] 2.2 10*3/uL Normal 1.0-3.5 [facility] Comment on above: Performed By: #### Abraham GASTON CMP, #### [facility] ([id number]) [address] [place] [address] 01467 Lymphocytes/100 WBC (Bld) 18.4 % Normal [facility] Comment on above: Performed By: #### Abraham GASTON CMP, 70281-6 #### [facility] ([id number]) [address] [place] [address] 55985 MCH (RBC) [Entitic mass] 28.4 pg Normal 27-34 [facility] Comment on above: Performed By: #### C JUSTIN GASTON, #### [facility] ([id number]) [address] [place] [address] 40980 MCHC (RBC) [Mass/Vol] 33.8 g/dL Normal 32-36 [facility] Comment on above: Performed By: #### Abraham GASTON CMP, #### [facility] ([id number]) [address] [place] [address] 08046 MCV (RBC) [Entitic vol] 84 fL Normal 80-100 [facility] Comment on above: Performed By: #### Abraham GASTON CMP, #### [facility] ([id number]) [address] [place] [address] 66947 Monocytes (Bld) [#/Vol] 0.6 10*3/uL Normal 0-0.9 [facility] Comment on above: Performed By: #### Abraham GASTON, CMP, #### [facility] ([id number]) [address] [place] [address] 90116 Monocytes/100 WBC (Bld) 4.7 % Normal [facility] Comment on above: Performed By: #### Abraham GASTON, CMP, #### [facility] ([id number]) [address] [place] [address] 85923 Neutrophils/100 WBC (Bld) 76.3 % Normal [facility] Comment on above: Performed By: #### C MARILIN, CMP, 31528-5 #### [facility] [place] ([id number]) [address] [place] [address] 16886 Platelet mean volume (Bld) [Entitic vol] 8.6 fL Normal 7-12 [facility] Comment on above: Performed By: #### Abraham GASTON, CMP, 98095-7 #### [facility] ([id number]) [address] [place] [address] 96972 Platelets (Bld) [#/Vol] 277 10*3/uL Normal 150-450 [facility] Comment on above: Performed By: #### Abraham GASTON, CMP, 60751-1 #### [facility] ([id number]) [address] [place] [address] 14507 RBC COUNT 4.73 X10E12/L Normal 3.80-5.20 [facility] Comment on above: Performed By: #### C MARILIN, CMP, 84680-1 #### [facility] ([id number]) [address] [place] [address] 76598 WBC (Bld) [#/Vol] 12.1 10*3/uL High 4.0-11.0 [facility] Comment on above: Performed By: #### Abraham GASTON, CMP, 68674-4 #### [facility] ([id number]) [address] [place] [address] 16296 COMPREHENSIVE METABOLIC PANE Amador 04-12-2024 Albumin [Mass/Vol] 4.4 g/dL Normal 3.2-5.3 [facility] Comment on above: Performed By: #### C BCA, CMP, 15044-4 #### [facility] ([id number]) [address] [place] [address] 74694 ALP [Catalytic activity/Vol] 55 U/L Normal 39-130 [facility] Comment on above: Performed By: #### C BCA, CMP, 06887-1 #### [facility] ([id number]) [address] [place] [address] 67042 ALT [Catalytic activity/Vol] 22 U/L Normal 0-31 [facility] Comment on above: Performed By: #### C BCA, CMP, #### [facility] ([id number]) [address] [place] [address] 22348 Anion gap [Moles/Vol] 10 mmol/L Normal 5-15 [facility] Comment on above: Performed By: #### C BCA, CMP, #### [facility] ([id number]) [address] [place] [address] 91163 AST [Catalytic activity/Vol] 16 U/L Normal 0-41 [facility] Comment on above: Performed By: #### C BCA, CMP, 11830-1 #### [facility] ([id number]) [address] [place] [address] 46903 Bilirubin [Mass/Vol] 1.7 mg/dL High 0.3-1.2 [facility] Comment on above: Performed By: #### C BCA, CMP, 38836-9 #### [facility] ([id number]) [address] [place] [address] 96353 Calcium [Mass/Vol] 9.3 mg/dL Normal 8.5-10.5 [facility] Comment on above: Performed By: #### C BCA, CMP, #### [facility] ([id number]) [address] [place] [address] 13483 Chloride [Moles/Vol] 102 mmol/L Normal 98-109 [facility] Comment on above: Performed By: #### C BCA, CMP, #### [facility] ([id number]) [address] [place] [address] 41766 CO2 [Moles/Vol] 23 mmol/L Normal 22-32 [facility] Comment on above: Performed By: #### C JUSTIN GASTON, 54853-6 #### [facility] ([id number]) [address] [place] [address] 33686 Creatinine [Mass/Vol] 0.55 mg/dL Normal 0.40-1.00 [facility] Comment on above: Result Comment: METH OD TRACEABLE TO IDMS STANDARD Performed By: #### C JUSTIN GASTON, 56639-0 #### [facility] ([id number]) [address] [place] [address] 24674 eGFR (CKD-EPI) NON-RACE DEPENDENT >90 Normal >59 [facility] Comment on above: Result Comment: Reported eGFR is based on the CKD-EPI 2020 equation that does not use a race coefficient. Performed By: #### C MARILIN [facility], 89537-9 #### [facility] ([id number]) [address] [place] [address] 71077 Glucose [Mass/Vol] 94 mg/dL Normal 65-99 [facility] Comment on above: Performed By: #### C MARILIN [facility], 22369-0 #### [facility] ([id number]) [address] [place] [address] 62559 Potassium [Moles/Vol] 3.5 mmol/L Normal 3.5-5.0 [facility] Comment on above: Performed By: #### C MARILIN [facility], 95691-4 #### [facility] ([id number]) [address] [place] [address] 15895 Protein [Mass/Vol] 7.9 g/dL Normal 6.0-8.0 [facility] Comment on above: Performed By: #### C JUSTIN GASTON, #### [facility] ([id number]) [address] [place] [address] 06214 Sodium [Moles/Vol] 135 mmol/L Normal 134-146 [facility] Comment on above: Performed By: #### C JUSTIN GASTON, 38680-3 #### [facility] ([id number]) [address] [place] [address] 01610 Urea nitrogen [Mass/Vol] 10 mg/dL Normal 5-23 [facility] Comment on above: Performed By: #### C MARILIN [facility], 56329-9 #### [facility] ([id number]) [address] [place] [address] 47686 HCG ( test) Ql (U)o n 04-12-2024 Beta HCG ( test) Ql (U) Positive Abnormal NEG [facility] Comment on above: Performed By: #### 2 106-3 #### [facility] ([id number]) [address] [place] [address] 10747 MAGNESIUMon 04-12-2024 Magnesium [Mass/Vol] 2.0 mg/dL Normal 1.8-2.6 [facility] Comment on above: Performed By: #### C MARILIN [facility], 81298-2 #### [facility] ([id number]) [address] [place] [address] 36517 URN MACROSCOPIC NURon 2023 BILIRUBIN MAIA Negative Normal NEG [facility] Comment on above: Performed By: #### N UM #### [facility] ([id number]) [address] [place] [address] 81420 BLOOD/HGB MAIA Negative Normal NEG [facility] Comment on above: Performed By: #### N UM #### [facility] ([id number]) [address] [place] [address] 68845 GLUCOSE MAIA Negative Normal NEG [facility] Comment on above: Performed By: #### N UM #### [facility] ([id number]) [address] [place] [address] 39175 KETONES MAIA >=160 Abnormal NEG [facility] Comment on above: Performed By: #### N UM #### [facility] ([id number]) [address] [place] [address] 22716 LEUKOCYTE ESTERASE MAIA Negative Normal NEG [facility] Comment on above: Performed By: #### N UM #### [facility] ([id number]) [address] [place] [address] 32364 NITRITE MAIA Negative Normal NEG [facility] Comment on above: Performed By: #### N UM #### [facility] ([id number]) [address] [place] [address] 09227 PH MAIA 6.5 Normal 5.0-8.5 [facility] Comment on above: Performed By: #### N UM #### [facility] ([id number]) [address] [place] [address] 16909 PROTEIN MAIA Trace Abnormal NEG [facility] Comment on above: Performed By: #### N UM #### [facility] ([id number]) [address] [place] [address] 22837 SPECIFIC GRAVITY MAIA >=1.030 Normal 1.003-1.035 [facility] Comment on above: Performed By: #### N UM #### [facility] ([id number]) [address] [place] [address] 38983 UROBILINOGEN MAIA 1.0 eu/dL Normal <1.1 [facility] Comment on above: Performed By: #### N UM #### [facility] ([id number]) [address] [place] [address] 60552 Dre 01-11-2024 CNPN Telephone (TXCTMN) LORAINE PACE ([id number]) 1995 F Date Time Provider Department 01/11/24 [...] Yes Online intake has been scanned to [employer] for review by the living donor coordinator. Allergies As of Date: 01/11/2024 (Not on File) Date Reviewed: Never Reviewed Reason for Visit: Referral - Donor Txp [[id number]] Primary Visit Diagnosis:Liver donor [Z52.6] Order(s):CONSULT TO [facility]PL[facility]ENTER [078904] Order #: [id number]: 1 Problem List As Of Date: 01/11/2024 (None) Encounter Status:Closed by KRISS ATKINS [facility] ([id number]) 1995 F Date Time Provider Department 01/11/24 KARINA SHIRN) ([facility])TXCTMN During your visit today, we recorded the following information about you: Karina Shi) (Hist)SHANNON 01/26/2024 12:45 PM Signed LIVING LIVER DONOR [...] for Covid? No, had 1 time no machine long goods helper side effects Overall general health: Patient reports [...] Status:Closed by KARINA SHI on 01/26/24 Normal [facility] GTT 3 HR PREGon 08-06-2022 Glucose [Mass/Vol] 80 mg/dL Normal [facility] Comment on above: Performed By: #### G TT3P #### [facility] [address] [address] [address] Jamie Dickey Glucose [Mass/Vol] 139 mg/dL Normal [facility] Comment on above: Performed By: #### G TT3P #### [facility] [address] [address] [address] Jamie Dickey Glucose [Mass/Vol] 99 mg/dL Normal [facility] Comment on above: Performed By: #### G TT3P #### [facility] [address] [address] [address] Jamie Dickey CBC AUTO DIFFon 07-27-2022 BASO # 0.0 103/ul Normal 0.0-0.1 [facility] Comment on above: Performed By: #### C BC #### [facility] [address] [address] [address] Jamie Dickey Basophils/100 WBC (Bld) 0.4 % Normal 0.2-2.0 [facility] Comment on above: Performed By: #### C BC #### [facility] [address] [address] [address] Jamie Dickey EO # 0.2 103/ul Normal 0.0-0.7 [facility] Comment on above: Performed By: #### C BC #### [facility] [address] [address] [address] Jamie Dickey Eosinophils/100 WBC (Bld) 1.8 % Normal 0.9-7.0 [facility] Comment on above: Performed By: #### C BC #### [facility] [address] [address] [address] Jamie Dickey Erythrocyte distribution width (RBC) [Ratio] 13.2 % Normal 11.0-15.0 [facility] Comment on above: Performed By: #### C BC #### [facility] [address] [address] [address] Jamie Dickey Hematocrit (Bld) [Volume fraction] 32.1 % Critically low 36.0-48.0 [facility] Comment on above: Performed By: #### C BC #### [facility] [address] [address] [address] Jamie Dickey Hemoglobin (Bld) [Mass/Vol] 10.8 g/dL Critically low 12.0-16.0 [facility] Comment on above: Performed By: #### C BC #### [facility] [address] [address] [address] Jamie Dickey IG # 0.07 10e3/ul Critically high 0.00-0.03 [facility] Comment on above: Performed By: #### C BC #### [facility] [address] [address] [address] Jamie Dickey IG % 0.8 % Critically high 0.0-0.5 [facility] Comment on above: Performed By: #### C BC #### [facility] [address] [place] [address] Dr. Jamie Dickey LYMPH # 1.8 103/ul Normal 1.2-3.8 [facility] Comment on above: Performed By: #### C BC #### [facility] [address] [place] [address] Dr. Jamie Dickey Lymphocytes/100 WBC (Bld) 20.4 % Critically low 20.5-60.0 [facility] Comment on above: Performed By: #### C BC #### [facility] [address] [place] [address] Dr. Jamie Dickey MANUAL DIFF REQ NO Normal [facility] Comment on above: Performed By: #### C BC #### [facility] [address] [place] [address] Dr. Jamie Dickey MCH (RBC) [Entitic mass] 29.1 pg Normal 26.7-34.0 [facility] Comment on above: Performed By: #### C BC #### [facility] [address] [place] [address] Dr. Jamie Dickey MCHC (RBC) [Mass/Vol] 33.6 g/dL Normal 29.9-35.2 [facility] Comment on above: Performed By: #### C BC #### [facility] [address] [place] [address] Dr. Jamie Dickey MCV (RBC) [Entitic vol] 86.5 fL Normal 81.0-99.0 [facility] Comment on above: Performed By: #### C BC #### [facility] [address] [place] [address] Dr. Jamie Dickey MONO # 0.4 103/ul Normal 0.3-0.8 [facility] Comment on above: Performed By: #### C BC #### [facility] [address] [place] [address] Dr. Jamie Dickey Monocytes/100 WBC (Bld) 4.8 % Normal 1.7-12.0 [facility] Comment on above: Performed By: #### C BC #### [facility] [address] [address] [address] Jamie Dickey NEUT # 6.5 103/ul Normal 1.4-6.5 [facility] Comment on above: Performed By: #### C BC #### [facility] [address] [address] [address] Jamie Dickey Neutrophils/100 WBC (Bld) 71.8 % Normal 43.0-75.0 [facility] Comment on above: Performed By: #### C BC #### [facility] [address] [address] [address] Jamie Dickey Platelet mean volume (Bld) [Entitic vol] 10.1 fL Normal 9.5-13.5 [facility] Comment on above: Performed By: #### C BC #### [facility] [address] [place] [address] Dr. Jamie Dickey PLT 197 103/ul Normal 150-450 [facility] Comment on above: Performed By: #### C BC #### [facility] [address] [address] [address] Jamie Dickey RBC 3.71 106/ul Critically low 4.20-5.40 [facility] Comment on above: Performed By: #### C BC #### [facility] [address] [address] [address] Jamie Dickey WBC 9.0 103/ul Normal 4.0-11.0 [facility] Comment on above: Performed By: #### C BC #### [facility] [address] [place] [address] Dr. Jamie Dickey GLUCOSE - 1HRon 07-27-2022 Glucose [Mass/Vol] 158 mg/dL Critically high 74-106 [facility] Comment on above: Performed By: #### N BOX #### [facility] [address] [place] [address] Dr. Jamie Dickey AFP MATERNAL FOR SPINA BIFID Aon 06-26-2022 AFP MoM 0.90 Normal [facility] Comment on above: Performed By: #### H CVPCRR #### [facility] [address] [address] [address] Jamie Dickey AFP Value 54.6 ng/mL Normal [facility] Comment on above: Performed By: #### H CVPCRR #### [facility] [address] [address] [address] Jamie Dickey AFP, Serum for Spina Bifida Report Normal [facility] Comment on above: Performed By: #### H CVPCRR #### [facility] [address] [address] [address] Jamie Dickey Comment Comment Normal [facility] Comment on above: Result Comment: Anamaria Coon, Ph.D., [facility] Director . References: Available Upon Request. . Multiples Of Median Cutoffs For AFP Elevations Danielson 2.5 Black 2.8 IDD 2.0 Twins 4.5 Abbreviation Definitions IDD - Insulin Dep Diabetes OSBR - Open Spina Bifida Risk . For further inquiries contact [employer] at [phone]. . This test was developed and its performance characteristics determined by [employer]. It has not been cleared or approved by the Food and Drug Administration. Performed By: #### H CVPCRR #### [facility] [address] [place] [address] Dr. Jamie Zaman Age Collection Date 20.0 weeks [facility] Comment on above: Performed By: #### H CVPCRR #### [facility] [address] [place] [address] Dr. Jamie Dickey Gestat, Age Based on Ultrasound Normal [facility] Comment on above: Result Comment: 18.6 on 06/14/2022 Recalculations are not recommended when gestational dating by LMP and ultrasound are within 10 days. Performed By: #### H CVPCRR #### [facility] [address] [place] [address] Dr. Jamie Dickey Insulin Dep Diabetes No Normal [facility] Comment on above: Performed By: #### H CVPCRR #### [facility] [address] [place] [address] Dr. Jamie Dickey Interpretation Comment Normal [facility] Comment on above: Result Comment: Inte [...] Customer Services to discuss available options. The [employer] recommends amniocentesis be offered to women age 35 and older. Performed By: #### H CVPCRR #### [facility] [address] [place] [address] Dr. Jamie Dickey [age] Normal [facility] Comment on above: Performed By: #### H CVPCRR #### [facility] [address] [place] [address] Dr. Jamie Dickey Multiple Gestation No Normal [facility] Comment on above: Performed By: #### H CVPCRR #### [facility] [address] [address] [address] Jamie Dickey [place] [address] Normal [facility] Comment on above: Performed By: #### H CVPCRR #### [facility] [address] [place] [address] Dr. Jamie Dickey PDF . [facility] Comment on above: Performed By: #### H CVPCRR #### [facility] [address] [place] [address] Dr. Jamie Dickey Race Normal [facility] Comment on above: Performed By: #### H CVPCRR #### [facility] [address] [place] [address] Dr. Jamie Dickey Test Results: Negative Normal [facility] Comment on above: Performed By: #### H CVPCRR #### [facility] [address] [place] [address] Dr. Jamie Dickey US PREG ANATOMY SINGLEon [...] by: DAYRON AYON Date: 2022-06-24 16:14 Normal [facility] PAP ACOG PANEL 2: 30 to 65on 06-22-2022 . . Normal [facility] Comment on above: Performed By: #### 4 [id number] #### [facility] [address] [address] [address] Jamie Dickey Age Gdln ACOG Testing Normal [facility] Comment on above: Performed By: #### 4 [id number] #### [facility] [address] [address] [address] Jamie Dickey DIAGNOSIS: Comment Normal [facility] Comment on above: Result Comment: NEGA TIVE FOR INTRAEPITHELIAL LESION OR MALIGNANCY. Performed By: #### 4 [id number] #### [facility] [address] [place] [address] Dr. Jamie Dickey Methodology: Comment Normal [facility] Comment on above: Result Comment: This liquid based ThinPrep(R) pap test was screened with the use of an image guided system. Performed By: #### 4 [id number] #### [facility] [address] [place] [address] Dr. Jamie Dickey Note: Comment Normal [facility] Comment on above: Result Comment: The Pap smear is a screening test designed to aid in the detection of premalignant and malignant conditions of the uterine cervix. It is not a diagnostic procedure and should not be used as the sole means of detecting cervical cancer. Both false-positive and false-negative reports do occur. . Performed By: #### 4 [id number] #### [facility] [address] [place] [address] Dr. Jamie Dickey Performed by: Comment Normal [facility] Comment on above: Result Comment: Tiffany Beatty, Research Project Coordinator (ASCP) Performed By: #### 4 [id number] #### [facility] [address] [place] [address] Dr. Jamie Dickey Reflex Criteria: Comment Normal [facility] Comment on above: Result Comment: The HPV DNA reflex criteria were not met with this specimen result therefore, no HPV testing was performed. . Performed By: #### 4 [id number] #### [facility] [address] [place] [address] Dr. Jamie Dickey Specimen adequacy: Comment Normal [facility] Comment on above: Result Comment: Sati sfactory for evaluation. No endocervical component is identified. Performed By: #### 4 [id number] #### [facility] [address] [place] [address] Dr. aJmie Dickey CHLAMYDIA/GONOCOCCUS FLORENCIO (SW AB/URINE/PAPon 06-17-2022 Chlamydia trachomatis, FLORENCIO Negative Normal Negative [facility] Comment on above: Performed By: #### C T/NGNA #### [facility] [address] [place] [address] Dr. Jamie Dickey Neisseria gonorrhoeae, FLORENCIO Negative Normal Negative [facility] Comment on above: Performed By: #### C T/NGNA #### [facility] [address] [place] [address] Dr. Jamie Dickey VAGINITIS/VAGINOSIS DNA PROB Lanre 06-16-2022 Gabriella species Negative Normal Negative [facility] Comment on above: Performed By: #### V AGINT #### [facility] [address] [place] [address] Dr. Jamie Dickey Gardnerella vaginalis Positive Abnormal Negative [facility] Comment on above: Performed By: #### V AGINT #### [facility] [address] [place] [address] Dr. Jamie Dickey Trichomonas vaginalis Negative Normal Negative [facility] Comment on above: Performed By: #### V AGINT #### [facility] [address] [place] [address] Dr. Jamie Dickey CBC AUTO DIFFon 05-29-2022 BASO # 0.0 103/ul Normal 0.0-0.1 [facility] Comment on above: Performed By: #### H CVPCRR #### [facility] [address] [place] [address] Dr. Jamie Dickey Basophils/100 WBC (Bld) 0.4 % Normal 0.2-2.0 [facility] Comment on above: Performed By: #### H CVPCRR #### [facility] [address] [place] [address] Dr. Jamie Dickey EO # 0.1 103/ul Normal 0.0-0.7 [facility] Comment on above: Performed By: #### H CVPCRR #### [facility] [address] [place] [address] Dr. Jamie Dickey Eosinophils/100 WBC (Bld) 1.3 % Normal 0.9-7.0 [facility] Comment on above: Performed By: #### H CVPCRR #### [facility] [address] [place] [address] Dr. Jamie Dickey Erythrocyte distribution width (RBC) [Ratio] 13.4 % Normal 11.0-15.0 [facility] Comment on above: Performed By: #### H CVPCRR #### [facility] [address] [place] [address] Dr. Jamie Dickey Hematocrit (Bld) [Volume fraction] 32.8 % Critically low 36.0-48.0 [facility] Comment on above: Performed By: #### H CVPCRR #### [facility] [address] [place] [address] Dr. Jamie Dickey Hemoglobin (Bld) [Mass/Vol] 10.9 g/dL Critically low 12.0-16.0 [facility] Comment on above: Performed By: #### H CVPCRR #### [facility] [address] [place] [address] Dr. Jamie Dickey IG # 0.03 10e3/ul Normal 0.00-0.03 [facility] Comment on above: Performed By: #### H CVPCRR #### [facility] [address] [place] [address] Dr. Jamie Dickey IG % 0.4 % Normal 0.0-0.5 [facility] Comment on above: Performed By: #### H CVPCRR #### [facility] [address] [place] [address] Dr. Jamie Dickey LYMPH # 1.1 103/ul Critically low 1.2-3.8 [facility] [facility] Comment on above: Performed By: #### H CVPCRR #### [facility] [address] [place] [address] Dr. Jamie Dickey Lymphocytes/100 WBC (Bld) 15.3 % Critically low 20.5-60.0 [facility] Comment on above: Performed By: #### H CVPCRR #### [facility] [address] [place] [address] Dr. Jamie Dickey MANUAL DIFF REQ NO Normal [facility] Comment on above: Performed By: #### H CVPCRR #### [facility] [address] [place] [address] Dr. Jamie Dickey MCH (RBC) [Entitic mass] 29.7 pg Normal 26.7-34.0 [facility] Comment on above: Performed By: #### H CVPCRR #### [facility] [address] [place] [address] Dr. Jamie Dickey MCHC (RBC) [Mass/Vol] 33.2 g/dL Normal 29.9-35.2 [facility] Comment on above: Performed By: #### H CVPCRR #### [facility] [address] [place] [address] Dr. Jamie Dickey MCV (RBC) [Entitic vol] 89.4 fL Normal 81.0-99.0 [facility] Comment on above: Performed By: #### H CVPCRR #### [facility] [address] [place] [address] Dr. Jamie Dickey MONO # 0.6 103/ul Normal 0.3-0.8 [facility] Comment on above: Performed By: #### H CVPCRR #### [facility] [address] [place] [address] Dr. Jamie Dickey Monocytes/100 WBC (Bld) 8.1 % Normal 1.7-12.0 [facility] Comment on above: Performed By: #### H CVPCRR #### [facility] [address] [place] [address] Dr. Jamie Dickey NEUT # 5.5 103/ul Normal 1.4-6.5 [facility] Comment on above: Performed By: #### H CVPCRR #### [facility] [address] [place] [address] Dr. Jamie Dickey Neutrophils/100 WBC (Bld) 74.5 % Normal 43.0-75.0 [facility] Comment on above: Performed By: #### H CVPCRR #### [facility] [address] [place] [address] Dr. Jamie Dickey Platelet mean volume (Bld) [Entitic vol] 10.1 fL Normal 9.5-13.5 [facility] Comment on above: Performed By: #### H CVPCRR #### [facility] [address] [address] [address] Jamie Dickey PLT 175 103/ul Normal 150-450 [facility] Comment on above: Performed By: #### H CVPCRR #### [facility] [address] [address] [address] Jamie Dickey RBC 3.67 106/ul Critically low 4.20-5.40 [facility] Comment on above: Performed By: #### H CVPCRR #### [facility] [address] [address] [address] Jamie Dickey WBC 7.4 103/ul Normal 4.0-11.0 [facility] Comment on above: Performed By: #### H CVPCRR #### [facility] [address] [place] [address] Dr. Jamie Dickey PROF CHEM 8 (BAS METB)on Anion gap [Moles/Vol] 11.8 mmol/L Normal [facility] Comment on above: Performed By: #### B MP #### [facility] [address] [place] [address] Dr. Jamie Dickey Calcium [Mass/Vol] 8.4 mg/dL Critically low 8.5-10.1 [facility] Comment on above: Performed By: #### B MP #### [facility] [address] [place] [address] Dr. Jamie Dickey Chloride [Moles/Vol] 103 mmol/L Normal 98-107 [facility] Comment on above: Performed By: #### B MP #### [facility] [address] [place] [address] Dr. Jamie Dickey CO2 [Moles/Vol] 26.0 mmol/L Normal 21.0-32.0 [facility] Comment on above: Performed By: #### B MP #### [facility] [address] [place] [address] Dr. Jamie Dickey Creatinine [Mass/Vol] 0.49 mg/dL Critically low 0.55-1.02 [facility] Comment on above: Performed By: #### B MP #### [facility] [address] [address] [address] Jamie Dickey EGFR-AF POLISH >60 Normal >=60 [facility] Comment on above: Performed By: #### B MP #### [facility] [address] [address] [address] Jamie Dickey EGFR-NON AF POLISH >60 Normal >=60 [facility] Comment on above: Performed By: #### B MP #### [facility] [address] [address] [address] Jamie Dickey Glucose [Mass/Vol] 92 mg/dL Normal 74-106 [facility] Comment on above: Performed By: #### B MP #### [facility] [address] [place] [address] Dr. Jamie Dickey Potassium [Moles/Vol] 3.8 mmol/L Normal 3.5-5.1 [facility] Comment on above: Performed By: #### B MP #### [facility] [address] [place] [address] Dr. Jamie Dickey Sodium [Moles/Vol] 137 mmol/L Normal 136-145 [facility] Comment on above: Performed By: #### B MP #### [facility] [address] [place] [address] Dr. Jamie Dickey Urea nitrogen [Mass/Vol] 10.0 mg/dL Normal 7.0-18.0 [facility] Comment on above: Performed By: #### B MP #### [facility] [address] [address] [address] Jamie Dickey Urea nitrogen/Creatinine [Mass ratio] 20.4 mg/mg Normal [facility] Comment on above: Performed By: #### B MP #### [facility] [address] [place] [address] Dr. Jamie Dickey PROTIMEon 05-29-2022 INR Coag (PPP) [Relative time] {INR} Normal [facility] Comment on above: Performed By: #### N BOX #### [facility] [address] [place] [address] Dr. Jamie Dickey INR GUIDELINES SEE BELOW Normal [facility] Comment on above: Result Comment: CARITO RED INR: 2.0 - 3.0 CONDITIONS NOT LISTED BELOW 2.5 - 3.5 FOR PROSTHETIC HEART VALVE REPLACEMENT 2.5 - 3.5 RECURRENT THROMBOSIS Performed By: #### N BOX #### [facility] [address] [address] [address] Jamie Dickey PT Coag (PPP) [Time] 9.3 s Normal 9.0-11.6 [facility] Comment on above: Performed By: #### N BOX #### [facility] [address] [address] [address] Jamie Dickey PTTon 05-29-2022 aPTT Coag (Bld) [Time] 27.7 s Normal 22.3-36.2 [facility] Comment on above: Performed By: #### N BOX #### [facility] [address] [place] [address] Dr. Jamie Dickey US PREG PLACENTAon US [...] Daniel ZAIDI Date: 2022-05-29 01:00 Normal [facility] HEP B SURFACE ANTIGEN SCREEN on 05-07-2022 HBsAg Screen Negative Normal Negative [facility] Comment on above: Performed By: #### H CVPCRR #### [facility] [address] [place] [address] Dr. Jamie Dickey HEPATITIS C VIRUS AB W/ REFL EX QUANTon 05-07-2022 HCV AB <0.1 Normal 0.0-0.9 [facility] Comment on above: Performed By: #### H CVPCRR #### [facility] [address] [place] [address] Dr. Jamie Dickey Interpretation: Comment Normal [facility] Comment on above: Result Comment: Nega tive Not infected with HCV, unless recent infection is suspected or other evidence exists to indicate HCV infection. Performed By: #### H CVPCRR #### [facility] [address] [place] [address] Dr. Jamie Dickey HIV 1 AND 2 WITH REFLEXon HIV Screen 4th Generation wRfx Non-Reactive Normal Non Reactive [facility] Comment on above: Result Comment: HIV Negative HIV-1/HIV-2 antibodies and HIV-1 p24 antigen were NOT detected. There is no laboratory evidence of HIV infection. Performed By: #### H CVPCRR #### [facility] [address] [place] [address] Dr. Jamie Dickey RPR QUANTon 05-07-2022 Rapid Plasma Reagin, Quant Non-Reactive Normal NonRea<1:1 [facility] Comment on above: Result Comment: Plea se Note: This test does not meet current guidelines for screening and diagnosis of syphilis. This test is intended for following treatment response in patients being treated for syphilis infection. To screen for syphilis infection, a reflex cascade that includes both RPR and a treponema-specific assay should be utilized, such as Treponema pallidum (Syphilis) Screening [place] (071176) or Rapid Plasma Reagin (RPR) Test With Reflex to Quantitative RPR and Confirmatory Treponema pallidum Antibodies (290018). Performed By: #### R PRQ #### [facility] [address] [place] [address] Dr. Jamie Dickey RUBELLA AB IGGon 05-07-2022 Rubella Antibodies, IgG 4.41 index Normal Immune >0.99 [facility] Comment on above: Result Comment: Non- immune <0.90 Equivocal 0.90 - 0.99 Immune >0.99 Performed By: #### N BOX #### [facility] [address] [place] [address] Dr. Jamie Dickey CBC AUTO DIFFon 05-06-2022 BASO # 0.0 103/ul Normal 0.0-0.1 [facility] Comment on above: Performed By: #### N BOX #### [facility] [address] [place] [address] Dr. Jamie Dickey Basophils/100 WBC (Bld) 0.3 % Normal 0.2-2.0 [facility] Comment on above: Performed By: #### N BOX #### [facility] [address] [place] [address] Dr. Jamie Dickey EO # 0.1 103/ul Normal 0.0-0.7 [facility] Comment on above: Performed By: #### N BOX #### [facility] [address] [place] [address] Dr. Jamie Dickey Eosinophils/100 WBC (Bld) 0.9 % Normal 0.9-7.0 [facility] Comment on above: Performed By: #### N BOX #### [facility] [address] [place] [address] Dr. Jamie Dickey Erythrocyte distribution width (RBC) [Ratio] 13.0 % Normal 11.0-15.0 [facility] Comment on above: Performed By: #### N BOX #### [facility] [address] [place] [address] Dr. Jamie Dickey Hematocrit (Bld) [Volume fraction] 36.7 % Normal 36.0-48.0 [facility] Comment on above: Performed By: #### N BOX #### [facility] [address] [place] [address] Dr. Jamie Dickey Hemoglobin (Bld) [Mass/Vol] 11.7 g/dL Critically low 12.0-16.0 [facility] Comment on above: Performed By: #### N BOX #### [facility] [address] [place] [address] Dr. Jamie Dickey IG # 0.05 10e3/ul Critically high 0.00-0.03 [facility] Comment on above: Performed By: #### N BOX #### [facility] [address] [place] [address] Dr. Jamie Dickey IG % 0.4 % Normal 0.0-0.5 [facility] Comment on above: Performed By: #### N BOX #### [facility] [address] [address] [address] Jamie Dickey LYMPH # 2.3 103/ul Normal 1.2-3.8 [facility] Comment on above: Performed By: #### N BOX #### [facility] [address] [place] [address] Dr. Jamie Dickey Lymphocytes/100 WBC (Bld) 20.3 % Critically low 20.5-60.0 [facility] Comment on above: Performed By: #### N BOX #### [facility] [address] [place] [address] Dr. Jamie Dickey MANUAL DIFF REQ NO Normal [facility] Comment on above: Performed By: #### N BOX #### [facility] [address] [place] [address] Dr. Jamie Dickey MCH (RBC) [Entitic mass] 28.5 pg Normal 26.7-34.0 [facility] Comment on above: Performed By: #### N BOX #### [facility] [address] [place] [address] Dr. Jamie Dickey MCHC (RBC) [Mass/Vol] 31.9 g/dL Normal 29.9-35.2 [facility] Comment on above: Performed By: #### N BOX #### [facility] [address] [place] [address] Dr. Jamie Dickey MCV (RBC) [Entitic vol] 89.5 fL Normal 81.0-99.0 [facility] Comment on above: Performed By: #### N BOX #### [facility] [address] [place] [address] Dr. Jamie Dickey MONO # 0.5 103/ul Normal 0.3-0.8 [facility] Comment on above: Performed By: #### N BOX #### [facility] [address] [address] [address] Jamie Dickey Monocytes/100 WBC (Bld) 4.7 % Normal 1.7-12.0 [facility] Comment on above: Performed By: #### N BOX #### [facility] [address] [address] [address] Jamie Dickey NEUT # 8.3 103/ul Critically high 1.4-6.5 [facility] Comment on above: Performed By: #### N BOX #### [facility] [address] [address] [address] Jamie Dickey Neutrophils/100 WBC (Bld) 73.4 % Normal 43.0-75.0 [facility] Comment on above: Performed By: #### N BOX #### [facility] [address] [place] [address] Dr. Jamie Dickey Platelet mean volume (Bld) [Entitic vol] 10.8 fL Normal 9.5-13.5 [facility] Comment on above: Performed By: #### N BOX #### [facility] [address] [place] [address] Dr. Jamie Dickey PLT 238 103/ul Normal 150-450 [facility] Comment on above: Performed By: #### N BOX #### [facility] [address] [address] [address] Jamie Dickey RBC 4.10 106/ul Critically low 4.20-5.40 [facility] Comment on above: Performed By: #### N BOX #### [facility] [address] [address] [address] Jamie Dickey WBC 11.3 103/ul Critically high 4.0-11.0 [facility] Comment on above: Performed By: #### N BOX #### [facility] [address] [place] [address] Dr. Jamie Dickey CULTURE URINEon 05-06-2022 CULTURE URINE Culture Observations: LIGHT GROWTH OF MIXED GENITAL CHANTALE. NO POTENTIAL PATHOGENS SEEN. Normal [facility] Comment on above: Performed By: #### N BOX #### [facility] [address] [address] [address] Jamie Dickey GLYCOHEMOGLOBIN A1Con 2022 ADA RECOMMENDATION SEE BELOW Normal [facility] Comment on above: Result Comment: ADA RECOMMENDED LIMIT 4.0 - 6.0 ADA THERAPEUTIC TARGET < 7.0 ACTION SUGGESTED > 7.0 Performed By: #### A 1C #### [facility] [address] [address] [address] Jamie Dickey Glucose [Mass/Vol] 94 mg/dL Normal [facility] Comment on above: Performed By: #### A 1C #### [facility] [address] [place] [address] Dr. Jamie Dikcey HbA1c (Bld) [Mass fraction] 4.9 % Normal 4.5-6.2 [facility] Comment on above: Performed By: #### A 1C #### [facility] [address] [place] [address] Dr. Jamie Dickey ISSA BOX TEST PT SEND OUTo n 05-06-2022 SENT TO REF LAB 05/06/2022 Normal [facility] Comment on above: Performed By: #### N BOX #### [facility] [address] [place] [address] Dr. Jamie Dickey TYPE AND SCREENon 05-06-2022 TYPE AND SCREEN Negative Normal [facility] Comment on above: Performed By: #### N BOX #### [facility] [address] [place] [address] Dr. Jamie Dickey US PREG TVon 04-15-2022 [...] Single live intrauterine . Electronically authenticated by: LOILS COLEMAN Date: 2022-04-15 16:33 Normal [facility] Vital Signs Date Time Vital Sign Value Performing Clinician Facility 10-23-2024 10:40-0400 Body mass index (BMI) [Ratio] 29.75 kg/m2 Lisset WILDER Work Phone: [facility] 10-23-2024 10:40-0400 Body weight 81.1 kg Lisset WILDER Work Phone: [facility] 10-23-2024 10:40-0400 Diastolic blood pressure 80 mm[Hg] Lisset WILDER Work Phone: [facility] 10-23-2024 10:40-0400 Systolic blood pressure 130 mm[Hg] Lisset WILDER Work Phone: [facility] 10-09-2024 10:34-0400 Body mass index (BMI) [Ratio] 30.25 kg/m2 Valente Margarette DO Work Phone: [facility] 10-09-2024 10:34-0400 Body weight 82.46 kg Valente Margarette DO Work Phone: [facility] 10-09-2024 10:34-0400 Diastolic blood pressure 86 mm[Hg] Valente Margarette DO Work Phone: [facility] 10-09-2024 10:34-0400 Systolic blood pressure 128 mm[Hg] Valente Margarette DO Work Phone: [facility] 09-26-2024 09:36-0400 Body mass index (BMI) [Ratio] 28.87 kg/m2 Riya Gomez [employer] Work Phone: [facility] 09-26-2024 09:36-0400 Body weight 78.7 kg Riya Gomez [employer] Work Phone: [facility] 09-26-2024 09:36-0400 Diastolic blood pressure 82 mm[Hg] Riya Gomez [employer] Work Phone: [facility] 09-26-2024 09:36-0400 Systolic blood pressure 130 mm[Hg] Riya Patricia [employer] Work Phone: [facility] 08-23-2024 11:17-0400 Body mass index (BMI) [Ratio] 27.06 kg/m2 Riya Patricia [employer] Work Phone: [facility] 08-23-2024 11:17-0400 Body weight 73.75 kg Ryia Barretoerly [employer] Work Phone: [facility] 08-23-2024 11:17-0400 Diastolic blood pressure 70 mm[Hg] Riya Patricia [employer] Work Phone: [facility] 08-23-2024 11:17-0400 Systolic blood pressure 120 mm[Hg] Riya Patricia [employer] Work Phone: [facility] 07-11-2024 13:49-0400 Body mass index (BMI) [Ratio] 25.09 kg/m2 Valente Margarette DO Work Phone: [facility] 07-11-2024 13:49-0400 Body weight 68.4 kg Valente Margarette DO Work Phone: [facility] 07-11-2024 13:49-0400 Diastolic blood pressure 70 mm[Hg] Valente Margarette DO Work Phone: [facility] 07-11-2024 13:49-0400 Systolic blood pressure 120 mm[Hg] Valente Margarette DO Work Phone: [facility] 05-29-2024 13:52-0500 Body mass index (BMI) [Ratio] 24.93 kg/m2 Valente Margarette DO Work Phone: [facility] 05-29-2024 13:52-0500 Body weight 67.95 kg Valente Margarette DO Work Phone: [facility] 05-29-2024 13:52-0500 Diastolic blood pressure 70 mm[Hg] Valente Margarette DO Work Phone: [facility] 05-29-2024 13:52-0500 Systolic blood pressure 120 mm[Hg] Valente Pfeiffer DO Work Phone: [facility] 04-27-2024 10:48-0500 Body mass index (BMI) [Ratio] 24.79 kg/m2 [facility] Nurse [facility] 04-27-2024 10:48-0500 Body weight 67.59 kg [facility] Nurse [facility] 04-27-2024 10:48-0500 Diastolic blood pressure 72 mm[Hg] [facility] Nurse [facility] 04-27-2024 10:48-0500 Systolic blood pressure 118 mm[Hg] [facility] Nurse [facility] 06-26-2022 03:06-0500 Body weight 65.[address] VALENTE PFEIFFER . [facility] Comment on above: Performed By: #### HCVPCRR #### [facility] [address] [place] [address] Dr. Jamie Dickey Encounters Encounter Date Encounter Type Care Provider Facility Start: 10-23-2024 End: 10-23-2024 Bamboo flowsheet Lisset WILDER Work Phone: [facility] Start: 10-23-2024 End: 10-23-2024 Bamboo flowsheet Lisset WILDER Work Phone: [facility] Start: 10-23-2024 End: 10-23-2024 Clinisync Result Encounter Lisset WILDER Work Phone: [facility] External Department Unsolicited Start: 10-23-2024 End: 10-23-2024 Office outpatient visit 15 minutes Lisset WILDER Work Phone: [facility] Comment on above: Third trimester preg raymon ([facility]); 36 weeks gestation of ([facility]); size inconsistent with dates ([facility]); induced hypertension, antepartum ([facility]) Start: 10-09-2024 End: 10-09-2024 Bamboo flowsheet Valente Pfeiffer DO Work Phone: [facility] Start: 10-09-2024 End: 10-09-2024 Bamboo flowsheet Valente Margarette DO Work Phone: [facility] Start: 10-09-2024 End: 10-09-2024 Office outpatient visit 15 minutes Valente Margarette DO Work Phone: [facility] Comment on above: 34 weeks gestation o f ([facility]); Third trimester fetus ([facility]) Start: 10-09-2024 End: 10-09-2024 ambulatory VALENTE MARGARETTE Not Available Start: 09-30-2024 End: 09-30-2024 Clinisync Result Encounter Valente Margarette DO Work Phone: [facility] External Department Unsolicited Start: 09-30-2024 End: 09-30-2024 Clinisync Result Encounter Valente Margarette DO Work Phone: [facility] External Department Unsolicited Start: 09-26-2024 End: 09-26-2024 Bamboo flowsheet Riya Patricia [employer] Work Phone: [facility] Start: 09-26-2024 End: 09-26-2024 Bamboo flowsheet Riya Patricia [employer] Work Phone: [facility] Start: 09-26-2024 End: 09-26-2024 Office outpatient visit 15 minutes Riya Patricia [employer] Work Phone: [facility] Comment on above: Third trimester preg raymon; 32 weeks gestation of Start: 09-26-2024 End: 09-26-2024 ambulatory RIYA PATRICIA Not Available Start: 08-24-2024 End: 08-24-2024 Clinisync Result Encounter Riya Patricia [employer] Work Phone: [facility] External Department Unsolicited Start: 08-24-2024 End: 08-24-2024 Clinisync Result Encounter Riya Patricia [employer] Work Phone: [facility] External Department Unsolicited Start: 08-23-2024 End: 08-23-2024 Bamboo flowsheet Riya Patricia [employer] Work Phone: [facility] Start: 08-23-2024 End: 08-23-2024 Bamboo flowsheet Riya Gomez [employer] Work Phone: [facility] Start: 08-23-2024 End: 08-23-2024 Office outpatient visit 15 minutes Riya Gomez [employer] Work Phone: [facility] Comment on above: 27 weeks gestation o f ; Second trimester ; Diabetes mellitus screening Start: 08-23-2024 End: 08-23-2024 ambulatory RIYA GOMEZ Not Available Start: 07-18-2024 End: 07-18-2024 Clinisync Result Encounter Valente Margarette DO Work Phone: [facility] External Department Unsolicited Start: 07-18-2024 End: 07-18-2024 Clinisync Result Encounter Valente Margarette DO Work Phone: [facility] External Department Unsolicited Start: 07-11-2024 End: 07-11-2024 Patient encounter procedure Valente Margarette DO Work Phone: [facility] Healthcare Start: 07-11-2024 End: 07-11-2024 Periodic preventive med est patient 18-39 yrs Valente Margarette DO Work Phone: [facility] Comment on above: 20 [...] Result Encounter Valente Margarette DO Work Phone: [facility] External Department Unsolicited Start: 05-29-2024 End: 05-29-2024 [...] 04-12-2024 End: 04-12-2024 Emergency department patient visit [facility] Start: 01-11-2024 End: 01-26-2024 Telephone encounter Liver Txp Coordinator Work Phone: [facility] Comment on above: Referral - Donor Txp Start: 09-16-2022 ambulatory NONE LISTED REQUEST Facility:[facility] Start: 08-06-2022 End: 08-07-[address] VALENTE PFEIFFER . Facility:[facility] Start: 07-27-2022 End: 07-28-[address] VALENTE PFEIFFER . Facility:[facility] Start: 06-24-2022 End: 06-25-[address] VALENTE PFEIFFER . Facility:[facility] Start: 06-14-2022 End: 06-14-2022 ambulatory LISSET AUSTIN . Facility:[facility] Start: 05-29-2022 End: 05-29-[address] MIKE MENDEZ . Facility:[facility] Start: 05-06-2022 End: 05-07-[address] VALENTE PFEIFFER . Facility: Start: 04-15-2022 End: 04-16-[address] VALENTE PFEIFFER . Facility: Procedures Date Procedure Procedure Detail Performing Clinician Start: 10-23-2024 ALL CBC WITH AUTO DIFF Lisset WILDER Work Phone: Start: 10-23-2024 Urnls dip stick/tabl et rgnt non-auto w/o micrscp Lisset WILDER Work Phone: Start: 10-09-2024 Urnls dip stick/tabl et rgnt non-auto w/o micrscp Valente Margarette DO Work Phone: Start: 09-30-2024 [facility] URINE T PROTEIN CREAT RATIO Valente Margarette DO Work Phone: Start: 09-26-2024 Urnls dip stick/tabl et rgnt non-auto w/o micrscp Riya Gomez [employer] Work Phone: Start: 08-24-2024 GLUCOSE 1 HOUR Riya Gomez [employer] Work Phone: Start: 08-23-2024 Urnls dip stick/tabl et rgnt non-auto w/o micrscp Riya Gomez [employer] Work Phone: Start: 07-18-2024 US OB ANATOMY [...] Treatment Date Care Activity Detail Author Start: 10-30-2024 End: 10-30-2024 Patient encounter procedure 10/30/2024 9:00 AM EDT Routine [facility] [address] [place] [id number] Valente Pfeiffer, DO [address] [place] [address] [facility] OB Start: 10-23-2024 End: 10-23-2025 Alanine aminotransferase [Enzymatic activity/volume] in Serum or Plasma ALT Lab Routine induced hypertension, antepartum ([facility]HS-HCC) Expected: 10/23/2024 (Approximate), Expires: 10/23/2025 [facility] Comment on above: Expected: 10/23/2024 (Approximate), Expires: 10/23/2025 Start: 10-23-2024 End: 10-23-2025 Aspartate aminotransferase [Enzymatic activity/volume] in Serum or Plasma AST Lab Routine induced hypertension, antepartum ([facility]HS-HCC) Expected: 10/23/2024 (Approximate), Expires: 10/23/2025 [facility] Comment on above: Expected: 10/23/2024 (Approximate), Expires: 10/23/2025 Start: 10-23-2024 End: 10-23-2025 CBC W Auto Differential panel - Blood CBC and differential Lab Routine induced hypertension, antepartum ([facility]HS-HCC) Expected: 10/23/2024 (Approximate), Expires: 10/23/2025 [facility] Comment on above: Expected: 10/23/2024 (Approximate), Expires: 10/23/2025 Start: 10-23-2024 End: 10-23-2025 Creatinine [Mass/volume] in Serum or Plasma Creatinine Lab Routine induced hypertension, antepartum ([facility]HS-HCC) Expected: 10/23/2024 (Approximate), Expires: 10/23/2025 [facility] Comment on above: Expected: 10/23/2024 (Approximate), Expires: 10/23/2025 Start: 10-23-2024 End: 10-23-2025 CULTURE, GROUP B STREP WITH SUSCEPTIBLITY CULTURE, GROUP B STREP WITH SUSCEPTIBLITY Lab Routine Third trimester ([facility]) Expected: 10/23/2024, Expires: 10/23/2025 [facility] Work Phone: Comment on above: Expected: 10/23/2024 , Expires: 10/23/2025 Start: 10-23-2024 End: 10-23-2025 Lactate dehydrogenase [Enzymatic activity/volume] in Serum or Plasma by Lactate to pyruvate reaction Lactate dehydrogenase Lab Routine induced hypertension, antepartum ([facility]) Expected: 10/23/2024, Expires: 10/23/2025 [facility] Comment on above: Expected: 10/23/2024 , Expires: 10/23/2025 Start: 10-23-2024 End: 10-23-2025 Protein, urine, 24 hour Protein, urine, 24 hour Lab Routine induced hypertension, antepartum ([facility]) Expected: 10/23/2024 (Approximate), Expires: 10/23/2025 [facility] Comment on above: Expected: 10/23/2024 (Approximate), Expires: 10/23/2025 Start: 10-23-2024 End: 10-23-2025 Pt and ptt Pt and ptt Lab Routine induced hypertension, antepartum ([facility]) Expected: 10/23/2024, Expires: 10/23/2025 [facility] Comment on above: Expected: 10/23/2024 , Expires: 10/23/2025 Start: 10-23-2024 End: 10-23-2025 Urate [Mass/volume] in Serum or Plasma Uric acid Lab Routine induced hypertension, antepartum ([facility]) Expected: 10/23/2024 (Approximate), Expires: 10/23/2025 [facility] Comment on above: Expected: 10/23/2024 (Approximate), Expires: 10/23/2025 Start: 10-23-2024 End: 10-23-2025 Urea nitrogen [Mass/volume] in Serum or Plasma BUN Lab Routine induced hypertension, antepartum ([facility]) Expected: 10/23/2024, Expires: 10/23/2025 [facility] Comment on above: Expected: 10/23/2024 , Expires: 10/23/2025 Start: 10-23-2024 End: 02-23-2025 US for US OB follow up transabdominal approach Imaging Routine size inconsistent with dates ([facility]) Expected: 10/23/2024, Expires: 02/23/2025 [facility] Comment on above: Expected: 10/23/2024 , Expires: 02/23/2025 Start: 10-23-2024 End: 10-23-2024 Patient encounter procedure 10/23/2024 10:20 AM EDT [facility] [address] [place] [phone] Lisset Austin PA [address] [place] [address] Arrived [facility] Comment on above: Arrived Start: 10-09-2024 End: 10-09-2024 Patient encounter procedure 10/09/2024 10:30 AM EDT Rout[facility] [address] [facility] [place] [phone] Valente Pfeiffer, [address] [place], [place] [phone] Arrived [facility] Comment on above: Arrived Start: 09-26-2024 End: 09-26-2024 Patient encounter procedure 09/26/2024 9:30 AM EDT Routine [facility] [address] [place] [phone] Riya Gomez, [employer] [address] [place] [phone] Arrived [facility] Comment on above: Arrived Start: 08-23-2024 End: 08-23-2025 CBC panel - Blood by Automated count CBC Lab Routine Diabetes mellitus screening Expected: 08/23/2024 (Approximate), Expires: 08/23/2025 [facility] Work Phone: Comment on above: Expected: 08/23/2024 (Approximate), Expires: 08/23/2025 Start: 08-23-2024 End: 08-23-2025 Measurement of glucose 1 hour after glucose challenge for glucose tolerance test Glucose tolerance, 1 hour Lab Routine Diabetes mellitus screening Expected: 08/23/2024 (Approximate), Expires: 08/23/2025 [facility] Comment on above: Expected: 08/23/2024 (Approximate), Expires: 08/23/2025 Start: 08-23-2024 End: 08-23-2024 Patient encounter procedure 08/23/2024 10:20 AM EDT Routine [facility] [address] [place] [address] Riya Gomez, [employer] [address] [place] [address] Arrived [facility] OB Comment on above: Arrived Start: 07-11-2024 End: 07-11-2025 US for US OB 14+ weeks anatomy scan Imaging Routine Screening, , for anatomic survey Expected: 07/11/2024, Expires: 07/11/2025 [facility] Comment on above: Expected: 07/11/2024 , Expires: 07/11/2025 Start: 05-29-2024 End: 06-26-2024 Alpha fetoprotein, maternal Alpha fetoprotein, maternal Lab Routine 15 weeks gestation of Second trimester Expected: 05/29/2024 (Approximate), Expires: 06/26/2024 [facility] Work Phone: Comment on above: Expected: 05/29/2024 (Approximate), Expires: 06/26/2024 Start: 05-29-2024 End: 05-29-2024 Patient encounter procedure 05/29/2024 1:40 PM EST Routine [facility] [address] [place] [phone] Valente Pfeiffer DO [address] [place] [address] Arrived [facility] Comment on above: Arrived Start: 04-27-2024 End: 04-27-2025 ABO/Rh ABO/Rh Lab Routine Missed menses , unspecified gestational age Expected: 04/27/2024 (Approximate), Expires: 04/27/2025 [facility] Comment on above: Expected: 04/27/2024 (Approximate), [...] first trimester Expected: 04/27/2024 (Approximate), Expires: 04/27/2025 [facility] Comment on above: Expected: 04/27/2024 (Approximate), Expires: 04/27/2025 Bacteria identified in Urine by Culture Urine culture Microbiology Routine Missed menses Ordered: 04/27/2024 [facility] Comment on above: Ordered: 04/27/2024 CBC W Auto Different ial panel - Blood CBC and differential Lab Routine Missed menses , unspecified gestational age Ordered: 04/27/2024 [facility] Comment on above: Ordered: 04/27/2024 CHLAMYDIA TRACHOMATI S (GENITO/STI) CHLAMYDIA TRACHOMATIS (GENITO/STI) Lab Routine Exposure to STD Ordered: 07/11/2024 [facility] Comment on above: Ordered: 07/11/2024 Cytology Cervical or vaginal smear or scraping study Pap Smear Pathology and Cytology Routine Well woman exam with routine gynecological exam Ordered: 07/11/2024 [facility] Comment on above: Ordered: 07/11/2024 Hemoglobin A1c/Hemoglobin.total in Blood Hemoglobin A1c Lab Routine Missed menses , unspecified gestational age Ordered: 04/27/2024 [facility] Comment on above: Ordered: 04/27/2024 Hepatitis B virus arellano rface Ag [Presence] in Serum or Plasma by Immunoassay Hepatitis B surface antigen Lab Routine Missed menses , unspecified gestational age Ordered: 04/27/2024 [facility] Comment on above: Ordered: 04/27/2024 Hepatitis C virus Ab [Presence] in Serum or Plasma by Immunoassay Hepatitis C antibody Lab Routine Missed menses , unspecified gestational age Ordered: 04/27/2024 [facility] Comment on above: Ordered: 04/27/2024 HIV-1/HIV-2 antigen/antibody combination immunoassay HIV-1 and HIV-2 antibodies Lab Routine Missed menses , unspecified gestational age Ordered: 04/27/2024 [facility] Comment on above: Ordered: 04/27/2024 Neisseria gonorrhoea e DNA [Presence] in Unspecified specimen by FLORENCIO with probe detection Neisseria gonorrhea DNA probe, direct Lab Routine Exposure to STD Ordered: 07/11/2024 [facility] Comment on above: Ordered: 07/11/2024 Reagin Ab [Presence] in Serum by RPR RPR Lab Routine Missed menses , unspecified gestational age Ordered: 04/27/2024 [facility] Comment on above: Ordered: 04/27/2024 Rubella antibody, IgG Rubella an tibody, IgG Lab Routine Missed menses , unspecified gestational age Ordered: 04/27/2024 [facility] Comment on above: Ordered: 04/27/2024 SURESWAB(R) ADVANCED VAGINITIS PLUS, TMA SURESWAB(R) ADVANCED VAGINITIS PLUS, TMA Pathology and Cytology Routine Vaginal discharge Ordered: 07/11/2024 [facility] Work Phone: Comment on above: Ordered: 07/11/2024 Payers Date Payer Category Payer Medicaid [id number] 2024 Medicare MEDICARE MEDICAR E A AND B [id number] 2024-Present [phone] [facility] [address] [place] [address] Medicare [id number] 1994 Unknown [id number] [id number] 1994 Unknown [id number] 2.16.840.1.507894.3.579.2.593 1994 Unknown [id number] 2.16.840.1.670877.3.579.2.593 1994 Unknown [id number] 2.16.840.1.798325.3.579.2.593 1994 Unknown [id number] 2.16.840.1.752256.3.579.2.593 1994 Unknown [id number] 2.16.840.1.733490.3.579.2.593 1994 Unknown [id number] 2.16.840.1.312065.3.579.2.593 1994 Unknown [id number] 2.16.840.1.184875.3.579.2.593 1994 Unknown [id number] 2.16.840.1.002233.3.579.2.593 1994 Unknown [id number] 2.16.840.1.572188.3.579.2.1286 1994 Unknown [id number] 2.16.840.1.631005.3.579.2.1259 1994 Unknown [id number] 2.16.840.1.543705.3.579.2.1259 1994 Unknown [id number] 2.16.840.1.757094.3.579.2.1259 1994 Unknown [id number] 2.16.840.1.518449.3.579.2.1259 1994 Unknown [id number] 2.16.840.1.013917.3.579.2.1259 1994 Unknown [id number] 2.16.840.1.330749.3.579.2.1259 1994 Unknown [id number] 2.16.840.1.975593.3.579.2.1259 1959 Medicaid [id number] 1959 Self-pay 1959 Unknown [id number] Unknown [id number] [id number]3 Social History Date Type Detail Facility Tobacco smoking stat [facility] Tobacco smoking consumption unknown [facility] Start: 1995 Sex assigned at Not on file [facility] Start: 04-24-2024 Gender identity Not on file [facility] Start: 10-26-2022 Tobacco smoking stat [facility] Smokes tobacco daily [facility] History of tobacco use Cigarette Smoker [facility] Start: 04-27-2024 End: 08-23-2024 Alcoholic beverage intake Ex-drinker (finding) [facility] Start: 04-24-2024 History of Social function [facility] Start: 10-18-2022 Tobacco Comment Patient smokes 11-20 cigarettes/day after 6-30 minutes of waking up. [facility] Start: 02-24-2024 [facility] Clinical Notes 01-11-2024 to 10-23-2024 MEÑO Bowles - 10/23/2024 10:20 AM MEÑO Garcia - 10/09/2024 10:30 AM Felipe Gomez NP - 09/26/2024 9:30 AM Felipe Gomez NP - 08/23/2024 10:20 AM EDT Note Date & Type Note Facility 10-23-2024 History of Presen t illness Narrative Reason [...] bleeding 10/22/2022 34 weeks gestation of ([facility]) 10/09/2024 Third trimester fetus ([facility]) 10/09/2024 Resolved Ambulatory Problems Diagnosis [...] Vitals: Estimated body mass index is 29.75 kg/m as calculated from the following: Height as of 09/01/22: 5' 5 . Weight as of this encounter: 178 lb 12.8 oz. BP: 130/80 Patient's last menstrual period was 02/10/2024. ASSESSMENT & PLAN ICD-10-CM 1. Third trimester ([facility]) Z34.93 CULTURE, GROUP B STREP WITH SUSCEPTIBLITY CULTURE, GROUP B STREP WITH SUSCEPTIBLITY POCT urinalysis dipstick manually resulted 2. 36 weeks gestation of ([facility]) Z3A.36 POCT urinalysis dipstick manually resulted 3. size inconsistent with dates ([facility]) O26.849 US OB follow up transabdominal approach 4. induced hypertension, antepartum ([facility]) O13.9 Creatinine Protein, urine, 24 [...] of: MEÑO Bowles documented in this encounter [facility] 10-09-2024 History of Presen t illness Narrative Reason [...] bleeding 10/22/2022 34 weeks gestation of ([facility]) 10/09/2024 Third trimester fetus ([facility]) 10/09/2024 Resolved Ambulatory Problems Diagnosis [...] Vitals: Estimated body mass index is 30.25 kg/m as calculated from the following: Height as of 09/01/22: 5' 5 . Weight as of this encounter: 181 lb 12.8 oz. BP: Patient's last menstrual period was 02/10/2024. ASSESSMENT & PLAN ICD-10-CM 1. 34 weeks gestation of ([facility]) Z3A.34 POCT urinalysis dipstick manually resulted 2. Third trimester fetus ([facility]) Z34.93 POCT urinalysis dipstick manually resulted Return [...] Documented by MEÑO Bowles on behalf of: Valente Pfeiffer DO documented in this encounter [facility] 09-26-2024 History of Presen t illness Narrative Reason [...] nursing note reviewed. Exam conducted with a bias cutting machine operator present. Vitals: Estimated body mass index is 28.87 kg/m as calculated from the following: Height as of 09/01/22: 5' 5 . Weight as of this encounter: 173 lb 8 oz. BP: 130/82 Patient's last menstrual period was 02/10/2024. ASSESSMENT & PLAN ICD-10-CM 1. Third trimester Z34.93 POCT urinalysis dipstick manually resulted 2. 32 weeks gestation of Z3A.32 Return OB: Patient presents today for a routine obstetrics appointment. Patient is currently 32w5d . Patient states she is doing well but has complaints of being tired due to current . Patient has verbalizes frequent movement. labor precautions was discussed/given and patient was instructed to perform kick counts three times a day. Orders Placed This Encounter Procedures POCT urinalysis dipstick manually resulted Follow Up: Patient is to return to office in 2 week for routine OB appointment. Documented by Riya Gomez NP on behalf of: Riya Gomez NP documented in this encounter [facility] 08-23-2024 History of Presen t illness Narrative [...] nursing note reviewed. Exam conducted with a bias cutting machine operator present. Vitals: Estimated body mass index is [...] Riya Gomez NP documented in this encounter [facility] 07-11-2024 History of Presen t illness Narrative [...] nursing note reviewed. Exam conducted with a bias cutting machine operator present. Vitals: Estimated body mass index is [...] Valente Pfeiffer DO documented in this encounter [facility] 05-29-2024 History of Presen t illness Narrative [...] nursing note reviewed. Exam conducted with a bias cutting machine operator present. Vitals: Estimated body mass index is [...] or undercooked meat, and [facility] Patient has been consulted regarding any further do's and don'ts of . Patient voiced understanding and all questions and concerns were answered. Orders Placed This Encounter Procedures Alpha fetoprotein, maternal POCT urinalysis dipstick manually resulted Follow Up: Patient is to return in 4 weeks for routine OB appointment. Documented by Rupali Ribeiro LPN on behalf of: Valente Pfeiffer DO documented in this encounter [facility] 04-27-2024 History of Presen t illness Narrative [...] or undercooked meat, and [facility] away from [facility]. Patient has also been advised to not [...] documented in this encounter [facility] 01-11-2024 Telephone encount er Note Images from [...] for Covid? No, had 1 time no shelter side effects Overall general health: Patient reports [...] Karina Shi RN Living Liver Donor Coordinator [facility] 01-11-2024 Miscellaneous Notes Formattin g of [...] for Covid? No, had 1 time no machine long goods helper side effects Overall general health: Patient reports [...] Liver Donor Coordinator documented in this encounter [facility] 01-11-2024 Telephone encount er Note Living [...] Yes Online intake has been scanned to [employer] for review by the living donor coordinator. [facility] 01-11-2024 Miscellaneous Notes Formattin g of [...] Yes Online intake has been scanned to [facility] for review by the living donor coordinator. documented in this encounter [facility] Evaluation note Diagnosis Liver donor- Primary documented in this [facility] Diagnosis Missed menses 11 weeks gestation of , unspecified gestational age Encounter for supervision of normal first in first trimester documented in this encounter [facility]* Diagnosis 15 weeks gestation of Second trimester state, incidental [facility] Diagnosis 21 weeks gestation of Second trimester state, incidental Screening, , for anatomic survey Encounter for anatomic survey Exposure to STD Vaginal discharge Leukorrhea, not specified as infective Well woman exam with routine gynecological exam Routine gynecological examination documented in this encounter [facility]* Diagnosis 27 weeks gestation of Second trimester state, incidental Diabetes mellitus screening Screening for diabetes mellitus [facility] Diagnosis Third trimester state, incidental 32 weeks gestation of [facility] Diagnosis 34 weeks gestation of ([facility]) Third trimester fetus ([facility]) [facility] Diagnosis Third trimester ([facility]) state, incidental 36 weeks gestation of ([facility]) size inconsistent with dates ([facility]) induced hypertension, antepartum ([facility]) Transient hypertension of , antepartum documented in this encounter [facility] Summary [...] VENOUS BLOOD VENIPUNCTURE Cristina Tovar MD [address] [place] [address] [facility] [address] [id number] Referral ID Status Reason Start Date Expiration Date Visits Requested Visits Authorized [id number] Authorized PCP Requested Referral Financial Clearance Required - [facility] [employer]or 01/11/2024 01/10/2025 99 [phone] Additional Source Comments INFORMATION SOURCE (unrecogn ized section and content) DATE CREATED AUTHOR 09/06/2022 [facility] DATE CREATED AUTHOR AUTHOR'S ORGANIZ ATION 01/28/2024 [facility] DATE CREATED AUTHOR AUTHOR'S ORGANIZ ATION 04/16/2024 [facility] DATE CREATED AUTHOR AUTHOR'S ORGANIZ ATION 10/11/2024 [facility] EPIC Source Comments (unrecognize d section and content) In the event this informatio n is protected by the Federal Confidentiality of Alcohol and Drug Abuse Patient Records regulations: The Federal rules restrict any use of the information to criminally investigate or prosecute any alcohol or drug abuse patient.[facility] the event this information is protected by the Federal Confidentiality of Alcohol and Drug Abuse Patient Records regulations: The Federal rules restrict any use of the information to criminally investigate or prosecute any alcohol or drug abuse patient.[facility] Reason for Visit (unrecogniz ed section and content) Reason Comments Referral - Donor Txp Reason Comments Amenorrhea Reason Comments Routine Visit Care Teams (unrecognized sec tion and content) Venue Coordinator Relationship Specialty Start Date End Date Dayron Kimbrough MD [address] [place] [address] PCP - General Family Medicine 09/16/22 Venue Coordinator Relationship Specialty Start Date End Date Dayron Kimbrough MD [address] [place] [address] PCP - General Family Medicine 09/16/22 Venue Coordinator Relationship Specialty Start Date End Date Dayron Kimbrough MD [address] [place] [address] PCP - General Family Medicine 09/16/22 Venue Coordinator Relationship Specialty Start Date End Date Dayron Kimbrough MD [address] [place] [address] PCP - General Family Medicine 09/16/22 Venue Coordinator Relationship Specialty Start Date End Date Dayron Kimbrough MD [address] [place] [address] PCP - General Family Medicine 09/16/22 Venue Coordinator Relationship Specialty Start Date End Date Dayron Kimbrough MD PCP - General Family Medicine 09/16/22 Venue Coordinator Relationship Specialty Start Date End Date Dayron Kimbrough MD PCP - [facility] 09/16/22 Venue Coordinator Relationship Specialty Start Date End Date Dayron Kimbrough MD PCP [facility] 09/16/22 Venue Coordinator Relationship Specialty Start Date End Date Dayron Kimbrough MD PCP - [facility] 09/16/22 Venue Coordinator Relationship Specialty Start Date End Date Dayron Kimbrough MD [address] [place] [address] [facility] 09/16/22 Venue Coordinator Relationship Specialty Start Date End Date Dayron Kimbrough MD [address] [place] [address] [facility] 09/16/22 Venue Coordinator Relationship Specialty Start Date End Date Dayron Kimbrough MD [address] [place] [address] [facility] 09/16/22 FOR RECORDS PERTAINING TO PATIENTS WHO [...] BE BASED ON THE PRIMARY CLINICAL RECORDS. [facility]. provides no warranty or guarantee of the accuracy or completeness of information in this document.
== END 2024-10-23 19:27 | disposition home or self-care (01) ==
LOC: LAB 19:26
PROVIDERS: Visit Provider Physician Assistant
DX: Z34.93 Encounter for supervision of normal pregnancy, unspecified, third trimester (principal)
CPT/HCPCS: 87081

== ENCOUNTER 2024-10-25 10:50 | Outpatient (REF) | payer MEDICAID, SELFPAY ==
--- OUTSIDE RECORDS SUMMARY | 2024-10-23 10:20 | XMS_ITS | Encounter Summary ---
Author Organization [facility] Address [address] [place] [address] Care Team Providers Care Executive Housekeeper Name Role Phone Sabas Kimbrough MD Primary Care Provider [phone] Reason for Visit * Reason Comments Routine Visit Encounter Details Date Type Department Care Team (Latest Contact Info) Description 10/23/2024 10:20 AM EDT Routine [facility] [address] [facility] [place] [phone] Lisset Eric PA [address] [place] [address] Third trimester ([facility]); 36 weeks gestation of ([facility]); size inconsistent with dates ([facility]); induced hypertension, antepartum ([facility]) Social History Tobacco Use Types Packs/Day Years [...] Vaginal bleeding 10/22/2022 34 weeks gestation of ([facility]) 10/09/2024 Third trimester fetus ([facility]) 10/09/2024 Resolved Ambulatory Problems Diagnosis Date Noted [...] Vitals: Estimated body mass index is 29.75 kg/m² as calculated from the following: Height as of 09/01/22: 5' 5 . Weight as of this encounter: 178 lb 12.8 oz. BP: 130/80 Patient's last menstrual period was 02/10/2024. ASSESSMENT & PLAN ICD-10-CM 1. Third trimester ([facility]) Z34.93 CULTURE, GROUP B STREP WITH SUSCEPTIBLITY CULTURE, GROUP B STREP WITH SUSCEPTIBLITY POCT urinalysis dipstick manually resulted 2. 36 weeks gestation of ([facility]) Z3A.36 POCT urinalysis dipstick manually resulted 3. size inconsistent with dates ([facility]) O26.849 US OB follow up transabdominal approach 4. induced hypertension, antepartum ([facility]) O13.9 Creatinine Protein, urine, 24 hour Pt [...] AM EDT Routine [facility] [address] [facility] [place] [phone] Randall Pfeiffer, DO [address] [place], [place] [phone] Scheduled Orders Name Type Priority Associated Diagnoses Orde r Schedule CULTURE, GROUP B STREP WITH SUSCEPTIBLITY Lab Routine Third trimester ([facility]) Expected: 10/23/2024, Expires: 10/23/2025 OB follow up transabdominal approach Imaging Routine size inconsistent with dates ([facility]) Expected: 10/23/2024, Expires: 02/23/2025 Creatinine Lab Routine induced hypertension, antepartum ([facility]) Expected: 10/23/2024 (Approximate), Expires: 10/23/2025 Protein, urine, 24 hour Lab Routine induced hypertension, antepartum ([facility]) Expected: 10/23/2024 (Approximate), Expires: 10/23/2025 Pt and ptt Lab Routine induced hypertension, antepartum ([facility]) Expected: 10/23/2024, Expires: 10/23/2025 CBC and differential Lab Routine induced hypertension, antepartum ([facility]) Expected: 10/23/2024 (Approximate), Expires: 10/23/2025 Uric acid Lab Routine induced hypertension, antepartum ([facility]) Expected: 10/23/2024 (Approximate), Expires: 10/23/2025 Lactate dehydrogenase Lab Routine induced hypertension, antepartum ([facility]) Expected: 10/23/2024, Expires: 10/23/2025 ALT Lab Routine induced hypertension, antepartum ([facility]) Expected: 10/23/2024 (Approximate), Expires: 10/23/2025 AST Lab Routine induced hypertension, antepartum ([facility]) Expected: 10/23/2024 (Approximate), Expires: 10/23/2025 BUN Lab Routine induced hypertension, antepartum ([facility]) Expected: 10/23/2024, Expires: 10/23/2025 documented as of this encounter Procedures Procedure Name Priority Date/Time Associated Diagnosis Comments POCT URINALYSIS DIPSTICK Routine 10/23/2024 10:48 AM EDT Third trimester ([facility]) 36 weeks gestation of ([facility]) documented in this encounter Results * (ABNORMAL) [...] this encounter Visit Diagnoses Diagnosis Third trimester ([facility]) state, incidental 36 weeks gestation of ([facility]) size inconsistent with dates ([facility]) induced hypertension, antepartum ([facility]) Transient hypertension of , antepartum documented in this encounter Care Teams Executive Housekeeper Relationship Specialty Start Date End Date Sabas Kimbrough MD [address] [facility] [place] [address] PCP - General Family Medicine 09/16/22 documented as of this encounter
--- OUTSIDE RECORDS SUMMARY | 2024-10-25 10:52 | XMS_ITS | Encounter Summary ---
Author Organization [facility] Address [address] [place] [address] Care Team Providers Care Supervisor Litharge Name Role Phone Sabas Kimbrough MD Primary Care Provider +1 [phone] Encounter Details Date Type Department Care Team (Late Contact Info) Description 10/23/2024 Clinisync Result Encounter NOMS External Department Unsolicited Lisset Eric PA [address] [facility] [address] [place], [place] [id number] Social History Tobacco Use Types Packs/Day Years [...] AM EDT Routine [facility] OB [address] [facility] [place] [address] Randall Pfeiffer, [address] [facility] [place] [address] documented as of this encounter Procedures Procedure Name Priority Date/Time Associated Diagnosis Comments TBH CREATININE Routine 10/23/2024 11:45 AM EDT SRMCOH PROTHROMBIN TIME INR W/O COUM Routine 10/23/2024 11:45 AM EDT [facility] AST Routine 10/23/2024 11:45 AM EDT [facility] APTT Routine 10/23/2024 11:45 AM EDT ALL URIC ACID Routine 10/23/2024 11:45 AM EDT ALL LDH Routine 10/23/2024 11:45 AM EDT ALL CBC WITH AUTO DIFF Routine 10/23/2024 11:45 AM EDT ALL BUN Routine 10/23/2024 11:45 AM EDT documented in this encounter Results * CCF APTT (10/23/2024 11:45 AM EDT) PARTIAL THROMBOPLASTIN TIME 25.4 22.3 - 36.2 sec TBH 10/23/2024 11:4 5 AM EDT 10/23/2024 12:00 PM EDT Narrative ALVINOISYNC - 10/23/2024 12:25 PM EDT Lisset BONILLA Final Result CLINISYNC TB * SRMCOH PROTHROMBIN TIME INR W/O COUM (10/23/2024 11:45 AM EDT) PROTHROMBIN TIME 9.6 9.0 - 11.6 sec TBH TBH INR <0.93 TBH Comment: DESIRED INR: 2.0-3.0 CONDITIONS NOT LISTED BELOW 2.5-3.5 FOR PROSTHETIC HEART VALVE REPLACEMENT 2.5-3.5 RECURRENT THROMBOSIS 10/23/2024 11:4 5 AM EDT 10/23/2024 12:00 PM EDT Narrative CLINISYNC - 10/23/2024 12:25 PM EDT us Lisset WILDER CLINISYNC Final Result CLINISYNC TB * ALL LDH (10/23/2024 11:45 AM EDT) LACTATE DEHYDROGENASE 159 81 - 234 U/L TB 10/23/2024 11:4 5 AM EDT 10/23/2024 12:00 PM EDT Narrative CLINISYNC - 10/23/2024 12:25 PM EDT us Lisset WILDER CLINISYNC Final Result Performing Organization Address [facility] [place] Phone Number CLINISYNC TB * CCF AST (10/23/2024 11:45 AM EDT) ASPARTATE AMINO TRANSFERASE 15 15 - 37 U/L TB 10/23/2024 11:4 5 AM EDT 10/23/2024 12:00 PM EDT Narrative CLINISYNC - 10/23/2024 12:25 PM EDT us Lisset WILDER CLINISYNC Final Result Performing Organization Address [facility] Co de Phone Number CLINISYNC TB * ALL URIC ACID (10/23/2024 11:45 AM EDT) URIC ACID 5.1 2.6 - 6.0 mg/dL TB 10/23/2024 11:4 5 AM EDT 10/23/2024 12:00 PM EDT Narrative CLINISYNC - 10/23/2024 12:25 PM EDT us Lisset WILDER CLINISYNC Final Result Performing Organization Address [facility] Co de Phone Number CLINISYNC TBH * TBH CREATININE (10/23/2024 11:45 AM EDT) CREATININE 0.63 0.55 - 1.02 mg/dL TBH TB EGFR-AF MONEGASQUE >60 >=60 mL/min/1.7 3m 2 TBH TBH EGFR-NON AF MONEGASQUE >60 >=60 mL/min/1.7 3m 2 TB 10/23/2024 11:4 5 AM EDT 10/23/2024 12:00 PM EDT Narrative CLINISYNC - 10/23/2024 12:25 PM EDT Lisset WILDER CLINISYNC Final Result CLINISYNC [facility] * ALL BUN (10/23/2024 11:45 AM EDT) Pathologist [facility] BLOOD UREA NITROGEN 11.0 7.0 - 18.0 mg/dL TB 10/23/2024 11:4 5 AM EDT 10/23/2024 12:00 PM EDT Narrative CLINISYNC - 10/23/2024 12:25 PM EDT Lisset WILDER CLINISYNC Final Result Performing Organization Address [facility] Co de Phone Number CLINISYNC [facility] * (ABNORMAL) ALL CBC WITH AUTO DIFF (10/23/2024 11:45 AM EDT) [facility] WBC 8.6 4.0 - 11.0 10 3/uL TBH TB RBC 4.18(L) 4.20 - 5.40 10 6/uL TBH TB HGB 12.1 12.0 - 16.0 g/dL TB TB HCT 36.0 36.0 - 48.0 % TB TB MCV 86.1 81.0 - 99.0 fL TB TB MCH 28.9 26.7 - 34.0 pg TBH TB MCHC 33.6 29.9 - 35.2 g/dL TB TB RDW 13.7 11.0 - 15.0 % TBH TBH PLT 158 150 - 450 10 3/uL TBH TB MPV 13.4 9.5 - 13.5 fL TBH NEUTROPHILS PERCENT AUTO 72.7 43.0 - 75.0 % TBH LYMPHOCYTES PERCENT AUTO 20.7 20.5 - 60.0 % TBH MONOCYTES PERCENT AUTO 5.2 1.7 - 12.0 % TBH TBH EO % 0.3(L) 0.9 - 7.0 % TBH BASOPHILS PERCENT AUTO 0.5 0.2 - 2.0 % TBH IMMATURE GRANULOCYTES PCT AUTO 0.6(H) 0.0 - 0.5 % TBH NEUTROPHILS ABSOLUTE AUTO 6.2 1.4 - 6.5 10 3/uL TBH LYMPHOCYTES ABSOLUTE AUTO 1.8 1.2 - 3.8 10 3/uL TBH MONOCYTES ABSOLUTE AUTO 0.5 0.3 - 0.8 10 3/uL TBH TBH EO # 0.0 0.0 - 0.7 10 3/uL TBH BASOPHILS ABSOLUTE AUTO 0.0 0.0 - 0.1 10 3/uL TBH IMMATURE GRANULOCYTES ABS AUTO 0.05(H) 0.00 - 0.03 10 3/uL TBH 10/23/2024 11:4 5 AM EDT 10/23/2024 12:00 PM EDT Narrative CLINISYNC - 10/23/2024 12:21 PM EDT Lisset WILDER CLINISYNC Final Result [facility], [facility] documented in this encounter Visit Diagnoses Not on filedocumented in this encounter Care Teams Supervisor Litharge Relationship Specialty Start Date End Date Sabas Kimbrough MD [address] [place] [address] PCP - General Family Medicine 09/16/22 documented as of this encounter
--- OUTSIDE RECORDS SUMMARY | 2024-10-25 10:52 | XMS_ITS | Clinical Summary ---
Author Organization Backtrace I/O tem Address [id number] [address] [place] [address] Care Team Providers Care Returned Goods Receiving Clerk Name Role Phone Adrianna Silva APRN-BUSINESS DEVELOPMENT MANAGER Primary Care Provide r Allergies No known [...] often do you attend chur ch or bahai services? Never 04/01/2021 Do you belong to any clubs o r organizations such as jew groups, unions, fraternal or athletic groups, or [...] Answer Date Recorded Total Score 10 04/01/2021 [facility] - Occupational [...] Recorded Do you need help finding a [place] [facility] career center and/or a training program? [...] on file Insurance MEDICAID [place] Care Teams Returned Goods Receiving Clerk Relationship Specialty Start Date End Date Adrianna Silva APRN-JAMES [address] [place] [address] PCP - General Family Medicine 04/08/20
--- OUTSIDE RECORDS SUMMARY | 2024-10-25 10:52 | XMS_ITS | Encounter Summary ---
Author Organization [facility] Address [address] [place] [address] Care Team Providers Care Oil Laboratory Analyst Name Role Phone Sabas Kimbrough MD Primary Care Provider [phone] Encounter Details Date Type Department Care Team (Late Contact Info) Description 12/22/2022 Abstract [facility] OB [address] [place] [address] [place] [address] Lisset Eric PA [address] [place] [address] Dr [place], [facility] Social History Tobacco Use Types Packs/Day [...] Upcoming Encounters Date Type Department Care Team ([facility] Contact Info) Description 10/30/2024 9:00 AM EDT Routine [facility] OB [address] [facility] [address] Randall Pfeiffer [address] [place], [place] [phone] documented as of this encounter Visit Diagnoses Not on filedocumented in this encounter Care Teams Oil Laboratory Analyst Relationship Specialty Start Date End Date Sabas Kimbrough MD [address] [place] [address] PCP - General Family Medicine 09/16/22 documented as of this encounter
--- OUTSIDE RECORDS SUMMARY | 2024-10-25 10:52 | XMS_ITS | Encounter Summary ---
Author Organization [facility] Address [address] [place] [address] Care Team Providers Care Specialty Cook Name Role Phone Sabas Kimbrough MD Primary Care Provider [phone] Encounter Details Date Type Department Care Team (Late Contact Info) Description 05/11/2024 Abstract N[facility] OB [address] [facility] [place] [address] Anca Jennings LPN Social History Tobacco [...] Description 10/30/2024 9:00 AM EDT Routine [facility] [address] [facility] [address] [facility] [address] [place], [place] [id number] documented as of this encounter Visit Diagnoses Not on filedocumented in this encounter Care Teams Specialty Cook Relationship Specialty Start Date End Date Sabas Kimbrough MD [address] [place] [address] PCP - General Family Medicine 09/16/22 documented as of this encounter
--- OUTSIDE RECORDS SUMMARY | 2024-10-25 10:52 | XMS_ITS | Encounter Summary ---
Author Organization [facility] Address [address] [place] [address] Care Team Providers Care Wheat Washer Name Role Phone Sabas Kimbrough MD Primary Care Provider [phone] Encounter Details Date Type Department Care Team (Late Contact Info) Description 05/17/2024 Abstract [facility] OB [address] [place] [address] Randall Pfeiffer, [facility] [address] [place], [place] [id number] Social History Tobacco Use Types Packs/Day Years [...] 9:00 AM EDT Routine [facility] [address] [place] [address] Randall Pfeiffer, DO [facility] [address] [place], [place] [phone] documented as of this encounter Visit Diagnoses Not on filedocumented in this encounter Care Teams Wheat Washer Relationship Specialty Start Date End Date Sabas Kimbrough MD [address] [place] [address] PCP - General Family Medicine 09/16/22 documented as of this encounter
--- OUTSIDE RECORDS SUMMARY | 2024-10-25 10:52 | XMS_ITS | Encounter Summary ---
Author Organization [facility] Address [address] [facility] [place] [address] Care Team Providers Care Spinning Doffer Name Role Phone Sabas Kimbrough MD Primary Care Provider [phone] Encounter Details Date Type Department Care Team (Late Contact Info) Description 11/05/2022 Abstract [facility] OB [address] [place] [phone] [place] [address] [address] [place], [place] [phone] Social History Tobacco Use Types Packs/Day Years [...] Upcoming Encounters Date Type Department Care Team ([facility] Contact Info) Description 10/30/2024 9:00 AM EDT Routine [facility] [address] [place] [address] Randall Pfeiffer, [facility] [address] documented as of this encounter Visit Diagnoses Not on filedocumented in this encounter Care Teams Spinning Doffer Relationship Specialty Start Date End Date Sabas Kimbrough MD [address] [place] [address] PCP - General Family Medicine 09/16/22 documented as of this encounter
--- OUTSIDE RECORDS SUMMARY | 2024-10-25 10:53 | XMS_ITS | Encounter Summary ---
Author Organization [facility] Address [address] [place] [address] Care Team Providers Care Director Of Accounts Receivable Name Role Phone Sabas Kimbrough MD Primary Care Provider [phone] Encounter Details Date Type Department Care Team (Late Contact Info) Description 06/04/2024 Abstract [facility] OB [address] [place] [address] Randall Pfeiffer, [facility] [place] [place], [place] [phone] Social History Tobacco Use Types Packs/Day Years [...] Description 10/30/2024 9:00 AM EDT Routine [facility] OB [address] [place] [address] Randall Pfeiffer, DO [facility] [address] [place], [place] [phone] documented as of this encounter Visit Diagnoses Not on filedocumented in this encounter Care Teams Director Of Accounts Receivable Relationship Specialty Start Date End Date Sabas Kimbrough MD [address] [place] [address] PCP - General Family Medicine 09/16/22 documented as of this encounter
--- OUTSIDE RECORDS SUMMARY | 2024-10-25 10:53 | XMS_ITS | Encounter Summary ---
Author Organization [facility] Address [address] [place] [address] Care Team Providers Care Vegetable Ii Farmworker Name Role Phone Dayron Kimbrough MD Primary Care Provider + [phone] Encounter Details Date Type Department Care Team (Late st Contact Info) Description 09/16/2022 Clinisync Result Encounter NOMS External Department Unsolicited Randall Pfeiffer, DO [address] [place] [address] Social History Tobacco Use Types Packs/Day Years [...] AM EDT Routine [facility] BCP OB [address] [place] [phone] Randall Pfeiffer, [address] [place] [address] documented as of this encounter Procedures Procedure [...] Date: 2022-09-16 16:20 Procedure Note Radiology, Radiologist, - 09/16/2022 EXAMINATION: US PREG GROWTH HISTORY: [...] by: DAYRON AYON Date: 2022-09-16 16:20 us Randall Margarette DO [facility] IMAGING Final Result documented in this encounter Visit Diagnoses Not on filedocumented in this encounter Care Teams Vegetable Ii Farmworker Relationship Specialty Start Date End Date Dayron Kimbrough MD [address] [facility] [place] [address] PCP - General Family Medicine 09/16/22 documented as of this encounter
--- OUTSIDE RECORDS SUMMARY | 2024-10-25 10:53 | XMS_ITS | Encounter Summary ---
Author Organization [facility] Address [address] [place] [address] Care Team Providers Care Agricultural Research Director Name Role Phone Sabas Kimbrough MD Primary Care Provider [phone] Encounter Details Date Type Department Care Team (Late Contact Info) Description 10/23/2024 Bamboo flowsheet [facility] OB [address] [facility] [place] [address] Lisset Eric PA [address] [facility] [address] [place], [facility] Social History Tobacco Use Types Packs/Day Years [...] EDT Routine [facility] BCP OB [address] [facility] [place] [address] Randall Pfeiffer, DO [address] [facility] [address] [place], [place] [phone] documented as of this encounter Visit Diagnoses Not on filedocumented in this encounter Care Teams Agricultural Research Director Relationship Specialty Start Date End Date Sabas Kimbrough MD [address] [place] [address] PCP - General Family Medicine 09/16/22 documented as of this encounter
--- OUTSIDE RECORDS SUMMARY | 2024-10-25 10:53 | XMS_ITS | Clinical Summary ---
Author Organization [facility] Address [address] [place] [address] Care Team Providers Care Hedge Fund Manager Name Role Phone Sabas Kimbrough MD Primary Care Provider [phone] Allergies Active Allergy Reactions Criticality Noted Date Comments Pollen Extract Unknown 09/15/2022 Medications MV-Min-Fe Fum-FA-DHA ( 1 PO) Take by mouth. Active ondansetron (Zofran) 4 MG tablet Take 4 mg by mouth every 8 (eight) hours if needed 04/12/2024 Active Active Problems Problem Noted Date Diagnosed Date 34 weeks gestation of ([facility]) 2024 Third trimester fetus ([facility]) 10/09/2024 Vaginal bleeding 10/22/2022 Estimated Date of Delivery Comme nts Yes 11/16/2024 Based on last me nstrual period of 02/10/2024 Encounters Date Type Department Care Team Description 10/23/2024 10:20 AM EDT Routine [facility] OB [address] [facility] [place] [address] Lisset Eric PA Third trimester ([facility]); 36 weeks gestation of ([facility]); size inconsistent with dates ([facility]); induced hypertension, antepartum ([facility]) 10/23/2024 Clinisync Result Encounter NOMS External Department Unsolicited Lisset Eric PA 10/23/2024 Bamboo flowsheet [facility] OB [address] [facility] [place] [address] Lisset Eric PA 10/09/2024 10:30 AM EDT Routine NOMS [address] [place] [address] Randall Pfeiffer DO 34 weeks gestation of ([facility]); Third trimester fetus ([facility]) 10/09/2024 Bamboo flowsheet NOMS [address] [place] [address] Randall Pfeiffer DO 09/30/2024 Clinisync Result Encounter NOMS External Department Unsolicited Randall Pfeiffer DO 09/26/2024 9:30 AM EDT Routine NOMS [address] [place] [address] Riya Gomez, IRIS Third trimester ([facility]); 32 weeks gestation of ([facility]) 09/26/2024 Bamboo flowsheet NOMS [address] [place] [address] Riya Gomez NP 08/24/2024 Clinisync Result Encounter NOMS External Department Unsolicited Riya Gomez NP 08/23/2024 10:20 AM EDT Routine NOMS [address] [place] [address] Riya Gomez, IRIS 27 weeks gestation of ([facility]); Second trimester ([facility]); Diabetes mellitus screening 08/23/2024 Bamboo flowsheet NOMS [address] [place] [address] Riya Gomez NP 08/17/2024 Abstract NOM[facility] [address] [place] [address] Randall Pfeiffer DO from Last 3 Months [...] AM EDT Routine N[facility] BCP OB [address] [facility] [place] [address] Randall Pfeiffer, DO [address] [facility] [place] [address] Procedures Procedure Name Priority Date/Time Associated Diagnosis Comments CCF APTT Routine 10/23/2024 11:45 AM EDT SRMCOH PROTHROMBIN TIME INR W/O COUM Routine 10/23/2024 11:45 AM EDT ALL LDH Routine 10/23/2024 11:45 AM EDT CCF AST Routine 10/23/2024 11:45 AM EDT ALL URIC ACID Routine 10/23/2024 11:45 AM EDT TBH CREATININE Routine 10/23/2024 11:45 AM EDT ALL BUN Routine 10/23/2024 11:45 AM EDT ALL CBC WITH AUTO DIFF Routine 10/23/2024 11:45 AM EDT POCT URINALYSIS DIPSTICK Routine 10/23/2024 10:48 AM EDT Third trimester ([facility]) 36 weeks gestation of ([facility]) POCT URINALYSIS DIPSTICK Routine 10/09/2024 10:39 AM EDT 34 weeks gestation of ([facility]) Third trimester fetus ([facility]) TBH URINE T PROTEIN CREAT RATIO Routine 09/30/2024 6:26 PM EDT POCT URINALYSIS DIPSTICK Routine 09/26/2024 9:45 AM EDT Third trimester ([facility]) ALL CBC WITH AUTO DIFF Routine 08/24/2024 11:47 AM EDT GLUCOSE 1 HOUR Routine 08/24/2024 11:47 AM EDT POCT URINALYSIS DIPSTICK Routine 08/23/2024 10:46 AM EDT 27 weeks gestation of ([facility]) Second trimester ([facility]) Diabetes mellitus screening from Last 3 Months Results * TBH CREATININE (10/23/2024 11:45 AM EDT) CREATININE 0.63 0.55 - 1.02 mg/dL TBH TBH EGFR-AF KENYAN >60 >=60 mL/min/1.7 3m 2 TBH TBH EGFR-NON AF KENYAN >60 >=60 mL/min/1.7 3m 2 TBH 10/23/2024 11:4 5 AM EDT 10/23/2024 12:00 PM EDT Narrative CLINISYNC - 10/23/2024 12:25 PM EDT us Lisset BONILLA Final Result Performing Organization Address [facility] de Phone Number [facility] * SRMCOH PROTHROMBIN TIME INR W/O COUM (10/23/2024 11:45 AM EDT) PROTHROMBIN TIME 9.6 9.0 - 11.6 sec TB TB INR <0.93 TBH Comment: DESIRED INR: 2.0-3.0 CONDITIONS NOT LISTED BELOW 2.5-3.5 FOR PROSTHETIC HEART VALVE REPLACEMENT 2.5-3.5 RECURRENT THROMBOSIS 10/23/2024 11:4 5 AM EDT 10/23/2024 12:00 PM EDT Narrative CLINISYNC - 10/23/2024 12:25 PM EDT us Lisset BONILLA Final Result Performing Organization Address [facility] de Phone Number [facility] * [facility]CF AST (10/23/2024 11:45 AM EDT) ASPARTATE AMINO TRANSFERASE 15 15 - 37 U/L TB 10/23/2024 11:4 5 AM EDT 10/23/2024 12:00 PM EDT Narrative CLINISYNC - 10/23/2024 12:25 PM EDT us Lisset BONILLA Final Result Performing Organization Address [facility] de Phone Number [facility] * CCF APTT (10/23/2024 11:45 AM EDT) PARTIAL THROMBOPLASTIN TIME 25.4 22.3 - 36.2 sec TB 10/23/2024 11:4 5 AM EDT 10/23/2024 12:00 PM EDT Narrative CLINISYNC - 10/23/2024 12:25 PM EDT us Lisset [place] PA CLINISYNC Final Result Performing Organization Address [facility]/ZIP Co de Phone Number CLINMACIELAK TB * ALL URIC ACID (10/23/2024 11:45 AM EDT) URIC ACID 5.1 2.6 - 6.0 mg/dL TB 10/23/2024 11:4 5 AM EDT 10/23/2024 12:00 PM EDT Narrative CLINISYNC - 10/23/2024 12:25 PM EDT Lisset WILDER CLINISYNC Final Result Performing Organization Address [facility] de Phone Number [facility] * ALL LDH (10/23/2024 11:45 AM EDT) Pathologist [facility] LACTATE DEHYDROGENASE 159 81 - 234 U/L TB 10/23/2024 11:4 5 AM EDT 10/23/2024 12:00 PM EDT Narrative CLINISYNC - 10/23/2024 12:25 PM EDT Lisset WILDER CLINISYNC Final Result Performing Organization Address [facility] de Phone Number [facility] * (ABNORMAL) ALL CBC WITH AUTO DIFF (10/23/2024 11:45 AM EDT) Only the most recent of2 resultswithin the time period is included. Pathologist [facility] TB WBC 8.6 4.0 - 11.0 10 3/uL TBH TBH RBC 4.18(L) 4.20 - 5.40 10 6/uL TBH TB HGB 12.1 12.0 - 16.0 g/dL TB TB HCT 36.0 36.0 - 48.0 % TBH TBH MCV 86.1 81.0 - 99.0 fL TBH TBH MCH 28.9 26.7 - 34.0 pg TBH TBH MCHC 33.6 29.9 - 35.2 g/dL TBH TBH RDW 13.7 11.0 - 15.0 % TBH TBH PLT 158 150 - 450 10 3/uL TBH TBH MPV 13.4 9.5 - 13.5 fL TBH [...] Narrative CLINISYNC - 10/23/2024 12:21 PM EDT us Lisset DE OLIVEIRAISYNC Final Result Performing Organization Address City/[facility] Co de Phone Number CLINISYNC TB * ALL BUN (10/23/2024 11:45 AM EDT) [facility] BLOOD UREA NITROGEN 11.0 7.0 - 18.0 mg/dL TBH 10/23/2024 11:4 5 AM EDT 10/23/2024 12:00 PM EDT Narrative CLINISYNC - 10/23/2024 12:25 PM EDT Lisset WILDER CLINISYNC Final Result Performing Organization Address [facility]/ZIP Co de Phone Number CLINISYNC TB * (ABNORMAL) POCT urinalysis dipstick manually resulted (10/23/2024 10:48 AM EDT) Only the most recent of4 resultswithin the time period is included. Color, UA Yellow Clarity, UA Clear Glucose, UA Negative Negative - 1999(110) ++++ mg/dL Bilirubin, UA Negative Negative - [...] Positive Urine 10/23/2024 10:4 8 AM EDT us Lisset WILDER POINT OF CARE TEST ENTER/EDIT OR DERABLES Final Result * (ABNORMAL) TBH URINE T PROTEIN CREAT RATIO (09/30/2024 6:26 PM EDT) TOTAL PROTEIN URINE RANDOM 29.2(H) <=11.9 mg/dL TBH CREATININE URINE RANDOM 129.24 20.00 - 300.00 mg/dL TBH PROTEIN CREATININE RATIO URINE 0.23 TBH 09/30/2024 6:26 PM EDT 09/30/2024 7:51 PM EDT Narrative CLINISYNC - 09/30/2024 7:59 PM EDT us Randall Pfeiffer DO CLINISYNC Final Result CLINISYNC TB * GLUCOSE 1 HOUR (08/24/2024 11:47 AM EDT) GLUCOSE 1 HOUR 86 <130 mg/dL TBH 08/24/2024 11:4 7 AM EDT 08/24/2024 11:53 AM EDT Narrative CLINISYNC - 08/24/2024 12:25 PM EDT Riya Gomez LIBRARY DIRECTOR LAB BLOOD ORDERABLES Final Re sult CLIN[facility]YNC TBH from Last 3 Months Insurance [employer] [place] Care Teams Hedge Fund Manager Relationship Specialty Start Date End Date Sabas Kimbrough MD [address] [place] [address] PCP - General Family Medicine 09/16/22
--- OUTSIDE RECORDS SUMMARY | 2024-10-25 10:53 | XMS_ITS | Encounter Summary ---
Author Organization [facility] Address [address] [place] [address] Care Team Providers Care Asphalt Tamping Machine Operator Name Role Phone Sabas Kimbrough MD Primary Care Provider [phone] Encounter Details Date Type Department Care Team (Late Contact Info) Description 08/17/2024 Abstract [facility] OB [address] [place] [address] Randall Pfeiffer, [facility] [address] [place], [place] [id number] Social History Tobacco Use Types Packs/Day Years [...] Description 10/30/2024 9:00 AM EDT Routine [facility] OB [address] [place] [address] Randall Pfeiffer, DO [facility] [address] [place], [place] [id number] documented as of this encounter Visit Diagnoses Not on filedocumented in this encounter Care Teams Asphalt Tamping Machine Operator Relationship Specialty Start Date End Date Sabas Kimbrough MD [address] [place] [address] PCP - General Family Medicine 09/16/22 documented as of this encounter
--- OUTSIDE RECORDS SUMMARY | 2024-10-25 10:53 | XMS_ITS | Clinical Summary ---
Author Organization [facility] Address [address] [place], [place] [id number] Care Team Providers Care Hand Stone Polisher Name Role Phone Unavailable Primary Care Provider [...] Date of :1981 (Home) Address: [address] [place] [address] Payer ID:Not on file Group ID:Not on file Type:Medicaid Address: [place] [id number]
--- OUTSIDE RECORDS SUMMARY | 2024-10-25 10:53 | XMS_ITS | Encounter Summary ---
Author Organization [facility] Address [address] [place] [address] Care Team Providers Care Stage Electrician Helper Name Role Phone Sabas Kimbrough MD Primary Care Provider [phone] Encounter Details Date Type Department Care Team (Late Contact Info) Description 05/29/2024 Abstract [facility] OB [address] [place] [address] Randall Pfeiffer, [facility] [place], [place] [id number] Social History Tobacco Use Types Packs/Day Years [...] AM EDT Routine [facility] OB [address] [place] [address] Randall Pfeiffer, DO [facility] [address] [place], [place] [phone] documented as of this encounter Visit Diagnoses Not on filedocumented in this encounter Care Teams Stage Electrician Helper Relationship Specialty Start Date End Date Sabas Kimbrough MD [address] [place] [address] PCP - General Family Medicine 09/16/22 documented as of this encounter
[2024-10-25 11:22] LABS: Total Protein Urine Random 119.3 mg/dL (<=11.9)
[2024-10-25 11:29] LABS: Total Volume 24 Hour Urine 500 mL/24hr
== END 2024-10-25 10:51 | disposition home or self-care (01) ==
LOC: LAB 10:50
PROVIDERS: Visit Provider Physician Assistant
DX: O13.9 Gestational [pregnancy-induced] hypertension without significant proteinuria, unspecified trimester (principal)
CPT/HCPCS: 84156

== ENCOUNTER 2024-10-30 09:31 | Outpatient (OUT) | payer MEDICAID, SELFPAY ==
--- OUTSIDE RECORDS SUMMARY | 2024-10-30 08:48 | XMS_ITS ---
Author Name Auto Generated Organization [facility] Care Team Providers Care Creative/Art Director Name Role Phone EDWARD DELACRUZ Attending Unavailable ADALID KONG Primary Care Unavailable VALENTE MURRAY Attending Unavailable VALENTE MURRAY Attending Unavailable DANI ISSA Attending Unavailable DANI ISSA Attending Unavailable VALENTE MURRAY Attending Unavailable ANITA AUSTIN Attending Unavailable VALENTE MURRAY Attending Unavailable PROBLEMS DATE TYPE CONDITION / CODE ATTENDING STATUS [facility] 04/12/2024 Unknown Vomiting of , unspecified / O21.9(ICD-10) EDWARD DELACRUZ Active [facility] 04/12/2024 Unknown Vomiting During / FREETEXT(AOF) EDWARD DELACRUZ Active [facility] 04/12/2024 Unknown VOMITING, 9 WKS / UNK(Unknown) JAYME EDWARD Almodovar Active [facility] PROCEDURES No Procedure Records Found RESULTS US OB TRANSVAGINAL Observed: 04/27/2024 9:50 AM Status: F Source: [facility] EPIC Order Comment: US OB TRANSVA GINAL No LMP recorded. TITLE OF EXAM: US OB TRANSVA GINAL REASON FOR EXAM: Dates TECHNIQUE: Grayscale, color, [...] x 6.1 cm (10 weeks, 0 days). [place] rump length is 4.8 cm (11 weeks, [...] signed and approved by the interpreting radiologist. URINE NURSING Collected: 04/12/2024 8 :04 PM Status: COMPLETED Source: [facility] TYPE CODE TESTS RESULT OUT OF RANGE REFERENCE UNITS LAB NUCG(LOINC) URINE NURSING Positive (qualifier value) Abnormal NEG Performed By: #### 2106-3 ## ## [facility] ([id number]) [address] [place] [address] URN MACROSCOPIC MAIA Collected: 04/12/2024 8:02 PM Status: COMPLETED Source: [facility] TYPE CODE TESTS RESULT OUT OF RANGE REFERENCE UNITS LAB SPGRN(LOINC) SPECIFIC GRAVITY MAIA >=1.030 1.003-1.035 LAB LESTN(LOINC) LEUKOCYTE ESTERASE MAIA Negative (qualifier value) NEG LAB NITN(LOINC) NITRITE MAIA Negative (qualifier value) NEG LAB PHURN(LOINC) PH MAIA 6.5 5.0-8.5 LAB PRURN(LOINC) PROTEIN AMIA Trace Abnormal NEG mg/dL LAB GLURN(LOINC) GLUCOSE MAIA Negative (qualifier value) NEG mg/dL LAB KETN(LOINC) KETONES MAIA >=160 Abnormal NEG mg/dL LAB UROBN(LOINC) UROBILINOGEN MAIA 1.0 <1.1 eu/dL LAB BILEN(LOINC) BILIRUBIN MAIA Negative (qualifier value) NEG LAB BLURN(LOINC) BLOOD/HGB MAIA Negative (qualifier value) NEG Performed By: #### NUM #### [facility] ([id number]) [address] [place] [address] CBC AND AUTO DIFF Collected: 04/12/2024 6:32 PM Status: COMPLETED Source: [facility] TYPE CODE TESTS RESULT OUT OF RANGE REFERENCE UNITS LAB WBC(LOINC) WBC COUNT 12.1 High 4.0-11.0 X10E9/L LAB RBC(LOINC) RBC COUNT 4.73 3.80-5.20 X10E12/L LAB HGB(LOINC) HEMOGLOBIN 13.4 11.7-15.5 g/dL LAB HCT(LOINC) HEMATOCRIT 39.7 35-47 % LAB MCV(LOINC) MCV 84 80-100 fL LAB MCH(LOINC) MCH 28.4 27-34 pg LAB MCHC(LOINC) MCHC 33.8 32-36 g/dL LAB RDW(LOINC) RDW 14.4 11.5-15.0 % LAB PLTC(LOINC) PLATELET COUNT 277 150-450 X10E9 /L LAB MPV(LOINC) MPV 8.6 7-12 fL LAB NEUT(LOINC) % NEUTROPHILS 76.3 % LAB LYMP(LOINC) % LYMPHOCYTES 18.4 % LAB MONO(LOINC) % MONOCYTES 4.7 % LAB EOS(LOINC) % EOSINOPHILS 0.2 % LAB BASO(LOINC) % BASOPHILS 0.4 % LAB ANEUT(LOINC) ABSOLUTE NEUTROPHIL 9.3 High 1.5-6.6 X10E9/L LAB ALYMP(LOINC) ABSOLUTE LYMPHOCYTE 2.2 1.0-3.5 X10E9/L LAB AMONO(LOINC) ABSOLUTE MONOCYTE 0.6 0-0.9 X10E9/L LAB AEOS(LOINC) ABSOLUTE EOSINOPHIL 0.0 0.0-0.4 X10E9/L LAB ABASO(LOINC) ABSOLUTE BASOPHIL 0.1 0.0-0.2 X10E9/L Performed By: #### CBCA, CMP , 96972-3 #### [facility] ([id number]) [address] [place] [address], [place] [address] COMPREHENSIVE METABOLIC PANEL Collected: 2023 6:32 PM Status: COMPLETED Source: [facility] TYPE CODE TESTS RESULT OUT OF RANGE REFERENCE UNITS LAB NA(LOINC) SODIUM 135 134-146 mmol/L LAB K(LOINC) POTASSIUM 3.5 3.5-5.0 mmol/L LAB CL(LOINC) CHLORIDE 102 98-109 mmol/L LAB CO2(LOINC) CARBON DIOXIDE 23 22-32 mmol/L LAB AGAP(LOINC) ANION GAP 10 5-15 mmol/L LAB BUN(LOINC) BLOOD UREA NITROGEN 10 5-23 mg/dL LAB CRET(LOINC) CREATININE 0.55 0.40-1.00 mg/dL Result Comment: METHOD TRACE ABLE TO IDMS STANDARD LAB GLU(LOINC) GLUCOSE 94 65-99 mg/dL LAB CA(LOINC) CALCIUM 9.3 8.5-10.5 mg/dL LAB TP(LOINC) TOTAL PROTEIN 7.9 6.0-8.0 g/dL LAB ALB(LOINC) ALBUMIN 4.4 3.2-5.3 g/dL LAB ALK(LOINC) ALKALINE PHOSPHATASE 55 39-130 U/L LAB AST(LOINC) AST 16 0-41 U/L LAB ALT1(LOINC) ALT 22 0-31 U/L LAB TBIL(LOINC) BILIRUBIN,TOTAL 1.7 High 0.3-1.2 mg/d L LAB EGFR(LOINC) eGFR (CKD-EPI) NON-RACE DEPENDENT >90 >59 ml/min/1 .73sq.m Result Comment: Reported eGFR is based on the CKD-EPI 2020 equation that does not use a race coefficient. Performed By: #### JUSTIN PORTILLO , 21052-4 #### [facility] ([id number]) [address] [place] [address] MAGNESIUM Collected: 04/12/2024 6:32 PM S tatus: COMPLETED Source: [facility] TYPE CODE TESTS RESULT OUT OF RANGE REFERENCE UNITS LAB MG(LOINC) MAGNESIUM 2.0 1.8-2.6 mg/dL Performed By: #### JUSTIN PORTILLO , 23407-1 #### [facility] ([id number]) [address] [place] [address] CNPN Observed: 01/11/2024 12:00 AM Status: COMPLETED Source: [facility] Telephone (TXCTMN) LORAINE PACE ([id number]) 1995 F Date Time Provider Department 01/11/24 [...] for Covid? No, had 1 time no mcc side effects Overall general health: Patient reports [...] Encounter Status:Closed by KARINA SHI on 01/26/24 CNPN Observed: 01/11/2024 12:00 AM Status: COMPLETED Source: [facility] Telephone (TXCTMN) LORAINE PACE ([id number]) 1995 F Date Time Provider Department 01/11/24 [...] Yes Online intake has been scanned to [employer] for review by the living donor coordinator. Allergies As of Date: 01/11/2024 (Not on File) Date Reviewed: Never Reviewed Reason for Visit: Referral - Donor Txp [[id number]] Primary Visit Diagnosis:Liver donor [Z52.6] Order(s):CONSULT TO TRANSPLANT CENTER [[id number]] Order #: [id number]: 1 Problem List As Of Date: 01/11/2024 (None) Encounter Status:Closed by KRISS ATKINS on 01/11/24 ALLERGIES DATE TYPE / CODE NAME / CODE REACTION SEVERITY SOURCE Drug Class/[id number](SNO MED CT) NO KNOWN ALLERGIES [facility] ENCOUNTERS ADMIT/DISCHARGE ACCOUNT NUMBER ADMITTING ENCOUNTER CLASS LOCATION SOURCE 10/30/2024/10/31/19 [id number] Ambulatory Building:[facility] 10/23/2024/10/24/19 25 [id number] Ambulatory Building:[facility] 10/09/2024/10/10/19 25 [id number] Ambulatory Building:[facility] 09/26/2024/09/27/19 25 [id number] Ambulatory Building:[facility] 08/23/2024/08/24/19 25 [id number] Ambulatory Building:[facility] 07/11/2024/07/12/19 25 [id number] Ambulatory Building:[facility] 05/29/2024/05/29/19 25 [id number] Ambulatory Building:[facility] 04/27/2024/04/27/19 25 [id number] Ambulatory Building:[facility] 04/27/2024/04/27/19 25 [id number] Ambulatory Building:[facility] 04/12/2024/04/12/20 24 [id number] Emergency Building:PF _EDRoom: 10Bed: 10 [facility] PAYERS ENCOUNTER GUARANTOR PAYER SUBSCRIBER SOURCE 10/30/2024 LORAINE ROMANB: [id number] [place], [place] [address]Xui: (HP) Primary Insurance:[employer] [facility] Number: [id number] Date:2024-06-23 LORAINE MERRITTDOB: [id number] [place] [address] [facility] EPIC 10/23/2024 LORAINE MERRITTDOB: [place], [place] [address]Nux: (HP) Primary Insurance:[employer] [facility] Number: [id number] Date:2024-06-23 LORAINE MERRITTDOB: [id number] [place] [address] [facility] EPIC 10/09/2024 LORAINE MERRITTDOB: [place], [place] [address]Zus: (HP) Primary Insurance:[employer] MEDICAID [facility] Number: [id number] Date:2024-06-23 LORAINE MERRITTDOB: [id number] [place] [address] [facility] EPIC 09/26/2024 LORAINE MERRITTDOB: [place], [place] [address]Fqa: (HP) Primary Insurance:[employer] MEDICAID [facility] Number: [id number] Date:2024-06-23 LORAINE MERRITTDOB: [id number] [place] [address] [facility] EPIC 08/23/2024 LORAINE MERRITTDOB: [place], [place] [address]Ifi: (HP) Primary Insurance:[employer]ICAID [facility] Number: [id number] Date:2024-06-23 LORAINE MERRITTDOB: [id number] [facility] [place] [address] [facility] EPIC 07/11/2024 LORAINE MERRITTDOB: [place], [place] [address]Xko: (HP) [place]: [id number] Date:2024-03-25 LORAINE MERRITTDOB: [id number] [place] [address] [facility] EPIC 05/29/2024 LORAINE MERRITTDOB: [place], [place] [address]Bnp: (HP) [place] Number: [id number] Date:2024-03-25 LORAINE MERRITTDOB: [id number] [place] [address] [facility] EPIC 04/27/2024 LORAINE MERRITTDOB: [place], [place] [address]Myc: (HP) [place] Number: [id number] Date:2024-03-25 LORAINE DOROTARITTDOB: [id number] [place] [address] [facility] EPIC 04/27/2024 LORAINE DOROTARITTDOB: [place], [place] [address]Frl: (HP) [place] Insurance[place] Number: [id number] Date:2024-03-25 LORAINE DOROTARITTDOB: [id number] [place] [address] [facility] EPIC 04/12/2024 LORAINE JUAN MANUEL MERRITTDOB: [place] [address]Noq: (HP) [place] Insurance[place] Number: [id number] Date:2022-04-25 LORAINE ZAMBRANO SANJEEVDOB: [id number] [place] [address]Qee: (WP) [facility]
--- NOTE | 2024-10-30 09:37 | US_ITS ---
The [address] [address] Patient Name: GUILLERMO PACE MRN: [id number] date: 1995 Sex: F Assigned Patient Location: Current Patient Location: US Accession/Order Number: [id number] Exam Date: 10/30/2024 10:32 Report Date: 10/30/2024 10:40 At the request of: VALENTE MURRAY DO Procedure: US OB growth ULTRASOUND OB GROWTH COMPARISON: 07/18/2024 CLINICAL DATA: Size and consistent with dates. There is a single live intrauterine gestation in cephalic presentation. There is cardiac and somatic activity with heart rate of 147 bpm. The placenta is anterior. The amniotic fluid index measures 14.9 cm which is in normal range. The following measurements were obtained: Biparietal diameter 9.0 cm 36 weeks 2 days 35% Head circumference 32.5 cm 36 weeks 5 days 12% Abdominal circumference 30.9 cm 34 weeks 6 days 5% Femur length 6.9 cm 35 weeks 2 days 7% The composite ultrasound age based these measurements is 35 weeks 6 days +/- 2 weeks 4 days. The current estimated date of delivery is November 28, 2024. The date of delivery based on last menstrual period is November 16, 2024 and based on the previous ultrasound November 13, 2024. The estimated weight is 5 lbs. 13 oz. +/- 14 ounces (11%). US/US OB growth IMPRESSION: SINGLE LIVE INTRAUTERINE GESTATION WITH ULTRASOUND AGE OF 35 WEEKS 6 DAYS BASED ON TODAY'S MEASUREMENTS. THIS IS TOWARD THE LOWER LIMITS OF NORMAL INTERVAL GROWTH BASED ON THE LAST MENSTRUAL PERIOD. Impression dictated by: Rupali Cortez M.D. 10/30/2024 10:40 AM Dictation Location: [place] [address] Electronically authenticated by: [id number] Y Date: 10/30/2024 10:40
== END 2024-10-30 09:32 | disposition home or self-care (01) ==
LOC: US 09:33
PROVIDERS: Visit Provider Obstetrics & Gynecology
DX: O26.843 Uterine size-date discrepancy, third trimester (principal); Z3A.35 35 weeks gestation of pregnancy
CPT/HCPCS: 76816

== ENCOUNTER 2024-11-02 05:16 | Inpatient (IN) | payer MEDICAID, SELFPAY ==
--- OUTSIDE RECORDS SUMMARY | 2024-10-23 10:20 | XMS_ITS | Encounter Summary ---
Author Organization [facility] Address [address] [place] [address] Care Team Providers Care Carpenter Repair Name Role Phone Sabas Kimbrough MD Primary Care Provider [phone] Reason for Visit * Reason Comments Routine Visit Encounter Details Date Type Department Care Team (Latest Contact Info) Description 10/23/2024 10:20 AM EDT Routine [facility] [address] [place] [phone] Lisset Eric PA [address] [facility] [place] [address] Third trimester ([facility]); 36 weeks gestation of ([facility]); size inconsistent with dates ([facility]); induced hypertension, antepartum ([facility]) Social History Tobacco Use Types Packs/Day Years [...] Sign Reading Time Taken Comments Blood Pressure 130/80 10/23/2024 10:40 AM EDT Pulse - - Temperature - - Respiratory Rate - - Oxygen Saturation - - Inhaled Oxygen Concentration - - Weight 81.1 kg (178 lb 12.8 oz) 025 10:40 AM EDT Height - - Body Mass Index 29.75 09/01/2022 12:00 PM EDT documented in this encounter Progress Notes * MEÑO Bowles - 10/23/2024 10:20 AM EDT Reason for Appointment: Patient ID: [...] Vaginal bleeding 10/22/2022 34 weeks gestation of ([facility]) 10/09/2024 Third trimester fetus ([facility]) 10/09/2024 Resolved Ambulatory Problems Diagnosis Date Noted [...] reviewed. Vitals: Estimated body mass index is 29.75 kg/m?? as calculated from the following: Height as of 09/01/22: 5' 5 . Weight as of this encounter: 178 lb 12.8 oz. BP: 130/80 Patient's last menstrual period was 02/10/2024. ASSESSMENT & PLAN ICD-10-CM 1. Third trimester ([facility]) Z34.93 CULTURE, GROUP B STREP WITH SUSCEPTIBLITY CULTURE, GROUP B STREP WITH SUSCEPTIBLITY POCT urinalysis dipstick manually resulted 2. 36 weeks gestation of ([facility]) Z3A.36 POCT urinalysis dipstick manually resulted 3. size inconsistent with dates ([facility]) O26.849 US OB follow up transabdominal approach 4. induced hypertension, antepartum ([facility]) O13.9 Creatinine Protein, urine, 24 hour Pt and ptt CBC and differential Uric acid Lactate dehydrogenase ALT AST BUN Creatinine Protein, urine, 24 hour Pt and ptt CBC and differential Uric acid Lactate dehydrogenase ALT AST BUN Patient is doing well but has complaints of being tired and having maternal discomfort due to . Patient verbalized frequent movement and was instructed to perform kick counts three times per day. labor precautions were given, LARC consent was signed/declined, and GBS was obtained. Cervical check was performed and patient is 0cm dilated. Orders Placed This Encounter Procedures US OB follow up transabdominal approach CULTURE, GROUP B STREP WITH SUSCEPTIBLITY Creatinine Protein, urine, 24 hour Pt and ptt CBC and differential Uric acid Lactate dehydrogenase ALT AST BUN POCT urinalysis dipstick manually resulted Patient dealing with a lot of stress with ex and suppose to appear in court tomorrow which is inducing stress and panic attacks. Patient will be given a note to excuse her form court appearance tomorrow. BP is slightly above her normal today and protein noted in urine. We will order a induced hypertension labs and growth US. Patient denies headaches or floaters today. Follow Up: Patient is to return to office in 1 week for routine OB appointment Documented by Gabrielle Glasgow LPN on behalf of: MEÑO Bowles documented in this encounter Plan of Treatment Upcoming Encounters Date Type Department Care Team (Late st Contact Info) Description 11/07/2024 10:50 AM EDT Routine [facility] [address] [place] [address] Randall Pfeiffer, DO [address] [facility] [address] [facility] [address] [place], [place] [phone] Scheduled Orders Name Type Priority Associated Diagnoses Orde r Schedule CULTURE, GROUP B STREP WITH SUSCEPTIBLITY Lab Routine Third trimester ([facility]) Expected: 10/23/2024, Expires: 10/23/2025 OB follow up transabdominal approach Imaging Routine size inconsistent with dates ([facility]) Expected: 10/23/2024, Expires: 02/23/2025 Creatinine Lab Routine induced hypertension, antepartum ([facility]) Expected: 10/23/2024 (Approximate), Expires: 10/23/2025 Protein, urine, 24 hour Lab Routine induced hypertension, antepartum ([facility]) Expected: 10/23/2024 (Approximate), Expires: 10/23/2025 Pt and ptt Lab Routine induced hypertension, antepartum ([facility]) Expected: 10/23/2024, Expires: 10/23/2025 CBC and differential Lab Routine induced hypertension, antepartum ([facility]) Expected: 10/23/2024 (Approximate), Expires: 10/23/2025 Uric acid Lab Routine induced hypertension, antepartum ([facility]) Expected: 10/23/2024 (Approximate), Expires: 10/23/2025 Lactate dehydrogenase Lab Routine induced hypertension, antepartum ([facility]) Expected: 10/23/2024, Expires: 10/23/2025 ALT Lab Routine induced hypertension, antepartum ([facility]) Expected: 10/23/2024 (Approximate), Expires: 10/23/2025 AST Lab Routine induced hypertension, antepartum ([facility]) Expected: 10/23/2024 (Approximate), Expires: 10/23/2025 BUN Lab Routine induced hypertension, antepartum ([facility]) Expected: 10/23/2024, Expires: 10/23/2025 documented as of this encounter Procedures Procedure Name Priority Date/Time Associated Diagnosis Comments POCT URINALYSIS DIPSTICK Routine 10/23/2024 10:48 AM EDT Third trimester ([facility]) 36 weeks gestation of ([facility]) documented in this encounter Results * (ABNORMAL) POCT urinalysis dipstick manually resulted (10/23/2024 10:48 AM EDT) Color, UA Yellow Clarity, UA Clear Glucose, UA Negative Negative - 2000(110) ++++ mg/dL Bilirubin, UA Negative Negative - 4(70) +++ mg/dL Ketones, UA Negative Negative - 160(16) ++++ mg/dL Spec Grav, UA 1.030 1 - 1.03 Blood, UA Positive Negative - 50 Wali/mcL pH, UA 6.0 5 - 9 Protein, UA Positive Negative - 2000(20) ++++ mg/dL Urobilinogen, UA 1.0 0.2 - 12 mg/dL Leukocytes, UA Trace Negative - 500+++ Dmitriy/mcL Nitrite, UA Negative Negative - Positive Urine 10/23/2024 10:4 8 AM EDT Lisset WILDER POINT OF CARE TEST ENTER/EDIT OR DERABLES Final Result documented in this encounter Visit Diagnoses Diagnosis Third trimester ([facility]) state, incidental 36 weeks gestation of ([facility]) size inconsistent with dates ([facility]) induced hypertension, antepartum ([facility]) Transient hypertension of , antepartum documented in this encounter Care Teams Carpenter Repair Relationship Specialty Start Date End Date Sabas Kimbrough MD [address] [place] [address] PCP - General Family Medicine 09/16/22 documented as of this encounter
--- OUTSIDE RECORDS SUMMARY | 2024-10-30 09:00 | XMS_ITS | Encounter Summary ---
Author Organization [facility] Address [address] [place] [address] Care Team Providers Care Licensed Nursing Assistant Name Role Phone Sabas Kimbrough MD Primary Care Provider [phone] Reason for Visit * Reason Comments Routine Visit Encounter Details Date Type Department Care Team (Late st Contact Info) Description 10/30/2024 9:00 AM EDT Routine [facility] OB [address] [place] [id number] Randall Pfeiffer, DO [address] [place] [address] Third trimester ([facility]); 37 weeks gestation of ([facility]) Social History Tobacco Use Types Packs/Day Years [...] Sign Reading Time Taken Comments Blood Pressure 122/78 10/30/2024 8:58 AM EDT Pulse - - Temperature - - Respiratory Rate - - Oxygen Saturation - - Inhaled Oxygen Concentration - - Weight 83.8 kg (184 lb 12.8 oz) 10/30/2024 8:58 AM EDT Height - - Body Mass Index 30.75 09/01/2022 12:00 PM EDT documented in this encounter Progress Notes * Rupali Ribeiro, VIVIANE - 10/30/2024 9:00 AM EDT Reason for Appointment: Patient ID: [...] Vaginal bleeding 10/22/2022 34 weeks gestation of ([facility]) 10/09/2024 Third trimester fetus ([facility]) 10/09/2024 Resolved Ambulatory Problems Diagnosis Date Noted [...] appearance. She is well-developed. Genitourinary: Vulva normal. Cardiovascular: Rate and Rhythm: Normal rate and [...] nursing note reviewed. Exam conducted with a green prize packer present. Vitals: Estimated body mass index is 30.75 kg/m?? as calculated from the following: Height as of 09/01/22: 5' 5 . Weight as of this encounter: 184 lb 12.8 oz. BP: 122/78 Patient's last menstrual period was 02/10/2024. ASSESSMENT & PLAN ICD-10-CM 1. Third trimester ([facility]) Z34.93 POCT urinalysis dipstick manually resulted 2. 37 weeks gestation of ([facility]) Z3A.37 POCT urinalysis dipstick manually resulted Return OB: Patient presents today for a routine obstetrics appointment. Patient is currently 37w4d . Patient states she is doing well but has complaints of being tired due to current . Pt has swelling, bp wnl. Precautions given. Patient has verbalizes frequent movement. labor precautions was discussed/given and patient was instructed to perform kick counts three times a day. Orders Placed This Encounter Procedures POCT urinalysis dipstick manually resulted Follow Up: Patient is to return to office in 1 week for routine OB appointment. Documented by Rupali Ribeiro LPN on behalf of: Randall Pfeiffer DO documented in this encounter Plan of Treatment Upcoming Encounters Date Type Department Care Team (Late st Contact Info) Description 11/07/2024 10:50 AM EDT Routine [facility] [address] [facility] [place] [address] Randall Pfeiffer DO [address] [place] [address] documented as of this encounter Procedures Procedure Name Priority Date/Time Associated Diagnosis Comments POCT URINALYSIS DIPSTICK Routine 10/30/2024 9:04 AM EDT Third trimester ([facility]) 37 weeks gestation of ([facility]) documented in this encounter Results * (ABNORMAL) POCT urinalysis dipstick manually resulted (10/30/2024 9:04 AM EDT) Color, UA Yellow Clarity, UA Clear Glucose, UA Negative Negative - 2000(110) ++++ mg/dL Bilirubin, UA Negative Negative - 4(70) +++ mg/dL Ketones, UA Negative Negative - 160(16) ++++ mg/dL Spec Grav, UA 1.025 1 - 1.03 Blood, UA Positive Negative - 50 Wali/mcL pH, UA 6.5 5 - 9 Protein, UA Positive Negative - 2000(20) ++++ mg/dL Urobilinogen, UA 1.0 0.2 - 12 mg/dL Leukocytes, UA Trace Negative - 500+++ Dmitriy/mcL Nitrite, UA Negative Negative - Positive Urine 10/30/2024 9:04 AM EDT Randall Pfeiffer DO POINT OF CARE TEST ENTER/EDIT OR DERABLES Final Result documented in this encounter Visit Diagnoses Diagnosis Third trimester ([facility]) state, incidental 37 weeks gestation of ([facility] documented in this encounter Care Teams Licensed Nursing Assistant Relationship Specialty Start Date End Date Sabas Kimbrough MD [address] [place] [address] PCP - General Family Medicine 09/16/22 documented as of this encounter
[2024-11-02] VITALS (47 sets, daily range): BP systolic 120–193; BP diastolic 69–106; PULSE 49–85; TEMP 35.4–36.7
--- OUTSIDE RECORDS SUMMARY | 2024-11-02 05:20 | XMS_ITS | Encounter Summary ---
Author Organization [facility] Address [address] [place] [address] Care Team Providers Care Software Applications Architect Name Role Phone Dayron Kimbrough MD Primary Care Provider [phone] [phone] Encounter Details Date Type Department Care Team (Late st Contact Info) Description 09/16/2022 Clinisync Result Encounter [facility] External Department Unsolicited Randall Pfeiffer, DO [address] [place] [address] Social History Tobacco Use Types Packs/Day Years [...] EDT Routine [facility] OB [address] [place] [phone] Randall Pfeiffer, DO [facility] [place] [address] documented as of this encounter Procedures Procedure [...] on filedocumented in this encounter Care Teams Software Applications Architect Relationship Specialty Start Date End Date Dayron Kimrbough MD [address] [facility] [place] [address] PCP - General Family Medicine 09/16/22 documented as of this encounter
--- OUTSIDE RECORDS SUMMARY | 2024-11-02 05:20 | XMS_ITS | Encounter Summary ---
Author Organization [facility] Address [address] [place] [address] Care Team Providers Care Automobile Assembly Supervisor Name Role Phone Sabas Kimbrough MD Primary Care Provider [phone] Encounter Details Date Type Department Care Team (Late Contact Info) Description 12/22/2022 Abstract [facility] OB [address] [place] [address] [place] [address] Lisset Eric PA [address] [place] [address] [address] [place], [facility] Social History Tobacco Use Types Packs/Day [...] Department Care Team (Late Contact Info) Description 11/07/2024 10:50 AM EDT Routine [facility] OB [address] [place] [address] Randall Pfeiffer [address] [place], [place] [id number] documented as of this encounter Visit Diagnoses Not on filedocumented in this encounter Care Teams Automobile Assembly Supervisor Relationship Specialty Start Date End Date Sabas Kimbrough MD [address] [place] [address] PCP - General Family Medicine 09/16/22 documented as of this encounter
--- OUTSIDE RECORDS SUMMARY | 2024-11-02 05:20 | XMS_ITS | Encounter Summary ---
Author Organization [facility] Address [address] [place] [address] Care Team Providers Care Stars Specialist Name Role Phone Sabas Kimbrough MD Primary Care Provider [phone] Encounter Details Date Type Department Care Team (Late Contact Info) Description 10/23/2024 Bamboo flowsheet [facility] OB [address] [facility] [place] [address] Lisset Eric PA [address] [place], [facility] [address] Social History Tobacco Use Types Packs/Day Years [...] AM EDT Routine [facility] OB [address] [facility] [place] [address] Randall Pfeiffer, DO [address] [place] [address] documented as of this encounter Visit Diagnoses Not on filedocumented in this encounter Care Teams Stars Specialist Relationship Specialty Start Date End Date Sabas Kimbrough MD [address] [place] [address] PCP - General Family Medicine 09/16/22 documented as of this encounter
--- OUTSIDE RECORDS SUMMARY | 2024-11-02 05:20 | XMS_ITS | CCD ---
Author Organization [facility] Care Team Providers Care Ends Breakage Clerk Name Role Phone MARGARETTE ., DR VICTOR [...] Provider Dayron Kimbrough MD Primary Care Provider Dayron Kimbrough MD Primary Care Provider VALENTE PFEIFFER Attending Unavailable VALENTE PFEIFFER Attending Unavailable RIYA GOMEZ Attending Unavailable RIYA GOMEZ Attending Unavailable VALENTE PFEIFFER Attending Unavailable LISSET AUSTIN Attending Unavailable Allergies Allergy Classification Reported Allergen(s) [...] of ] 09-26-2024 Episodic Residual codes; unclassified (13 sources) Gestation period, 34 weeks; Translations: [34 weeks gestation of ] Onset: 10-09-2024 10-09-2024 Episodic Residual codes; unclassified (2 sources) Gestation period, 36 weeks; Translations: [36 weeks gestation of ] 10-23-2024 Episodic Residual codes; unclassified (2 sources) Gestation period, 37 weeks; Translations: [37 weeks gestation of ] 10-30-2024 Episodic Substance-related disorders (1 source) Nicotine dependence, [...] Test Name Value Interpretation Reference Range Facility OB GROWTHon 07-08-2025 [place] [address] Ultrasound Report Signed Patient: LORAINE PACE MR#: [id number] : 1995 Acct:[id number] Age/Sex: 28 / F ADM Date: 10/30/24 Loc: US Attending Dr: Valente Pfeiffer D.O. Ordering Physician: Valente Pfeiffer D.O. Date of Service: 10/30/24 Procedure(s): US OB growth Accession Number(s): [id number] cc: Valente Pfeiffer D.O.; Physician,Non-Staff [place] The [place] [id number] Patient Name: LORAINE PACE MRN: [id number]:[id number] date: 1995 Sex: F Assigned Patient Location: US Current Patient Location: US Accession/Order Number: [id number] Exam Date: 10/30/2024 10:32 Report Date: 10/30/2024 10:40 At the request of: VALENTE PFEIFFER DO Procedure: US OB growth ULTRASOUND OB GROWTH COMPARISON: 07/18/2024 CLINICAL DATA: Size and consistent with dates. There is a single live intrauterine gestation in cephalic presentation. There is cardiac and somatic activity with heart rate of 147 bpm. The placenta is anterior. The amniotic fluid index measures 14.9 cm which is in normal range. The following measurements were obtained: Biparietal diameter 9.0 cm 36 weeks 2 days 35% Head circumference 32.5 cm 36 weeks 5 days 12% Abdominal circumference 30.9 cm 34 weeks 6 days 5% Femur length 6.9 cm 35 weeks 2 days 7% The composite ultrasound age based these measurements is 35 weeks 6 days +/- 2 weeks 4 days. The current estimated date of delivery is 2024. The date of delivery based on last menstrual period is November 16, 2024 and based on the previous ultrasound November 13, 2024. The estimated weight is 5 lbs. 13 oz. +/- 14 ounces (11%). US/US OB growth IMPRESSION: SINGLE LIVE INTRAUTERINE GESTATION WITH ULTRASOUND AGE OF 35 WEEKS 6 DAYS BASED ON TODAY'S MEASUREMENTS. THIS IS TOWARD THE LOWER LIMITS OF NORMAL INTERVAL GROWTH BASED ON THE LAST MENSTRUAL PERIOD. Impression dictated by: Rupali Cortez M.D. 10/30/2024 10:40 AM Dictation Location: [place] [address] Electronically authenticated by: [id number] Y Date: 10/30/2024 10:40 Dictated By: Rupali Cortez M.D. Signed By: 10/30/24 1043 DD/ 1040 TD/TT: Skin Care Therapist: [facility] Radiology, Radiologist, MD - 10/30/2024 [place] [address] Ultrasound Report Signed Patient: LORAINE PACE MR#: [id number] : 1995 Acct:[id number] Age/Sex: 28 / F ADM Date: 10/30/24 Loc: US Attending Dr: Valente Pfeiffer D.O. Ordering Physician: Valente Pfeiffer D.O. Date of Service: 10/30/24 Procedure(s): US OB growth Accession Number(s): [id number] cc: Valente Pfeiffer D.O.; Physician,Non-Staff [place] [address] Patient Name: LORAINE PACE MRN: [facility]:[id number] date: 1995 Sex: F Assigned Patient Location: US Current Patient Location: US Accession/Order Number: [id number] Exam Date: 10/30/2024 10:32 Report Date: 10/30/2024 10:40 At the request of: VALENTE PFEIFFER DO Procedure: US OB growth ULTRASOUND OB GROWTH COMPARISON: 07/18/2024 CLINICAL DATA: Size and consistent with dates. There is a single live intrauterine gestation in cephalic presentation. There is cardiac and somatic activity with heart rate of 147 bpm. The placenta is anterior. The amniotic fluid index measures 14.9 cm which is in normal range. The following measurements were obtained: Biparietal diameter 9.0 cm 36 weeks 2 days 35% Head circumference 32.5 cm 36 weeks 5 days 12% Abdominal circumference 30.9 cm 34 weeks 6 days 5% Femur length 6.9 cm 35 weeks 2 days 7% The composite ultrasound age based these measurements is 35 weeks 6 days +/- 2 weeks 4 days. The current estimated date of delivery is 2024. The date of delivery based on last menstrual period is November 16, 2024 and based on the previous ultrasound November 13, 2024. The estimated weight is 5 lbs. 13 oz. +/- 14 ounces (11%). US/US OB growth IMPRESSION: SINGLE LIVE INTRAUTERINE GESTATION WITH ULTRASOUND AGE OF 35 WEEKS 6 DAYS BASED ON TODAY'S MEASUREMENTS. THIS IS TOWARD THE LOWER LIMITS OF NORMAL INTERVAL GROWTH BASED ON THE LAST MENSTRUAL PERIOD. Impression dictated by: Rupali Cortez M.D. 10/30/2024 10:40 AM Dictation Location: [place] [address] Electronically authenticated by: [id number] Y Date: 10/30/2024 10:40 Dictated By: Rupali Cortez M.D. Signed By: 10/30/24 1043 DD/ 1040 TD/TT: Skin Care Therapist: [facility] Radiology Study observation (narrative) [facility] OB GROWTHOrdered By: Binta marshallogjose a Radiology on 10-30-2024 [facility] Work Phone: Urinalysis macro (dipstick) panel (U)on 10-30-2024 Bilirubin, UA Negative Negative - 4(70) +++ mg/dL [facility] Blood, UA Positive Negative - 50 Wali/mcL [facility] Clarity, UA Clear [facility] Color, UA Yellow [facility] Glucose, UA Negative Negative - 1999(110) ++++ mg/dL [facility] Interpretation and review of laboratory results Abnormal [facility] Ketones, UA Negative Negative - 160(16) ++++ mg/dL [facility] Leukocytes, UA Trace Negative - 500+++ Dmitriy/mcL [facility] Nitrite, UA Negative Negative - Positive [facility] pH, UA 6.5 5 - 9 [facility] Protein, UA Positive Negative - 1999(20) ++++ mg/dL [facility] Spec Grav, UA 1.025 1 - 1.03 [facility] Urobilinogen, UA 1.0 0.2 - 12 mg/dL [facility] TB TOTAL PROTEIN 24 HOUR UR INEon 10-25-2024 Interpretation and review of laboratory results Abnormal [facility] Protein (U) [Mass/Vol] 119.3 mg/dL High NINF - 11.9 mg/dL [facility] TOTAL PROTEIN 24 HOUR URINE 596.5 High NINF [facility] TOTAL VOLUME 24 HOUR URINE 500 mL/24hr [facility] ALL CBC WITH AUTO DIFFon BASOPHILS ABSOLUTE AUTO 0 [facility] Basophils/100 WBC (Bld) 0.5 % 0.2 - 2.0 % [facility] Eosinophils/100 WBC (Bld) 0.3 % Low 0.9 - 7.0 % [facility] Erythrocyte distribution width (RBC) [Ratio] 13.7 % 11.0 - 15.0 % [facility] Hematocrit (Bld) [Volume fraction] 36 % 36.0 - 48.0 % [facility] Hemoglobin (Bld) [Mass/Vol] 12.1 g/dL 12.0 - 16.0 g/dL [facility] IMMATURE GRANULOCYTES ABS AUTO 0.05 High [facility] Immature granulocytes/100 WBC (Bld) 0.6 % High 0.0 - 0.5 % [facility] Interpretation and review of laboratory results Abnormal [facility] LYMPHOCYTES ABSOLUTE AUTO 1.8 [facility] Lymphocytes/100 WBC (Bld) 20.7 % 20.5 - 60.0 % [facility] MCH (RBC) [Entitic mass] 28.9 pg 26.7 - 34.0 pg [facility] MCHC (RBC) [Mass/Vol] 33.6 g/dL 29.9 - 35.2 g/dL [facility] MCV (RBC) [Entitic vol] 86.1 fL 81.0 - 99.0 fL [facility] MONOCYTES ABSOLUTE AUTO 0.5 [facility] Monocytes/100 WBC (Bld) 5.2 % 1.7 - 12.0 % [facility] NEUTROPHILS ABSOLUTE AUTO 6.2 [facility] Neutrophils/100 WBC (Bld) 72.7 % 43.0 - 75.0 % [facility] Platelet mean volume (Bld) [Entitic vol] 13.4 fL 9.5 - 13.5 fL [facility] EO # 0 [facility] PLT 158 [facility] RBC 4.18 Low [facility] WBC 8.6 [facility] Urinalysis macro (dipstick) panel (U)on 10-23-2024 Bilirubin, UA Negative Negative - 4(70) +++ mg/dL [facility] Blood, UA Positive Negative - 50 Wali/mcL [facility] Clarity, UA Clear [facility] Color, UA Yellow [facility] Glucose, UA Negative Negative - 1999(110) ++++ mg/dL [facility] Interpretation and review of laboratory results Abnormal [facility] Ketones, UA Negative Negative - 160(16) ++++ mg/dL [facility] Leukocytes, UA Trace Negative - 500+++ Dmitriy/mcL [facility] Nitrite, UA Negative Negative - Positive [facility] pH, UA 6 5 - 9 [facility] Protein, UA Positive Negative - 1999(20) ++++ mg/dL [facility] Spec Grav, UA 1.03 1 - 1.03 [facility] Urobilinogen, UA 1.0 0.2 - 12 mg/dL [facility] Urinalysis macro (dipstick) panel (U)on 10-09-2024 Bilirubin, UA Negative Negative - 4(70) +++ mg/dL [facility] Blood, UA Negative Negative - 50 Wali/mcL [facility] Clarity, UA Clear [facility] Color, UA Yellow [facility] Glucose, UA Negative Negative - 1999(110) ++++ mg/dL [facility] Interpretation and review of laboratory results Abnormal [facility] Ketones, UA Negative Negative - 160(16) ++++ mg/dL [facility] Leukocytes, UA Trace Negative - 500+++ Dmitriy/mcL [facility] Comment on above: small Nitrite, UA Negative Negative - Positive [facility] pH, UA 7 5 - 9 [facility] Protein, UA Positive Negative - 1999(20) ++++ mg/dL [facility] Comment on above: 30mg/dL Spec Grav, UA 1.02 1 - 1.03 [facility] Urobilinogen, UA 0.2 0.2 - 12 mg/dL [facility] URINE T PROTEIN CREAT RA TIOon 09-30-2024 CREATININE URINE RANDOM 129.24 mg/dL 20.00 - 300.00 mg/dL [facility] Interpretation and review of laboratory results Abnormal [facility] Protein (U) [Mass/Vol] 29.2 mg/dL High NINF - 11.9 mg/dL [facility] PROTEIN CREATININE RATIO URINE 0.23 [facility] Urinalysis macro (dipstick) panel (U)on 09-26-2024 Bilirubin, UA Negative Negative - 4(70) +++ mg/dL [facility] Blood, UA Positive Negative - 50 Wali/mcL [facility] Comment on above: small Clarity, UA Clear [facility] Color, UA Yellow [facility] Glucose, UA Negative Negative - 1999(110) ++++ mg/dL [facility] Interpretation and review of laboratory results Abnormal [facility] Ketones, UA Negative Negative - 160(16) ++++ mg/dL [facility] Leukocytes, UA Positive Negative - 500+++ Dmitriy/mcL [facility] Comment on above: small Nitrite, UA Negative Negative - Positive [facility] pH, UA 6.5 5 - 9 [facility] Protein, UA Positive Negative - 1999(20) ++++ mg/dL [facility] Comment on above: 30mg/dL Spec Grav, UA 1.025 1 - 1.03 [facility] Urobilinogen, UA 0.2 0.2 - 12 mg/dL [facility] GLUCOSE 1 HOURon 08-24-2024 Glucose [Mass/Vol] 86 mg/dL NINF - 13 0 mg/dL [facility] Urinalysis macro (dipstick) panel (U)on 08-23-2024 Bilirubin, UA Negative Negative - 4(70) +++ mg/dL [facility] Blood, UA Negative Negative - 50 Wali/mcL [facility] Clarity, UA Clear [facility] Color, UA Yellow [facility] Glucose, UA Negative Negative - 1999(110) ++++ mg/dL [facility] Interpretation and review of laboratory results Abnormal [facility] Ketones, UA Negative Negative - 160(16) ++++ mg/dL [facility] Leukocytes, UA Trace Negative - 500+++ Dmitriy/mcL [facility] Nitrite, UA Negative Negative - Positive [facility] pH, UA 6 5 - 9 [facility] Protein, UA Negative Negative - 1999(20) ++++ mg/dL [facility] Spec Grav, UA 1.02 1 - 1.03 [facility] Urobilinogen, UA 0.2 0.2 - 12 mg/dL [facility] No Panel InformationOrdered By: Radiologist Radiology on 07-18-2024 [facility] Work Phone: No Panel Informationon 07-18 Radiology Study observation (narrative) [facility] US OB ANATOMYon 07-18-2024 [place] [address] Ultrasound Report Signed Patient: LORAINE PACE MR#: [id number] : 1995 Acct:[id number] Age/Sex: 28 / F ADM Date: 07/18/24 Loc: US Attending Dr: Valente Pfeiffer D.O. Ordering Physician: Valente Pfeiffer D.O. Date of Service: 07/18/24 Procedure(s): US OB anatomy Accession Number(s): [id number] cc: Valente Pfeiffer D.O.; Physician,Non-Staff [place] [address] Patient Name: LORAINE PACE MRN: [id number]:[id number] date: 1995 Sex: F Assigned Patient Location: Current Patient Location: Accession/Order Number: [id number] Exam Date: 07/18/2024 18:47 Report Date: 07/18/2024 [...] Hoyt Jr., D.O.07/18/2024 6:52 PM Dictation Location: [place] [address] Electronically authenticated by: [id number] Y Date: 07/18/2024 18:52 Dictated By: Markie Hoyt M.D. Signed By: 07/18/241853 DD/ 51 TD/TT: Skin Care Therapist: [facility] Radiology, Radiologist, [place] - 07/18/2024 [place] [address] Ultrasound Report Signed Patient: LORAINE PACE MR#: [id number] : 1995 Acct:[id number] Age/Sex: 28 / F ADM Date: 07/18/24 Loc: US Attending Dr: Valente Pfeiffer D.O. Ordering Physician: Valente Pfeiffer D.O. Date of Service: 07/18/24 Procedure(s): US OB anatomy Accession Number(s): [id number] cc: Valente Pfeiffer D.O.; Physician,Non-Staff Rogel[facility] [place] [id number] Patient Name: LORAINE PACE MRN: [facility]:[id number] date: 1995 Sex: F Assigned Patient Location: US Current Patient Location: US Accession/Order Number: [id number] Exam Date: 07/18/2024 18:47 Report Date: 07/18/2024 [...] Hoyt Jr., D.O.07/18/2024 6:52 PM Dictation Location: [place] [address] Electronically authenticated by: [id number] Y Date: 07/18/2024 18:52 Dictated By: Markie Hoyt M.D. Signed By: 07/18/241853 DD/ 51 TD/TT: Skin Care [facility]rap[facility] CERVICAL LENGTHon 06-24 [place] [address] Ultrasound Report Signed Patient: LORAINE PACE MR#: [id number] : 1995 Acct:[id number] Age/Sex: 28 / F ADM Date: 07/18/24 Loc: US Attending Dr: Valente Pfeiffer D.O. Ordering Physician: Valente Pfeiffer D.O. Date of Service: 07/18/24 Procedure(s): US OB cervical length Accession Number(s): [id number] cc: Valente Pfeiffer D.O.; Physician,Non-Staff Rogelio [address] [address] Patient Name: LORAINE PACE MRN: [id number] date: 1995 Sex: F Assigned Patient Location: US Current Patient Location: US Accession/Order Number: [id number] Exam Date: 07/18/2024 18:47 Report Date: 07/18/2024 [...] Hoyt Jr., D.O.07/18/2024 6:52 PM Dictation Location: [place] [address] Electronically authenticated by: [id number] Y Date: 07/18/2024 18:52 Dictated By: Markie Hoyt M.D. Signed By: 07/18/241853 DD/ 51 TD/TT: Skin Care Therapist: [facility] Radiology, Radiologist, - 07/18/2024 [place] [address] Ultrasound Report Signed Patient: LORAINE PACE MR#: [id number] : 1995 Acct:[id number] Age/Sex: 28 / F ADM Date: 07/18/24 Loc: US Attending Dr: Valente Pfeiffer D.O. Ordering Physician: Valente Pfeiffer D.O. Date of Service: 07/18/24 Procedure(s): US OB cervical length Accession Number(s): [id number] cc: Valente Pfeiffer D.O.; Physician,Non-Staff [place] [place] [address] Patient Name: LORAINE PACE MRN: [id number] date: 1995 Sex: F Assigned Patient Location: US Current Patient Location: US Accession/Order Number: [id number] Exam Date: 07/18/2024 18:47 Report Date: 07/18/2024 [...] Hoyt Jr., D.O.07/18/2024 6:52 PM Dictation Location: [place] [address] Electronically authenticated by: [id number] Y Date: 07/18/2024 18:52 Dictated By: Markie Hoyt M.D. Signed By: 07/18/241853 DD/ 51 TD/TT: Skin Care Therapist: [facility] Urinalysis macro (dipstick) panel (U)on 07-11-2024 Bilirubin, UA Negative Negative - 4(70) +++ mg/dL [facility] Blood, UA Positive Negative - 50 Wali/mcL [facility] Comment on above: trace-intact Clarity, UA Clear [facility] Color, UA Yellow [facility] Glucose, UA Negative Negative - 2000(110) ++++ mg/dL [facility] Interpretation and review of laboratory results Abnormal [facility] Ketones, UA Negative Negative - 160(16) ++++ mg/dL [facility] Leukocytes, UA Negative Negative - 500+++ Dmitriy/mcL [facility] Nitrite, UA Negative Negative - Positive [facility] pH, UA 6 5 - 9 [facility] Protein, UA Trace Negative - 2000(20) ++++ mg/dL [facility] Spec Grav, UA 1.025 1 - 1.03 [facility] Urobilinogen, UA 0.2 0.2 - 12 mg/dL [facility] AFP, SERUM, OPEN SPINA BIFID Aon 06-28-2024 AFP MOM 1.21 . [facility] AFP VALUE 65.3 ng/mL . [facility] COMMENT: Comment . [facility] Comment on above: Concepcion Coon , Ph.D., [facility] Director References: Available Upon Request. Multiples Of Median Cutoffs For AFP Elevations Danielson 2.5 Black 2.8 IDD 2.0 Twins 4.5 Abbreviation Definitions IDD - Insulin Dep Diabetes OSBR - Open Spina Bifida Risk For further inquiries contact [employer] at [phone]. This test was developed and its performance characteristics determined by [employer]. It has not been cleared or approved by the Food and Drug Administration. Performed at: [facility] [employer] [address], [place] [id number] Pipeman: Leonie Bird [facility], Phone: [phone] GEST. AGE ON COLLECTION DATE 19.6 . weeks [facility] GESTAT. AGE BASED ON LMP . [facility] Comment on above: Recalculations are n ot recommended when gestational dating by LMP and ultrasound are within 10 days. INSULIN DEP DIABETES No . [facility] INTERPRETATION Comment . [facility] Comment on above: Interpretation: Scre en Negative [...] Customer Services to discuss available options. The [employer] recommends amniocentesis be offered to women age 35 and older. MATER[age]ES 29[age]9 [age] [facility] MULTIPLE GESTATION No . [facility] OSBR RISK 1 IN 6301 . [facility] RACE . [facility] RESULTS Report . [facility] TEST RESULTS: Negative . [facility] WEIGHT 149 . lbs [facility] N N LMP [id number] 4 15 N 1 149 N N N N N [facility] Urinalysis macro (dipstick) panel (U)on 05-29-2024 Bilirubin, UA Negative Negative - 4(70) +++ mg/dL [facility] Blood, UA Negative Negative - 50 Wali/mcL [facility] Clarity, UA Clear [facility] Color, UA Yellow [facility] Glucose, UA Negative Negative - 2000(110) ++++ mg/dL [facility] Interpretation and review of laboratory results Normal [facility] Ketones, UA Negative Negative - 160(16) ++++ mg/dL [facility] Leukocytes, UA Negative Negative - 500+++ Dmitriy/mcL [facility] Nitrite, UA Negative Negative - Positive [facility] pH, UA 6 5 - 9 [facility] Protein, UA Negative Negative - 2000(20) ++++ mg/dL [facility] Spec Grav, UA 1.03 1 - 1.03 [facility] Urobilinogen, UA 0.2 0.2 - 12 mg/dL [facility] BOX TESTon 05-11-2024 BOX TEST SENT OUT [facility] BOX1 [facility] BOX2 05/11/24 [facility]OX [facility] HCG ( test) Ql (U)o n 04-27-2024 Interpretation and review of laboratory results Abnormal [facility] Preg Test, Ur Positive Negative [facility] US OB TRANSVAGINALon 025 US OB TRANSVAGINAL [...] x 6.1 cm (10 weeks, 0 days). [place] rump length is 4.8 cm (11 weeks, [...] UA Negative Negative - 4(70) +++ mg/dL [facility] Blood, UA Negative Negative - 50 Wali/mcL [facility] Clarity, UA Clear [facility] Color, UA Yellow [facility] Glucose, UA Negative Negative - 2000(110) ++++ mg/dL [facility] Interpretation and review of laboratory results Normal [facility] Ketones, UA Negative Negative - 160(16) ++++ mg/dL [facility] Leukocytes, UA Negative Negative - 500+++ Dmitriy/mcL [facility] Nitrite, UA Negative Negative - Positive [facility] pH, UA 6 5 - 9 [facility] Protein, UA Negative Negative - 2000(20) ++++ mg/dL [facility] Spec Grav, UA 1.025 1 - 1.03 [facility] Urobilinogen, UA 0.2 0.2 - 12 mg/dL [facility] CBC AND AUTO DIFFon 04-12- 24 ABSOLUTE BASOPHIL 0.1 X10E9/L Normal 0.0-0.2 [facility] Comment on above: Performed By: #### C MARILIN, CMP, #### [facility] ([id number]) [address] [place] [address]51 ABSOLUTE NEUTROPHIL 9.3 X10E9/L High 1.5-6.6 [facility] Comment on above: Performed By: #### C MARILIN, CMP, #### [facility] ([id number]) [address] [place] [address] 56552 Basophils/100 WBC (Bld) 0.4 % Normal [facility] Comment on above: Performed By: #### C MARILIN, CMP, #### [facility] ([id number]) [address] [place] [address] 11836 Eosinophils (Bld) [#/Vol] 0.0 10*3/uL Normal 0.0-0.4 [facility] Comment on above: Performed By: #### Abraham GASTON, CMP, #### [facility] ([id number]) [address] [place] [address] 23538 Eosinophils/100 WBC (Bld) 0.2 % Normal [facility] Comment on above: Performed By: #### Abraham GASTON, CMP, #### [facility] ([id number]) [address] [place] [address] 09759 Erythrocyte distribution width (RBC) [Ratio] 14.4 % Normal 11.5-15.0 [facility] Comment on above: Performed By: #### C MARILIN, CMP, #### [facility] ([id number]) [address] [place] [address] 69976 Hematocrit (Bld) [Volume fraction] 39.7 % Normal 35-47 [facility] Comment on above: Performed By: #### C MARILIN, CMP, #### [facility] ([id number]) [address] [place] [address] 50412 Hemoglobin (Bld) [Mass/Vol] 13.4 g/dL Normal 11.7-15.5 [facility] Comment on above: Performed By: #### Abraham GASTON CMP, #### [facility] ([id number]) [address] [place] [address] 74067 Lymphocytes (Bld) [#/Vol] 2.2 10*3/uL Normal 1.0-3.5 [facility] Comment on above: Performed By: #### Abraham GASTON [facility], #### [facility] ([id number]) [address] [place] [address] 16291 Lymphocytes/100 WBC (Bld) 18.4 % Normal [facility] Comment on above: Performed By: #### Abraham GASTON [facility], #### [facility] ([id number]) [address] [place] [address] 83532 MCH (RBC) [Entitic mass] 28.4 pg Normal 27-34 [facility] Comment on above: Performed By: #### Abraham GASTON [facility], #### [facility] ([id number]) [address] [place] [address] 43708 MCHC (RBC) [Mass/Vol] 33.8 g/dL Normal 32-36 [facility] Comment on above: Performed By: #### Abraham GASTON [facility], 80699-2 #### [facility] ([id number]) [address] [place] [address] 47249 MCV (RBC) [Entitic vol] 84 fL Normal 80-100 [facility] Comment on above: Performed By: #### Abraham GASTON CMP, #### [facility] ([id number]) [address] [place] [address] 05047 Monocytes (Bld) [#/Vol] 0.6 10*3/uL Normal 0-0.9 [facility] Comment on above: Performed By: #### C JUSTIN GASTON, 65145-6 #### [facility] ([id number]) [address] [place] [address] 76940 Monocytes/100 WBC (Bld) 4.7 % Normal [facility] Comment on above: Performed By: #### Abraham GASTON [facility], 86437-9 #### [facility] ([id number]) [address] [place] [address] 16348 Neutrophils/100 WBC (Bld) 76.3 % Normal [facility] Comment on above: Performed By: #### C MARILIN [facility], 06224-2 #### [facility] ([id number]) [address] [place] [address] 29233 Platelet mean volume (Bld) [Entitic vol] 8.6 fL Normal 7-12 [facility] Comment on above: Performed By: #### Abraham GASTON [facility], 14966-2 #### [facility] ([id number]) [address] [place] [address] 72424 Platelets (Bld) [#/Vol] 277 10*3/uL Normal 150-450 [facility] Comment on above: Performed By: #### Abraham GASTON [facility], #### [facility] ([id number]) [address] [place] [address] 54724 RBC COUNT 4.73 X10E12/L Normal 3.80-5.20 [facility] Comment on above: Performed By: #### Abraham GASTON [facility], #### [facility] ([id number]) [address] [place] [address] 21704 WBC (Bld) [#/Vol] 12.1 10*3/uL High 4.0-11.0 [facility] Comment on above: Performed By: #### C BCA, CMP, #### [facility] ([id number]) [address] [place] [address] [id number] COMPREHENSIVE METABOLIC PANE [place]ador 04-12-2024 Albumin [Mass/Vol] 4.4 g/dL Normal 3.2-5.3 [facility] Comment on above: Performed By: #### C BCA, CMP, #### [facility] ([id number]) [address] [place] [address] 83891 ALP [Catalytic activity/Vol] 55 U/L Normal 39-130 [facility] Comment on above: Performed By: #### C BCA, CMP, #### [facility] ([id number]) [address] [place] [address] 26667 ALT [Catalytic activity/Vol] 22 U/L Normal 0-31 [facility] Comment on above: Performed By: #### C BCA, CMP, #### [facility] ([id number]) [address] [place] [address] 70308 Anion gap [Moles/Vol] 10 mmol/L Normal 5-15 [facility] Comment on above: Performed By: #### C BCA, CMP, 85855-7 #### [facility] ([id number]) [address] [place] [address] 76332 AST [Catalytic activity/Vol] 16 U/L Normal 0-41 [facility] Comment on above: Performed By: #### C BCA, CMP, 48773-8 #### [facility] ([id number]) [address] [place] [address] 33699 Bilirubin [Mass/Vol] 1.7 mg/dL High 0.3-1.2 [facility] Comment on above: Performed By: #### C BCA, CMP, #### [facility] ([id number]) [address] [place] [address] 27069 Calcium [Mass/Vol] 9.3 mg/dL Normal 8.5-10.5 [facility] Comment on above: Performed By: #### C JUSTIN GASTON, 36679-4 #### [facility] ([id number]) [address] [place] [address] 46936 Chloride [Moles/Vol] 102 mmol/L Normal 98-109 [facility] Comment on above: Performed By: #### C JUSTIN GASTON, #### [facility] ([id number]) [address] [place] [address] 70905 CO2 [Moles/Vol] 23 mmol/L Normal 22-32 [facility] Comment on above: Performed By: #### C JUSTIN GASTON, 67481-6 #### [facility] ([id number]) [address] [place] [address] 93914 Creatinine [Mass/Vol] 0.55 mg/dL Normal 0.40-1.00 [facility] Comment on above: Result Comment: METH OD TRACEABLE TO IDMS STANDARD Performed By: #### C JUSTIN GASTON, 71880-4 #### [facility] ([id number]) [address] [place] [address] 45942 eGFR (CKD-EPI) NON-RACE DEPENDENT >90 Normal >59 [facility] Comment on above: Result Comment: Reported eGFR is based on the CKD-EPI 2021 equation that does not use a race coefficient. Performed By: #### C JUSTIN GASTON, 18743-8 #### [facility] ([id number]) [address] [place] [address] 78476 Glucose [Mass/Vol] 94 mg/dL Normal 65-99 [facility] Comment on above: Performed By: #### C JUSTIN GASTON, #### [facility] ([id number]) [address] [place] [address] 24229 Potassium [Moles/Vol] 3.5 mmol/L Normal 3.5-5.0 [facility] Comment on above: Performed By: #### C JUSTIN GASTON, 77284-3 #### [facility] ([id number]) [address] [place] [address] 48324 Protein [Mass/Vol] 7.9 g/dL Normal 6.0-8.0 [facility] Comment on above: Performed By: #### C JUSTIN GASTON, #### [facility] ([id number]) [address] [place] [address] 13716 Sodium [Moles/Vol] 135 mmol/L Normal 134-146 [facility] Comment on above: Performed By: #### C JUSTIN GASTON, #### [facility] ([id number]) [address] [place] [address] 79896 Urea nitrogen [Mass/Vol] 10 mg/dL Normal 5-23 [facility] Comment on above: Performed By: #### C MARILIN [facility], 48742-2 #### [facility] ([id number]) [address] [place] [address] 21461 HCG ( test) Ql (U)o n 04-12-2024 Beta HCG ( test) Ql (U) Positive Abnormal NEG [facility] Comment on above: Performed By: #### 2 106-3 #### [facility] ([id number]) [address] [place] [address] 27404 MAGNESIUMon 04-12-2024 Magnesium [Mass/Vol] 2.0 mg/dL Normal 1.8-2.6 [facility] Comment on above: Performed By: #### C JUSTIN GASTON, #### [facility] ([id number]) [address] [place] [address] 27372 URN MACROSCOPIC NURon 2023 BILIRUBIN MAIA Negative Normal NEG [facility] Comment on above: Performed By: #### N UM #### [facility] ([id number]) [address] [place] [address] 15190 BLOOD/HGB MAIA Negative Normal NEG [facility] Comment on above: Performed By: #### N UM #### [facility] ([id number]) [address] [place] [address] [place] [address] GLUCOSE MAIA Negative Normal NEG [facility] Comment on above: Performed By: #### N UM #### [facility] ([id number]) [address] [place] [address] [place] [address] KETONES MAIA >=160 Abnormal NEG [facility] Comment on above: Performed By: #### N UM #### [facility] ([id number]) [address] [place] [address] [place] [address] LEUKOCYTE ESTERASE MAIA Negative Normal NEG [facility] Comment on above: Performed By: #### N UM #### [facility] ([id number]) [address] [place] [address] [place] [address] NITRITE MAIA Negative Normal NEG [facility] Comment on above: Performed By: #### N UM #### [facility] ([id number]) [address] [place] [address] 47554 PH MAIA 6.5 Normal 5.0-8.5 [facility] Comment on above: Performed By: #### N UM #### [facility] ([id number]) [address] [place] [address] 54706 PROTEIN MAIA Trace Abnormal NEG [facility] Comment on above: Performed By: #### N UM #### [facility] ([id number]) [address] [place] [address] [place] [address] SPECIFIC GRAVITY MAIA >=1.030 Normal 1.003-1.035 [facility] Comment on above: Performed By: #### N UM #### [facility] ([id number]) [address] [place] [address] 28644 UROBILINOGEN MAIA 1.0 eu/dL Normal <1.1 [facility] Comment on above: Performed By: #### N UM #### [facility] ([id number]) [address] [place] [address] [facility] (TXCTMN) LORAINE PACE ([id number]) 1995 F Date Time Provider Department 01/11/24 [...] Yes Online intake has been scanned to [employer] for review by the living donor coordinator. Allergies As of Date: 01/11/2024 (Not on File) Date Reviewed: Never Reviewed Reason for Visit: Referral - Donor Txp [[id number]] Primary Visit Diagnosis:Liver donor [Z52.6] Order(s):CONSULT TO [facility] [345331] Order #: [id number]: 1 Problem List As Of Date: 01/11/2024 (None) Encounter Status:Closed by KRISS ATKINS on 01/11/24 Normal [facility] CNPN Telephone (TXCTMN) LORAINE PACE ([id number]) 1995 F Date Time Provider Department 01/11/24 [...] for Covid? No, had 1 time no mcfp side effects Overall general health: Patient reports [...] 08-06-2022 Glucose [Mass/Vol] 80 mg/dL Normal [facility] Comment on above: Performed By: #### G TT3P #### [facility] [address] [place] [address] Dr. Jamie Dickey Glucose [Mass/Vol] 139 mg/dL Normal [facility] Comment on above: Performed By: #### G TT3P #### [facility] [address] [place] [address] Dr. Jamie Dickey Glucose [Mass/Vol] 99 mg/dL Normal [facility] Comment on above: Performed By: #### G TT3P #### [facility] [address] [place] [address] Dr. Jamie Dickey CBC AUTO DIFFon 07-27-2022 BASO # 0.0 103/ul Normal 0.0-0.1 [facility] Comment on above: Performed By: #### C BC #### [facility] [address] [place] [address] Dr. Jamie Dickey Basophils/100 WBC (Bld) 0.4 % Normal 0.2-2.0 [facility] Comment on above: Performed By: #### C BC #### [facility] [address] [place] [address] Dr. Jamie Dickey EO # 0.2 103/ul Normal 0.0-0.7 [facility] Comment on above: Performed By: #### C BC #### [facility] [address] [place] [address] Dr. Jamie Dickey Eosinophils/100 WBC (Bld) 1.8 % Normal 0.9-7.0 [facility] Comment on above: Performed By: #### C BC #### [facility] [address] [place] [address] Dr. Jamie Dickey Erythrocyte distribution width (RBC) [Ratio] 13.2 % Normal 11.0-15.0 [facility] Comment on above: Performed By: #### C BC #### [facility] [address] [place] [address] Dr. Jamie Dickey Hematocrit (Bld) [Volume fraction] 32.1 % Critically low 36.0-48.0 [facility] Comment on above: Performed By: #### C BC #### [facility] [address] [address] [address] Jamie Dickey Hemoglobin (Bld) [Mass/Vol] 10.8 g/dL Critically low 12.0-16.0 [facility] Comment on above: Performed By: #### C BC #### [facility] [address] [place] [address] Dr. Jamie Dickey IG # 0.07 10e3/ul Critically high 0.00-0.03 [facility] Comment on above: Performed By: #### C BC #### [facility] [address] [place] [address] Dr. Jamie Dickey IG % 0.8 % Critically high 0.0-0.5 [facility] Comment on above: Performed By: #### C BC #### [facility] [address] [place] [address] Dr. Jamie Dickey LYMPH # 1.8 103/ul Normal 1.2-3.8 [facility] Comment on above: Performed By: #### C BC #### [facility] [address] [place] [address] Dr. Jamie Dickey Lymphocytes/100 WBC (Bld) 20.4 % Critically low 20.5-60.0 [facility] Comment on above: Performed By: #### C BC #### [facility] [address] [place] [address] Dr. Jamie Dickey MANUAL DIFF REQ NO Normal [facility] Comment on above: Performed By: #### C BC #### [facility] [address] [place] [address] Dr. Jamie Dickey MCH (RBC) [Entitic mass] 29.1 pg Normal 26.7-34.0 [facility] Comment on above: Performed By: #### C BC #### [facility] [address] [place] [address] Dr. Jamie Dickey MCHC (RBC) [Mass/Vol] 33.6 g/dL Normal 29.9-35.2 [facility] Comment on above: Performed By: #### C BC #### [facility] [address] [place] [address] Dr. Jamie Dickey MCV (RBC) [Entitic vol] 86.5 fL Normal 81.0-99.0 [facility] Comment on above: Performed By: #### C BC #### [facility] [address] [place] [address] Dr. Jamie Dickey MONO # 0.4 103/ul Normal 0.3-0.8 [facility] Comment on above: Performed By: #### C BC #### [facility] [address] [address] [address] Jamie Dickey Monocytes/100 WBC (Bld) 4.8 % Normal 1.7-12.0 [facility] Comment on above: Performed By: #### C BC #### [facility] [address] [place] [address] Dr. Jamie Dickey NEUT # 6.5 103/ul Normal 1.4-6.5 [facility] Comment on above: Performed By: #### C BC #### [facility] [address] [place] [address] Dr. Jamie Dickey Neutrophils/100 WBC (Bld) 71.8 % Normal 43.0-75.0 [facility] Comment on above: Performed By: #### C BC #### [facility] [address] [place] [address] Dr. Jamie Dickey Platelet mean volume (Bld) [Entitic vol] 10.1 fL Normal 9.5-13.5 [facility] Comment on above: Performed By: #### C BC #### [facility] [address] [place] [address] Dr. Jamie Dickey PLT 197 103/ul Normal 150-450 [facility] Comment on above: Performed By: #### C BC #### [facility] [address] [place] [address] Dr. Jamie Dickey RBC 3.71 106/ul Critically low 4.20-5.40 [facility] Comment on above: Performed By: #### C BC #### [facility] [address] [place] [address] Dr. Jamie Dickey WBC 9.0 103/ul Normal 4.0-11.0 [facility] Comment on above: Performed By: #### C BC #### [facility] [address] [address] [address] Jamie Dickey GLUCOSE - 1HRon 07-27-2022 Glucose [Mass/Vol] 158 mg/dL Critically high 74-106 [facility] Comment on above: Performed By: #### N BOX #### [facility] [address] [address] [address] Jamie Dickey AFP MATERNAL FOR SPINA BIFID Aon 06-26-2022 AFP MoM 0.90 Normal [facility] Comment on above: Performed By: #### H CVPCRR #### [facility] [address] [address] [address] Jamie Dickey AFP Value 54.6 ng/mL Normal [facility] Comment on above: Performed By: #### H CVPCRR #### [facility] [address] [address] [address] Jamie Dickey AFP, Serum for Spina Bifida Report Normal [facility] Comment on above: Performed By: #### H CVPCRR #### [facility] [address] [address] [address] Jamie Dickey Comment Comment Normal [facility] Comment on above: Result Comment: Anamaria Coon, Ph.D., [facility] Director . References: Available Upon Request. . Multiples Of Median Cutoffs For AFP Elevations Danielson 2.5 Black 2.8 IDD 2.0 Twins 4.5 Abbreviation Definitions IDD - Insulin Dep Diabetes OSBR - Open Spina Bifida Risk . For further inquiries contact [employer] [facility] at [phone]. . This test was developed and its performance characteristics determined by [employer]. It has not been cleared or approved by the Food and Drug Administration. Performed By: #### H CVPCRR #### [facility] [address] [place] [address] Dr. Jamie Dickey Gest Age Collection Date 20.0 weeks Normal [facility] Comment on above: Performed By: #### H CVPCRR #### [facility] [address] [place] [address] Dr. Jamie Dickey Gestat, Age Based on Ultrasound Normal [facility] Comment on above: Result Comment: 18.6 on 06/14/2022 Recalculations are not recommended when gestational dating by LMP and ultrasound are within 10 days. Performed By: #### H CVPCRR #### [facility] [address] [place] [address] Dr. Jamie Dickey Insulin Dep Diabetes No Normal [facility] Comment on above: Performed By: #### H CVPCRR #### [facility] [address] [place] [address] Dr. Jamie Dickey Interpretation Comment Normal [facility] Comment on above: Result Comment: Inte rpretation: [...] Customer Services to discuss available options. The [employer] recommends amniocentesis be offered to women age 35 and older. Performed By: #### H CVPCRR #### [facility] [address] [place] [address] Dr. Jamie Dickey [age] Normal [facility] Comment on above: Performed By: #### H CVPCRR #### [facility] [address] [place] [address] Dr. Jamie Dickey Multiple Gestation No Normal [facility] Comment on above: Performed By: #### H CVPCRR #### [facility] [address] [place] [address] Dr. Jamie Dickey [place] [address] Normal [facility] Comment on above: Performed By: #### H CVPCRR #### [facility] [address] [place] [address] Dr. Jamie Dickey PDF . Normal [facility] Comment on above: Performed By: #### H CVPCRR #### [facility] [address] [address] [address] Jamie Dickey Race Normal [facility] Comment on above: Performed By: #### H CVPCRR #### [facility] [address] [address] [address] Jamie Dickey Test Results: Negative Normal [facility] Comment on above: Performed By: #### H CVPCRR #### [facility] [address] [address] [address] Jamie Dickey US PREG ANATOMY SINGLEon [...] by: DAYRON AYON Date: 2022-06-24 16:14 Normal [facility] PAP ACOG PANEL 2: 30 to 65on 06-22-2022 . . Normal [facility] Comment on above: Performed By: #### 4 [id number] #### [facility] [address] [place] [address] Dr. Jamie Dickey Age Gdln ACOG Testing 21-29 [facility] Comment on above: Performed By: #### 4 [id number] #### [facility] [address] [place] [address] Dr. Jamie Dickey DIAGNOSIS: Comment [facility] Comment on above: Result Comment: NEGA TIVE FOR INTRAEPITHELIAL LESION OR MALIGNANCY. Performed By: #### 4 [id number] #### [facility] [address] [place] [address] Dr. Jamie Dickey Methodology: Comment [facility] Comment on above: Result Comment: This liquid based ThinPrep(R) pap test was screened with the use of an image guided system. Performed By: #### 4 [id number] #### [facility] [address] [place] [address] Dr. Jamie Dickey Note: Comment [facility] Comment on above: Result Comment: The Pap smear is a screening test designed to aid in the detection of premalignant and malignant conditions of the uterine cervix. It is not a diagnostic procedure and should not be used as the sole means of detecting cervical cancer. Both false-positive and false-negative reports do occur. . Performed By: #### 4 [id number] #### [facility] [address] [place] [address] Dr. Jamie Dickey Performed by: Comment Normal [facility] Comment on above: Result Comment: Tiffany Beatty, Auto Collision Repair Instructor (ASCP) Performed By: #### 4 [id number] #### [facility] [address] [place] [address] Dr. Jamie Dickey Reflex Criteria: Comment [facility] Comment on above: Result Comment: The HPV DNA reflex criteria were not met with this specimen result therefore, no HPV testing was performed. . Performed By: #### 4 [id number] #### [facility] [address] [place] [address] Dr. Jamie Dickey Specimen adequacy: Comment Normal [facility] Comment on above: Result Comment: Sati sfactory for evaluation. No endocervical component is identified. Performed By: #### 4 [id number] #### [facility] [address] [place] [address] Dr. Jamie Dickey CHLAMYDIA/GONOCOCCUS FLORENCIO (SW AB/URINE/PAPon 06-17-2022 Chlamydia trachomatis, FLORENCIO Negative Normal Negative [facility] Comment on above: Performed By: #### C T/NGNA #### [facility] [address] [place] [address] Dr. Jamie Dickey Neisseria gonorrhoeae, FLORENCIO Negative Normal Negative [facility] Comment on above: Performed By: #### C T/NGNA #### [facility] [address] [place] [address] Dr. Jamie Dickey VAGINITIS/VAGINOSIS DNA PROB Lanre 06-16-2022 Gabriella species Negative Normal Negative [facility] Comment on above: Performed By: #### V AGINT #### [facility] [address] [place] [address] Dr. Jamie Dickey Gardnerella vaginalis Positive Abnormal Negative [facility] Comment on above: Performed By: #### V AGINT #### [facility] [address] [place] [address] Dr. Jamie Dickey Trichomonas vaginalis Negative Normal Negative [facility] Comment on above: Performed By: #### V AGINT #### [facility] [address] [place] [address] Dr. Jamie Dickey CBC AUTO DIFFon 05-29-2022 BASO # 0.0 103/ul Normal 0.0-0.1 [facility] Comment on above: Performed By: #### H CVPCRR #### [facility] [address] [place] [address] Dr. Jamie Dickey Basophils/100 WBC (Bld) 0.4 % Normal 0.2-2.0 [facility] Comment on above: Performed By: #### H CVPCRR #### [facility] [address] [place] [address] Dr. Jamie Dickey EO # 0.1 103/ul Normal 0.0-0.7 [facility] Comment on above: Performed By: #### H CVPCRR #### [facility] [address] [place] [address] Dr. Jamie Dickey Eosinophils/100 WBC (Bld) 1.3 % Normal 0.9-7.0 [facility] Comment on above: Performed By: #### H CVPCRR #### [facility] [address] [place] [address] Dr. Jamie Dickey Erythrocyte distribution width (RBC) [Ratio] 13.4 % Normal 11.0-15.0 [facility] Comment on above: Performed By: #### H CVPCRR #### [facility] [address] [place] [address] Dr. Jamie Dickey Hematocrit (Bld) [Volume fraction] 32.8 % Critically low 36.0-48.0 [facility] Comment on above: Performed By: #### H CVPCRR #### [facility] [address] [place] [address] Dr. Jamie Dickey Hemoglobin (Bld) [Mass/Vol] 10.9 g/dL Critically low 12.0-16.0 [facility] Comment on above: Performed By: #### H CVPCRR #### [facility] [address] [place] [address] Dr. Jamie Dickey IG # 0.03 10e3/ul Normal 0.00-0.03 [facility] Comment on above: Performed By: #### H CVPCRR #### [facility] [address] [place] [address] Dr. Jamie Dickey IG % 0.4 % Normal 0.0-0.5 [facility] Comment on above: Performed By: #### H CVPCRR #### [facility] [address] [place] [address] Dr. Jamie Dickey LYMPH # 1.1 103/ul Critically low 1.2-3.8 [facility] Comment on above: Performed By: #### H CVPCRR #### [facility] [address] [place] [address] Dr. Jamie Dickey Lymphocytes/100 WBC (Bld) 15.3 % Critically low 20.5-60.0 [facility] Comment on above: Performed By: #### H CVPCRR #### [facility] [address] [place] [address] Dr. Jamie Dickey MANUAL DIFF REQ NO Normal [facility] Comment on above: Performed By: #### H CVPCRR #### [facility] [address] [place] [address] Dr. Jamie Dickey MCH (RBC) [Entitic mass] 29.7 pg Normal 26.7-34.0 [facility] Comment on above: Performed By: #### H CVPCRR #### [facility] [address] [place] [address] Dr. Jamie Dickey MCHC (RBC) [Mass/Vol] 33.2 g/dL Normal 29.9-35.2 [facility] Comment on above: Performed By: #### H CVPCRR #### [facility] [address] [place] [address] Dr. Jamie Dickey MCV (RBC) [Entitic vol] 89.4 fL Normal 81.0-99.0 [facility] Comment on above: Performed By: #### H CVPCRR #### [facility] [address] [place] [address] Dr. Jamie Dickey MONO # 0.6 103/ul Normal 0.3-0.8 [facility] Comment on above: Performed By: #### H CVPCRR #### [facility] [address] [place] [address] Dr. Jamie Dickey Monocytes/100 WBC (Bld) 8.1 % Normal 1.7-12.0 [facility] Comment on above: Performed By: #### H CVPCRR #### [facility] [address] [place] [address] Dr. aJmie Dickey NEUT # 5.5 103/ul Normal 1.4-6.5 [facility] Comment on above: Performed By: #### H CVPCRR #### [facility] [address] [place] [address] Dr. Jamie Dickey Neutrophils/100 WBC (Bld) 74.5 % Normal 43.0-75.0 [facility] Comment on above: Performed By: #### H CVPCRR #### [facility] [address] [place] [address] Dr. Jamie Dickey Platelet mean volume (Bld) [Entitic vol] 10.1 fL Normal 9.5-13.5 [facility] Comment on above: Performed By: #### H CVPCRR #### [facility] [address] [place] [address] Dr. Jamie Dickey PLT 175 103/ul Normal 150-450 [facility] Comment on above: Performed By: #### H CVPCRR #### [facility] [address] [place] [address] Dr. Jamie Dickey RBC 3.67 106/ul Critically low 4.20-5.40 [facility] Comment on above: Performed By: #### H CVPCRR #### [facility] [address] [place] [address] Dr. Jamie Dickey WBC 7.4 103/ul Normal 4.0-11.0 [facility] Comment on above: Performed By: #### H CVPCRR #### [facility] [address] [place] [address] Dr. Jamie Dickey PROF CHEM 8 (BAS METB)on Anion gap [Moles/Vol] 11.8 mmol/L Normal [facility] Comment on above: Performed By: #### B MP #### [facility] [address] [place] [address] Dr. Jamie Dickey Calcium [Mass/Vol] 8.4 mg/dL Critically low 8.5-10.1 [facility] Comment on above: Performed By: #### B MP #### [facility] [address] [place] [address] Dr. Jamie Dickey Chloride [Moles/Vol] 103 mmol/L Normal 98-107 [facility] Comment on above: Performed By: #### B MP #### [facility] [address] [address] [address] Jamie Dickey CO2 [Moles/Vol] 26.0 mmol/L Normal 21.0-32.0 [facility] Comment on above: Performed By: #### B MP #### [facility] [address] [address] [address] Jamie Dickey Creatinine [Mass/Vol] 0.49 mg/dL Critically low 0.55-1.02 [facility] Comment on above: Performed By: #### B MP #### [facility] [address] [address] [address] Jamie Dickey EGFR-AF [place] CITIZEN >60 Normal >=60 [facility] Comment on above: Performed By: #### B MP #### [facility] [address] [address] [address] Jamie Dickey EGFR-NON AF [place] CITIZEN >60 Normal >=60 [facility] Comment on above: Performed By: #### B MP #### [facility] [address] [address] [address] Jamie Dickey Glucose [Mass/Vol] 92 mg/dL Normal 74-106 [facility] Comment on above: Performed By: #### B MP #### [facility] [address] [address] [address] Jamie Dickey Potassium [Moles/Vol] 3.8 mmol/L Normal 3.5-5.1 [facility] Comment on above: Performed By: #### B MP #### [facility] [address] [address] [address] Jamie Dickey Sodium [Moles/Vol] 137 mmol/L Normal 136-145 [facility] Comment on above: Performed By: #### B MP #### [facility] [address] [address] [address] Jamie Dickey Urea nitrogen [Mass/Vol] 10.0 mg/dL Normal 7.0-18.0 [facility] Comment on above: Performed By: #### B MP #### [facility] [address] [place] [address] Dr. Jamie Dickey Urea nitrogen/Creatinine [Mass ratio] 20.4 mg/mg Normal [facility] Comment on above: Performed By: #### B MP #### [facility] [address] [place] [address] Dr. Jamie Dickey PROTIMEon 05-29-2022 INR Coag (PPP) [Relative time] {INR} Normal [facility] Comment on above: Performed By: #### N BOX #### [facility] [address] [place] [address] Dr. Jamie Dickey INR GUIDELINES SEE BELOW Normal [facility] Comment on above: Result Comment: CARITO RED INR: 2.0 - 3.0 CONDITIONS NOT LISTED BELOW 2.5 - 3.5 FOR PROSTHETIC HEART VALVE REPLACEMENT 2.5 - 3.5 RECURRENT THROMBOSIS Performed By: #### N BOX #### [facility] [address] [place] [address] Dr. Jamie Dickey PT Coag (PPP) [Time] 9.3 s Normal 9.0-11.6 [facility] Comment on above: Performed By: #### N BOX #### [facility] [address] [place] [address] Dr. Jamie Dickey PTTon 05-29-2022 aPTT Coag (Bld) [Time] 27.7 s Normal 22.3-36.2 [facility] Comment on above: Performed By: #### N BOX #### [facility] [address] [place] [address] Dr. Jamie Dickey US PREG PLACENTAon 3 [...] Daniel ZAIDI Date: 2022-05-29 01:00 Normal [facility] HEP B SURFACE ANTIGEN SCREEN on 05-07-2022 HBsAg Screen Negative Normal Negative [facility] Comment on above: Performed By: #### H CVPCRR #### [facility] [address] [place] [address] Dr. Jamie Dickey HEPATITIS C VIRUS AB W/ REFL EX QUANTon 05-07-2022 HCV AB <0.1 Normal 0.0-0.9 [facility] Comment on above: Performed By: #### H CVPCRR #### [facility] [address] [place] [address] Dr. Jamie Dickey Interpretation: Comment Normal [facility] Comment on above: Result Comment: Nega tive Not infected with HCV, unless recent infection is suspected or other evidence exists to indicate HCV infection. Performed By: #### H CVPCRR #### [facility] [address] [place] [address] Dr. Jamie Dickey HIV 1 AND 2 WITH REFLEXon HIV Screen 4th Generation wRfx Non-Reactive Normal Non Reactive [facility] Comment on above: Result Comment: HIV Negative HIV-1/HIV-2 antibodies and HIV-1 p24 antigen were NOT detected. There is no laboratory evidence of HIV infection. Performed By: #### H CVPCRR #### [facility] [address] [place] [address] Dr. Jamie Dickey RPR QUANTon 05-07-2022 Rapid Plasma Reagin, Quant Non-Reactive Normal NonRea<1:1 [facility] Comment on above: Result Comment: Plea se Note: This test does not meet current guidelines for screening and diagnosis of syphilis. This test is intended for following treatment response in patients being treated for syphilis infection. To screen for syphilis infection, a reflex cascade that includes both RPR and a treponema-specific assay should be utilized, such as Treponema pallidum (Syphilis) Screening Mancos (443083) or Rapid Plasma Reagin (RPR) Test With Reflex to Quantitative RPR and Confirmatory Treponema pallidum Antibodies (166264). Performed By: #### R PRQ #### [facility] [address] [place] [address] Dr. Jamie Dickey RUBELLA AB IGGon 05-07-2022 Rubella Antibodies, IgG 4.41 index Normal Immune >0.99 [facility] Comment on above: Result Comment: Non- immune <0.90 Equivocal 0.90 - 0.99 Immune >0.99 Performed By: #### N BOX #### [facility] [address] [place] [address] Dr. Jamie Dickey CBC AUTO DIFFon 05-06-2022 BASO # 0.0 103/ul Normal 0.0-0.1 [facility] Comment on above: Performed By: #### N BOX #### [facility] [address] [place] [address] Dr. Jamie Dickey Basophils/100 WBC (Bld) 0.3 % Normal 0.2-2.0 [facility] Comment on above: Performed By: #### N BOX #### [facility] [address] [place] [address] Dr. Jamie Dickey EO # 0.1 103/ul Normal 0.0-0.7 [facility] Comment on above: Performed By: #### N BOX #### [facility] [address] [place] [address] Dr. Jamie Dickey Eosinophils/100 WBC (Bld) 0.9 % Normal 0.9-7.0 [facility] Comment on above: Performed By: #### N BOX #### [facility] [address] [place] [address] Dr. Jamie Dickey Erythrocyte distribution width (RBC) [Ratio] 13.0 % Normal 11.0-15.0 [facility] Comment on above: Performed By: #### N BOX #### [facility] [address] [address] [address] Jamie Dickey Hematocrit (Bld) [Volume fraction] 36.7 % Normal 36.0-48.0 [facility] Comment on above: Performed By: #### N BOX #### [facility] [address] [address] [address] Jamie Dickey Hemoglobin (Bld) [Mass/Vol] 11.7 g/dL Critically low 12.0-16.0 [facility] Comment on above: Performed By: #### N BOX #### [facility] [address] [address] [address] Jamie Dickey IG # 0.05 10e3/ul Critically high 0.00-0.03 [facility] Comment on above: Performed By: #### N BOX #### [facility] [address] [place] [address] Dr. Jamie Dickey IG % 0.4 % Normal 0.0-0.5 [facility] Comment on above: Performed By: #### N BOX #### [facility] [address] [address] [address] Jamie Dickey LYMPH # 2.3 103/ul Normal 1.2-3.8 [facility] Comment on above: Performed By: #### N BOX #### [facility] [address] [place] [address] Dr. Jamie Dickey Lymphocytes/100 WBC (Bld) 20.3 % Critically low 20.5-60.0 [facility] Comment on above: Performed By: #### N BOX #### [facility] [address] [address] [address] Jamie Dickey MANUAL DIFF REQ NO Normal [facility] Comment on above: Performed By: #### N BOX #### [facility] [address] [address] [address] Jamie Dickey MCH (RBC) [Entitic mass] 28.5 pg Normal 26.7-34.0 [facility] Comment on above: Performed By: #### N BOX #### [facility] [address] [address] [address] Jamie Dickey MCHC (RBC) [Mass/Vol] 31.9 g/dL Normal 29.9-35.2 [facility] Comment on above: Performed By: #### N BOX #### [facility] [address] [address] [address] Jamie Dickey MCV (RBC) [Entitic vol] 89.5 fL Normal 81.0-99.0 [facility] Comment on above: Performed By: #### N BOX #### [facility] [address] [address] [address] Jamie Dickey MONO # 0.5 103/ul Normal 0.3-0.8 [facility] Comment on above: Performed By: #### N BOX #### [facility] [address] [place] [address] Dr. Jamie Dickey Monocytes/100 WBC (Bld) 4.7 % Normal 1.7-12.0 [facility] Comment on above: Performed By: #### N BOX #### [facility] [address] [address] [address] Jamie Dickey NEUT # 8.3 103/ul Critically high 1.4-6.5 [facility] Comment on above: Performed By: #### N BOX #### [facility] [address] [place] [address] Dr. Jamie Dickey Neutrophils/100 WBC (Bld) 73.4 % Normal 43.0-75.0 [facility] Comment on above: Performed By: #### N BOX #### [facility] [address] [address] [address] Jamie Dickey Platelet mean volume (Bld) [Entitic vol] 10.8 fL Normal 9.5-13.5 [facility] Comment on above: Performed By: #### N BOX #### [facility] [address] [place] [address] Dr. Jamie Dickey PLT 238 103/ul Normal 150-450 [facility] Comment on above: Performed By: #### N BOX #### [facility] [address] [address] [address] Jamie Dickey RBC 4.10 106/ul Critically low 4.20-5.40 [facility] Comment on above: Performed By: #### N BOX #### [facility] [address] [place] [address] Dr. Jamie Dickey WBC 11.3 103/ul Critically high 4.0-11.0 [facility] Comment on above: Performed By: #### N BOX #### [facility] [address] [place] [address] Dr. Jamie Dickey CULTURE URINEon 05-06-2022 CULTURE URINE Culture Observations: LIGHT GROWTH OF MIXED GENITAL CHANTALE. NO POTENTIAL PATHOGENS SEEN. Normal [facility] Comment on above: Performed By: #### N BOX #### [facility] [address] [place] [address] Dr. Jamie Dickey GLYCOHEMOGLOBIN A1Con 2022 ADA RECOMMENDATION SEE BELOW Normal [facility] Comment on above: Result Comment: ADA RECOMMENDED LIMIT 4.0 - 6.0 ADA THERAPEUTIC TARGET < 7.0 ACTION SUGGESTED > 7.0 Performed By: #### A 1C #### [facility] [address] [place] [address] Dr. Jamie Dickey Glucose [Mass/Vol] 94 mg/dL Normal [facility] Comment on above: Performed By: #### A 1C #### [facility] [address] [place] [address] Dr. Jamie Dickey HbA1c (Bld) [Mass fraction] 4.9 % Normal 4.5-6.2 [facility] Comment on above: Performed By: #### A 1C #### [facility] [address] [place] [address] Dr. Jamie PARSONS BOX TEST PT SEND OUTo n 05-06-2022 SENT TO REF LAB 05/06/2022 Normal [facility] Comment on above: Performed By: #### N BOX #### [facility] [address] [place] [address] Dr. Jamie Dickey TYPE AND SCREENon 05-06-2022 TYPE AND SCREEN Negative Normal [facility] Comment on above: Performed By: #### N BOX #### [facility] [address] [address] [address] Jamie Dickey US PREG TVon 04-15-2022 [...] LOLIS COLEMAN Date: 2022-04-15 16:33 Normal [facility] Vital Signs Date Time Vital Sign Value Performing Clinician Facility 10-30-2024 08:58-0400 Body mass index (BMI) [Ratio] 30.75 kg/m2 [employer] Work Phone: [facility] 10-30-2024 08:58-0400 Body weight 83.83 kg [employer] Work Phone: [facility] 10-30-2024 08:58-0400 Diastolic blood pressure 78 mm[Hg] [facility] [employer] Work Phone: [facility] 10-30-2024 08:58-0400 Systolic blood pressure 122 mm[Hg] [employer] Work Phone: [facility] 10-23-2024 10:40-0400 Body mass index (BMI) [Ratio] 29.75 kg/m2 Lisset WILDER Work Phone: [facility] 10-23-2024 10:40-0400 Body weight 81.1 kg Lisset WILDER Work Phone: [facility] 10-23-2024 10:40-0400 Diastolic blood pressure 80 mm[Hg] Lisset WILDER Work Phone: [facility] 10-23-2024 10:40-0400 Systolic blood pressure 130 mm[Hg] Lisset WILDER Work Phone: [facility] 10-09-2024 10:34-0400 Body mass index (BMI) [Ratio] 30.25 kg/m2 Valente Margarette DO Work Phone: [facility] 10-09-2024 10:34-0400 Body weight 82.46 kg Valente Margarette DO Work Phone: [facility] 10-09-2024 10:34-0400 Diastolic blood pressure 86 mm[Hg] Valente Margarette DO Work Phone: [facility] 10-09-2024 10:34-0400 Systolic blood pressure 128 mm[Hg] Valente Margarette DO Work Phone: [facility] 09-26-2024 09:36-0400 Body mass index (BMI) [Ratio] 28.87 kg/m2 Riya Patricia [employer] Work Phone: [facility] 09-26-2024 09:36-0400 Body weight 78.7 kg Riya Patricia [employer] Work Phone: [facility] 09-26-2024 09:36-0400 Diastolic blood pressure 82 mm[Hg] Riya Patricia [employer] Work Phone: [facility] 09-26-2024 09:36-0400 Systolic blood pressure 130 mm[Hg] Riya Patricia [employer] Work Phone: [facility] 08-23-2024 11:17-0400 Body mass index (BMI) [Ratio] 27.06 kg/m2 Riya Patricia [employer] Work Phone: [facility] 08-23-2024 11:17-0400 Body weight 73.75 kg Riya Patricia [employer] Work Phone: [facility] 08-23-2024 11:17-0400 Diastolic blood pressure 70 mm[Hg] Riya Patricia [employer] Work Phone: [facility] 08-23-2024 11:17-0400 Systolic blood pressure 120 mm[Hg] Riya Barretoerly [employer] Work Phone: [facility] 07-11-2024 13:49-0400 Body mass index (BMI) [Ratio] 25.09 kg/m2 Valente Margarette DO Work Phone: [facility] 07-11-2024 13:49-0400 Body weight 68.4 kg Valente Margarette DO Work Phone: [facility] 07-11-2024 13:49-0400 Diastolic blood pressure 70 mm[Hg] Valente Margarette DO Work Phone: [facility] 07-11-2024 13:49-0400 Systolic blood pressure 120 mm[Hg] Valente Margarette DO Work Phone: [facility] 05-29-2024 13:52-0500 Body mass index (BMI) [Ratio] 24.93 kg/m2 Valente Margarette DO Work Phone: [facility] 05-29-2024 13:52-0500 Body weight 67.95 kg Valente Margarette DO Work Phone: [facility] 05-29-2024 13:52-0500 Diastolic blood pressure 70 mm[Hg] Valente Margarette DO Work Phone: [facility] 05-29-2024 13:52-0500 Systolic blood pressure 120 mm[Hg] Valente Margarette DO Work Phone: [facility] 04-27-2024 10:48-0500 Body mass index (BMI) [Ratio] 24.79 kg/m2 [facility] 04-27-2024 10:48-0500 Body weight 67.59 kg [facility] 04-27-2024 10:48-0500 Diastolic blood pressure 72 mm[Hg] [facility] 04-27-2024 10:48-0500 Systolic blood pressure 118 mm[Hg] [facility] 06-26-2022 03:06-0500 Body weight 65.[address] VALENTE PFEIFFER . [facility] Comment on above: Performed By: #### HCVPCRR #### [facility] [address] [address] [address] Jamie Dickey Encounters Encounter Date Encounter Type Care Provider Facility Start: 10-30-2024 End: 10-30-2024 Bamboo flowsheet Valente Margarette DO Work Phone: [facility] Start: 10-30-2024 End: 10-30-2024 Bamboo flowsheet Valente Margarette DO Work Phone: [facility] Start: 10-30-2024 End: 10-30-2024 Clinisync Result Encounter Valente Pfeiffer DO Work Phone: [facility] Unsolicited Start: 10-30-2024 End: 10-30-2024 Office outpatient visit 15 minutes Valente Margarette DO Work Phone: [facility] Comment on above: Third trimester preg raymon ([facility]); 37 weeks gestation of ([facility]) Start: 10-25-2024 End: 10-25-2024 Clinisync Result Encounter Lisset WILDER Work Phone: [facility] Unsolicited Start: 10-25-2024 End: 10-25-2024 Clinisync Result Encounter Lisset WILDER Work Phone: [facility] Unsolicited Start: 10-23-2024 End: 10-23-2024 Bamboo flowsheet Lisset WILDER Work Phone: [facility] Start: 10-23-2024 End: 10-23-2024 Bamboo flowsheet Lisset WILDER Work Phone: [facility] Start: 10-23-2024 End: 10-23-2024 Clinisync Result Encounter Lisset WILDER Work Phone: [facility] Unsolicited Start: 10-23-2024 End: 10-23-2024 Office outpatient visit 15 minutes Lisset WILDER Work Phone: [facility] Comment on above: Third trimester preg raymon ([facility]); 36 weeks gestation of ([facility]); size inconsistent with dates ([facility]); induced hypertension, antepartum ([facility]) Start: 10-23-2024 End: 10-23-2024 ambulatory LISSET AUSTIN Not Available Start: 10-09-2024 End: 10-09-2024 Bamboo flowsheet Valente Margarette DO Work Phone: [facility] Start: 10-09-2024 End: 10-09-2024 Bamboo flowsheet Valente Margarette DO Work Phone: [facility] Start: 10-09-2024 End: 10-09-2024 Office outpatient visit 15 minutes Valente Margarette DO Work Phone: [facility] Comment on above: 34 weeks gestation o f ([facility]); Third trimester fetus ([facility]) Start: 10-09-2024 End: 10-09-2024 ambulatory VALENTE MARGARETTE Not Available Start: 09-30-2024 End: 09-30-2024 Clinisync Result Encounter Valente Margarette DO Work Phone: [facility] Unsolicited Start: 09-30-2024 End: 09-30-2024 Clinisync Result Encounter Valente Margarette DO Work Phone: [facility] Unsolicited Start: 09-26-2024 End: 09-26-2024 Bamboo flowsheet Riya Gomez [employer] Work Phone: [facility] Start: 09-26-2024 End: 09-26-2024 Bamboo flowsheet Riya Gomez [employer] Work Phone: [facility] Start: 09-26-2024 End: 09-26-2024 Office outpatient visit 15 minutes Riya Gomez [employer] Work Phone: [facility] Comment on above: Third trimester preg raymon; 32 weeks gestation of Start: 09-26-2024 End: 09-26-2024 ambulatory RIYA PATRICIA Not Available Start: 08-24-2024 End: 08-24-2024 Clinisync Result Encounter Riya Patricia [employer] Work Phone: [facility] Unsolicited Start: 08-24-2024 End: 08-24-2024 Clinisync Result Encounter Riya Patricia [employer] Work Phone: [facility] External Department Unsolicited Start: 08-23-2024 End: 08-23-2024 Bamboo flowsheet Riya Patricia [employer] Work Phone: [facility] Start: 08-23-2024 End: 08-23-2024 Bamboo flowsheet Riya Patricia [employer] Work Phone: [facility] Start: 08-23-2024 End: 08-23-2024 Office outpatient visit 15 minutes Riya Gomez [employer] Work Phone: [facility] Comment on above: 27 weeks gestation o f ; Second trimester ; Diabetes mellitus screening Start: 08-23-2024 End: 08-23-2024 ambulatory RIYA PATRICIA Not Available Start: 07-18-2024 End: 07-18-2024 Clinisync Result Encounter Valente Margarette DO Work Phone: [facility] External Department Unsolicited Start: 07-18-2024 End: 07-18-2024 Clinisync Result Encounter Valente Margarette DO Work Phone: [facility] External Department Unsolicited Start: 07-11-2024 End: 07-11-2024 Patient encounter procedure Valente Margarette DO Work Phone: [facility] Start: 07-11-2024 End: 07-11-2024 Periodic preventive med est patient 18-39 yrs Valente Margarette DO Work Phone: [facility] Comment on above: 21 weeks [...] End: 04-12-2024 Emergency department patient visit [facility] Start: 01-11-2024 End: 01-26-2024 Telephone encounter [...] Date Procedure Procedure Detail Performing Clinician Start: 10-30-2024 US OB GROWTH Valente Fazi o DO Work Phone: Start: 10-30-2024 Urnls dip stick/tabl et rgnt non-auto w/o micrscp Valente Margarette DO Work Phone: Start: 10-25-2024 TBH TOTAL PROTEIN 24 HOUR URINE Lisset WILDER Work Phone: Start: 10-23-2024 ALL CBC WITH AUTO DIFF [...] et rgnt non-auto w/o micrscp Riya Gomez [employer] Work Phone: Start: 08-24-2024 GLUCOSE 1 HOUR Riya Gomez [employer] Work Phone: Start: 08-23-2024 Urnls dip stick/tabl et rgnt non-auto w/o micrscp Riya Gomez [employer] Work Phone: Start: 07-18-2024 US OB ANATOMY [...] Treatment Date Care Activity Detail Author Start: 11-07-2024 End: 11-07-2024 Patient encounter procedure 11/07/2024 10:50 AM EDT Routine [facility] [address] [facility] [place] [address] MargaretteValente wallace, DO [address] [place] [address] [facility] Start: 10-30-2024 End: 10-30-2024 Patient encounter procedure [facility] Comment on above: Arrived Start: 10-23-2024 End: 10-23-2025 Alanine aminotransferase [Enzymatic activity/volume] in Serum or Plasma ALT Lab Routine induced hypertension, antepartum ([facility]) Expected: 10/23/2024 (Approximate), Expires: 10/23/2025 [facility] Comment on above: Expected: 10/23/2024 (Approximate), Expires: 10/23/2025 Start: 10-23-2024 End: 10-23-2025 Aspartate aminotransferase [Enzymatic activity/volume] in Serum or Plasma AST Lab Routine induced hypertension, antepartum ([facility]) Expected: 10/23/2024 (Approximate), Expires: 10/23/2025 [facility] Comment on above: Expected: 10/23/2024 (Approximate), Expires: 10/23/2025 Start: 10-23-2024 End: 10-23-2025 CBC W Auto Differential panel - Blood CBC and differential Lab Routine induced hypertension, antepartum ([facility]) Expected: 10/23/2024 (Approximate), Expires: 10/23/2025 [facility] Comment on above: Expected: 10/23/2024 (Approximate), Expires: 10/23/2025 Start: 10-23-2024 End: 10-23-2025 Creatinine [Mass/volume] in Serum or Plasma Creatinine Lab Routine induced hypertension, antepartum ([facility]) Expected: 10/23/2024 (Approximate), Expires: 10/23/2025 [facility] Comment on above: Expected: 10/23/2024 (Approximate), Expires: 10/23/2025 Start: 10-23-2024 End: 10-23-2025 CULTURE, GROUP B STREP WITH SUSCEPTIBLITY CULTURE, GROUP B STREP WITH SUSCEPTIBLITY Lab Routine Third trimester ([facility]) Expected: 10/23/2024, Expires: 10/23/2025 [facility] Work Phone: Comment on above: Expected: 10/23/2024 , Expires: 10/23/2025 Start: 10-23-2024 End: 10-23-2025 Lactate dehydrogenase [Enzymatic activity/volume] in Serum or Plasma by Lactate to pyruvate reaction Lactate dehydrogenase Lab Routine induced hypertension, antepartum ([facility]) Expected: 10/23/2024, Expires: 10/23/2025 [facility] Comment on above: Expected: 10/23/2024 , Expires: 10/23/2025 Start: 10-23-2024 End: 10-23-2025 Protein, urine, 24 hour Protein, urine, 24 hour Lab Routine induced hypertension, antepartum ([facility]) Expected: 10/23/2024 (Approximate), Expires: 10/23/2025 [facility] Comment on above: Expected: 10/23/2024 (Approximate), Expires: 10/23/2025 Start: 10-23-2024 End: 10-23-2025 Pt and ptt Pt and ptt Lab Routine induced hypertension, antepartum ([facility]) Expected: 10/23/2024, Expires: 10/23/2025 [facility] Comment on above: Expected: 10/23/2024 , Expires: 10/23/2025 Start: 10-23-2024 End: 10-23-2025 Urate [Mass/volume] in Serum or Plasma Uric acid Lab Routine induced hypertension, antepartum ([facility]) Expected: 10/23/2024 (Approximate), Expires: 10/23/2025 [facility] Comment on above: Expected: 10/23/2024 (Approximate), Expires: 10/23/2025 Start: 10-23-2024 End: 10-23-2025 Urea nitrogen [Mass/volume] in Serum or Plasma BUN Lab Routine induced hypertension, antepartum ([facility]) Expected: 10/23/2024, Expires: 10/23/2025 [facility] Comment on above: Expected: 10/23/2024 , Expires: 10/23/2025 Start: 10-23-2024 End: 02-23-2025 US for US OB follow up transabdominal approach Imaging Routine size inconsistent with dates ([facility]) Expected: 10/23/2024, Expires: 02/23/2025 [facility] Comment on above: Expected: 10/23/2024 , Expires: 02/23/2025 Start: 10-23-2024 End: 10-23-2024 Patient encounter procedure 10/23/2024 10:20 AM EDT Routine [facility] [address] [place] [address] Lisset Austin PA [address] [place], [place] [id number] Arrived [facility] Comment on above: Arrived Start: 10-09-2024 End: 10-09-2024 Patient encounter procedure 10/09/2024 10:30 AM EDT Routine [facility] [address] [facility] [place] [address] Valente Pfeiffer DO [address] [facility] [address] [place], [place] [id number] Arrived [facility] Comment on above: Arrived Start: 09-26-2024 End: 09-26-2024 Patient encounter procedure 09/26/2024 9:30 AM EDT Routine [facility] [address] [facility] [place] [address] Riya Gomez, IRIS [address] [facility] [place] [address] Arrived [facility] Comment on above: Arrived Start: 08-23-2024 End: 08-23-2025 CBC panel - Blood by Automated count CBC Lab Routine Diabetes mellitus screening Expected: 08/23/2024 (Approximate), Expires: 08/23/2025 [facility] Work Phone: Comment on above: Expected: 08/23/2024 (Approximate), Expires: 08/23/2025 Start: 08-23-2024 End: 08-23-2025 Measurement of glucose 1 hour after glucose challenge for glucose tolerance test Glucose tolerance, 1 hour Lab Routine Diabetes mellitus screening Expected: 08/23/2024 (Approximate), Expires: 08/23/2025 [facility] Comment on above: Expected: 08/23/2024 (Approximate), Expires: 08/23/2025 Start: 08-23-2024 End: 08-23-2024 Patient encounter procedure 08/23/2024 10:20 AM EDT Routine [facility] [address] [facility] [place] [address] Riya Gomez, IRIS [address] [facility] [place] [address] Arrived [facility] Comment on above: Arrived Start: 07-11-2024 End: 07-11-2025 US for US OB 14+ weeks anatomy scan Imaging Routine Screening, , for anatomic survey Expected: 07/11/2024, Expires: 07/11/2025 [facility] Comment on above: Expected: 07/11/2024 , Expires: 07/11/2025 Start: 05-29-2024 End: 06-26-2024 Alpha fetoprotein, maternal Alpha fetoprotein, maternal Lab Routine 15 weeks gestation of Second trimester Expected: 05/29/2024 (Approximate), Expires: 06/26/2024 [facility] Work Phone: Comment on above: Expected: 05/29/2024 (Approximate), Expires: 06/26/2024 Start: 05-29-2024 End: 05-29-2024 Patient encounter procedure 05/29/2024 1:40 PM EST Routine [facility] [address] [facility] [place] [id number] Valente Pfeiffer DO [address] [facility] [place] [address] Arrived [facility] Comment on above: Arrived Start: 04-27-2024 End: 04-27-2025 ABO/Rh ABO/Rh Lab Routine Missed menses , unspecified gestational age Expected: 04/27/2024 (Approximate), Expires: 04/27/2025 [facility] Comment on above: Expected: 04/27/2024 [...] first trimester Expected: 04/27/2024 (Approximate), Expires: 04/27/2025 [facility] Comment on above: Expected: 04/27/2024 (Approximate), Expires: 04/27/2025 Bacteria identified in Urine by Culture Urine culture Microbiology Routine Missed menses Ordered: 04/27/2024 [facility] Comment on above: Ordered: 04/27/2024 CBC W Auto Different ial panel - Blood CBC and differential Lab Routine Missed menses , unspecified gestational age Ordered: 04/27/2024 [facility] Comment on above: Ordered: 04/27/2024 CHLAMYDIA TRACHOMATI S (GENITO/STI) CHLAMYDIA TRACHOMATIS (GENITO/STI) Lab Routine Exposure to STD Ordered: 07/11/2024 [facility] Comment on above: Ordered: 07/11/2024 Cytology Cervical or vaginal smear or scraping study Pap Smear Pathology and Cytology Routine Well woman exam with routine gynecological exam Ordered: 07/11/2024 [facility] Comment on above: Ordered: 07/11/2024 Hemoglobin A1c/Hemoglobin.total in Blood Hemoglobin A1c Lab Routine Missed menses , unspecified gestational age Ordered: 04/27/2024 [facility] Comment on above: Ordered: 04/27/2024 Hepatitis B virus arellano rface Ag [Presence] in Serum or Plasma by Immunoassay Hepatitis B surface antigen Lab Routine Missed menses , unspecified gestational age Ordered: 04/27/2024 [facility] Comment on above: Ordered: 04/27/2024 Hepatitis C virus Ab [Presence] in Serum or Plasma by Immunoassay Hepatitis C antibody Lab Routine Missed menses , unspecified gestational age Ordered: 04/27/2024 [facility] Comment on above: Ordered: 04/27/2024 HIV-1/HIV-2 antigen/antibody combination immunoassay HIV-1 and HIV-2 antibodies Lab Routine Missed menses , unspecified gestational age Ordered: 04/27/2024 [facility] Comment on above: Ordered: 04/27/2024 Neisseria gonorrhoea e DNA [Presence] in Unspecified specimen by FLORENCIO with probe detection Neisseria gonorrhea DNA probe, direct Lab Routine Exposure to STD Ordered: 07/11/2024 [facility] Comment on above: Ordered: 07/11/2024 Reagin Ab [Presence] in Serum by RPR RPR Lab Routine Missed menses , unspecified gestational age Ordered: 04/27/2024 [facility] Comment on above: Ordered: 04/27/2024 Rubella antibody, IgG Rubella an tibody, IgG Lab Routine Missed menses , unspecified gestational age Ordered: 04/27/2024 [facility] Comment on above: Ordered: 04/27/2024 SURESWAB(R) ADVANCED VAGINITIS PLUS, TMA SURESWAB(R) ADVANCED VAGINITIS PLUS, TMA Pathology and Cytology Routine Vaginal discharge Ordered: 07/11/2024 [facility] Work Phone: Comment on above: Ordered: 07/11/2024 Payers Date Payer Category Payer Medicaid [id number] 2024 Medicare MEDICARE MEDICAR E A AND B [id number] 2024-Present [phone] [place] [address] Medicare [id number] 1994 Unknown [id number] 2.840.1.944243.3.579.2.593 1994 Unknown [id number] 2.16.840.1.577647.3.579.2.593 1994 Unknown [id number] 2.16.840.1.210646.3.579.2.593 1994 Unknown [id number] 2.16.840.1.206859.3.579.2.593 1994 Unknown [id number] 2.16.840.1.666936.3.579.2.593 1994 Unknown [id number] 2.16.840.1.650968.3.579.2.593 1994 Unknown [id number] 2.16.840.1.021051.3.579.2.593 1994 Unknown [id number] 2.16.840.1.838286.3.579.2.593 1994 Unknown [id number] 2.16.840.1.084774.3.579.2.593 1994 Unknown [id number] 2.16.840.1.054124.3.579.2.1286 1994 Unknown [id number] 2.16840.1.066484.3.579.2.1259 1994 Unknown [id number] 2.16840.1.704730.3.579.2.1259 1994 Unknown [id number] 2.16840.1.440409.3.579.2.1259 1994 Unknown [id number] 2.16840.1.763047.3.579.2.1259 1994 Unknown [id number] 2.16840.1.703895.3.579.2.1259 1994 Unknown [id number] 2.16840.1.826437.3.579.2.1259 1994 Unknown [id number] 2.16840.1.547830.3.579.2.1259 1994 Unknown [id number] 2.16840.1.535650.3.579.2.1259 1960 Medicaid [id number] 1960 Self-pay 1959 Unknown [id number] Unknown [id number] 2.16840.1.058698.3.579.2.593 Social History Date Type Detail Facility Tobacco smoking stat [facility] Tobacco smoking consumption unknown [facility] Start: 1995 Sex assigned at Not on file [facility] Start: 12-31-2024 Gender identity Not on file [facility] Start: 10-26-2022 [facility] History of tobacco use Cigarette Smoker [facility] Start: 04-27-2024 End: 08-23-2024 Alcoholic beverage intake Ex-drinker (finding) [facility] Start: 04-24-2024 History of Social function [facility] Start: 10-18-2022 Tobacco Comment Patient smokes 11-20 cigarettes/day after 6-30 minutes of waking up. [facility] Start: 02-24-2024 [facility] Notes 01-11-2024 to 10-30-2024 Rupali Ribeiro, VIVIANE - 10/30/2024 9:00 AM MEÑO Garcia - 10/23/2024 10:20 AM MEÑO Garcia - 10/09/2024 10:30 AM EDTRiya Gomez NP - 09/26/2024 9:30 AM EDT Note Date & Type Note Facility 10-30-2024 History of Presen t illness Narrative Reason [...] Vaginal bleeding 10/22/2022 34 weeks gestation of ([facility]) 10/09/2024 Third trimester fetus ([facility]) 10/09/2024 Resolved Ambulatory Problems Diagnosis Date Noted [...] nursing note reviewed. Exam conducted with a 7th grade social studies teacher present. Vitals: Estimated body mass index is 30.75 kg/m as calculated from the following: Height as of 09/01/22: 5' 5 . Weight as of this encounter: 184 lb 12.8 oz. BP: 122/78 Patient's last menstrual period was 02/10/2024. ASSESSMENT & PLAN ICD-10-CM 1. Third trimester ([facility]) Z34.93 POCT urinalysis dipstick manually resulted 2. 37 weeks gestation of ([facility]) Z3A.37 POCT urinalysis dipstick manually resulted Return [...] Valente Pfeiffer DO documented in this encounter [facility] 10-23-2024 History of Presen t illness Narrative [...] Vaginal bleeding 10/22/2022 34 weeks gestation of ([facility]) 10/09/2024 Third trimester fetus ([facility]) 10/09/2024 Resolved Ambulatory Problems Diagnosis Date Noted [...] ASSESSMENT & PLAN ICD-10-CM 1. Third trimester ([facility]) Z34.93 CULTURE, GROUP B STREP WITH SUSCEPTIBLITY CULTURE, GROUP B STREP WITH SUSCEPTIBLITY POCT urinalysis dipstick manually resulted 2. 36 weeks gestation of ([facility]) Z3A.36 POCT urinalysis dipstick manually resulted 3. size inconsistent with dates ([facility]) O26.849 US OB follow up transabdominal approach 4. induced hypertension, antepartum ([facility]) O13.9 Creatinine Protein, urine, 24 hour Pt [...] of: MEÑO Bowles documented in this encounter [facility] 10-09-2024 History of Presen t illness Narrative [...] Vaginal bleeding 10/22/2022 34 weeks gestation of ([facility]) 10/09/2024 Third trimester fetus ([facility]) 10/09/2024 Resolved Ambulatory Problems Diagnosis Date Noted [...] PLAN ICD-10-CM 1. 34 weeks gestation of ([facility]) Z3A.34 POCT urinalysis dipstick manually resulted 2. Third trimester fetus ([facility]) Z34.93 POCT urinalysis dipstick manually resulted Return [...] Valente Pfeiffer DO documented in this encounter [facility] 09-26-2024 History of Presen t illness Narrative Reason for Appointment: Patient ID: Loriane Pace is a 28 y.o. female who [...] nursing note reviewed. Exam conducted with a 7th grade social studies teacher present. Vitals: Estimated body mass index is [...] Riya Gomez NP documented in this encounter [facility] 08-23-2024 History of Presen t illness Narrative [...] nursing note reviewed. Exam conducted with a 7th grade social studies teacher present. Vitals: Estimated body mass index is [...] Riya Gomez NP documented in this encounter [facility] 07-11-2024 History of Presen t illness Narrative [...] nursing note reviewed. Exam conducted with a 7th grade social studies teacher present. Vitals: Estimated body mass index is [...] Valente Pfeiffer DO documented in this encounter [facility] 05-29-2024 History of Presen t illness Narrative [...] nursing note reviewed. Exam conducted with a 7th grade social studies teacher present. Vitals: Estimated body mass index is [...] or undercooked meat, and stay away from [facility]. Patient has been consulted regarding any [...] Valente Pfeiffer DO documented in this encounter [facility] 04-27-2024 History of Presen t illness Narrative [...] or undercooked meat, and stay away from [facility]. Patient has also been advised to [...] Rhea Jones MA documented in this encounter [facility] 01-11-2024 Telephone encount er Note Images from [...] Covid? No, had 1 time no terminal superintendent side effects Overall general health: Patient reports [...] Karina Shi RN Living Liver Donor Coordinator [facility] 01-11-2024 Miscellaneous Notes Formattin g of [...] for Covid? No, had 1 time no [facility] side effects Overall general health: Patient reports [...] Liver Donor Coordinator documented in this encounter [facility] 01-11-2024 Telephone encount er Note Living [...] Yes Online intake has been scanned to [facility] for review by the living donor coordinator. [facility] 01-11-2024 Miscellaneous Notes Formattin g of [...] Yes Online intake has been scanned to [facility] for review by the living donor coordinator. documented in this encounter [facility] Evaluation note Diagnosis Liver donor- Primary [facility] Diagnosis Missed menses 11 weeks gestation of , unspecified gestational age Encounter for supervision of normal first in first trimester [facility] Diagnosis 15 weeks gestation of Second trimester state, incidental [facility] Diagnosis 21 weeks gestation of Second trimester state, incidental Screening, , for anatomic survey Encounter for anatomic survey Exposure to STD Vaginal discharge Leukorrhea, not specified as infective Well woman exam with routine gynecological exam Routine gynecological examination [facility] Diagnosis 27 weeks gestation of [...] , antepartum [facility] Diagnosis Third trimester ([facility]) state, incidental 37 weeks gestation of ([facility]) documented in this encounter [facility] Summary [...] VENOUS BLOOD VENIPUNCTURE Cristina Tovar MD [address] [place] [address] [facility] [address] [place] [address] Referral ID Status Reason Start Date Expiration Date Visits Requested Visits Authorized [id number] Authorized PCP Requested Referral Financial Clearance Required - OON Payor 01/11/2024 01/10/2025 99 [phone] Additional Source Comments INFORMATION SOURCE (unrecogn ized section and content) DATE CREATED AUTHOR 09/06/2022 [facility] DATE CREATED AUTHOR AUTHOR'S ORGANIZ ATION 01/28/2024 [facility] DATE CREATED AUTHOR AUTHOR'S ORGANIZ ATION 04/16/2024 [facility] DATE CREATED AUTHOR AUTHOR'S ORGANIZ ATION 10/24/2024 [facility] EPIC Source Comments (unrecognize d section and content) In the event this informatio n is protected by the Federal Confidentiality of Alcohol and Drug Abuse Patient Records regulations: The Federal rules restrict any use of the information to criminally investigate or prosecute any alcohol or drug abuse patient[facility] the event this information is protected by the Federal Confidentiality of Alcohol and Drug Abuse Patient Records regulations: The Federal rules restrict any use of the information to criminally investigate or prosecute any alcohol or drug abuse patient.[facility] Reason for Visit (unrecogniz ed section and content) Reason Comments Referral - Donor Txp Reason Comments Amenorrhea Reason Comments Routine Visit Care Teams (unrecognized sec tion and content) Ends Breakage Clerk Relationship Specialty Start Date End Date Dayron Kimbrough MD [address] [place] [address] PCP - General Family Medicine 09/16/22 Ends Breakage Clerk Relationship Specialty Start Date End Date Dayron Kimbrough MD [address] [place] [address] PCP - General Family Medicine 09/16/22 Ends Breakage Clerk Relationship Specialty Start Date End Date Dayron Kimbrough MD [address] [place] [address] PCP - General Family Medicine 09/16/22 Ends Breakage Clerk Relationship Specialty Start Date End Date Dayron Kimbrough MD [address] [place] [address] PCP - General Family Medicine 09/16/22 Ends Breakage Clerk Relationship Specialty Start Date End Date Dayron Kimbrough MD [address] [place] [address] PCP - General Family Medicine 09/16/22 Ends Breakage Clerk Relationship Specialty Start Date End Date Dayron Kimbrough MD PCP - General Family Medicine 09/16/22 Ends Breakage Clerk Relationship Specialty Start Date End Date Dayron iKmbrough MD PCP - General Family Medicine 09/16/22 Ends Breakage Clerk Relationship Specialty Start Date End Date Dayron Kimbrough MD PCP - General Family Medicine 09/16/22 Ends Breakage Clerk Relationship Specialty Start Date End Date Dayron Kimbrough MD PCP - General Family Medicine 09/16/22 Ends Breakage Clerk Relationship Specialty Start Date End Date Dayron Kimbrough MD [address] [place] [address] PCP - General Family Medicine 09/16/22 Ends Breakage Clerk Relationship Specialty Start Date End Date Dyaron Kimbrough MD [address] [place] [address] PCP - General Family Medicine 09/16/22 Ends Breakage Clerk Relationship Specialty Start Date End Date Dayron Kimbrough MD [address] [place] [address] PCP - General Family Medicine 09/16/22 FOR [...] BE BASED ON THE PRIMARY CLINICAL RECORDS. [facility]. provides no warranty or guarantee of the accuracy or completeness of information in this document.
--- OUTSIDE RECORDS SUMMARY | 2024-11-02 05:20 | XMS_ITS | Clinical Summary ---
Author Organization [facility] Address [address] [place], [place] [id number] Care Team Providers Care Toby Maker Name Role Phone Unavailable Primary Care Provider [...] Date of :1981 (Home) Address: [address] [place] [address] Payer ID:Not on file Group ID:Not on file Type:Medicaid Address: [place] [id number]
--- OUTSIDE RECORDS SUMMARY | 2024-11-02 05:20 | XMS_ITS | Encounter Summary ---
Author Organization [facility] Address [address] [place] [address] Care Team Providers Care Marine Insurance Claim Examiner Name Role Phone Sabas Kimbrough MD Primary Care Provider [phone] Encounter Details Date Type Department Care Team (Late Contact Info) Description 10/30/2024 Clinisync Result Encounter [facility] External Department Unsolicited Valente Pfeiffer, DO [address] [place] [address] Social History Tobacco Use Types Packs/Day Years [...] Routine [facility] [address] [place] [phone] Valente Pfeiffer DO [address] [place] [address] documented as of this encounter Procedures Procedure Name Priority Date/Time Associated Diagnosis Comments US OB GROWTH 10/30/2024 10:40 AM EDT documented in this encounter Results * US OB GROWTH (10/30/2024 10:40 AM EDT) Anatomical Region Laterality Modality Other 10/30/2024 10:4 0 AM EDT Narrative 10/30/2024 10:43 [place] [address] Ultrasound Report Signed Patient: LORAINE NIETO MR#: [id number] : 1995 Acct:[id number] Age/Sex: 28 / F ADM Date: 10/30/24 Loc: US Attending Dr: Valente Pfeiffer D.O. Ordering Physician: Valente Pfeiffer D.O. Date of Service: 10/30/24 Procedure(s): US OB growth Accession Number(s): [id number] cc: Valente Pfeiffer D.O.; Physician,Non-Staff [place] [address] Patient Name: LORAINE NIETO MRN: [id number] date: 1995 Sex: F Assigned Patient Location: Current Patient Location: US Accession/Order Number: [id number] Exam Date: 10/30/2024 10:32 Report Date: 10/30/2024 [...] Cortez M.D. 10/30/2024 10:40 AM Dictation Location: [place] [address] Electronically authenticated by: [id number] Y Date: 10/30/2024 10:40 Dictated By: Rupali Cortez M.D. Signed By: 10/30/24 1043 DD/ 1040 TD/TT: [employer] Converter: Procedure Note Radiology, Radiologist, MD - 10/30/2024 [place] [address] Ultrasound Report Signed Patient: LORAINE NIETO MMR#: [id number] : 1995Acct:[id number] Age/Sex: Date: 10/30/24 Loc: US Attending Dr: Valente Pfeiffer D.O. Ordering Physician: Valente Pfefifer D.O. Date of Service: 10/30/24 Procedure(s): US OB growth Accession Number(s): [id number] cc: Valente Pfeiffer D.O.; Physician,Non-Staff [place] [facility] [place] [address] Patient Name: LORAINE NIETO MRN: [id number] date: 1995 Sex: F Assigned Patient Location: US Current Patient Location: US Accession/Order Number: [id number] Exam Date: 10/30/2024 10:32 Report Date: 10/30/2024 10:40 At the request of: VALENTE PFEIFFER DO Procedure: US OB growth ULTRASOUND OB GROWTH COMPARISON: 07/18/2024 CLINICAL DATA: Size and consistent with dates. There is a single live intrauterine gestation in cephalic presentation.There is cardiac and somatic activity with heart rate of 147 bpm. The placenta is anterior. The amniotic fluid index measures 14.9 cm which isin normal range. The following measurements were obtained: Biparietal diameter 9.0 cm 36 weeks 2 days 35% Head circumference 32.5 cm 36 weeks 5 days 12% Abdominal circumference 30.9 cm 34 weeks 6 days 5% Femur length 6.9 cm 35 weeks 2 days7% The composite ultrasound age based these measurements is 35 weeks 6 days+/- 2 weeks 4 days. The current estimated date of delivery is 2024.The date of delivery based on last menstrual period is November 16, 2024 and basedon the previous ultrasound November 13, 2024. The estimated weight is 5lbs. 13 oz. +/- 14 ounces (11%). US/US OB growth IMPRESSION: SINGLE LIVE INTRAUTERINE GESTATION WITH ULTRASOUND AGE OF 35 WEEKS 6 DAYS BASED ON TODAY'S MEASUREMENTS. THIS IS TOWARD THE LOWER LIMITS OF NORMAL INTERVAL GROWTH BASED ON THE LAST MENSTRUAL PERIOD. Impression dictated by: Rupali Cortez M.D. 10/30/2024 10:40 AM Dictation Location: [place] [address] Electronically authenticated by: [id number] Y Date: 0:40 Dictated By: Rupali Cortez M.D. Signed By:10/30/24 1043 DD/ 1040 TD/TT: [employer] Converter: us Valente Margarette DO [facility] Final Result documented in this encounter Visit Diagnoses Not on filedocumented in this encounter Care Teams Marine Insurance Claim Examiner Relationship Specialty [place] [address] [place] [address] [place] [address] PCP - General Family Medicine 09/16/22 documented as of this encounter
--- OUTSIDE RECORDS SUMMARY | 2024-11-02 05:20 | XMS_ITS | Encounter Summary ---
Author Organization [facility] Address [address] [place] [address] Care Team Providers Care Financial Cost Analyst Name Role Phone Sabas Kimbrough MD Primary Care Provider [phone] Encounter Details Date Type Department Care Team (Late Contact Info) Description 05/29/2024 Abstract [facility] OB [address] [place] [address] Randall Pefiffer, [facility] [address] [place], [place] [id number] Social History Tobacco Use Types Packs/Day Years [...] Description 11/07/2024 10:50 AM EDT Routine [facility] OB [address] [place] [address] Randall Pfeiffer, DO [facility] [address] [place], [place] [id number] documented as of this encounter Visit Diagnoses Not on filedocumented in this encounter Care Teams Financial Cost Analyst Relationship Specialty Start Date End Date Sabas Kimbrough MD [address] [place] [address] PCP - General Family Medicine 09/16/22 documented as of this encounter
--- OUTSIDE RECORDS SUMMARY | 2024-11-02 05:20 | XMS_ITS | Encounter Summary ---
Author Organization [facility] Address [address] [place] [address] Care Team Providers Care Mechanical Engineering Lecturer Name Role Phone Sabas Kimbrough MD Primary Care Provider [phone] Encounter Details Date Type Department Care Team (Late Contact Info) Description 05/17/2024 Abstract [facility] OB [address] [place] [address] Randall Pfeiffer, [facility] [address] [place], [place] [id number] Social History Tobacco Use Types Packs/Day Years [...] Description 11/07/2024 10:50 AM EDT Routine [facility] OB [address] [place] [address] Randall Pfeiffer, DO [facility] [address] [place], [place] [id number] documented as of this encounter Visit Diagnoses Not on filedocumented in this encounter Care Teams Mechanical Engineering Lecturer Relationship Specialty Start Date End Date Sabas Kimbrough MD [address] [place] [address] PCP - General Family Medicine 09/16/22 documented as of this encounter
--- OUTSIDE RECORDS SUMMARY | 2024-11-02 05:20 | XMS_ITS | Encounter Summary ---
Author Organization [facility] Address [address] [place] [address] Care Team Providers Care Industrial Technology Education Teacher Name Role Phone Sabas Kimbrough MD Primary Care Provider [phone] Encounter Details Date Type Department Care Team (Late Contact Info) Description 08/17/2024 Abstract [facility] [address] [place] [address] Randall Pfeiffer, [facility] [address] [place], [place] [id number] Social History Tobacco Use Types Packs/Day Years [...] Description 11/07/2024 10:50 AM EDT Routine [facility] [address] [place] [address] Randall Pfeiffer, DO [facility] [address] [place], [place] [id number] documented as of this encounter Visit Diagnoses Not on filedocumented in this encounter Care Teams Industrial Technology Education Teacher Relationship Specialty Start Date End Date Sabas Kimbrough MD [address] [place] [address] PCP - General Family Medicine 09/16/22 documented as of this encounter
--- OUTSIDE RECORDS SUMMARY | 2024-11-02 05:20 | XMS_ITS | Clinical Summary ---
Author Organization [employer] Address [id number] [address] [place] [address] Care Team Providers Care Wheel Lacer And Truer Name Role Phone Adrianna Silva APRN-AUTOMOTIVE PARTS SPECIALIST Primary Care Provide r Allergies No known [...] often do you attend chur ch or protestant services? Never 04/01/2021 Do you belong to any clubs o r organizations such as muslim groups, unions, fraternal or athletic groups, or [...] Answer Date Recorded Total Score 10 04/01/2021 [facility] - Occupational Stress [...] Recorded Do you need help finding a herrick campusal career center and/or a training program? No [...] on file Insurance MEDICAID [place] Care Teams Wheel Lacer And Truer Relationship Specialty Start Date End Date Adrianna Silva APRN-JAMES [address] [place] [address] PCP - General Family Medicine 04/08/20
--- OUTSIDE RECORDS SUMMARY | 2024-11-02 05:20 | XMS_ITS | Encounter Summary ---
Author Organization [facility] Address [address] [place] [address] Care Team Providers Care Director Of Infection Prevention Name Role Phone Sabas Kimbrough MD Primary Care Provider [phone] Encounter Details Date Type Department Care Team (Late Contact Info) Description 10/30/2024 Bamboo flowsheet [facility] [address] [place] [address] Randall Pfeiffer, [facility] [place], [facility]11 Social History Tobacco Use Types Packs/Day Years [...] Description 11/07/2024 10:50 AM EDT Routine [facility] [address] [place] [address] Randall Pfeiffer, DO [address] [place], [place] [phone] documented as of this encounter Visit Diagnoses Not on filedocumented in this encounter Care Teams Director Of Infection Prevention Relationship Specialty Start Date End Date Sabas Kimbrough MD [address] [facility] [place] [id number] PCP - General Family Medicine 09/16/22 documented as of this encounter
--- OUTSIDE RECORDS SUMMARY | 2024-11-02 05:20 | XMS_ITS | Encounter Summary ---
Author Organization [facility] Address [address] [facility] [place] [address] Care Team Providers Care Academic Affairs Director Name Role Phone Sabas Kimbrough MD Primary Care Provider [phone] Encounter Details Date Type Department Care Team (Late Contact Info) Description 11/05/2022 Abstract [facility] [address] [place] [phone] [place] [address] [place], [place] [phone] Social History Tobacco Use Types Packs/Day Years [...] Upcoming Encounters Date Type Department Care Team ([facility] Contact Info) Description 11/07/2024 10:50 AM EDT Routine [facility] [address] [place] [address] Randall Pfeiffer, [place] [address] documented as of this encounter Visit Diagnoses Not on filedocumented in this encounter Care Teams Academic Affairs Director Relationship Specialty Start Date End Date Sabas Kimbrough MD [address] [place] [address] PCP - General Family Medicine 09/16/22 documented as of this encounter
--- OUTSIDE RECORDS SUMMARY | 2024-11-02 05:20 | XMS_ITS | Encounter Summary ---
Author Organization [facility] Address [address] [place] [address] Care Team Providers Care Hydrodynamics Teacher Name Role Phone Sabas Kimbrough MD Primary Care Provider [phone] Encounter Details Date Type Department Care Team (Late Contact Info) Description 10/25/2024 Clinisync Result Encounter [facility] External Department Unsolicited Lisset Eric PA [address] [facility] [address] [place], [place] [phone] Social History Tobacco Use Types Packs/Day Years [...] AM EDT Routine [facility] [address] [facility] [place] [address] Randall Pfeiffer, DO [address] [facility] [place] [address] documented as of this encounter Procedures Procedure Name Priority Date/Time Associated Diagnosis Comments TBH TOTAL PROTEIN 24 HOUR URINE Routine 10/25/2024 7:43 AM EDT documented in this encounter Results * (ABNORMAL) TBH TOTAL PROTEIN 24 HOUR URINE (10/25/2024 7:43 AM EDT) TOTAL PROTEIN URINE RANDOM 119.3(H) <=11.9 mg/dL TBH TOTAL VOLUME 24 HOUR URINE 500 mL/24hr TBH TBH TOTAL PROTEIN 24 HOUR URINE 596.5(H) <=149.1 mg/24hr TBH 10/25/2024 7:43 AM EDT 10/25/2024 10:51 AM EDT Narrative [facility]IN[facility] - 10/25/2024 11:29 AM EDT us Lisset WILDER [facility] Final [facility] documented in this encounter Visit Diagnoses Not on filedocumented in this encounter Care Teams Hydrodynamics Teacher Relationship Specialty Start Date End Date Sabas Kimbrough MD [address] [place] [address] PCP - General Family Medicine 09/16/22 documented as of this encounter
--- OUTSIDE RECORDS SUMMARY | 2024-11-02 05:20 | XMS_ITS | Encounter Summary ---
Author Organization [facility] Address [address] [place] [address] Care Team Providers Care Terrazzo Supervisor Name Role Phone Sabas Kimbrough MD Primary Care Provider [phone] Encounter Details Date Type Department Care Team (Late Contact Info) Description 05/11/2024 Abstract [facility] [address] [facility] [place] [address] Anca Jennings LPN Social History Tobacco [...] Description 11/07/2024 10:50 AM EDT Routine [facility] [address] [facility] [address] [facility] [address] [place], [place] [phone] documented as of this encounter Visit Diagnoses Not on filedocumented in this encounter Care Teams Terrazzo Supervisor Relationship Specialty Start Date End Date Sabas Kimbrough MD [address] [place] [address] PCP - General Family Medicine 09/16/22 documented as of this encounter
--- OUTSIDE RECORDS SUMMARY | 2024-11-02 05:20 | XMS_ITS | Encounter Summary ---
Author Organization [facility] Address [address] [place] [address] Care Team Providers Care Insurance Account Representative Name Role Phone Sabas Kimbrough MD Primary Care Provider [phone] Encounter Details Date Type Department Care Team (Late Contact Info) Description 06/04/[address] [facility] [address] [place] [address] Randall Pfeiffer, [facility] [address] [place], [place] [phone] Social History Tobacco Use Types Packs/Day Years [...] Description 11/07/2024 10:50 AM EDT [facility]ine [facility] [address] [place] [address] Randall Pfeiffer, DO [facility] [address] [place], [place] [phone] documented as of this encounter Visit Diagnoses Not on filedocumented in this encounter Care Teams Insurance Account Representative Relationship Specialty Start Date End Date Sabas Kimbrough MD [address] [place] [address] PCP - General Family Medicine 09/16/22 documented as of this encounter
--- OUTSIDE RECORDS SUMMARY | 2024-11-02 05:21 | XMS_ITS | Clinical Summary ---
Author Organization [facility] Address [address] [facility] [place] [address] Care Team Providers Care Magazine Editor Name Role Phone Sabas Kimborugh MD Primary Care Provider [phone] Allergies Active Allergy Reactions Criticality Noted Date Comments Pollen Extract Unknown 09/15/2022 Medications MV-Min-Fe Fum-FA-DHA ( 1 PO) Take by mouth. Active ondansetron (Zofran) 4 MG tablet Take 4 mg by mouth every 8 (eight) hours if needed 04/12/2024 Active Active Problems Problem Noted Date Diagnosed Date 34 weeks gestation of ([facility]) 2024 Third trimester fetus ([facility]) 10/09/2024 Vaginal bleeding 10/22/2022 Estimated Date of Delivery Comme nts Yes 11/16/2024 Based on last me nstrual period of 02/10/2024 Encounters Date Type Department Care Team Description 10/30/2024 9:00 AM EDT Routine [facility] OB [address] [place] [address] [place] [phone] Valente Pfeiffer, DO Third trimester ([facility]); 37 weeks gestation of ([facility]) 10/30/2024 Clinisync Result Encounter [facility] External Department Unsolicited Valente Pfeiffer DO 10/30/2024 Bamboo flowsheet [facility] OB [facility] [place] [phone] Valente Pfeiffer DO 10/25/2024 Clinisync Result Encounter [facility] External Department Unsolicited Lisset Eric PA 10/23/2024 10:20 AM EDT Routine [facility] OB [address] [facility] [place] [address] Lisset Eric PA Third trimester ([facility]); 36 weeks gestation of ([facility]); size inconsistent with dates ([facility]); induced hypertension, antepartum ([facility]) 10/23/2024 Clinisync Result Encounter [facility] External Department Unsolicited Lisset Eric PA 10/23/2024 Bamboo flowsheet [facility] [address] [facility] [address] Lisset Eric PA 10/09/2024 10:30 AM EDT Routine [facility] [address] [facility] [address] Valente Pfeiffer, 34 weeks gestation of ([facility]); Third trimester fetus ([facility]) 10/09/2024 Bamboo flowsheet [facility] OB [address] [place] [address] [place] [address] Valente Pfeiffer, 09/30/2024 Clinisync Result Encounter [facility] External Department Unsolicited Valente Pfeiffer, 09/26/2024 9:30 AM EDT Routine [facility] OB [address] [facility] [address] Riya Gomez NP Third trimester ([facility]); 32 weeks gestation of ([facility]) 09/26/2024 Bamboo flowsheet [facility] [address] [facility] [address] Riya Gomez NP 08/24/2024 Clinisync Result Encounter [facility] External Department Unsolicited Riya Gomez NP 08/23/2024 10:20 AM EDT Routine [facility] OB [address] [facility] [address] Riya Gomez NP 27 weeks gestation of ([facility]); Second trimester ([facility]); Diabetes mellitus screening 08/23/2024 Bamboo flowsheet [facility] OB [address] [place] [address] [place] [address] Riya Gomez NP 08/17/2024 Abstract [facility] [address] [place] [address] Valente Pfeiffer DO from Last 3 Months Family [...] 12.8 oz) 10/30/2024 8:58 AM EDT Height 165.1 cm (5' 5 ) 09/01/2022 12:0 0 PM EDT Body Mass Index 30.75 09/01/2022 12:00 PM EDT Plan of Treatment Upcoming Encounters Date Type Department Care Team (Late st Contact Info) Description 11/07/2024 10:50 AM EDT Routine [facility] OB [address] [place], [place] [address] [address] Valente Pfeiffer DO [address] [place] [address] [place], [place] [phone] Procedures Procedure Name Priority Date/Time Associated Diagnosis Comments US OB GROWTH 10/30/2024 10:40 AM EDT POCT URINALYSIS DIPSTICK Routine 10/30/2024 9:04 AM EDT Third trimester ([facility]) 37 weeks gestation of ([facility]) TBH TOTAL PROTEIN 24 HOUR URINE Routine 10/25/2024 7:43 AM EDT [facility] APTT Routine 10/23/2024 11:45 [...] Routine 09/26/2024 9:45 AM EDT Third trimester ([facility]) ALL CBC WITH AUTO DIFF Routine 08/24/2024 11:47 AM EDT GLUCOSE 1 HOUR Routine 08/24/2024 11:47 AM EDT POCT URINALYSIS DIPSTICK Routine 08/23/2024 10:46 AM EDT 27 weeks gestation of ([facility]) Second trimester ([facility]) Diabetes mellitus screening from Last 3 Months Results * US OB GROWTH (10/30/2024 10:40 AM EDT) Anatomical Region Laterality Modality Other 10/30/2024 10:4 0 AM EDT Narrative 10/30/2024 10:43 [place] [address] Ultrasound Report Signed Patient: LORAINE NIETO MR#: [id number] : 1995 Acct:[id number] Age/Sex: 28 / F ADM Date: 10/30/24 Loc: US Attending Dr: Valente Pfeiffer D.O. Ordering Physician: Valente Pfeiffer D.O. Date of Service: 10/30/24 Procedure(s): US OB growth Accession Number(s): [id number] cc: Valente Pfeiffer D.O.; Physician,Non-Staff M.DArturo The [place] [id number] Patient Name: LORAINE NIETO MRN: [id number] date: 1995 Sex: F Assigned Patient Location: US Current Patient Location: US Accession/Order Number: [id number] Exam Date: 10/30/2024 10:32 Report Date: 10/30/2024 [...] Cortez M.D. 10/30/2024 10:40 AM Dictation Location: [place] [address] Electronically authenticated by: [id number] Y Date: 10/30/2024 10:40 Dictated By: Rupali Cortez M.D. Signed By: 10/30/24 1043 DD/ 1040 TD/TT: Director Of Recruitment And Admissions: Procedure Note Radiology, Radiologist, MD - 10/30/2024 [place] [address] Ultrasound Report Signed Patient: LORAINE NIETO MMR#: [id number] : 1995Acct:[id number] Age/Sex: FAD Date: 10/30/24 Loc: US Attending Dr: Valente Pfeiffer D.O. Ordering Physician: Valente Pfeiffer D.O. Date of Service: 10/30/24 Procedure(s): US OB growth Accession Number(s): [id number] cc: Valente Pfeiffer D.O.; Physician,Non-Staff M.D. The [address] [address] Patient Name: LORAINE NIETO MRN: [id number] date: 1995 Sex: F Assigned Patient Location: Current Patient Location: Accession/Order Number: [id number] Exam Date: 10/30/2024 10:32 Report Date: 10/30/2024 [...] Cortez M.D. 10/30/2024 10:40 AM Dictation Location: [place] [address] Electronically authenticated by: [id number] Y Date: 0:40 Dictated By: Rupali Cortez M.D. Signed By:10/30/24 1043 DD/ 1040 TD/TT: Director Of Recruitment And Admissions: us Valente Pfeiffer DO [facility]AG[facility] Final Result * (ABNORMAL) POCT urinalysis dipstick manually resulted (10/30/2024 9:04 AM EDT) Only the most recent of5 resultswithin the time period is included. Color, [...] - Positive Urine 10/30/2024 9:04 AM EDT Valente Pfeiffer DO POINT OF CARE TEST ENTER/EDIT OR DERABLES Final Result * (ABNORMAL) TBH TOTAL PROTEIN 24 HOUR URINE (10/25/2024 7:43 AM EDT) TOTAL PROTEIN URINE RANDOM 119.3(H) <=11.9 mg/dL TBH TOTAL VOLUME 24 HOUR URINE 500 mL/24hr TBH TBH TOTAL PROTEIN 24 HOUR URINE 596.5(H) <=149.1 mg/24hr TBH 10/25/2024 7:43 AM EDT 10/25/2024 10:51 AM EDT Narrative CLINISYNC - 10/25/2024 11:29 AM EDT Lisset DE OLIVEIRAISYALBER Final Result [facility]IN[facility] * TBH CREATININE (10/23/2024 11:45 AM EDT) CREATININE 0.63 0.55 - 1.02 mg/dL TBH TBH EGFR-AF TAJIK >60 >=60 mL/min/1.7 3m 2 TBH TBH EGFR-NON AF TAJIK >60 >=60 mL/min/1.7 3m 2 TB 10/23/2024 11:4 5 AM EDT 10/23/2024 12:00 PM EDT Narrative CLINISYNC - 10/23/2024 12:25 PM EDT us Lisset BONILLA Final Result Performing Organization Address [facility] Co de Phone Number [facility] * SRMCOH PROTHROMBIN TIME INR W/O COUM (10/23/2024 11:45 AM EDT) PROTHROMBIN TIME 9.6 9.0 - 11.6 sec TB TB INR <0.93 TB Comment: DESIRED INR: 2.0-3.0 CONDITIONS NOT LISTED BELOW 2.5-3.5 FOR PROSTHETIC HEART VALVE REPLACEMENT 2.5-3.5 RECURRENT THROMBOSIS 10/23/2024 11:4 5 AM EDT 10/23/2024 12:00 PM EDT Narrative CLINISYNC - 10/23/2024 12:25 PM EDT us Lisset BONILLA Final Result Performing Organization Address [facility] de Phone Number [facility] * [facility]CF AST (10/23/2024 11:45 AM EDT) ASPARTATE AMINO TRANSFERASE 15 15 - 37 U/L TB 10/23/2024 11:4 5 AM EDT 10/23/2024 12:00 PM EDT Narrative CLINISYNC - 10/23/2024 12:25 PM EDT us Lisset BONILLA Final Result Performing Organization Address [facility] de Phone Number [facility] * [facility] APTT (10/23/2024 11:45 AM EDT) PARTIAL THROMBOPLASTIN TIME 25.4 22.3 - 36.2 sec TB 10/23/2024 11:4 5 AM EDT 10/23/2024 12:00 PM EDT Narrative CLINISYNC - 10/23/2024 12:25 PM EDT Lisset WILDER CLINISYNC Final Result CLINISYNC TB * ALL URIC ACID (10/23/2024 11:45 AM EDT) URIC ACID 5.1 2.6 - 6.0 mg/dL TB 10/23/2024 11:4 5 AM EDT 10/23/2024 12:00 PM EDT Narrative CLINISYNC - 10/23/2024 12:25 PM EDT Lisset WILDER [facility]IN[facility] Final Result Performing Organization Address [facility] Co de Phone Number CLINISYNC TB * ALL LDH (10/23/2024 11:45 AM EDT) LACTATE DEHYDROGENASE 159 81 - 234 U/L TB 10/23/2024 11:4 5 AM EDT 10/23/2024 12:00 PM EDT Narrative CLINISYNC - 10/23/2024 12:25 PM EDT Lisset WILDER CLINIS[facility] Final Result Performing Organization Address City/[facility]/ZIP Co de Phone Number [facility] * (ABNORMAL) ALL CBC WITH AUTO DIFF (10/23/2024 11:45 AM EDT) Only the most recent of2 resultswithin the time period is included. TBH WBC 8.6 4.0 - 11.0 10 3/uL TBH TBH RBC 4.18(L) 4.20 - 5.40 10 6/uL TBH TBH HGB 12.1 12.0 - 16.0 g/dL TBH TBH HCT 36.0 36.0 - 48.0 % TBH [...] CLINISYNC - 10/23/2024 12:21 PM EDT Lisset BONILLA Final Result [facility] * ALL BUN (10/23/2024 11:45 AM EDT) BLOOD UREA NITROGEN 11.0 7.0 - 18.0 mg/dL TBH 10/23/2024 11:4 5 AM EDT 10/23/2024 12:00 PM EDT Narrative CLINISYNC - 10/23/2024 12:25 PM EDT Lisset Hernesto PA CLINISYNC Final Result CLINISYNC TB * (ABNORMAL) TBH URINE T PROTEIN CREAT RATIO (09/30/2024 6:26 PM EDT) TOTAL PROTEIN URINE RANDOM 29.2(H) <=11.9 mg/dL TBH CREATININE URINE RANDOM 129.24 20.00 - 300.00 mg/dL TBH PROTEIN CREATININE RATIO URINE 0.23 TBH 09/30/2024 6:26 PM EDT 09/30/2024 7:51 PM EDT Narrative CLINISYNC - 09/30/2024 7:59 PM EDT us Valente Pfeiffer DO CLINIS[facility]NC Final Result Performing Organization Address [facility]/ZIP Co de Phone Number CLINISYNC TB * GLUCOSE 1 HOUR (08/24/2024 11:47 AM EDT) GLUCOSE 1 HOUR 86 <130 mg/dL TBH 08/24/2024 11:4 7 AM EDT 08/24/2024 11:53 AM EDT Narrative CLINISYNC - 08/24/2024 12:25 PM EDT Riya Gomez COMPLIANCE REPRESENTATIVE DEALER LAB BLOOD ORDERABLES Final Re sult [facility]INISYNC TB from Last 3 Months Insurance [employer] MEDICAID [place] Care Teams Magazine Editor Relationship Specialty Start Date End Date Sabas Kimbrough MD [address] [place] [address] PCP - General Family Medicine 09/16/22
[2024-11-02] MEDS: 0.9 % SODIUM CHLORIDE 1,000 ML 999 ML IV (06:36)
[2024-11-02 07:17] LABS: Hematocrit 34.5 % (36.0-48.0); Hemoglobin 11.7 g/dL (12.0-16.0); Immature Granulocytes Abs Auto 0.14 10^3/uL (0.00-0.03); Immature Granulocytes Pct Auto 1.1 % (0.0-0.5); Lymphocytes Absolute Auto 2.7 10^3/uL (1.2-3.8); Mean Corpuscular HGB Conc 33.9 g/dL (29.9-35.2); Mean Corpuscular Hemoglobin 29.2 pg (26.7-34.0); Mean Corpuscular Volume 86.0 fL (81.0-99.0); Platelet Count 162 10^3/uL (150-450); Red Blood Count 4.01 10^6/uL (4.20-5.40); White Blood Count 12.5 10^3/uL (4.0-11.0)
[2024-11-02 07:21] LABS: Alanine Aminotransferase 18 U/L (14-59); Aspartate Amino Transferase 17 U/L (15-37); Blood Urea Nitrogen 17.0 mg/dL (7.0-18.0); Estimated GFR (African America >60 (>=60 mL/min/1.73m^2); Estimated GFR (Non-African Ame >60 (>=60 mL/min/1.73m^2); Uric Acid 5.2 mg/dL (2.6-6.0)
[2024-11-02 07:26] LABS: Protein Creatinine Ratio Urine 1.43; Total Protein Urine Random 297.0 mg/dL (<=11.9)
[2024-11-02] MEDS: LABETALOL HCL 20 MG/4 ML SYRINGE IVP (08:00)
[2024-11-02] MEDS: MAGNESIUM-BOLUS FROM THE BAG- 40 GM/1,000 ML IV.SOLN IV (08:15)
[2024-11-02 08:23] LABS: Partial Thromboplastin Time 25.6 sec (22.3-36.2); Prothrombin Time 9.3 sec (9.0-11.6)
[2024-11-02 08:30] LABS: INR <0.93
[2024-11-02 08:31] LABS: Fibrinogen 391 mg/dL (200-400)
[2024-11-02] MEDS: LABETALOL HCL 20 MG/4 ML SYRINGE 40 MG IVP (08:45)
[2024-11-02] MEDS: 0.9 % SODIUM CHLORIDE 1,000 ML 75 ML IV ×2 (08:45→20:10)
[2024-11-02] MEDS: MAGNESIUM SULFATE IN WATER 40 GM/1,000 ML IV.SOLN IV (08:45)
[2024-11-02] MEDS: OXYTOCIN/0.9 % SODIUM CHLORIDE 20 UNITS/1,000 ML PLAST..BAG 125 UNIT IV (09:35)
--- NOTE | 2024-11-02 09:44 | PM.OBPRCVD ---
Procedure Intrapartal events: None Induction method: none Delivery augmentation: rupture of membranes Delivery monitor: external FHT and external uterine Route of delivery: Episiotomy Description: none L&D Laceration Description: none Estimated blood loss (mL): 250 Anesthesia type: None Disposition: floor presentation: vertex Placental delivery description: Spontaneous cord description: 3 Vessels
[2024-11-02 09:52] LABS: Glucose Urine UA NEGATIVE (NEGATIVE)
[2024-11-02 10:00] LABS: Cast Seen? SEEN #/LPF (NONE SEEN); Crystals Seen? None Seen #/HPF (None Seen); Urine Culture Indicated NO
[2024-11-02 10:17] LABS: Cannabinoid Screen Urine POSITIVE (NEGATIVE); Methamphetamines Screen Urine NEGATIVE (NEGATIVE); Tricyclic Antidepressant Urine NEGATIVE (NEGATIVE)
[2024-11-02] MEDS: HYDRALAZINE HCL 20 MG/ML VIAL 10 MG IVP (10:30)
--- NOTE | 2024-11-02 11:31 | PC.NURSE ---
0805 To room 255 ambulatory with significant other, Dr Gupta called with recent blood pressures and reflexes, pt c/o headache and spotty vision times last week. 2nd iv site begun in left forearm per Carolina Alonso RN, saline lock in place. 08 Magnesium sulfate 4 gm bolus begun in rt arm-reflexes 3+ upper and lower, pt demeanor with eyes closed, distant and muffled voice. pt slow to respond. Vomits, pt difficult to understand with garbled speech, c/o pain moaning periodically, states is nauseated and having back pain and ctxs.
[2024-11-02] MEDS: LABETALOL HCL 100 MG TABLET 200 MG PO ×2 (12:05→21:01)
--- NOTE | 2024-11-02 13:54 | PC.NURSE ---
1013 awakens a bit and baby skin to skin, mod gush rubra noted. 1030 Dr del rio notified of consisitent htn and hydralazine given per order, 1100 up to BSC with one assist, voids 900 with mod rubra, pt is steady on feet and awake and alert. 1110 Vomits 1230 asleep with snoring resp, awakens for RN easily and given labetalol oral per order 1300 up to bsc with minimal assist, pericare and mod rubra noted, pt alert and talkative.
[2024-11-03] VITALS (19 sets, daily range): BP systolic 123–181; BP diastolic 60–105; PULSE 67–84; TEMP 35.6–36.8
[2024-11-03] MEDS: LABETALOL HCL 100 MG TABLET 200 MG PO ×3 (04:40→21:07)
[2024-11-03] MEDS: MAGNESIUM SULFATE IN WATER 40 GM/1,000 ML IV.SOLN IV (04:45)
[2024-11-03 06:54] LABS: Hematocrit 30.1 % (36.0-48.0); Hemoglobin 9.8 g/dL (12.0-16.0); Immature Granulocytes Abs Auto 0.07 10^3/uL (0.00-0.03); Immature Granulocytes Pct Auto 0.6 % (0.0-0.5); Lymphocytes Absolute Auto 1.9 10^3/uL (1.2-3.8); Mean Corpuscular HGB Conc 32.6 g/dL (29.9-35.2); Mean Corpuscular Hemoglobin 28.3 pg (26.7-34.0); Mean Corpuscular Volume 87.0 fL (81.0-99.0); Platelet Count 115 10^3/uL (150-450); Red Blood Count 3.46 10^6/uL (4.20-5.40); White Blood Count 10.9 10^3/uL (4.0-11.0)
[2024-11-03] MEDS: DOCUSATE SODIUM 100 MG CAPSULE PO ×2 (08:13→21:07)
[2024-11-03] MEDS: ACETAMINOPHEN 325 MG TABLET 650 MG PO (09:07)
[2024-11-03] MEDS: 0.9 % SODIUM CHLORIDE 1,000 ML 75 ML IV (09:08)
--- NOTE | 2024-11-03 09:11 | PC.NURSE ---
pt calls out to nurse, c/o headache to rt side of head going into shoulder and feeling buzzed and kind of floaty to her head. pt states headache came on suddenly and rates it 5/10. vitals obtained. Tylenol given. Reflexes to Bilateral upper extremities +0, reflexes to bilateral lower extremities +2-3 bilateral clonus absent. pt denies any floaters, light flickers or spots. States she thinks she pulled muscle in her neck giving yesterday. Feet very sweaty and +1-2 pitting edema noted to feet only, no change since this mornings assessment.
--- NOTE | 2024-11-03 13:16 | PM.OBPN ---
OB - PN: Subj Subjective Patient comments: no complaints and pain well controlled status: doing well Exam Constitutional Vital Signs, click to edit/add: Last Vital Signs Temp 97.8 F 11/03/24 09:07 Pulse 67 11/03/24 12:55 Resp 16 11/03/24 13:00 BP 123/79 11/03/24 12:55 O2 Del Method Room Air 11/03/24 13:00 Documenting provider has reviewed patient's vital signs: yes Common normals: no apparent distress Respiratory Common normals: normal respiratory effort and clear to auscultation bilaterally Cardio Common normals: regular rate and regular rhythm GI Common normals: Normal to inspection, nondistended, normoactive bowel sounds present Extremity Common normals: no clubbing, cyanosis or edema and no calf tenderness Results Labs Labs: Short CBC 11/03/24 Range/Units 06:49 WBC 10.9 (4.0-11.0) 10^3/uL Hgb 9.8 L (12.0-16.0) g/dL Hct 30.1 L (36.0-48.0) % Plt Count 115 L (150-450) 10^3/uL OB - PN: A/P Assessment and Plan (1) Severe preeclampsia: Assessment and Plan: cont labetalol, dc magnesium Plan - Vaginal Delivery day: 1 Time Spent with Patient Time: Total time spent is greater than 50% in coordination of care (as documented) at patient's floor/unit and/or counseling patient: Total time spent with greater than 50% in coordination of care (as documented) at patient's floor/unit and/or counseling patient: less than 15 minutes
[2024-11-03] MEDS: IBUPROFEN 600 MG TABLET PO (21:13)
[2024-11-04 06:14] VITALS: BP 155/75; PULSE 77
[2024-11-04] MEDS: LABETALOL HCL 100 MG TABLET 200 MG PO (06:15)
[2024-11-04 09:11] VITALS: BP 143/81; PULSE 74; TEMP 37.3
--- NOTE | 2024-11-04 11:12 | PM.OBPN ---
OB - PN: Subj Subjective Patient comments: no complaints [place] status: doing well feeding status: exclusively Exam Constitutional Vital Signs, click to edit/add: Last Vital Signs Temp 99.1 F 11/04/24 09:11 Pulse 74 11/04/24 09:11 Resp 16 11/04/24 09:11 BP 143/81 H 11/04/24 09:11 O2 Del Method Room Air 11/04/24 09:10 Documenting provider has reviewed patient's vital signs: yes Common normals: no apparent distress and oriented x3 General appearance: cooperative, comfortable and well kempt Orientation/consciousness: Yes awake, Yes oriented to person, Yes oriented to place and Yes oriented to time HENMT Common normals: normocephalic Eye Common normals: EOMs intact bilaterally Neck & C-Spine Common normals: full ROM and no lymphadenopathy General: normal visual inspection Lymph Lymphatic: no lymphadenopathy noted Chest Common normals: inspection of chest normal Respiratory Common normals: normal respiratory effort, no retractions, no use of accessory muscles and clear to auscultation bilaterally Effort & inspection: able to speak in complete sentences Auscultation: clear to auscultation bilaterally Cardio Common normals: regular rate and regular rhythm Rate: regular rate Rhythm: regular rhythm GI Common normals: Normal to inspection, nondistended, normoactive bowel sounds present, non-tender and no masses Inspection: normal to inspection Auscultation: normoactive bowel sounds Palpation: soft Common normals: no CVA tenderness Back & Pelvis Common normals: no CVA tenderness Thoracic spine/upper back: normal to inspection Lumbar spine/lower back: normal to inspection Extremity Common normals: normal to inspection and full ROM Neuro Common normals: oriented x3 Sensorium/orientation: awake, alert, oriented to person, oriented to place and oriented to time Psych Common normals: mental status grossly normal, thought process normal, cooperative, affect normal, speech normal, activity/motor behavior normal, denies hallucinations, denies homicidal ideation and denies suicidal ideation Appearance: grossly normal Attitude: calm Activity/motor behavior: appropriate eye contact Speech: normal speech Thought process: normal thought process Thought content: normal thought content OB - PN: A/P Assessment and Plan (1) Severe preeclampsia: Qualifiers: Trimester: third trimester Qualified Code(s): O14.13 - Severe pre-eclampsia, third trimester Plan - Vaginal Delivery day: 2 Plan: discharge home Time Spent with Patient Time: Total time spent is greater than 50% in coordination of care (as documented) at patient's floor/unit and/or counseling patient: Total time spent with greater than 50% in coordination of care (as documented) at patient's floor/unit and/or counseling patient: less than 15 minutes
[2024-11-04] MEDS: IBUPROFEN 600 MG TABLET PO (11:42)
[2024-11-04] MEDS: DOCUSATE SODIUM 100 MG CAPSULE PO (11:43)
[2024-11-07 01:10] LABS: Carboxy THC Conf, MS, UR >750 ng/mL (Cutoff=10)
== END 2024-11-04 12:30 | disposition home or self-care (01) | DRG 560 ==
PROVIDERS: Admitting Provider Obstetrics & Gynecology; PCP Family Medicine; Visit Provider Obstetrics & Gynecology
DX: O14.14 Severe pre-eclampsia complicating childbirth (principal); O99.324 Drug use complicating childbirth; F12.90 Cannabis use, unspecified, uncomplicated; Z3A.38 38 weeks gestation of pregnancy; Z37.0 Single live birth; O99.334 Smoking (tobacco) complicating childbirth; F17.210 Nicotine dependence, cigarettes, uncomplicated
CPT/HCPCS: 36415; 59025; 59050; 59410; 76816; 80307; 80349; 81001; 82565; 82570; 84156; 84450; 84460; 84520; 84550; 85025; 85384; 85610; 85730; 86850; 86900; 86901; J0360; J1920; J2405; J3475

== ENCOUNTER 2024-11-16 10:00 | Observation (INO) | payer MEDICAID, SELFPAY ==
[2024-11-16] VITALS (39 sets, daily range): BP systolic 105–179; BP diastolic 61–114; PULSE 54–87; TEMP 36.7–36.8; O2SAT 97–100; BMI 26.6
--- NOTE | 2024-11-16 10:15 | ECG_ITS ---
[facility] Test Date: 2024-11-16 Pat Name: GUILLERMO PACE Department: Room: - Gender: Female Sas Analyst: : 1995 Requested By: Order Number: [id number] Reading MD: STEFAN BELL M.D. Measurements Intervals [place] Rate: 72 P: 53 NH: 142 QRS: 106 QRSD: 92 T: 69 QT: 376 QTc: 400 Interpretive Statements 1100 Sinus rhythm 7100 Abnormal right axis deviation 9130 borderline ECG Compared to ECG 09/30/2024 17:31:01 No significant changes Electronically Signed On 11-17-2024 8:18:20 EDT by STEFAN BELL M.D.
--- NOTE | 2024-11-16 10:15 | CT_ITS ---
The [address] [address] Patient Name: GUILLERMO PACE MRN: [id number] date: 1995 Sex: F Assigned Patient Location: ED.MAIN Current Patient Location: ED.MAIN Accession/Order Number: [id number] Exam Date: 11/16/2024 11:09 Report Date: 11/16/2024 11:17 At the request of: LILLY CARRILLO MD Procedure: CT head/brain wo con CT BRAIN WITHOUT CONTRAST: CLINICAL HISTORY: Hypertension, possible seizure COMPARISON: None TECHNIQUE: Contiguous axial unenhanced images were obtained through the brain. This CT exam was performed using one or more following dose reduction techniques: Automated exposure control, adjustment of the mA and/or kV according to patient size, or use of iterative reconstruction technique. FINDINGS: There is no evidence of midline shift, intra or extra-axial fluid collection, hemorrhage or CT evidence of stroke. Posterior fossa appears unremarkable. Visualized intraorbital contents demonstrate no acute findings. Visualized paranasal sinuses are clear. The surrounding soft tissues are normal. CT/CT head/brain wo con IMPRESSION: NO ACUTE INTRACRANIAL ABNORMALITY. Impression dictated by: Markie Hoyt Jr., D.O. 11/16/2024 11:17 AM Dictation Location: [facility] Electronically authenticated by: [id number] Y Date: 11/16/2024 11:17
--- NOTE | 2024-11-16 10:15 | ED.GENADUL1 ---
HPI HPI - General Adult General Chief complaint: Recheck/Abnormal Lab/Rx Stated complaint: HIGH BLOOD PRESSURE Time Seen by Provider: 11/16/24 10:09 Source: patient Mode of arrival: walk-in History of Present Illness HPI narrative: 28-year-old female presents to the emergency department for elevated blood pressure and possible seizure. She had vaginal delivery 2 weeks ago and had issues with her blood pressure and was on labetalol. She has no previous history of -induced hypertension or hypertension. No fever or headache. She had what may have been a seizure 3 days ago. She does not remember any of it but her boyfriend had told her that she was laying on the couch and started to sit up like she was choking and after short period of time she went unresponsive and he could not wake her up. She has never had a seizure before and it did not recur. Related Data Previous Rx's ?Medication ?Instructions ?Recorded ibuprofen 800 mg tablet 800 mg PO Q8H PRN Moderate Pain 11/04/24 #60 tabs labetalol 200 mg tablet 200 mg PO TID #90 tabs 11/04/24 Allergies Allergy/AdvReac Type Severity Reaction Status Date / Time pollen extracts Allergy Intermediate unknown Verified 09/30/24 17:32 Opioid HPI Opioid Management Most Recent Opioid Data: Last Pain Scale 5 11/04/24, 11:42 Urine Cannabinoids, (.) Positive A 11/02/24, 06:15 Ur Phencyclidine Scrn, (NEGATIVE) Negative Today, 10:45 Review of Systems ROS Narrative A ten point review of systems is negative except as noted above. PFSH PFSH Social History Highest level of school completed/degree received: some college, no degree Little interest or pleasure in doing things: not at all Feeling down, depressed, or hopeless: not at all Exam Narrative Exam Narrative: Nurses note and vital signs reviewed and patient is not hypoxic. General: The patient appears well and in no apparent distress. Patient is resting comfortably on cart. Skin: Warm, dry, no pallor noted. There is no rash noted. Head: Normocephalic, atraumatic Eye: Normal conjunctiva, no drainage, EOMI. PERRL Ears, Nose, Mouth, and Throat: oral mucosa is moist. Nares patent. Cardiovascular: Regular Rate and Rhythm Respiratory: Patient is in no distress, no accessory muscle use, lungs are clear to auscultation, no wheezing, rales or rhonchi Back: non-tender GI: Soft nontender barbie Musculoskeletal: The patient has no evidence of calf tenderness, no pitting edema, symmetrical pulses noted bilaterally Neurological: A&O x4, normal speech; upper and lower extremity strength 5 out of 5 and symmetric, neck supple Psychiatric: Cooperative Constitutional Vital Signs, click to edit/add: Last Vital Signs Temp 98.3 F 11/16/24 10:04 Pulse 73 11/16/24 12:00 Resp 15 11/16/24 12:00 BP 148/101 H 11/16/24 11:45 Pulse Ox 98 11/16/24 12:00 O2 Del Method Room Air 11/16/24 10:04 Course Vital Signs Vital signs: Vital Signs Temperature 98.3 F 11/16/24 10:04 Pulse Rate 76 11/16/24 10:04 Respiratory Rate 18 11/16/24 10:04 Blood Pressure 160/110 H 11/16/24 10:04 Pulse Oximetry 97 11/16/24 10:04 Oxygen Delivery Method Room Air 11/16/24 10:04 Temperature 98.3 F 11/16/24 10:04 Pulse Rate 73 11/16/24 12:00 Respiratory Rate 15 11/16/24 12:00 Blood Pressure 148/101 H 11/16/24 11:45 Pulse Oximetry 98 11/16/24 12:00 Oxygen Delivery Method Room Air 11/16/24 10:04 Medical Decision Making [facility] Narrative Medical decision making narrative: Her workup including CT brain is negative. Blood pressure is elevated but has improved slightly without intervention. Case discussed with Dr. Pfeiffer and the patient will be sent to labor and delivery for further care. Case is discussed with him and the patient was given oral labetalol here and the plan is to send her upstairs for IV magnesium. Treatment diagnosis and disposition were discussed with the patient. Lab Data Lab results reviewed: Yes I reviewed the patient's lab results Labs: Lab Results 11/16/24 11/16/24 Range/Units 10:20 10:45 WBC 6.2 (4.0-11.0) 10^3/uL RBC 4.02 L (4.20-5.40) 10^6/uL Hgb 11.5 L (12.0-16.0) g/dL Hct 34.8 L (36.0-48.0) % MCV 86.6 (81.0-99.0) fL MCH 28.6 (26.7-34.0) pg MCHC 33.0 (29.9-35.2) g/dL RDW 13.4 (11.0-15.0) % Plt Count 193 (150-450) 10^3/uL MPV 10.6 (9.5-13.5) fL Neut % (Auto) 63.5 (43.0-75.0) % Lymph % (Auto) 27.9 (20.5-60.0) % [place] % (Auto) 4.0 (1.7-12.0) % Eos % (Auto) 3.8 (0.9-7.0) % Baso % (Auto) 0.5 (0.2-2.0) % Neut # (Auto) 4.0 (1.4-6.5) 10^3/uL Lymph # (Auto) 1.7 (1.2-3.8) 10^3/uL [place] # (Auto) 0.3 (0.3-0.8) 10^3/uL Eos # (Auto) 0.2 (0.0-0.7) 10^3/uL Baso # (Auto) 0.0 (0.0-0.1) 10^3/uL Abs Immat Gran (auto) 0.02 (0.00-0.03) 10^3/uL Imm/Tot Granulo (auto) 0.3 (0.0-0.5) % Sodium 140 (136-145) mmol/L Potassium 3.6 (3.5-5.1) mmol/L Chloride 106 (98-107) mmol/L Carbon Dioxide 27.3 (21.0-32.0) mmol/L Anion Gap 10.3 BUN 14.0 (7.0-18.0) mg/dL Creatinine 0.64 (0.55-1.02) mg/dL Est GFR ( Amer) >60 (>=60 mL/min/1.73m^2) Est GFR (Non-Af Amer) >60 (>=60 mL/min/1.73m^2) BUN/Creatinine Ratio 21.9 Glucose 95 (74-106) mg/dL Calcium 8.3 L (8.5-10.1) mg/dL Magnesium 1.8 (1.8-2.4) mg/dL Urine Color Lt. yellow (YELLOW) Urine Clarity Clear (CLEAR) Urine pH 6.0 (5.0-9.0) Ur Specific [place] 1.010 (1.005-1.025) Urine Protein Negative (NEG/TRACE) mg/dL Urine Glucose (UA) Negative (NEGATIVE) mg/dL Urine Ketones Negative (NEGATIVE) mg/dL Urine Occult Blood Negative (NEGATIVE) Urine Nitrite Negative (NEGATIVE) Urine Bilirubin Negative (NEGATIVE) Urine Urobilinogen 0.2 (0.2-1.0) EU/dL Ur Leukocyte Esterase Small A (NEGATIVE) Urine RBC 0-2 (0-2) #/HPF Urine WBC 2-5 A (NONE SEEN) #/HPF Ur Squamous Epith Cells Few A (NONE/RARE) #/LPF Urine Crystals None seen (None Seen) #/HPF Urine Bacteria Small A (NONE SEEN) #/HPF Urine Casts None seen (NONE SEEN) #/LPF Urine Mucus Trace A (NONE SEEN) Ur Culture Indicated? [facility] Urine Opiates Screen Negative (NEGATIVE) Ur Buprenorphine Scrn Negative (NEGATIVE) Ur Oxycodone Screen Negative (NEGATIVE) Urine Methadone Screen Negative (NEGATIVE) Ur Barbiturates Screen Negative (NEGATIVE) U Tricyclic Antidepress Negative (NEGATIVE) Ur Phencyclidine Scrn Negative (NEGATIVE) Ur Amphetamines Screen Negative (NEGATIVE) U Methamphetamines Scrn Negative (NEGATIVE) U Benzodiazepines Scrn Negative (NEGATIVE) Urine Cocaine Screen Negative (NEGATIVE) U Cannabinoids Screen Positive A (NEGATIVE) Ethanol Quant <3 mg/dL Imaging Data CT scan - head: Radiologist's impression: ITS Impressions Head CT 11/16/24 10:15 IMPRESSION: NO ACUTE INTRACRANIAL ABNORMALITY. Impression dictated by: Markie Hoyt Jr., D.O. 11/16/2024 11:17 AM Dictation Location: [facility] Electronically authenticated by: [id number] Y Date: 11/16/2024 11:17 ECG Data Attestation: I personally reviewed and interpreted this ECG as follows: (EKG on my interpretation shows sinus rhythm with rate of 72 and no acute change) Discharge Plan Discharge Chief Complaint: Recheck/Abnormal Lab/Rx Clinical Impression: induced hypertension Patient Disposition: Admitted as Observation Time of Disposition Decision: 11:45 Condition: Fair
[2024-11-16 10:39] LABS: Hematocrit 34.8 % (36.0-48.0); Hemoglobin 11.5 g/dL (12.0-16.0); Immature Granulocytes Abs Auto 0.02 10^3/uL (0.00-0.03); Immature Granulocytes Pct Auto 0.3 % (0.0-0.5); Lymphocytes Absolute Auto 1.7 10^3/uL (1.2-3.8); Mean Corpuscular HGB Conc 33.0 g/dL (29.9-35.2); Mean Corpuscular Hemoglobin 28.6 pg (26.7-34.0); Mean Corpuscular Volume 86.6 fL (81.0-99.0); Platelet Count 193 10^3/uL (150-450); Red Blood Count 4.02 10^6/uL (4.20-5.40); White Blood Count 6.2 10^3/uL (4.0-11.0)
[2024-11-16 10:54] LABS: Anion Gap 10.3; Blood Urea Nitrogen 14.0 mg/dL (7.0-18.0); Calcium 8.3 mg/dL (8.5-10.1); Carbon Dioxide 27.3 mmol/L (21.0-32.0); Chloride 106 mmol/L (98-107); Estimated GFR (African America >60 (>=60 mL/min/1.73m^2); Estimated GFR (Non-African Ame >60 (>=60 mL/min/1.73m^2); Glucose 95 mg/dL (74-106); Magnesium 1.8 mg/dL (1.8-2.4); Potassium 3.6 mmol/L (3.5-5.1); Sodium 140 mmol/L (136-145)
[2024-11-16 11:13] LABS: Glucose Urine UA NEGATIVE (NEGATIVE)
[2024-11-16 11:24] LABS: Cannabinoid Screen Urine POSITIVE (NEGATIVE); Methamphetamines Screen Urine NEGATIVE (NEGATIVE); Tricyclic Antidepressant Urine NEGATIVE (NEGATIVE)
[2024-11-16 11:34] LABS: Cast Seen? NONE SEEN #/LPF (NONE SEEN); Crystals Seen? None Seen #/HPF (None Seen); Urine Culture Indicated YES-FRMC
[2024-11-16] MEDS: LABETALOL HCL 100 MG TABLET 300 MG PO (12:16)
[2024-11-16 12:45] LABS: Alanine Aminotransferase 26 U/L (14-59); Albumin Globulin Ratio 1.0; Albumin Level 3.5 g/dL (3.4-5.0); Alkaline Phosphatase 99 U/L (46-116); Aspartate Amino Transferase 18 U/L (15-37); Globulin 3.5 g/dL; Total Protein 7.0 g/dL (6.4-8.2)
[2024-11-16] MEDS: 0.9 % SODIUM CHLORIDE 1,000 ML 75 ML IV (12:51)
[2024-11-16] MEDS: MAGNESIUM-BOLUS FROM THE BAG- 40 GM/1,000 ML IV.SOLN IV (12:53)
[2024-11-16] MEDS: MAGNESIUM SULFATE IN WATER 40 GM/1,000 ML IV.SOLN IV (13:17)
--- NOTE | 2024-11-16 20:03 | PC.NURSE ---
1951 - RN to bedside with off going RN. Bedside report completed. Pt assisted with SBA to BR. Tolerated well. Gait steady without difficulty. I&O as charted. VSS as charted. Mag infusion continues as charted. Lung sounds clear, BS active, Heart tones regular. Pt denies needs or complaints at present time. No neuro deficits noted. reminded patient to use call light when she does need anything. Water refreshed.
[2024-11-17] VITALS (12 sets, daily range): BP systolic 110–141; BP diastolic 68–97; PULSE 64–86; TEMP 36.6–36.7; O2SAT 98
--- NOTE | 2024-11-17 00:46 | PM.OBHP ---
OB - H&P: HPI History of Present Illness Chief complaint: HIGH BLOOD PRESSURE INDUCED HYPERTENSION : 2 Para: 2 Gestational age based on last menstrual period: pp 2wks Narrative: 28 yo at 2wks pp was admitted from er dt elevated bp and possible seizure like activity per report from boyfriend, pt had ct performed which was neg, pt was placed on magnesium and labetalol increased to 300mg po tid, labs reviewed History of Present complications: preeclampsia Review of Systems ROS Status of ROS: 10 or more systems reviewed and unremarkable except as noted in history and below PFSH PFSH Social History Highest level of school completed/degree received: some college, no degree Little interest or pleasure in doing things: not at all Feeling down, depressed, or hopeless: not at all Meds Home Medications and Allergies Home Medications ?Medication ?Instructions ?Recorded ?Confirmed ?Type ibuprofen 800 mg tablet 800 mg PO Q8H PRN Moderate Pain 11/04/24 11/16/24 Rx #60 tabs labetalol 200 mg tablet 200 mg PO TID #90 tabs 11/04/24 11/16/24 Rx Allergies Allergy/AdvReac Type Severity Reaction Status Date / Time pollen extracts Allergy Intermediate unknown Verified 09/30/24 17:32 Exam Constitutional Vital Signs, click to edit/add: Last Vital Signs Temp 98.0 F 11/16/24 18:50 Pulse 78 11/17/24 00:09 Resp 18 11/17/24 00:09 BP 132/82 11/17/24 00:09 Pulse Ox 98 11/17/24 00:09 O2 Del Method Room Air 11/17/24 00:09 Documenting provider has reviewed patient's vital signs: yes Common normals: no apparent distress Respiratory Common normals: normal respiratory effort and clear to auscultation bilaterally Cardio Common normals: regular rate and regular rhythm GI Common normals: Normal to inspection, nondistended, normoactive bowel sounds present Extremity Common normals: no clubbing, cyanosis or edema and no calf tenderness Results Labs Labs: Short CBC 11/16/24 Range/Units 10:20 WBC 6.2 (4.0-11.0) 10^3/uL Hgb 11.5 L (12.0-16.0) g/dL Hct 34.8 L (36.0-48.0) % Plt Count 193 (150-450) 10^3/uL BMP 11/16/24 10:20 Sodium 140 Potassium 3.6 Chloride 106 Carbon Dioxide 27.3 BUN 14.0 Creatinine 0.64 Glucose 95 Calcium 8.3 L Liver Function 11/16/24 Range/Units 10:20 Total Bilirubin 0.8 (0.2-1.0) mg/dL Direct Bilirubin 0.1 (0.0-0.2) mg/dL AST 18 (15-37) U/L ALT 26 (14-59) U/L Alkaline Phosphatase 99 (46-116) U/L Albumin 3.5 (3.4-5.0) g/dL Urine 11/16/24 Range/Units 10:45 Urine Color Lt. yellow (YELLOW) Urine Clarity Clear (CLEAR) Urine pH 6.0 (5.0-9.0) Ur Specific [place] 1.010 (1.005-1.025) Urine Protein Negative (NEG/TRACE) mg/dL Urine Glucose (UA) Negative (NEGATIVE) mg/dL OB - A/P Assessment and Plan (1) Severe pre-eclampsia, : Assessment and Plan: labs reviewed, cont magnesium, cont labetalol, cont expectant mgmt
[2024-11-17] MEDS: 0.9 % SODIUM CHLORIDE 1,000 ML 75 ML IV (01:27)
[2024-11-17] MEDS: MAGNESIUM SULFATE IN WATER 40 GM/1,000 ML IV.SOLN IV (07:40)
[2024-11-17] MEDS: IBUPROFEN 600 MG TABLET PO (08:11)
[2024-11-17] MEDS: LABETALOL HCL 100 MG TABLET 300 MG PO ×2 (08:12→14:18)
[2024-11-17] MEDS: ONDANSETRON 4 MG RAPDIS TABLET SL (08:13)
--- NOTE | 2024-11-17 09:43 | PC.NURSE ---
07 2nd bag of magnesium begun at 2gm/hr. pt c/o nausea and dull headache, orders received and medicated for same as well as morning labetalol. Pt states headache is a tired dull headache but denies throbbing headache, shortness of breath or epigastric pain. HR s1s2 regular. Discussed plan of care with pt regarding continuing labetalol 300 TID, mag off at noon and hopeful discharge around 5 pm with follow up Tuesday or Tuesday. States feeling tired and encouraged to rest
--- NOTE | 2024-11-17 14:41 | PC.NURSE ---
1420 Awake, states feels much better, states I feel more normal. Reflexes 1+ upper and lower, no edema, reeder, epigastric pain or spotty vision. Medicated with labetalol
--- NOTE | 2024-11-17 17:46 | PC.NURSE ---
1630 Assessed, no complaints - reflexes 1+upper, 2+ lower, lungs clear, no swelling. Discussed dc with Dr Pfeiffer and pt given dc instructions with review of same, ivs discontinued intact, pt dc home
--- NOTE | 2024-11-19 15:28 | CM.NOTE ---
Faxed urine culture to Dr. Pfeiffer.
--- NOTE | 2024-11-20 13:41 | CM.NOTE ---
Called Dr. Pfeiffer's office with final urine culture results and faxed information.
== END 2024-11-17 17:30 | disposition home or self-care (01) ==
LOC: ER 11:45 → FBC 12:28
PROVIDERS: Admitting Provider Obstetrics & Gynecology; Emergency Provider Emergency Medicine; PCP Family Medicine; Visit Provider Obstetrics & Gynecology
DX: O14.15 Severe pre-eclampsia, complicating the puerperium (principal); O13.5 Gestational [pregnancy-induced] hypertension without significant proteinuria, complicating the puerperium
CPT/HCPCS: 36415; 70450; 80048; 80076; 80307; 80320; 81001; 83735; 85025; 87086; 87088; 93005; 96365; 96366; 96376; 99285; G0378; J3475; Q0162